=== PATIENT | female | born 1935 | race Caucasian/White ===

== ENCOUNTER → 2017-01-08 | Outpatient (CLI) | payer MEDICARE, BC ==
[2017-01-08 19:00] LABS: Blood Urea Nitrogen 22 mg/dL (7-17); Non-African American GFR(MDRD) >60 (>60 ml/min/1.73 sqM)
--- NOTE | 2017-01-08 21:16 | CT ---
EXAMINATION TYPE: CT abdomen pelvis w con DATE OF EXAM: 01/08/2017 COMPARISON: NONE HISTORY: Abdominal pain and hernia. CT DLP: 392.7 mGycm Automated exposure control for dose reduction was used. TECHNIQUE: Helical acquisition of images was performed from the lung bases through the pelvis. CONTRAST: Performed with Oral Contrast and with IV Contrast, patient injected with 100 mL of Omnipaque 300. FINDINGS: Lung bases are clear of consolidation. There is no pleural effusion. There is an irregular shaped high attenuation in the lateral aspect right lobe of the liver that coul d relate to hemangioma. Bile ducts are upper limit of normal. Common bile duct is 10 mm. There is no evidence of a pancreatic mass. Spleen appears normal. There is no adrenal mass. Kidneys show satisfactory contrast opacification. There is no hydronephrosi s. There is a ventral hernia that contains bowel. There is no evidence of incarceration. There is ret ained fecal material in the right colon. There are a few sigmoid diverticula. There is no sign of div erticulitis. I see no sign of a bowel obstruction. Bladder distends smoothly. There is metal artifact from right hip prosthesis. There is multilevel spondylosis in the lumbar spine. Abdominal aorta is a theromatous.. Gallbladder wall is slightly thickened. IMPRESSION: SPONDYLOSIS IN THE LUMBAR SPINE. VENTRAL HERNIA CONTAINS OMENTAL FAT AND BOWEL. NO EVIDENCE OF OBSTRU CTION. MILD CONSTIPATION. MILD SIGMOID DIVERTICULOSIS. MILD GALLBLADDER WALL THICKENING AND PROMINENT COMMON BILE DUCT CONSISTENT WITH GALLBLADDER DYSFUNCTI ON. OBSTRUCTION OF THE DISTAL COMMON BILE DUCT CANNOT BE EXCLUDED. MRCP WOULD BE HELPFUL FOR FURTHER EVALUATION. CHOLECYSTITIS SHOULD BE CONSIDERED.
== END | disposition home or self-care (01) ==
LOC: RADCTMAIN 18:05
PROVIDERS: ATTEND Surgery
DX: K43.9 Ventral hernia without obstruction or gangrene (principal); K59.00 Constipation, unspecified; K57.30 Diverticulosis of large intestine without perforation or abscess without bleeding; K82.8 Other specified diseases of gallbladder; K81.9 Cholecystitis, unspecified
CPT/HCPCS: 82565; 84520; 74177; 36415; Q9967

== ENCOUNTER 2017-12-03 17:51 | Inpatient (IN) | payer MEDICARE, BC ==
[2017-12-03] MEDS ORDERED: SODIUM CHLORIDE 0.9% 1,000 ML IV STA (17:58)
--- NOTE | 2017-12-03 18:00 | ED ---
General Adult HPI - General Stated complaint: gallstones Time Seen by Provider: 12/03/17 17:54 Source: RN notes reviewed, old records reviewed - History of Present Illness Initial comments: This is an 8-year-old female the ER for evaluation. Patient is extensively evaluation of transfer, patient is accepted for surgical evaluation secondary positive gallbladder disease, cholecystitis positive stone. Patient himself has pain control. No current fever - Related Data Home Medications Medication Instructions Recorded Confirmed Aspirin EC [Ecotrin] 81 mg PO DAILY 08/04/14 08/05/14 Calcium Carb-Vit D 500Mg-200Un 1 each PO DAILY 08/04/14 08/05/14 [Oscal 500+D] Multivitamin [Men's Multi-Vitamin] 1 each PO DAILY 08/04/14 08/05/14 Oxybutynin Chloride [Ditropan] 5 mg PO DAILY 08/04/14 08/05/14 amLODIPine [Norvasc] 10 mg PO DAILY 08/04/14 08/05/14 Allergies Allergy/AdvReac Type Severity Reaction Status Date / Time cephalexin [From Keflex] Allergy Unknown Verified 12/03/17 17:55 ciprofloxacin [From Cipro] Allergy Unknown Verified 12/03/17 17:55 iodine Allergy Unknown Verified 12/03/17 17:55 Review of Systems ROS Statement: Those systems with pertinent positive or pertinent negative responses have been documented in the HPI. ROS Other: All systems not noted in ROS Statement are negative. Past Medical History Past Medical History: CVA/TIA, Hypertension, Myocardial Infarction ([place]) Last Myocardial Infarction Date:: 2004 History of Any Multi-Drug Resistant Organisms: None Reported Past Surgical History: Appendectomy, Hysterectomy Additional Past Surgical History / Comment(s): cataract Past Anesthesia/Blood Transfusion Reactions: No Reported Reaction Past Psychological History: No Psychological Hx Reported Smoking Status: Never smoker Past Alcohol Use History: None Reported Past Drug Use History: None Reported General Exam General appearance: alert, in no apparent distress Head exam: Present: atraumatic, normocephalic, normal inspection Eye exam: Present: normal appearance, PERRL, EOMI. Absent: scleral icterus, conjunctival injection, periorbital swelling ENT exam: Present: normal exam, mucous membranes moist Neck exam: Present: normal inspection. Absent: tenderness, meningismus, lymphadenopathy Respiratory exam: Present: normal lung sounds bilaterally. Absent: respiratory distress, wheezes, rales, rhonchi, stridor Cardiovascular Exam: Present: regular rate, normal rhythm, normal heart sounds. Absent: systolic murmur, diastolic murmur, rubs, gallop, clicks GI/Abdominal exam: Present: soft, normal bowel sounds. Absent: distended, tenderness, guarding, rebound, rigid Extremities exam: Present: normal inspection, full ROM, normal capillary refill. Absent: tenderness, pedal edema, joint swelling, calf tenderness Back exam: Present: normal inspection Neurological exam: Present: alert, oriented X3, CN II-XII intact Psychiatric exam: Present: normal affect, normal mood Skin exam: Present: warm, dry, intact, normal color. Absent: rash Course Vital Signs 12/03/17 17:55 Temperature 97.9 F Pulse Rate 96 Respiratory 20 Rate Blood Pressure 172/76 O2 Sat by Pulse 96 Oximetry - Reevaluation(s) Reevaluation #1: 12/03/17 18:20 transfer paperwork is reviewed, patient no current pain or distress 12/03/17 18:20 Medical Decision Making - Medical Decision Making 82 female the ER for evaluation. Patient as a transfer patient can see hospital as she had a fall earlier today. Patient abnormal lab values prompting CT showing positive dilated gallbladder with stone. - Radiology Data Radiology results: report reviewed (CT abdomen pelvis is positive for gallbladder dilated with stone) Disposition Clinical Impression: Abdominal pain, Cholecystitis, Choledocholithiasis Disposition: ADMITTED IP TO THIS [facility] Condition: Fair Is patient prescribed a controlled substance at d/c from ED?: No Referrals: Raul Sibley NPC [REFERRING] - 1-2 days
[2017-12-03] MEDS ORDERED: MORPHINE SULFATE 2 MG/ML SYRINGE IVP PRN (18:17)
[2017-12-03] MEDS ORDERED: ONDANSETRON 4 MG/2 ML VIAL IVP PRN (18:17)
[2017-12-03] MEDS ORDERED: AMPICILLIN-SULBACTAM 3 GM in SODIUM CHLORIDE 0.9% 100 ML IVPB STA (18:21)
[2017-12-03] MEDS: AMPICILLIN-SULBACTAM 3 GM in SODIUM CHLORIDE 0.9% 100 ML IVPB SCH (23:35)
[2017-12-04] MEDS: AMPICILLIN-SULBACTAM 3 GM in SODIUM CHLORIDE 0.9% 100 ML IVPB SCH ×3 (05:32→20:59)
--- NOTE | 2017-12-04 08:35 | US ---
EXAMINATION TYPE: US gallbladder DATE OF EXAM: 12/04/2017 COMPARISON: 01/08/2017 CLINICAL HISTORY: Abdominal pain. Poor historian EXAM MEASUREMENTS: Liver Length: 13.1 cm Gallbladder Wall: 0.3-0.4 cm CBD: 0.3 cm CHD: 0.4 cm Right Kidney: 9.8 x 4.2 x 4.3 cm Pancreas: Appears echogenic Liver: wnl Gallbladder: Posterior fundal layering avascular debris. Mildly thickened wall. Evidence for sonographic Sweet's sign: neg CBD: Thickened malin CHD: Thickened malin Right Kidney: Medial anechoic lesion at hilum = 0.9 x 1.0 cm representing a renal sinus cyst with in creased through transmission. Two echogenic foci with shadowing in lower pole = 0.4 cm and 0.4 cm rosie t demonstrate clinical artifact compatible with nonobstructing calculi. IMPRESSION: 1. Findings most compatible with tumefactive biliary sludge with prominence to mild thickening of the gallbladder wall and of the common bile duct wall suggesting more chronic inflammatory process. No c ommon bile duct dilatation or pericholecystic fluid to suggest acute cholecystitis. HIDA scan could b e performed if there is further clinical concern or laboratory values are equivocal. 2. Nonobstructing left renal calculi and left renal sinus cyst.
[2017-12-04 08:52] LABS: Basophils % (A) 0 %; Eosinophils % (A) 0 %; HCT 33.8 % (34.0-46.0); HGB 10.7 gm/dL (11.4-16.0); Hypochromasia Moderate; Lymphocytes # (A) 0.5 k/uL (1.0-4.8); Lymphocytes % (A) 3 %; MCHC 31.5 g/dL (31.0-37.0); MCV 95.2 fL (80.0-100.0); Mean Platelet Volume 7.3; Monocytes # (A) 0.5 k/uL (0-1.0); Monocytes % (A) 3 %; Neutrophils # (A) 14.5 k/uL (1.3-7.7); Neutrophils % (A) 92 %; Platelet Count 276 k/uL (150-450); RBC 3.55 m/uL (3.80-5.40); RDW 15.4 % (11.5-15.5); WBC 15.7 k/uL (3.8-10.6)
[2017-12-04] MEDS: ENOXAPARIN 40 MG/0.4 ML SYRINGE SQ SCH (09:02)
[2017-12-04 09:27] LABS: Albumin 3.2 g/dL (3.5-5.0); Calcium 9.5 mg/dL (8.4-10.2); Potassium 3.6 mmol/L (3.5-5.1); Total Bilirubin 5.5 mg/dL (0.2-1.3); Total Protein 5.8 g/dL (6.3-8.2)
[2017-12-04 09:29] LABS: INR 1.1 (<1.2)
--- NOTE | 2017-12-04 10:04 | P.CONS ---
History of Present Illness - Reason for Consult Consult date: 12/04/17 Choledocholithiasis Requesting physician: Rj Pagan - History of Present Illness 82-year-old female transferred from [facility] status post fall and elevated liver enzymes. Consult requested for choledocholithiasis. Additional past medical history aortic valve sclerosis, mild mitral and tricuspid insufficiency, hypertension, DJD, A. fib, pleural effusions Patient reports chronic midepigastric pain for several weeks without fever or hematemesis hematochezia or melena. Denies acholic stools unsure if urine appeared more dark. Multiple x-rays CT of neck negative for acute fractures. Chemistries reviewed from [place] total bilirubin 4.6. AST 153. ALT 160. AP 605. White count 21. Hemoglobin 11. Platelet 256. CT abdomen and pelvis reported gallstones and sludge CBD was not measured no mentioning of intra-or extrahepatic biliary dilatation. Liver spleen pancreas appeared normal. Ultrasound abdomen compatible with tumefactive biliary sludge CBD 0.3 cm. No common bile duct dilatation or pericholecystic fluid to suggest acute cholecystitis. She has been afebrile. Reports "soreness" in the midepigastric epigastric region. Receiving Unasyn. Presently white count is 15.7 improved from 21. Hemoglobin 10.7. Platelet 276. INR 1.1. Total bilirubin 5.5. AST 180. ALT 150. AP 587. Lipase 58. No history of known liver disease has no history of hepatitis. Hepatitis screen pending. Review of Systems Constitutional: Denies fever, chills, sweats, weight gain, or loss. HEENT: Negative for migraines, blurred vision or loss, earaches, drainage, tinnitus, oral mucosal lesions, dysphagia, or odynophagia. CARDIAC: Negative for chest pain, arrhythmias, or palpitation. RESPIRATORY: Negative for shortness of breath, hemoptysis, cough, or sputum production. GI: See HPI for pertinent findings. : Negative for hematuria, urgency, frequency, polyuria, or dysuria. GYNc: Negative vaginal discharge. MUSCULOSKELETAL: Negative for muscle aches, swelling, arthritis, and arthralgias. NEUROLOGIC: Negative for stroke or TIA. ENDOCRINE: Negative for thyroid problems. SKIN: Negative for rash or itching. PSYCHIATRIC: Negative history for depression and anxiety Past Medical History Past Medical History: CVA/TIA, Hypertension, Myocardial Infarction ([place]) Last Myocardial Infarction Date:: 2004 History of Any Multi-Drug Resistant Organisms: None Reported Past Surgical History: Appendectomy, Hysterectomy, Orthopedic Surgery Additional Past Surgical History / Comment(s): cataract Past Anesthesia/Blood Transfusion Reactions: No Reported Reaction Past Psychological History: No Psychological Hx Reported Smoking Status: Never smoker Past Alcohol Use History: None Reported Past Drug Use History: None Reported - Past Family History Mother Family Medical History: Congestive Heart Failure (CHF), Osteoarthritis (OA) Father Family Medical History: Coronary Artery Disease (CAD), Myocardial Infarction ([place] ), Prostate Disorder Medications and Allergies Home Medications Medication Instructions Recorded Confirmed Type Calcium Carb-Vit D 500Mg-200Un 1 tab PO DAILY 08/04/14 12/03/17 History [Oscal 500+D] Multivitamin [Men's Multi-Vitamin] 1 tab PO DAILY 08/04/14 12/03/17 History Acetaminophen Tab [Tylenol Tab] 325 mg PO Q6H PRN 12/03/17 12/03/17 History Lisinopril [Zestril] 2.5 mg PO DAILY 12/03/17 12/03/17 History Loratadine [Claritin] 10 mg PO DAILY 12/03/17 12/03/17 History Allergies Allergy/AdvReac Type Severity Reaction Status Date / Time cephalexin [From Keflex] Allergy Unknown Verified 12/03/17 18:49 ciprofloxacin [From Cipro] Allergy Unknown Verified 12/03/17 18:49 iodine Allergy Unknown Verified 12/03/17 18:49 Physical Exam Vitals: Vital Signs Temp Pulse Pulse Resp BP BP Pulse Ox 12/04/17 01:13 98.8 F 57 L 15 109/68 98 12/03/17 21:12 97.7 F 86 18 145/69 12/03/17 19:08 99.2 F 85 17 146/65 98 12/03/17 17:55 97.9 F 96 20 172/76 96 Intake and Output 12/03/17 12/04/17 12/04/17 22:59 06:59 14:59 Intake Total 200 Balance 200 Intake: Intake, IV Titration 200 Amount Ampicillin-Sulbactam 3 gm 200 In Sodium Chloride 0.9% 100 ml @ 100 mls/hr IVPB Q6HR [facility] Rx#:[id number] Other: Voiding Method Bedside Commode # Voids 1 2 Weight 53.977 kg General appearance: The patient is alert, oriented, in no acute distress. HET: Head is normocephalic and atraumatic. Pupils are equal and reactive. Oropharynx is clear without lesions. Sclerae icterus. Chin dressing intact. Neck: Supple without lymphadenopathy. Trachea midline. Heart: S1 S2. Regular rate and rhythm. Lungs: No crackles or wheezes are heard. Abdomen: Soft, very mild soreness in the midepigastrium, nondistended with bowel sounds. No peritoneal signs. No palpable organomegaly or masses. Extremities: Normal skin color and turgor. No cyanosis, rash, ulceration, clubbing, or edema. Radial and pedal pulses are 2/4 bilaterally. Neurological: No focal deficits. Strength and sensation are grossly intact. Results CBC & Chem 7: 12/04/17 08:15 12/04/17 08:15 Labs: Abnormal Lab Results - Last 24 Hours (Table) 12/04/17 12/04/17 Range/Units 08:15 08:15 WBC 15.7 H (3.8-10.6) k/uL RBC 3.55 L (3.80-5.40) m/uL Hgb 10.7 L (11.4-16.0) gm/dL Hct 33.8 L (34.0-46.0) % Neutrophils # 14.5 H (1.3-7.7) k/uL Lymphocytes # 0.5 L (1.0-4.8) k/uL Chloride 109 H (98-107) mmol/L Carbon Dioxide 15 L (22-30) mmol/L BUN 20 H (7-17) mg/dL Total Bilirubin 5.5 H (0.2-1.3) mg/dL AST 180 H (14-36) U/L ALT 150 H (9-52) U/L Alkaline Phosphatase 587 H (38-126) U/L Total Protein 5.8 L (6.3-8.2) g/dL Albumin 3.2 L (3.5-5.0) g/dL CT scan - abdomen: report reviewed ([place] report reviewed) US - abdomen: report reviewed (Report reviewed) Assessment and Plan (1) Choledocholithiasis Narrative/Plan: 82-year-old female transferred from [facility] status post fall epigastric pain elevated liver enzymes gallstones consistent with choledocholithiasis. Current Visit: Yes Status: Acute Code(s): K80.50 - CALCULUS OF BILE DUCT W/ O CHOLANGITIS OR CHOLECYST W/O OBST SNOMED Code(s): 286120205 (2) Status post fall Current Visit: Yes Status: Acute Code(s): Z91.81 - HISTORY OF FALLING SNOMED Code(s): 178973185 (3) Cholelithiasis Current Visit: Yes Status: Acute Code(s): K80.20 - CALCULUS OF GALLBLADDER W /O CHOLECYSTITIS W/O OBSTRUCTION SNOMED Code(s): 191870663 (4) Leukocytosis Current Visit: Yes Status: Acute Code(s): D72.829 - ELEVATED WHITE BLOOD CELL COUNT, UNSPECIFIED SNOMED Code(s): 139445087 Plan: 1. Nothing by mouth except meds. ERCP evaluation. 2. IV Unasyn. 3. Hepatitis screen. 4. Hold Lovenox. The quality control engineer has discussed the risks, benefits and alternative therapies for the above-mentioned procedure and for both sedation/analgesia as well as necessary blood product administration, if indicated, as they pertain to this patient. The patient has indicated understanding and acceptance of the risks and procedures discussed. Thank you for this kind referral and the opportunity to participate in the care of your patient. This consultation was discussed with Dr. Colvin. The impression and plan of care have been directed as dictated.
--- NOTE | 2017-12-04 11:19 | P.GSHP ---
History of Present Illness H&P Date: 12/04/17 Chief Complaint: Right upper quadrant pain This is a 8-year-old female who was transferred to the emergency room. Patient complaints of right quadrant pain. She had elevation of her liver function tests and has has history of gallstones. She admitted for treatment of choledocholithiasis. Patient also had an elevated white count suggestive of sepsis due to choledocholithiasis. GI was consult for urgent ERCP at the time of admission. Past Medical History Past Medical History: CVA/TIA, Hypertension, Myocardial Infarction ([place]) Last Myocardial Infarction Date:: 2004 History of Any Multi-Drug Resistant Organisms: None Reported Past Surgical History: Appendectomy, Hysterectomy, Orthopedic Surgery Additional Past Surgical History / Comment(s): cataract Past Anesthesia/Blood Transfusion Reactions: No Reported Reaction Past Psychological History: No Psychological Hx Reported Smoking Status: Never smoker Past Alcohol Use History: None Reported Past Drug Use History: None Reported - Past Family History Mother Family Medical History: Congestive Heart Failure (CHF), Osteoarthritis (OA) Father Family Medical History: Coronary Artery Disease (CAD), Myocardial Infarction ([place] ), Prostate Disorder Medications and Allergies Home Medications Medication Instructions Recorded Confirmed Type Calcium Carb-Vit D 500Mg-200Un 1 tab PO DAILY 08/04/14 12/03/17 History [Oscal 500+D] Multivitamin [Men's Multi-Vitamin] 1 tab PO DAILY 08/04/14 12/03/17 History Acetaminophen Tab [Tylenol Tab] 325 mg PO Q6H PRN 12/03/17 12/03/17 History Lisinopril [Zestril] 2.5 mg PO DAILY 12/03/17 12/03/17 History Loratadine [Claritin] 10 mg PO DAILY 12/03/17 12/03/17 History Allergies Allergy/AdvReac Type Severity Reaction Status Date / Time cephalexin [From Keflex] Allergy Unknown Verified 12/03/17 18:49 ciprofloxacin [From Cipro] Allergy Unknown Verified 12/03/17 18:49 iodine Allergy Unknown Verified 12/03/17 18:49 Surgical - Exam Vital Signs Temp Pulse Resp BP Pulse Ox 97.9 F 96 20 172/76 96 12/03/17 17:55 12/03/17 17:55 12/03/17 17:55 12/03/17 17:55 12/03/17 17:55 - General well developed, moderate distress - Eyes icteric - ENT normal pinna - Respiratory normal expansion - Cardiovascular Rhythm: regular - Abdomen Abdomen is soft there is epigastric tenderness. Results - Labs 12/04/17 08:15 12/04/17 08:15 Abnormal Lab Results - Last 24 Hours (Table) 12/04/17 12/04/17 Range/Units 08:15 08:15 WBC 15.7 H (3.8-10.6) k/uL RBC 3.55 L (3.80-5.40) m/uL Hgb 10.7 L (11.4-16.0) gm/dL Hct 33.8 L (34.0-46.0) % Neutrophils # 14.5 H (1.3-7.7) k/uL Lymphocytes # 0.5 L (1.0-4.8) k/uL Chloride 109 H (98-107) mmol/L Carbon Dioxide 15 L (22-30) mmol/L BUN 20 H (7-17) mg/dL Total Bilirubin 5.5 H (0.2-1.3) mg/dL AST 180 H (14-36) U/L ALT 150 H (9-52) U/L Alkaline Phosphatase 587 H (38-126) U/L Total Protein 5.8 L (6.3-8.2) g/dL Albumin 3.2 L (3.5-5.0) g/dL Diabetes panel 12/04/17 Range/Units 08:15 Sodium 140 (137-145) mmol/L Potassium 3.6 (3.5-5.1) mmol/L Chloride 109 H (98-107) mmol/L Carbon Dioxide 15 L (22-30) mmol/L BUN 20 H (7-17) mg/dL Creatinine 0.79 (0.52-1.04) mg/dL Glucose 74 (74-99) mg/dL Calcium 9.5 (8.4-10.2) mg/dL AST 180 H (14-36) U/L ALT 150 H (9-52) U/L Alkaline Phosphatase 587 H (38-126) U/L Total Protein 5.8 L (6.3-8.2) g/dL Albumin 3.2 L (3.5-5.0) g/dL Calcium panel 12/04/17 Range/Units 08:15 Calcium 9.5 (8.4-10.2) mg/dL Albumin 3.2 L (3.5-5.0) g/dL Pituitary panel 12/04/17 Range/Units 08:15 Sodium 140 (137-145) mmol/L Potassium 3.6 (3.5-5.1) mmol/L Chloride 109 H (98-107) mmol/L Carbon Dioxide 15 L (22-30) mmol/L BUN 20 H (7-17) mg/dL Creatinine 0.79 (0.52-1.04) mg/dL Glucose 74 (74-99) mg/dL Calcium 9.5 (8.4-10.2) mg/dL Adrenal panel 12/04/17 Range/Units 08:15 Sodium 140 (137-145) mmol/L Potassium 3.6 (3.5-5.1) mmol/L Chloride 109 H (98-107) mmol/L Carbon Dioxide 15 L (22-30) mmol/L BUN 20 H (7-17) mg/dL Creatinine 0.79 (0.52-1.04) mg/dL Glucose 74 (74-99) mg/dL Calcium 9.5 (8.4-10.2) mg/dL Total Bilirubin 5.5 H (0.2-1.3) mg/dL AST 180 H (14-36) U/L ALT 150 H (9-52) U/L Alkaline Phosphatase 587 H (38-126) U/L Total Protein 5.8 L (6.3-8.2) g/dL Albumin 3.2 L (3.5-5.0) g/dL - Imaging US - abdomen: report reviewed (Sludge in gallbladder with thickened common bile duct and gallbladder wall) Assessment and Plan Plan: Sepsis due to choledocholithiasis. The patient receiving IV antibiotics. She has been evaluated by the GI service. She will need urgent ERCP. I discussed this case with Dr. Brumfield and Dr. Spear. She'll continue nothing by mouth. We' ll continue IV antibiotic. Once her ERCP has been performed we will plan for laparoscopic cholecystectomy.
[2017-12-04] MEDS ORDERED: methylPREDNISolone SOD SUCCI 125 MG/2 ML VIAL ONE (11:54)
[2017-12-04] MEDS ORDERED: PROPOFOL 10 MG/ML 20 ML VIAL IV ONE (11:54)
[2017-12-04] MEDS ORDERED: diphenhydrAMINE 50 MG/ML 1 ML VIAL ONE (11:54)
[2017-12-04] MEDS ORDERED: INDOMETHACIN 50MG SUPPOSITORY RECTAL ONE (16:00)
[2017-12-04] MEDS ORDERED: IV FLUID CONTINUATION 400 ML IV ONE (16:54)
[2017-12-04 17:24] LABS: Hepatitis A Antibody IgM Non-Reactive (Non-Reactive); Hepatitis B Core IgM Non-Reactive (Non-Reactive)
[2017-12-04] MEDS ORDERED: IOPAMIDOL-300 50ML BTL MISCELLANE ONE (17:45)
[2017-12-04] MEDS ORDERED: SODIUM CHLORIDE 0.9% 500 ML IV ONE (18:12)
--- NOTE | 2017-12-04 18:37 | P.PCN ---
Date of Procedure: 12/04/17 Procedure(s) Performed: Procedure: Endoscopic retrograde cholangiopancreatography ERCP with sphincterotomy and with passing of the 11.5 mm balloon catheter across the sphincterotomy site fully inflated. Preoperative diagnosis: Jaundice and suspected common bile duct stones and sepsis. Postoperative diagnosis: Normal papilla and normal pancreatic duct. Dilated common bile duct with small filling defects suggestive of stones. Sphincterotomy successfully performed and 11.5 mm balloon catheter was insufflated and was passed across the sphincterotomy site fully inflated. No actual stones were seen extracted during this maneuver. Preparation and sedation: Was provided by anesthesia. Brief clinical history: The patient is an 82-year-old female who was transferred from [facility] following a fall and finding of elevated liver enzymes. Additional past medical history include aortic valve sclerosis, mild mitral and tricuspid insufficiency, hypertension, DJD, A. fib, pleural effusions Patient reports chronic midepigastric pain for several weeks without fever or hematemesis, hematochezia or melena. Denies acholic stools unsure if urine appeared more dark. Multiple x-rays and CT of neck were negative for acute fractures. Chemistries reviewed from [place] total bilirubin 4.6. AST 153. ALT 160. AP 605. White count 21. Hemoglobin 11. Platelet 256. CT abdomen and pelvis reported gallstones and sludge CBD was not measured no mentioning of intra-or extrahepatic biliary dilatation. Liver spleen pancreas appeared normal. Ultrasound abdomen compatible with tumefactive biliary sludge CBD 0.3 cm. No common bile duct dilatation or pericholecystic fluid to suggest acute cholecystitis. She has been afebrile. Reports "soreness" in the midepigastric epigastric region. Receiving Unasyn. Presently white count is 15.7 improved from 21. Hemoglobin 10.7. Platelet 276. INR 1.1. Total bilirubin 5.5. AST 180. ALT 150. AP 587. Lipase 58. Other details are summarized in the history and physical and dictated consultation sent progress Notes. This evaluation is to assess for possible common bile duct stones. Procedure: With the patient in the prone position and after informed consent and adequate sedation, I passed the Olympus video duodenoscope down the esophagus into the stomach, then passed it through the pylorus into the duodenum and brought the papilla into view. The papilla appeared normal and there were couple small duodenal diverticula in the vicinity. Initial cannulation and injection with dye resulted in opacification of the pancreatic duct which appeared normal. Subsequently, I was able to cannulate selectively and visualize the common bile duct, which appeared dilated and there was faint small filling defects that could represent common bile duct stones. The cystic duct was patent and there were similar filling defects in the gallbladder observed under fluoroscopy. I therefore proceeded to exchange the catheter for a sphincterotome over a guidewire and performed adequate sphincterotomy. Following that, I passed the 8 mm then the 11.5 mm balloon catheter inflated it and withdrew it fully inflated. No common bile duct stones were seen extracted during this maneuver but note should be made that the 11.5 mm balloon was pulled across the sphincterotomy site fully inflated. I also used the 15 mm balloon to sweep inside the common bile duct but I did not exert pressure to pull it out inflated. The patient tolerated the procedure well. Plan: The patient and her family were reassured. Will keep on liquid diet and monitor her overnight. Further plans will be made based on her course. I would discuss with the general surgeon as well.
[2017-12-05] MEDS: AMPICILLIN-SULBACTAM 3 GM in SODIUM CHLORIDE 0.9% 100 ML IVPB SCH ×5 (01:04→23:42)
[2017-12-05] MEDS: ENOXAPARIN 40 MG/0.4 ML SYRINGE SQ SCH (08:53)
--- NOTE | 2017-12-05 09:50 | P.PN ---
Progress Note - Text Progress Note Date: 12/05/17 The patient underwent ERCP yesterday. She states she feels better. On exam her vital signs are stable. Her abdomen is soft. There is some minimal right quadrant tenderness. Choledocholithiasis with cholecystitis. Patient will undergo laparoscopic ostectomy in the a.m.
[2017-12-05 10:35] LABS: Basophils % (A) 0 %; Eosinophils % (A) 0 %; HCT 33.5 % (34.0-46.0); HGB 10.3 gm/dL (11.4-16.0); Hypochromasia Marked; Lymphocytes # (A) 0.8 k/uL (1.0-4.8); Lymphocytes % (A) 4 %; MCH 29.5 pg (25.0-35.0); MCHC 30.7 g/dL (31.0-37.0); MCV 96.1 fL (80.0-100.0); Monocytes # (A) 0.2 k/uL (0-1.0); Monocytes % (A) 1 %; Neutrophils # (A) 16.3 k/uL (1.3-7.7); Neutrophils % (A) 94 %; Platelet Count 303 k/uL (150-450); RBC 3.49 m/uL (3.80-5.40); RDW 15.8 % (11.5-15.5); WBC 17.4 k/uL (3.8-10.6)
[2017-12-05 10:46] LABS: Albumin 2.9 g/dL (3.5-5.0); Calcium 9.2 mg/dL (8.4-10.2); Potassium 3.1 mmol/L (3.5-5.1); Total Bilirubin 4.5 mg/dL (0.2-1.3); Total Protein 5.2 g/dL (6.3-8.2)
[2017-12-05] MEDS ORDERED: Potassium Replacement Protocol 1 EACH MISC MISCELLANE PRN (11:05)
[2017-12-05] MEDS: POTASSIUM CHLORIDE ER 20 MEQ TAB.ER PO SCH ×4 (11:40→19:05)
[2017-12-05] MEDS: CALCIUM CARBONATE 500 MG CHEWABLE PO PRN ×3 (11:40→18:00)
[2017-12-05] MEDS: HYDROcodone/APAP 7.5-325MG 1 EACH TAB PO PRN (15:30)
[2017-12-05] MEDS ORDERED: POTASSIUM CHLORIDE 20 MEQ in WATER FOR INJECTION 1 100ML.BAG IVPB STA (19:10)
[2017-12-06] MEDS: AMPICILLIN-SULBACTAM 3 GM in SODIUM CHLORIDE 0.9% 100 ML IVPB SCH ×4 (05:38→23:30)
[2017-12-06] MEDS: ENOXAPARIN 40 MG/0.4 ML SYRINGE SQ SCH (07:32)
[2017-12-06] MEDS ORDERED: NEOSTIGMINE 1 MG/ML 10 ML VIAL ONE (08:00)
[2017-12-06] MEDS ORDERED: DEXAMETHASONE SOD PHOS (MDV) 100 MG/10 ML VIAL ONE (08:00)
[2017-12-06] MEDS ORDERED: ONDANSETRON 4 MG/2 ML VIAL ONE (08:00)
[2017-12-06] MEDS ORDERED: NALOXONE 0.4 MG/ML 1 ML VIAL ONE (08:00)
[2017-12-06] MEDS ORDERED: FLUMAZENIL 0.1 MG/ML 5 ML VIAL IVP ONE (08:00)
[2017-12-06] MEDS ORDERED: fentaNYL (PF) 50 MCG/ML 2 ML AMP ONE (08:00)
[2017-12-06] MEDS ORDERED: SUCCINYLCHOLINE CHLORIDE 100 MG/5 ML SYR IV ONE (08:00)
[2017-12-06] MEDS ORDERED: MIDAZOLAM 2 MG/2 ML VIAL ONE (08:00)
[2017-12-06] MEDS ORDERED: PHENYLEPHRINE-0.9% NACL SYG 1 MG/10 ML SYRINGE ONE (08:00)
[2017-12-06] MEDS ORDERED: ROCURONIUM BROMIDE 10 MG/ML 10 ML VIAL IV ONE (08:00)
[2017-12-06] MEDS ORDERED: PROPOFOL 10 MG/ML 20 ML VIAL IV ONE (08:00)
[2017-12-06] MEDS ORDERED: GLYCOPYRROLATE 0.2 MG/ML 2 ML VIAL ONE (08:00)
[2017-12-06] MEDS ORDERED: LIDOCAINE 1% INJ 10MG/ML (20 ML MDV) ONE (08:00)
[2017-12-06] MEDS ORDERED: BUPIVACAINE (PF) 0.5% 30 ML VIAL SQ ONE (08:27)
[2017-12-06] MEDS ORDERED: IV FLUID CONTINUATION 400 ML IV ONE (08:30)
[2017-12-06] MEDS ORDERED: LACTATED RINGERS 1,000 ML IV ONE (08:57)
--- NOTE | 2017-12-06 09:16 | P.OP ---
Date of Procedure: 12/06/17 Preoperative Diagnosis: Cholecystitis Postoperative Diagnosis: Cholecystitis Cholelithiasis Procedure(s) Performed: Operative Cholecystectomy Anesthesia: JAYE Surgeon: Rj Pagan Estimated Blood Loss (ml): 30 Pathology: other (Gallbladder) Condition: stable Disposition: PACU Description of Procedure: The patient was placed on the operating table. The patient received a general endotracheal tube anesthesia. The patients abdomen was prepped and draped in the usual sterile fashion. Through an infraumbilical stab incision, the fascia of the anterior abdominal wall was grasped with a pair of Kochers and then the Veress needle was placed in the peritoneal cavity. Position of the Veress needle was confirmed with positive drop test. The abdomen was then insufflated. After adequate insufflation, the 10 mm trocar was placed in the peritoneal cavity. Following this the laparoscope was placed in the peritoneal cavity. The patient was placed in the head-up, right side up position and then a 5 mm trocar was placed in the right lateral and right subcostal position under direct visualization. A 8 mm trocar was placed in the epigastric position. The gallbladder was grasped in the fundus and infundibulum. Traction on the gallbladder was placed in the lateral and the cephalad positions. The triangle of Calot was visualized.. The cystic duct was bluntly dissected until the union of the cystic duct and common bile duct was seen. The cystic duct was then divided and sealed with the Harmonic scissors. A PDS Endoloop was then placed throughout the cystic duct stump. The cystic artery divided and sealed with the Harmonic scissors. The gallbladder was then removed from the liver bed using Harmonic scissors. The gallbladder was then extracted through the epigastric port site. Operative field was checked for any bleeding spots and Harmonic scissors was used to coagulate the liver bed. The abdomen was irrigated. The trocars were removed. The skin was closed using interrupted 3-0 Vicryl suture. Dermabond dressing were applied. The patient tolerated the procedure well.
[2017-12-06] MEDS: HYDROmorphone 1 MG/ML 1 ML SYRINGE IVP ONE ×2 (10:20→10:29)
--- NOTE | 2017-12-06 17:39 | FL ---
Fluoroscopy INDICATION: Pain FINDINGS: Fluoroscopy time: 1 minute 11 seconds. Images obtained: 1. Single images obtained over the distal common bile duct. No obvious filling defects are evident. IMPRESSIONS: 1. Documentation of fluoroscopy.
[2017-12-06] MEDS: HYDROcodone/APAP 7.5-325MG 1 EACH TAB PO PRN (20:08)
[2017-12-07] MEDS: HYDROcodone/APAP 7.5-325MG 1 EACH TAB PO PRN ×2 (03:25→08:08)
[2017-12-07] MEDS: AMPICILLIN-SULBACTAM 3 GM in SODIUM CHLORIDE 0.9% 100 ML IVPB SCH ×4 (05:14→23:23)
[2017-12-07] MEDS: ENOXAPARIN 40 MG/0.4 ML SYRINGE SQ SCH (08:08)
[2017-12-07] MEDS ORDERED: NALOXONE 0.4 MG/ML 1 ML VIAL IV STA (08:24)
[2017-12-07] MEDS ORDERED: ACETAMINOPHEN IV (For NPO) 1,000 MG in EMPTY BAG 1 BAG IVPB PRN (08:43)
--- NOTE | 2017-12-07 10:16 | P.PN ---
<Katey Mireles - Last Filed: 12/07/17 10:00> Subjective Progress Note Date: 12/07/17 82-year-old female seen examined at the request of nursing. Nursing reports that the patient had a decrease in mentation this morning and was given Narcan after receiving [place] at 3:30 this morning and morphine 4 mg at 5 AM. Upon entering the room the patient is oriented to self only with prompting will move extremities to simple commands no facial droop blood pressure 157/7 heart rate in the 80s temp 98 no labs this morning Patient is postop December 06 laparoscopic cholecystectomy for acute cholecystitis and cholelithiasis Patient's initial presentation was a transfer from [facility] after the patient had fallen was noted to have elevated liver enzymes. Had been seen this admission by GI service. The computed tomography scan of the abdomen pelvis reported gallstones and sludge with common bile duct not measured. Ultrasound was compatible with sludge. Objective - Vital Signs Vital signs: Vital Signs Temp 98.3 F 12/07/17 07:51 Pulse 83 12/07/17 07:51 Resp 20 12/07/17 08:26 BP 157/70 12/07/17 07:51 Pulse Ox 98 12/07/17 07:51 Intake & Output 12/06/17 12/07/17 12/07/17 18:59 06:59 18:59 Intake Total 600 Output Total 30 Balance 570 Intake: IV 600 Output: Estimated Blood Loss 30 Other: Voiding Method Bedside Commode Diaper Diaper Incontinent # Voids 1 3 - Exam Physical exam 82-year-old female resting in bed oriented to person "I'm having surgery today" does not consistently follow simple commands no facial droop Lungs adequate air movement bilaterally sats are 98% on 2 L Heart S1-S2 audible regular Abdomen surgical dressing site dry surgical tenderness appropriate a few hypoactive bowel tones no stool no nausea no vomiting incontinently urine Extremities no edema noted - Labs CBC & Chem 7: 12/05/17 10:10 12/06/17 04:30 Assessment and Plan Assessment: Impression Acute encephalopathy toxic likely due to narcotics reversed with Narcan Postop laparoscopic cholecystectomy for cholelithiasis and cholecystitis on December 06 Status post ERCP with sphincterotomy done on December 04 showed normal pancreatic duct normal papilla dilated common bile duct with small filling defects suggestive of stones History of a fall prior to admission Present on admission elevated liver enzymes History of atrial fibrillation Hypertension Leukocytosis febrile present on admission likely due to sepsis due to cholecystitis Hypokalemia corrected resolved Plan We'll check a computed tomography scan of the brain now Neuro consult Neurochecks as ordered Placed on a bus monitor Repeat labs now Stop narcotics . DVT and GI prophylaxis Further recommendations pending Continue postop surgical care PT OT eval Fall precautions Dictating progress note for Dr. Presley rounding on behalf followed dr travis The above impression and plan of care have been discussed and directed by signing physician. Katey Mireles nurse practitioner acting as scribe for signing physician. <Miesha Presley N - Last Filed: 12/07/17 21:31> Objective - Vital Signs Vital signs: Vital Signs Temp 97.4 F L 12/07/17 20:06 Pulse 80 12/07/17 20:06 Resp 16 12/07/17 20:06 BP 149/64 12/07/17 20:06 Pulse Ox 97 12/07/17 20:06 Intake & Output 12/07/17 12/07/17 12/08/17 06:59 18:59 06:59 Other: Voiding Method Bedside Commode Diaper Diaper Incontinent # Voids 3 2 - Labs CBC & Chem 7: 12/07/17 09:52 12/07/17 09:52 Labs: Abnormal Lab Results - Last 24 Hours (Table) 12/07/17 12/07/17 12/07/17 Range/Units 09:52 09:52 09:52 WBC 16.5 H (3.8-10.6) k/uL RBC 3.27 L (3.80-5.40) m/uL Hgb 9.7 L (11.4-16.0) gm/dL Hct 31.1 L (34.0-46.0) % RDW 16.0 H (11.5-15.5) % Neutrophils # (Manual) 15.60 H (1.3-7.7) k/uL Lymphocytes # (Manual) 0.17 L (1.0-4.8) k/uL Chloride 118 H (98-107) mmol/L Carbon Dioxide 18 L (22-30) mmol/L BUN 28 H (7-17) mg/dL Total Bilirubin 6.1 H (0.2-1.3) mg/dL AST 209 H (14-36) U/L ALT 278 H (9-52) U/L Alkaline Phosphatase 651 H (38-126) U/L Ammonia 34 H (<30) umol/L Total Protein 4.7 L (6.3-8.2) g/dL Albumin 2.3 L (3.5-5.0) g/dL
[2017-12-07 10:21] LABS: ALT 278 U/L (9-52); AST 209 U/L (14-36); Albumin 2.3 g/dL (3.5-5.0); Alkaline Phosphatase 651 U/L (38-126); Anion Gap 9 mmol/L; Blood Urea Nitrogen 28 mg/dL (7-17); Calcium 9.5 mg/dL (8.4-10.2); Carbon Dioxide 18 mmol/L (22-30); Chloride 118 mmol/L (98-107); Glucose 93 mg/dL (74-99); Potassium 3.6 mmol/L (3.5-5.1); Sodium 145 mmol/L (137-145); Total Bilirubin 6.1 mg/dL (0.2-1.3); Total Protein 4.7 g/dL (6.3-8.2)
[2017-12-07 10:44] LABS: HCT 31.1 % (34.0-46.0); HGB 9.7 gm/dL (11.4-16.0); Hypochromasia Moderate; MCH 29.7 pg (25.0-35.0); MCHC 31.3 g/dL (31.0-37.0); MCV 94.9 fL (80.0-100.0); Mean Platelet Volume 7.5; Platelet Count 270 k/uL (150-450); RBC 3.27 m/uL (3.80-5.40); WBC 16.5 k/uL (3.8-10.6)
--- NOTE | 2017-12-07 10:52 | CT ---
EXAMINATION TYPE: CT brain wo con DATE OF EXAM: 12/07/2017 HISTORY: Patient shows signs of altered mental status. CT DLP: 1103 mGycm. Automated Exposure Control for Dose Reduction was Utilized. TECHNIQUE: CT scan of the head is performed without contrast. COMPARISON: Outside CT brain December 03, 2017. FINDINGS: There is no acute intracranial hemorrhage or midline shift identified. There is diffuse v entricular and sulcal prominence consistent with diffuse age-related cerebral atrophy. There is more prominent low-attenuation in the periventricular white matter consistent most likely on basis of pro duct of chronic small vessel ischemic change in patient of this age. Some vascular calcification dis cari internal carotid arteries and distal right vertebral artery is redemonstrated. The globes are int act and the visualized sinuses are clear. IMPRESSION: No acute intracranial hemorrhage or midline shift. There is persistent mild diffuse age -related cerebral atrophy and more moderate to severe chronic small vessel ischemic change redemonstr ated. There is no significant change from old outside CT.
[2017-12-07 11:11] LABS: Band Neutrophils % 2 %; Lymphocytes # (M) 0.17 k/uL (1.0-4.8); Monocytes # (M) 0.66 k/uL (0-1.0); Neutrophils % (M) 93 %; Nucleated Red Blood Cells 0 /100 WBC (0-0); Total Cells Counted 100
[2017-12-07] MEDS ORDERED: PANTOPRAZOLE 40 MG TABLET PO SCH (11:45)
--- NOTE | 2017-12-07 11:58 | P.CONS ---
History of Present Illness - Reason for Consult Altered mental status - History of Present Illness Patient [id number] female is admitted for, while at [facility] underwent ERCP subsequently patient underwent the cholecystectomy yesterday patient does have good bowel sounds are was consulted with for altered mental status patient is alert oriented 1 patient is normally alert oriented 3 takes care of herself at home patient denied any cough runny nose although not a very good historian patient does not have any signs or symptoms of any acute infection at this point of time patient is on Unasyn. I did review operative report unsure whether gallbladder was neck otic been the visualized directly at the time. Patient postoperatively was bit confused and today she became more confused. CT of the head was showed stroke changes. No intracranial bleed. Patient doesn't have any dysuria. Review of Systems Unable to obtain due to her confusion Past Medical History Past Medical History: CVA/TIA, Hypertension, Myocardial Infarction ([place]) Last Myocardial Infarction Date:: 2004 History of Any Multi-Drug Resistant Organisms: None Reported Past Surgical History: Appendectomy, Hysterectomy, Orthopedic Surgery Additional Past Surgical History / Comment(s): cataract Past Anesthesia/Blood Transfusion Reactions: No Reported Reaction Past Psychological History: No Psychological Hx Reported Smoking Status: Never smoker Past Alcohol Use History: None Reported Past Drug Use History: None Reported - Past Family History Mother Family Medical History: Congestive Heart Failure (CHF), Osteoarthritis (OA) Father Family Medical History: Coronary Artery Disease (CAD), Myocardial Infarction ([place] ), Prostate Disorder Medications and Allergies Home Medications Medication Instructions Recorded Confirmed Type Calcium Carb-Vit D 500Mg-200Un 1 tab PO DAILY 08/04/14 12/03/17 History [Oscal 500+D] Multivitamin [Men's Multi-Vitamin] 1 tab PO DAILY 08/04/14 12/03/17 History Acetaminophen Tab [Tylenol Tab] 325 mg PO Q6H PRN 12/03/17 12/03/17 History Lisinopril [Zestril] 2.5 mg PO DAILY 12/03/17 12/03/17 History Loratadine [Claritin] 10 mg PO DAILY 12/03/17 12/03/17 History Docusate [Colace] 100 mg PO BID #20 capsule 12/06/17 Rx HYDROcodone/APAP 7.5-325MG [[place] 1 tab PO Q4H PRN 3 Days #18 tab 12/06/17 Rx 7.5-325] Allergies Allergy/AdvReac Type Severity Reaction Status Date / Time cephalexin [From Keflex] Allergy Unknown Verified 12/03/17 18:49 ciprofloxacin [From Cipro] Allergy Unknown Verified 12/03/17 18:49 iodine Allergy Unknown Verified 12/03/17 18:49 Physical Exam Vitals: Vital Signs Temp Pulse Resp BP Pulse Ox 12/07/17 08:26 20 12/07/17 07:51 98.3 F 83 20 157/70 98 12/07/17 00:20 98.8 F 85 14 143/79 97 12/06/17 20:00 97.1 F L 77 16 170/71 99 12/06/17 13:00 66 14 118/66 99 12/06/17 12:45 66 14 120/68 100 12/06/17 12:30 66 14 129/67 100 12/06/17 12:15 65 14 123/68 100 12/06/17 12:00 64 14 123/65 100 Intake and Output 12/06/17 12/07/17 12/07/17 22:59 06:59 14:59 Other: Voiding Method Bedside Commode Diaper Diaper Incontinent # Voids 1 3 PHYSICAL EXAMINATION: GENERAL: The patient is alert and oriented 110 built HEENT: Pupils are round and equally reacting to light. EOMI. No scleral icterus. No conjunctival pallor. Normocephalic, atraumatic. No pharyngeal erythema. No thyromegaly. CARDIOVASCULAR: S1 and S2 present. No murmurs, rubs, or gallops. PULMONARY: Chest is clear to auscultation, no wheezing or crackles. ABDOMEN: Soft, nontender, nondistended, surgical site areas appear to be clean MUSCULOSKELETAL: No joint swelling or deformity. EXTREMITIES: No cyanosis, clubbing, or pedal edema. NEUROLOGICAL: Gross neurological examination did not reveal any new focal deficits. SKIN: No rashes. Results CBC & Chem 7: 12/07/17 09:52 12/07/17 09:52 Labs: Abnormal Lab Results - Last 24 Hours (Table) 12/07/17 12/07/17 12/07/17 Range/Units 09:52 09:52 09:52 WBC 16.5 H (3.8-10.6) k/uL RBC 3.27 L (3.80-5.40) m/uL Hgb 9.7 L (11.4-16.0) gm/dL Hct 31.1 L (34.0-46.0) % RDW 16.0 H (11.5-15.5) % Neutrophils # (Manual) 15.60 H (1.3-7.7) k/uL Lymphocytes # (Manual) 0.17 L (1.0-4.8) k/uL Chloride 118 H (98-107) mmol/L Carbon Dioxide 18 L (22-30) mmol/L BUN 28 H (7-17) mg/dL Total Bilirubin 6.1 H (0.2-1.3) mg/dL AST 209 H (14-36) U/L ALT 278 H (9-52) U/L Alkaline Phosphatase 651 H (38-126) U/L Ammonia 34 H (<30) umol/L Total Protein 4.7 L (6.3-8.2) g/dL Albumin 2.3 L (3.5-5.0) g/dL Assessment and Plan Plan: -Altered mental status: Secondary to toxic encephalopathy from medications medically opiates which was subsequently discontinued patient is on Tylenol for pain which can also use Toradol for pain. Patient is on GI prophylaxis. -Cholecystitis and possibility of sepsis secondary to that and the patient is on Unasyn at this time -Dilated common bile duct status post ERCP and cholecystectomy -Hypertension -Elevated liver enzymes secondary to cold a cholelithiasis, liver enzymes are expected to improve we'll repeat tomorrow. Ammonia is within normal limits DVT prophylaxis on low molecular weight heparin as per primary service
--- NOTE | 2017-12-07 15:17 | P.CNNES ---
History of Present Illness Consult date: 12/07/17 Reason for Consult: Patient with altered mental status and confusion. History of Present Illness: This patient is a 82-year-old right-handed white female who was admitted to [facility] yesterday for evaluation of fall and elevated liver enzymes. She was seen by surgery and was found to have evidence of acute cholecystitis and cholelithiasis. Patient underwent laparoscopic cholecystectomy for this condition yesterday. This morning at about 3:30 AM the patient developed increased pain symptoms and was given Narco. About 2 hours later she was given 4 mg of morphine once again due to increase in pain symptoms which she describes as abdominal pain. The patient became less and less responsive and more and more lethargic and was treated with Narcan this morning. She was still somewhat confused and was sent for a immediate computed tomography scan of the brain today. CAT scan of the brain revealed no acute intracranial hemorrhage or midline shift. There was persistent mild diffuse age -related cerebral atrophy and moderate to severe chronic small vessel ischemic changes. Patient was brought back to the surgical floor where she showed some improvement later this morning. She is now still somewhat confused but has some ability to answer simple questions. Her speech is still quite slow and dysarthric at times. She is able to follow simple commands. It was felt the patient likely had an acute metabolic encephalopathy secondary to medication effect of the narcotic pain meds. She still however does show some expressive aphasia and we have recommended further evaluation for this patient. Patient does have a history of fall prior to this admission. She is unable to give details of her fall and her stay at [facility] prior to transfer here. She does seem to answer some questions appropriately but still has episodes of confusion. She still complains of some abdominal pain and general surgery is following her closely. Her lipid liver enzymes still remained slightly elevated was slightly increase in ammonia level as well. Patient does not show any focal weakness on examination at this time. She does seem to be moving all 4 extremities. Her memory and intellectual functions are impaired at this time. Neurology is now been consulted for further evaluation and recommendations. Review of Systems Constitutional: Denies chills, Denies fever Eyes: denies blurred vision, denies pain Ears, nose, mouth and throat: Denies headache, Denies sore throat Cardiovascular: Denies chest pain, Denies shortness of breath Respiratory: Denies cough Gastrointestinal: Denies abdominal pain, Denies diarrhea, Denies nausea, Denies vomiting Genitourinary: Denies dysuria, Denies hematuria Musculoskeletal: Denies myalgias Integumentary: Denies pruritus, Denies rash Neurological: Reports aphasia, Reports change in speech, Reports confusion, Denies numbness, Denies weakness Psychiatric: Denies anxiety, Denies depression Endocrine: Denies fatigue, Denies weight change Past Medical History Past Medical History: CVA/TIA, Hypertension, Myocardial Infarction ([place]) Last Myocardial Infarction Date:: 2004 History of Any Multi-Drug Resistant Organisms: None Reported Past Surgical History: Appendectomy, Hysterectomy, Orthopedic Surgery Additional Past Surgical History / Comment(s): cataract Past Anesthesia/Blood Transfusion Reactions: No Reported Reaction Past Psychological History: No Psychological Hx Reported Smoking Status: Never smoker Past Alcohol Use History: None Reported Past Drug Use History: None Reported - Past Family History Mother Family Medical History: Congestive Heart Failure (CHF), Osteoarthritis (OA) Father Family Medical History: Coronary Artery Disease (CAD), Myocardial Infarction ([place] ), Prostate Disorder Medications and Allergies Home Medications Medication Instructions Recorded Confirmed Type Calcium Carb-Vit D 500Mg-200Un 1 tab PO DAILY 08/04/14 12/03/17 History [Oscal 500+D] Multivitamin [Men's Multi-Vitamin] 1 tab PO DAILY 08/04/14 12/03/17 History Acetaminophen Tab [Tylenol Tab] 325 mg PO Q6H PRN 12/03/17 12/03/17 History Lisinopril [Zestril] 2.5 mg PO DAILY 12/03/17 12/03/17 History Loratadine [Claritin] 10 mg PO DAILY 12/03/17 12/03/17 History Docusate [Colace] 100 mg PO BID #20 capsule 12/06/17 Rx HYDROcodone/APAP 7.5-325MG [[place] 1 tab PO Q4H PRN 3 Days #18 tab 12/06/17 Rx 7.5-325] Allergies Allergy/AdvReac Type Severity Reaction Status Date / Time cephalexin [From Keflex] Allergy Unknown Verified 12/03/17 18:49 ciprofloxacin [From Cipro] Allergy Unknown Verified 12/03/17 18:49 iodine Allergy Unknown Verified 12/03/17 18:49 Physical Examination - Vital Signs Vital Signs: Vital Signs Temp Pulse Resp BP Pulse Ox 12/07/17 14:03 97.6 F 90 14 123/70 97 12/07/17 08:26 20 12/07/17 07:51 98.3 F 83 20 157/70 98 12/07/17 00:20 98.8 F 85 14 143/79 97 12/06/17 20:00 97.1 F L 77 16 170/71 99 Intake and Output 12/06/17 12/07/17 12/07/17 22:59 06:59 14:59 Other: Voiding Method Bedside Commode Diaper Diaper Incontinent # Voids 1 3 - Constitutional General appearance: average body habitus, cooperative - EENT EENT: PERRL, mucous membranes moist - Respiratory Respiratory: lungs clear, normal breath sounds - Cardiovascular Cardiovascular: regular rate, normal S1, normal S2 Extremities: no peripheral edema bilaterally - Gastrointestinal Gastrointestinal: normoactive bowel sounds - Integumentary Integumentary: normal - Neurologic Cranial nerve examination: PERRL, EOMI, VFF, V1/V2/V3 grossly intact, face symmetric, tongue midline, intact gag reflex, intact corneal reflex, normal palatal elevation Speech examination: intact Sensorimotor examination: intact Motor examination - right side: 4/5: biceps, triceps, wrist flexion, wrist extension, form block maker, hip flexors, knee extensors, dorsiflexion, toe extension (EHL) , plantarflexion Motor examination - left side: 4/5: biceps, triceps, wrist flexion, wrist extension, form block maker, hip flexors, knee extensors, dorsiflexion, toe extension (EHL) , plantarflexion Detailed sensory examination: intact Reflex and gait examination: intact Reflexes: 1+: ankle, bicep, knee, tricep - Musculoskeletal Musculoskeletal: no pain - Psychiatric Psychiatric: mood/affect appropriate, cooperative Results - Laboratory Findings CBC and BMP: 12/07/17 09:52 12/07/17 09:52 Abnormal Lab Findings: Abnormal Labs 12/04/17 12/04/17 12/05/17 08:15 08:15 10:10 WBC 15.7 H RBC 3.55 L Hgb 10.7 L Hct 33.8 L MCHC RDW Neutrophils # 14.5 H Neutrophils # (Manual) Lymphocytes # 0.5 L Lymphocytes # (Manual) Potassium 3.1 L Chloride 109 H 112 H Carbon Dioxide 15 L 15 L BUN 20 H 29 H Glucose 124 H Total Bilirubin 5.5 H 4.5 H AST 180 H 271 H ALT 150 H 216 H Alkaline Phosphatase 587 H 719 H Ammonia Total Protein 5.8 L 5.2 L Albumin 3.2 L 2.9 L 12/05/17 12/05/17 12/07/17 10:10 14:11 09:52 WBC 17.4 H 16.5 H RBC 3.49 L 3.27 L Hgb 10.3 L 9.7 L Hct 33.5 L 31.1 L MCHC 30.7 L RDW 15.8 H 16.0 H Neutrophils # 16.3 H Neutrophils # (Manual) 15.60 H Lymphocytes # 0.8 L Lymphocytes # (Manual) 0.17 L Potassium 3.2 L Chloride Carbon Dioxide BUN Glucose Total Bilirubin AST ALT Alkaline Phosphatase Ammonia Total Protein Albumin 12/07/17 12/07/17 09:52 09:52 WBC RBC Hgb Hct MCHC RDW Neutrophils # Neutrophils # (Manual) Lymphocytes # Lymphocytes # (Manual) Potassium Chloride 118 H Carbon Dioxide 18 L BUN 28 H Glucose Total Bilirubin 6.1 H AST 209 H ALT 278 H Alkaline Phosphatase 651 H Ammonia 34 H Total Protein 4.7 L Albumin 2.3 L Assessment and Plan (1) Acute metabolic encephalopathy Current Visit: Yes Status: Acute Code(s): G93.41 - METABOLIC ENCEPHALOPATHY SNOMED Code(s): 48313243 (2) Hx laparoscopic cholecystectomy Current Visit: Yes Status: Acute Code(s): Z90.49 - ACQUIRED ABSENCE OF OTHER SPECIFIED PARTS OF DIGESTIVE TRACT SNOMED Code(s): 860425302 (3) Abdominal pain Current Visit: Yes Status: Acute Code(s): R10.9 - UNSPECIFIED ABDOMINAL PAIN SNOMED Code(s): 84631326 (4) Status post fall Current Visit: Yes Status: Acute Code(s): Z91.81 - HISTORY OF FALLING SNOMED Code(s): 729426637 Plan: This patient is a 82-year-old right-handed white female who was admitted to hospital after sustaining a fall and developing laboratory evidence for elevated liver enzymes. She was found to have evidence on admission of acute cholecystitis and cholelithiasis. She underwent a laparoscopic cholecystectomy procedure yesterday. Early this morning at about 3:30 AM she was treated for pain and was given a combination of Narco and morphine. She became very lethargic and obtunded and required Narcan for reversal. She slowly came around later this morning and showed some improvement. She was sent for a computed tomography scan of the brain results of which are noted above. Her neurological exam continues to reveal evidence of mild expressive aphasia. She still remains confused and oriented only to person at this time. Her history suggests possibility of a acute metabolic encephalopathy possibly medication related. Have recommended further evaluation for this patient including MRI of the brain as well as a routine EEG. We will continue close monitoring of her condition and she is recovering from surgery. Hopefully her liver enzymes will also improve over the next few days. Patient apparently has a history of previous stroke in the past. Review of her CAT scan of the film does reveal significant cortical ischemia bilaterally. We have recommended further evaluation to rule out acute stroke in this patient as well. Her overall prognosis at this time remains very guarded. Time with Patient: Greater than 30
[2017-12-07] MEDS: FAMOTIDINE 20 MG/2 ML VIAL IV SCH (20:18)
--- NOTE | 2017-12-07 22:58 | P.PN ---
Progress Note - Text Progress Note Date: 12/07/17 Resting comfortably. No issues at this time.
[2017-12-07] MEDS: KETOROLAC 30 MG/ML 1 ML VIAL IVP PRN (23:42)
[2017-12-08] MEDS: AMPICILLIN-SULBACTAM 3 GM in SODIUM CHLORIDE 0.9% 100 ML IVPB SCH ×4 (05:13→23:43)
--- NOTE | 2017-12-08 08:49 | P.PN ---
Subjective Progress Note Date: 12/08/17 Principal diagnosis: Choledocholithiasis cholecystitis Status post ERCP sphincterotomy with evidence of filling defect followed by laparoscopic cholecystectomy. Confused yesterday. This morning more alert. Hard of hearing. Denies abdominal pain. Tolerating regular diet. Liver enzymes elevated yesterday repeat enzymes are pending this morning. Ammonia was also elevated yesterday 34 repeat ammonia pending. Afebrile. Objective - Vital Signs Vital signs: Vital Signs Temp 97.1 F L 12/08/17 07:30 Pulse 78 12/08/17 07:30 Resp 16 12/08/17 07:30 BP 155/71 12/08/17 07:30 Pulse Ox 97 12/08/17 07:30 Intake & Output 12/07/17 12/08/17 12/08/17 18:59 06:59 18:59 Other: Voiding Method Diaper Incontinent Incontinent # Voids 2 1 - Exam General appearance: The patient is alert, oriented, in no acute distress. Hard of hearing. HET: Head is normocephalic and atraumatic. Pupils are equal and reactive. Oropharynx is clear without lesions. Sclerae dull icteric. Chin dressing clean. Neck: Supple without lymphadenopathy. Trachea midline. Heart: S1 S2. Regular rate and rhythm. Lungs: No crackles or wheezes are heard. Abdomen: Soft, nontender, nondistended with bowel sounds. Laparoscopic incisions without erythema or drainage. No peritoneal signs. No palpable organomegaly or masses. Extremities: Normal skin color and turgor. No cyanosis, rash, ulceration, clubbing, or edema. Radial and pedal pulses are 2/4 bilaterally. Neurological: No focal deficits. Strength and sensation are grossly intact. - Labs CBC & Chem 7: 12/08/17 07:02 12/08/17 09:56 Labs: Abnormal Lab Results - Last 24 Hours (Table) 12/07/17 12/07/17 12/07/17 Range/Units 09:52 09:52 09:52 WBC 16.5 H (3.8-10.6) k/uL RBC 3.27 L (3.80-5.40) m/uL Hgb 9.7 L (11.4-16.0) gm/dL Hct 31.1 L (34.0-46.0) % RDW 16.0 H (11.5-15.5) % Neutrophils # (Manual) 15.60 H (1.3-7.7) k/uL Lymphocytes # (Manual) 0.17 L (1.0-4.8) k/uL Chloride 118 H (98-107) mmol/L Carbon Dioxide 18 L (22-30) mmol/L BUN 28 H (7-17) mg/dL Total Bilirubin 6.1 H (0.2-1.3) mg/dL AST 209 H (14-36) U/L ALT 278 H (9-52) U/L Alkaline Phosphatase 651 H (38-126) U/L Ammonia 34 H (<30) umol/L Total Protein 4.7 L (6.3-8.2) g/dL Albumin 2.3 L (3.5-5.0) g/dL Assessment and Plan (1) S/P ERCP Current Visit: Yes Status: Acute Code(s): Z98.890 - OTHER SPECIFIED POSTPROCEDURAL STATES SNOMED Code(s): 620166167 (2) Choledocholithiasis Narrative/Plan: Status post ERCP sphincterotomy Current Visit: Yes Status: Acute Code(s): K80.50 - CALCULUS OF BILE DUCT W/ O CHOLANGITIS OR CHOLECYST W/O OBST SNOMED Code(s): 939947953 (3) Status post fall Current Visit: Yes Status: Acute Code(s): Z91.81 - HISTORY OF FALLING SNOMED Code(s): 223548925 (4) Cholelithiasis Current Visit: Yes Status: Acute Code(s): K80.20 - CALCULUS OF GALLBLADDER W /O CHOLECYSTITIS W/O OBSTRUCTION SNOMED Code(s): 081621303 (5) Leukocytosis Current Visit: Yes Status: Acute Code(s): D72.829 - ELEVATED WHITE BLOOD CELL COUNT, UNSPECIFIED SNOMED Code(s): 074457064 (6) Hx laparoscopic cholecystectomy Current Visit: Yes Status: Acute Code(s): Z90.49 - ACQUIRED ABSENCE OF OTHER SPECIFIED PARTS OF DIGESTIVE TRACT SNOMED Code(s): 971555704 Plan: 1. CMP PT/INR ammonia pending. Etiology of postoperative elevated liver enzymes unclear at this time possible medication metabolic related. Hepatitis screen nonreactive. 2. Continue supportive measures. CMP in am. Will continue to follow. Assessment and plan a care discussed with Dr. Carl
[2017-12-08] MEDS: ENOXAPARIN 40 MG/0.4 ML SYRINGE SQ SCH (09:04)
[2017-12-08] MEDS: FAMOTIDINE 20 MG/2 ML VIAL IV SCH ×2 (09:04→22:10)
[2017-12-08 09:23] LABS: Anisocytosis Slight; Basophils # (A) 0.1 k/uL (0-0.2); Basophils % (A) 0 %; Eosinophils # (A) 0.1 k/uL (0-0.7); Eosinophils % (A) 1 %; HCT 28.9 % (34.0-46.0); Hypochromasia Marked; Lymphocytes # (A) 1.1 k/uL (1.0-4.8); Lymphocytes % (A) 5 %; MCH 30.4 pg (25.0-35.0); MCHC 31.3 g/dL (31.0-37.0); Macrocytosis Slight; Mean Platelet Volume 8.7; Monocytes # (A) 0.4 k/uL (0-1.0); Monocytes % (A) 2 %; Neutrophils # (A) 19.4 k/uL (1.3-7.7); Neutrophils % (A) 92 %; Platelet Count 295 k/uL (150-450); RBC 2.98 m/uL (3.80-5.40); RDW 16.1 % (11.5-15.5); WBC 21.2 k/uL (3.8-10.6)
--- NOTE | 2017-12-08 09:40 | P.PN ---
<Katey Mireles M - Last Filed: 12/08/17 09:32> Subjective Progress Note Date: 12/08/17 82-year-old female seen and examined sitting up in bed taking a diet is hard of hearing. Patient is more awake and alert this morning. A neurology consultation was obtained yesterday for acute mental status changes. Neurological workup in progress. Did note that the liver enzymes and pneumonia were slightly yesterday labs are pending this morning This not demonstrated any focal weakness. Will move all extremities to simple command. Status post ERCP sphincterotomy with evidence of filling defect followed by laparoscopic cholecystectomy Objective - Vital Signs Vital signs: Vital Signs Temp 97.1 F L 12/08/17 07:30 Pulse 78 12/08/17 07:30 Resp 16 12/08/17 07:30 BP 155/71 12/08/17 07:30 Pulse Ox 97 12/08/17 07:30 Intake & Output 12/07/17 12/08/17 12/08/17 18:59 06:59 18:59 Other: Voiding Method Diaper Incontinent Incontinent # Voids 2 1 - Exam Physical exam 82-year-old female resting in bed oriented to person and place more aware and awake is hard of hearing sitting up in bed taking a diet feeding self follow simple commands no facial droop Lungs adequate air movement bilaterally sats are 97% room airHeart S1-S2 audible regular Abdomen surgical dressing site dry surgical tenderness appropriate a few hypoactive bowel tones no stool no nausea no vomiting incontinently urine Extremities no edema noted - Labs CBC & Chem 7: 12/07/17 09:52 12/07/17 09:52 Labs: Abnormal Lab Results - Last 24 Hours (Table) 12/07/17 12/07/17 12/07/17 Range/Units 09:52 09:52 09:52 WBC 16.5 H (3.8-10.6) k/uL RBC 3.27 L (3.80-5.40) m/uL Hgb 9.7 L (11.4-16.0) gm/dL Hct 31.1 L (34.0-46.0) % RDW 16.0 H (11.5-15.5) % Neutrophils # (Manual) 15.60 H (1.3-7.7) k/uL Lymphocytes # (Manual) 0.17 L (1.0-4.8) k/uL Chloride 118 H (98-107) mmol/L Carbon Dioxide 18 L (22-30) mmol/L BUN 28 H (7-17) mg/dL Total Bilirubin 6.1 H (0.2-1.3) mg/dL AST 209 H (14-36) U/L ALT 278 H (9-52) U/L Alkaline Phosphatase 651 H (38-126) U/L Ammonia 34 H (<30) umol/L Total Protein 4.7 L (6.3-8.2) g/dL Albumin 2.3 L (3.5-5.0) g/dL Assessment and Plan Assessment: Impression Acute encephalopathy toxic likely due to narcotics secondary to medication effect of the narcotic pain medication [place] and morphine reversed with Narcan Postop laparoscopic cholecystectomy for cholelithiasis and cholecystitis on December 06 Status post ERCP with sphincterotomy done on December 04 showed normal pancreatic duct normal papilla dilated common bile duct with small filling defects suggestive of stones History of a fall prior to admission Present on admission elevated liver enzymes History of paroxysmal atrial fibrillation current sinus rhythm Hypertension Leukocytosis febrile present on admission likely due to sepsis due to cholecystitis Hypokalemia corrected resolved Plan Follow-up on pending labs Stop narcotics . DVT and GI prophylaxis Further recommendations pending Continue postop surgical care PT OT eval Fall precautions Dictating progress note for Dr. Presley rounding on behalf followed dr travis The above impression and plan of care have been discussed and directed by signing physician. Katey Mireles nurse practitioner acting as scribe for signing physician. <Miesha Presley - Last Filed: 12/08/17 17:22> Objective - Vital Signs Vital signs: Vital Signs Temp 98.9 F 12/08/17 14:37 Pulse 95 12/08/17 14:37 Resp 14 12/08/17 14:37 BP 159/64 12/08/17 14:37 Pulse Ox 92 L 12/08/17 14:37 Intake & Output 12/07/17 12/08/17 12/08/17 18:59 06:59 18:59 Other: Voiding Method Diaper Incontinent Incontinent # Voids 2 1 2 - Labs CBC & Chem 7: 12/08/17 07:02 12/08/17 09:56 Labs: Abnormal Lab Results - Last 24 Hours (Table) 12/08/17 12/08/17 12/08/17 Range/Units 07:02 09:51 09:56 WBC 21.2 H (3.8-10.6) k/uL RBC 2.98 L (3.80-5.40) m/uL Hgb 9.0 L (11.4-16.0) gm/dL Hct 28.9 L (34.0-46.0) % RDW 16.1 H (11.5-15.5) % Neutrophils # 19.4 H (1.3-7.7) k/uL INR 1.2 H (<1.2) Sodium 146 H (137-145) mmol/L Chloride 118 H (98-107) mmol/L Carbon Dioxide 20 L (22-30) mmol/L BUN 25 H (7-17) mg/dL Total Bilirubin 4.1 H (0.2-1.3) mg/dL AST 92 H (14-36) U/L ALT 188 H (9-52) U/L Alkaline Phosphatase 523 H (38-126) U/L Total Protein 4.6 L (6.3-8.2) g/dL Albumin 2.2 L (3.5-5.0) g/dL Assessment and Plan Plan: WBC elevated. Patient has history of confusion and hard of hearing. Continue hospitalization. GI following.
[2017-12-08 10:38] LABS: ALT 188 U/L (9-52); AST 92 U/L (14-36); Albumin 2.2 g/dL (3.5-5.0); Alkaline Phosphatase 523 U/L (38-126); Anion Gap 8 mmol/L; Blood Urea Nitrogen 25 mg/dL (7-17); Calcium 9.4 mg/dL (8.4-10.2); Carbon Dioxide 20 mmol/L (22-30); Chloride 118 mmol/L (98-107); Glucose 99 mg/dL (74-99); Potassium 3.5 mmol/L (3.5-5.1); Sodium 146 mmol/L (137-145); Total Bilirubin 4.1 mg/dL (0.2-1.3); Total Protein 4.6 g/dL (6.3-8.2)
[2017-12-08 10:44] LABS: INR 1.2 (<1.2); Prothrombin Time 11.7 sec (9.0-12.0)
[2017-12-08 10:46] LABS: Polychromasia Present
--- NOTE | 2017-12-08 18:49 | P.PN ---
Subjective Progress Note Date: 12/08/17 This patient is a 82-year-old female who was seen in neurology consultation yesterday for acute mental status changes and encephalopathy. Patient had undergone a computed tomography scan of the brain which revealed nonspecific changes. It was felt she likely had acute encephalopathy secondary to medication effect. Today she still remains somewhat confused and disoriented. She underwent a routine EEG today which was reviewed and is moderately slow. Liver enzymes are slowly improving following her recent cholecystectomy for cholelithiasis and cholecystitis treatment. According to nursing staff she still complains of some abdominal pain off and on. Her speech still remains somewhat slurred at times. She was recommended a MRI of the brain which is still pending to be done this evening. We will continue close neurological follow-up for the patient. She is still very hard of hearing and this may be contributing to some of her confusional state. Overall prognosis at this time remains guarded. Objective - Vital Signs Vital signs: Vital Signs Temp 98.9 F 12/08/17 14:37 Pulse 95 12/08/17 14:37 Resp 14 12/08/17 14:37 BP 159/64 12/08/17 14:37 Pulse Ox 92 L 12/08/17 14:37 Intake & Output 12/07/17 12/08/17 12/08/17 18:59 06:59 18:59 Other: Voiding Method Diaper Incontinent Incontinent # Voids 2 1 2 - Exam Physical Examination: PHYSICAL EXAMINATION: Patient is resting comfortably in bed. VITAL SIGNS: Blood pressure is [159/64]. Heart rate is [95]. Respiration is [14] . Temperature is [98.9]. HEENT: Head is atraumatic, neck is supple, there were no carotid bruits. CHEST: Lungs are clear to auscultation and percussion. CARDIAC: S1, S2 normal rate and rhythm. There is no murmur. ABDOMEN: Soft and nontender. Bowel sounds are present. EXTREMITIES: There is no pedal edema. Peripheral pulses are present. Neurological examination: Patient is awake alert and oriented 2. Her speech is still somewhat garbled at times and hard to comprehend. She has slight aphasia. Her memory and intellectual functions are impaired. Cranial nerve examination: Cranial nerves II through XII grossly intact. Motor examination: There was no pronator drift. Muscle tone is normal. Muscle strength is 4 minus/5 throughout. Deep tendon reflexes are 1+ and symmetric. Plantar responses flexor bilaterally. - Labs CBC & Chem 7: 12/08/17 07:02 12/08/17 09:56 Labs: Abnormal Lab Results - Last 24 Hours (Table) 12/08/17 12/08/17 12/08/17 Range/Units 07:02 09:51 09:56 WBC 21.2 H (3.8-10.6) k/uL RBC 2.98 L (3.80-5.40) m/uL Hgb 9.0 L (11.4-16.0) gm/dL Hct 28.9 L (34.0-46.0) % RDW 16.1 H (11.5-15.5) % Neutrophils # 19.4 H (1.3-7.7) k/uL INR 1.2 H (<1.2) Sodium 146 H (137-145) mmol/L Chloride 118 H (98-107) mmol/L Carbon Dioxide 20 L (22-30) mmol/L BUN 25 H (7-17) mg/dL Total Bilirubin 4.1 H (0.2-1.3) mg/dL AST 92 H (14-36) U/L ALT 188 H (9-52) U/L Alkaline Phosphatase 523 H (38-126) U/L Total Protein 4.6 L (6.3-8.2) g/dL Albumin 2.2 L (3.5-5.0) g/dL Assessment and Plan (1) Acute metabolic encephalopathy Current Visit: Yes Status: Acute Code(s): G93.41 - METABOLIC ENCEPHALOPATHY SNOMED Code(s): 11826130 (2) Hx laparoscopic cholecystectomy Current Visit: Yes Status: Acute Code(s): Z90.49 - ACQUIRED ABSENCE OF OTHER SPECIFIED PARTS OF DIGESTIVE TRACT SNOMED Code(s): 350711532 (3) Abdominal pain Current Visit: Yes Status: Acute Code(s): R10.9 - UNSPECIFIED ABDOMINAL PAIN SNOMED Code(s): 34849098 (4) Status post fall Current Visit: Yes Status: Acute Code(s): Z91.81 - HISTORY OF FALLING SNOMED Code(s): 564363906 Plan: This patient is a 82-year-old female being evaluated for acute metabolic encephalopathy following recent cholecystectomy for cholelithiasis and cholecystitis. She will underwent laparoscopic surgery for this procedure on December 06. Following this she showed increased confusion the next day felt to be possibly narcotic induced. She underwent computed tomography scan of the brain which was negative for any acute changes. She had routine EEG today which is reviewed and is moderately slow. She is to undergo MRI of the brain later this evening. She still shows signs of confusion. We will await the MRI results and give further recommendations. Overall prognosis at this time remains guarded.
[2017-12-08] MEDS ORDERED: hydrALAZINE HCL 20 MG/ML 1 ML VIAL IVP PRN (20:46)
[2017-12-08] MEDS ORDERED: FAMOTIDINE 20 MG TAB PO SCH (21:00)
[2017-12-08] MEDS ORDERED: FAMOTIDINE 20 MG/2 ML VIAL IV SCH (22:02)
[2017-12-08] MEDS: KETOROLAC 30 MG/ML 1 ML VIAL IVP PRN (22:11)
[2017-12-09] MEDS: AMPICILLIN-SULBACTAM 3 GM in SODIUM CHLORIDE 0.9% 100 ML IVPB SCH ×3 (05:54→19:20)
[2017-12-09] MEDS: ENOXAPARIN 40 MG/0.4 ML SYRINGE SQ SCH (07:38)
[2017-12-09] MEDS: FAMOTIDINE 20 MG/2 ML VIAL IV SCH ×2 (07:38→21:06)
[2017-12-09 07:59] LABS: ALT 149 U/L (9-52); AST 67 U/L (14-36); Albumin 2.4 g/dL (3.5-5.0); Alkaline Phosphatase 525 U/L (38-126); Anion Gap 8 mmol/L; Blood Urea Nitrogen 20 mg/dL (7-17); Calcium 9.3 mg/dL (8.4-10.2); Carbon Dioxide 20 mmol/L (22-30); Chloride 118 mmol/L (98-107); Glucose 98 mg/dL (74-99); Sodium 146 mmol/L (137-145); Total Protein 4.9 g/dL (6.3-8.2)
--- NOTE | 2017-12-09 08:07 | P.PN ---
Subjective Progress Note Date: 12/09/17 Principal diagnosis: Choledocholithiasis cholecystitis Status post ERCP sphincterotomy with evidence of filling defect followed by laparoscopic cholecystectomy. Denies abdominal pain. LFTs ammonia improving. CMP pending. Tolerating regular diet. Afebrile. Objective - Vital Signs Vital signs: Vital Signs Temp 98.4 F 12/09/17 07:53 Pulse 77 12/09/17 07:53 Resp 16 12/09/17 07:53 BP 177/70 12/09/17 07:53 Pulse Ox 98 12/09/17 07:53 Intake & Output 12/08/17 12/09/17 12/09/17 18:59 06:59 18:59 Output Total 0 Balance 0 Output: Stool 0 Other: Voiding Method Incontinent # Voids 2 1 - Exam General appearance: The patient is alert, oriented, in no acute distress. Hard of hearing. HET: Head is normocephalic and atraumatic. Pupils are equal and reactive. Oropharynx is clear without lesions. Sclerae dull icteric. Chin dressing clean. Neck: Supple without lymphadenopathy. Trachea midline. Heart: S1 S2. Regular rate and rhythm. Lungs: No crackles or wheezes are heard. Abdomen: Soft, nontender, nondistended with bowel sounds. Laparoscopic incisions without erythema or drainage. No peritoneal signs. No palpable organomegaly or masses. Extremities: Normal skin color and turgor. No cyanosis, rash, ulceration, clubbing, or edema. Radial and pedal pulses are 2/4 bilaterally. Neurological: No focal deficits. Strength and sensation are grossly intact. - Labs CBC & Chem 7: 12/08/17 07:02 12/08/17 09:56 Labs: Abnormal Lab Results - Last 24 Hours (Table) 12/08/17 12/08/17 12/08/17 Range/Units 07:02 09:51 09:56 WBC 21.2 H (3.8-10.6) k/uL RBC 2.98 L (3.80-5.40) m/uL Hgb 9.0 L (11.4-16.0) gm/dL Hct 28.9 L (34.0-46.0) % RDW 16.1 H (11.5-15.5) % Neutrophils # 19.4 H (1.3-7.7) k/uL INR 1.2 H (<1.2) Sodium 146 H (137-145) mmol/L Chloride 118 H (98-107) mmol/L Carbon Dioxide 20 L (22-30) mmol/L BUN 25 H (7-17) mg/dL Total Bilirubin 4.1 H (0.2-1.3) mg/dL AST 92 H (14-36) U/L ALT 188 H (9-52) U/L Alkaline Phosphatase 523 H (38-126) U/L Total Protein 4.6 L (6.3-8.2) g/dL Albumin 2.2 L (3.5-5.0) g/dL Assessment and Plan (1) S/P ERCP Current Visit: Yes Status: Acute Code(s): Z98.890 - OTHER SPECIFIED POSTPROCEDURAL STATES SNOMED Code(s): 184896877 (2) Choledocholithiasis Narrative/Plan: Status post ERCP sphincterotomy Current Visit: Yes Status: Acute Code(s): K80.50 - CALCULUS OF BILE DUCT W/ O CHOLANGITIS OR CHOLECYST W/O OBST SNOMED Code(s): 583563797 (3) Status post fall Current Visit: Yes Status: Acute Code(s): Z91.81 - HISTORY OF FALLING SNOMED Code(s): 417569546 (4) Cholelithiasis Current Visit: Yes Status: Acute Code(s): K80.20 - CALCULUS OF GALLBLADDER W /O CHOLECYSTITIS W/O OBSTRUCTION SNOMED Code(s): 414361439 (5) Leukocytosis Current Visit: Yes Status: Acute Code(s): D72.829 - ELEVATED WHITE BLOOD CELL COUNT, UNSPECIFIED SNOMED Code(s): 286626250 (6) Hx laparoscopic cholecystectomy Current Visit: Yes Status: Acute Code(s): Z90.49 - ACQUIRED ABSENCE OF OTHER SPECIFIED PARTS OF DIGESTIVE TRACT SNOMED Code(s): 408102915 Plan: 1. Await CMP results if improved DC per medicine consultants. Assessment and plan of cared discussed with Dr. Carl.
[2017-12-09 08:08] LABS: Potassium 2.9 mmol/L (3.5-5.1)
[2017-12-09 10:03] LABS: HCT 28.6 % (34.0-46.0); HGB 9.1 gm/dL (11.4-16.0); Hypochromasia Marked; MCH 30.3 pg (25.0-35.0); MCHC 31.7 g/dL (31.0-37.0); MCV 95.6 fL (80.0-100.0); Platelet Count 337 k/uL (150-450); RBC 2.99 m/uL (3.80-5.40); WBC 21.8 k/uL (3.8-10.6)
--- NOTE | 2017-12-09 10:59 | MR ---
EXAMINATION TYPE: MR brain wo con DATE OF EXAM: 12/09/2017 COMPARISON: CT brain from 2 days ago. HISTORY: Patient with altered mental status, admitted 2 days earlier for such. TECHNIQUE: Multiplanar, multisequence imaging of the brain and brainstem is performed without IV cont rast. FINDINGS: Diffusion weighted images demonstrate no evidence of a recent infarct or other diffusion abnormality. There is no worrisome extra-axial fluid collection. There is ventricular and sulcal prominence consis tent with mild diffuse age-related cerebral atrophy redemonstrated. There are focal and confluent are as of T2 hyperintensity seen throughout the deep and periventricular white matter bilaterally. Lesion s are nonspecific in appearance and distribution but most likely on basis of product of chronic small vessel ischemic change in patient of this age. Midline structures demonstrate normal morphology. The craniocervical junction appears within normal limits. Normal vascular flow voids are present. There is dominant right vertebral artery with tortuou s course redemonstrated. The visualized sinuses are clear and the globes are intact. IMPRESSION: 1. No evidence of a recent infarct. 2. Background mild diffuse cerebral atrophy and fairly advanced chronic small vessel ischemic change redemonstrated. No significant change from recent CT.
--- NOTE | 2017-12-09 11:31 | P.PN ---
Subjective 80-year-old female status post cholecystectomy was confused of postcholecystectomy. Patient confusion was related to opiates. I valid the patient today patient doesn't have any diarrhea doesn't have any fever does have continued leukocytosis of 21,000. Patient is completely confused at this time this confusion is probably related to hospitalization related to delirium neurology evaluated the patient. MRI was opted by neurology which showed old small vessel ischemic changes patient may have a competent of undiagnosed vascular dementia. Now present delirium is probably related to hospitalization per se. Patient is on Unasyn at this time. Patient is receiving potassium supplementation for hyponatremia. Patient does have minimal cough. Review of systems Unable to obtain Objective - Vital Signs Vital signs: Vital Signs Temp 98.4 F 12/09/17 07:53 Pulse 77 12/09/17 07:53 Resp 16 12/09/17 07:53 BP 177/70 12/09/17 07:53 Pulse Ox 98 12/09/17 07:53 Intake & Output 12/08/17 12/09/17 12/09/17 18:59 06:59 18:59 Output Total 0 Balance 0 Output: Stool 0 Other: Voiding Method Incontinent # Voids 2 1 1 - Exam PHYSICAL EXAMINATION: GENERAL: The patient is alert and oriented x0-1, thin built HEENT: Pupils are round and equally reacting to light. EOMI. No scleral icterus. No conjunctival pallor. Normocephalic, atraumatic. No pharyngeal erythema. No thyromegaly. CARDIOVASCULAR: S1 and S2 present. No murmurs, rubs, or gallops. PULMONARY: Chest is clear to auscultation, no wheezing or crackles. ABDOMEN: Soft, nontender, nondistended, surgical site areas appear to be clean MUSCULOSKELETAL: No joint swelling or deformity. EXTREMITIES: No cyanosis, clubbing, or pedal edema. NEUROLOGICAL: Gross neurological examination did not reveal any new focal deficits. SKIN: No rashes. - Labs CBC & Chem 7: 12/09/17 09:26 12/09/17 07:26 Labs: Abnormal Lab Results - Last 24 Hours (Table) 12/09/17 12/09/17 Range/Units 07:26 09:26 WBC 21.8 H (3.8-10.6) k/uL RBC 2.99 L (3.80-5.40) m/uL Hgb 9.1 L (11.4-16.0) gm/dL Hct 28.6 L (34.0-46.0) % RDW 16.0 H (11.5-15.5) % Sodium 146 H (137-145) mmol/L Potassium 2.9 L* (3.5-5.1) mmol/L Chloride 118 H (98-107) mmol/L Carbon Dioxide 20 L (22-30) mmol/L BUN 20 H (7-17) mg/dL Total Bilirubin 3.0 H (0.2-1.3) mg/dL AST 67 H (14-36) U/L ALT 149 H (9-52) U/L Alkaline Phosphatase 525 H (38-126) U/L Total Protein 4.9 L (6.3-8.2) g/dL Albumin 2.4 L (3.5-5.0) g/dL Assessment and Plan Plan: -Altered mental status: Secondary to toxic encephalopathy from medications medically opiates which was subsequently discontinued, patient remains delirious this new delirium is probably related to hospitalization. Patient is off opiates. MRI showed chronic small vessel ischemic changes -Leukocytosis patient is already on Unasyn no fevers, if patient remains to have leukocytosis with no further workup with a chest x-ray and a UA urine cultures blood cultures at that time. Patient doesn't have any diarrhea. Probably stress-related to intra-abdominal process and recent surgery. Continue with Unasyn for now -Possible vascular dementia -Cholecystitis and possibility of sepsis secondary to that and the patient is on Unasyn at this time -Dilated common bile duct status post ERCP and cholecystectomy -Hypertension -Elevated liver enzymes secondary to cold a cholelithiasis, liver enzymes are expected to improve we'll repeat tomorrow. Ammonia is within normal limits DVT prophylaxis on low molecular weight heparin as per primary service
--- NOTE | 2017-12-09 14:06 | EEG ---
ELECTROENCEPHALOGRAM REPORT DATE OF EE12/08/2017. REFERRING PHYSICIAN: Dr. Pagan. CONSULTING/INTERPRETING PHYSICIAN: Dr. Monse Orosco MD ELECTROENCEPHALOGRAPHIC EXAMINATION REPORT: INDICATION FOR EXAMINATION: This patient is an 82-year-old female being evaluated for altered mental status and confusion following surgical procedure. AGE: [age]. EEG FINDINGS: A routine 21 channel awake digital EEG recording was accomplished utilizing the 10-20 international system with bipolar and referential montages. The background activity in the most alert resting state consists of a low to medium amplitude, poorly developed and poorly sustained 6 Hz activity over the posterior head regions. This posterior rhythm attenuates to eye opening. There is a small amount of low amplitude 18-20 Hz beta activity seen maximally over the anterior head regions. Muscle and movement artifact was observed on several occasions during the tracing. Hyperventilation was not performed. Photic stimulation at flash frequencies of 2-30 Hz produced a minimal occipital driving response. No epileptiform discharges were seen. IMPRESSION: This EEG is moderately abnormal in a diffuse fashion due to slowing of the EEG background. The EEG failed to reveal any focal, lateralized, or epileptiform abnormalities. Clinical correlation is recommended. MMODL / IJN: [id number] /
[2017-12-09] MEDS: POTASSIUM CHLORIDE 10 MEQ in WATER FOR INJECTION 1 100ML.BAG IVPB SCH ×5 (14:34→23:13)
[2017-12-09] MEDS: KETOROLAC 30 MG/ML 1 ML VIAL IVP PRN (18:16)
--- NOTE | 2017-12-09 19:23 | P.PN ---
Subjective Progress Note Date: 12/09/17 This patient is a 82-year-old right-handed white female who was recently undergone laparoscopic cholecystectomy for treatment of acute cholecystitis. Patient initially presented post surgery with increasing confusion and delirium. She underwent initial computed tomography scan of the brain which failed to reveal any evidence of acute stroke. MRI of the brain was recommended and was completed today. MRI findings indicate no evidence for acute or recent infarct. There was mild diffuse cerebral atrophy and advanced chronic small vessel ischemic changes seen bilaterally. This raises suspicion of possible underlying vascular dementia for the patient. Patient continues to remain somewhat confused today but does follow some simple commands. Her initial liver enzymes were elevated as well as her ammonia level but these are improving today. She has been tolerating a regular diet. She is being considered for possible discharge home soon. The patient can be further evaluated for vascular dementia in the outpatient neurology clinic. Would recommend follow-up in the outpatient neurology clinic for the patient in 2-3 weeks. Her delirium also could be secondary to recent hospitalization. As noted she was taken off of all opiates and pain medications but still shows signs of mild confusion. Patient otherwise is resting comfortably. Laboratory tests are to be repeated for her tomorrow. We reviewed the results of the MRI today with the patient in detail. We tried to explain as best as possible that there was vascular changes to the brain possibly contributing to her mild confusional state. This can be further worked up as outpatient. We will continue close neurological follow-up for the patient during this admission. Objective - Vital Signs Vital signs: Vital Signs Temp 98.3 F 12/09/17 15:00 Pulse 68 12/09/17 15:00 Resp 15 12/09/17 16:00 BP 159/67 12/09/17 15:00 Pulse Ox 98 12/09/17 15:00 Intake & Output 12/08/17 12/09/17 12/09/17 18:59 06:59 18:59 Intake Total 100 Output Total 0 Balance 0 100 Intake: Oral 100 Output: Stool 0 Other: Voiding Method Incontinent # Voids 2 1 2 - Exam Physical Examination: PHYSICAL EXAMINATION: Patient is resting comfortably in bed. VITAL SIGNS: Blood pressure is [159/67]. Heart rate is [68]. Respiration is [15] . Temperature is [98.3]. HEENT: Head is atraumatic, neck is supple, there were no carotid bruits. CHEST: Lungs are clear to auscultation and percussion. CARDIAC: S1, S2 normal rate and rhythm. There is no murmur. ABDOMEN: Soft and nontender. Bowel sounds are present. EXTREMITIES: There is no pedal edema. Peripheral pulses are present. Neurological examination: Patient is awake alert and oriented 2. Her speech is still somewhat garbled at times and hard to comprehend. She has slight aphasia. Her memory and intellectual functions are impaired. Cranial nerve examination: Cranial nerves II through XII grossly intact. Motor examination: There was no pronator drift. Muscle tone is normal. Muscle strength is 4 minus/5 throughout. Deep tendon reflexes are 1+ and symmetric. Plantar responses flexor bilaterally. - Labs CBC & Chem 7: 12/09/17 09:26 12/09/17 07:26 Labs: Abnormal Lab Results - Last 24 Hours (Table) 12/09/17 12/09/17 Range/Units 07:26 09:26 WBC 21.8 H (3.8-10.6) k/uL RBC 2.99 L (3.80-5.40) m/uL Hgb 9.1 L (11.4-16.0) gm/dL Hct 28.6 L (34.0-46.0) % RDW 16.0 H (11.5-15.5) % Sodium 146 H (137-145) mmol/L Potassium 2.9 L* (3.5-5.1) mmol/L Chloride 118 H (98-107) mmol/L Carbon Dioxide 20 L (22-30) mmol/L BUN 20 H (7-17) mg/dL Total Bilirubin 3.0 H (0.2-1.3) mg/dL AST 67 H (14-36) U/L ALT 149 H (9-52) U/L Alkaline Phosphatase 525 H (38-126) U/L Total Protein 4.9 L (6.3-8.2) g/dL Albumin 2.4 L (3.5-5.0) g/dL Assessment and Plan (1) Acute metabolic encephalopathy Current Visit: Yes Status: Acute Code(s): G93.41 - METABOLIC ENCEPHALOPATHY SNOMED Code(s): 09062869 (2) Hx laparoscopic cholecystectomy Current Visit: Yes Status: Acute Code(s): Z90.49 - ACQUIRED ABSENCE OF OTHER SPECIFIED PARTS OF DIGESTIVE TRACT SNOMED Code(s): 642207504 (3) Abdominal pain Current Visit: Yes Status: Acute Code(s): R10.9 - UNSPECIFIED ABDOMINAL PAIN SNOMED Code(s): 40532342 (4) Status post fall Current Visit: Yes Status: Acute Code(s): Z91.81 - HISTORY OF FALLING SNOMED Code(s): 189718766 Plan: This patient is a 82-year-old female who recently underwent a laparoscopic cholecystectomy for treatment of cholecystitis. Following the procedure the next day she showed signs of acute delirium and confusion. It was felt this was possibly a toxic metabolic encephalopathy from opioid pain medications. These were all discontinued. She still continued to show evidence of confusion. She was able to complete MRI of the brain today the results of which are noted above. MRI shows chronic white matter ischemic changes bilaterally suggesting possibility of vascular dementia for this patient. This can be further evaluated in the outpatient setting in the neurology clinic. Patient is showing improvement in her liver enzymes. Repeat laboratory tests are to be done tomorrow. Patient does have a nurse at bedside and apparently she has remained very sleepy and lethargic this afternoon. We will plan to reassess her again tomorrow. We will continue to follow her progress closely during this admission. Overall prognosis at this time remains guarded.
--- NOTE | 2017-12-09 19:58 | P.PN ---
Subjective Progress Note Date: 12/09/17 Patient is more alert this evening. She is tolerating liquids. Neurological assessment performed. Patient is less jaundiced today. Objective - Vital Signs Vital signs: Vital Signs Temp 98.3 F 12/09/17 15:00 Pulse 68 12/09/17 15:00 Resp 15 12/09/17 16:00 BP 159/67 12/09/17 15:00 Pulse Ox 98 12/09/17 15:00 Intake & Output 12/09/17 12/09/17 12/10/17 06:59 18:59 06:59 Intake Total 100 Output Total 0 Balance 0 100 Intake: Oral 100 Output: Stool 0 Other: Voiding Method Incontinent Incontinent # Voids 1 2 - Exam ABDOMEN: No peritonitis. GENERAL: Well developed and in no acute distress. HEENT: Has sclera icterus. Extraocular movements grossly intact. Moist buccal mucosa. No nasal drainage. Hard of hearing. NECK: Supple without lymphadenopathy. CHEST: Non-labored respirations and equal bilateral excursions. CARDIOVASCULAR: Regular rate and rhythm. Palpable 2+ radial pulses. MUSCULOSKELETAL: No clubbing, cyanosis or edema. NEUROLOGIC: No focal or lateralizing signs. PSYCH: Appropriate affect. Alert and oriented to person, place and time. SKIN: Good skin turgor. Well perfused. - Labs CBC & Chem 7: 12/10/17 07:04 12/10/17 18:49 Labs: Abnormal Lab Results - Last 24 Hours (Table) 12/09/17 12/09/17 Range/Units 07:26 09:26 WBC 21.8 H (3.8-10.6) k/uL RBC 2.99 L (3.80-5.40) m/uL Hgb 9.1 L (11.4-16.0) gm/dL Hct 28.6 L (34.0-46.0) % RDW 16.0 H (11.5-15.5) % Sodium 146 H (137-145) mmol/L Potassium 2.9 L* (3.5-5.1) mmol/L Chloride 118 H (98-107) mmol/L Carbon Dioxide 20 L (22-30) mmol/L BUN 20 H (7-17) mg/dL Total Bilirubin 3.0 H (0.2-1.3) mg/dL AST 67 H (14-36) U/L ALT 149 H (9-52) U/L Alkaline Phosphatase 525 H (38-126) U/L Total Protein 4.9 L (6.3-8.2) g/dL Albumin 2.4 L (3.5-5.0) g/dL Assessment and Plan (1) Choledocholithiasis Current Visit: Yes Status: Acute Code(s): K80.50 - CALCULUS OF BILE DUCT W/ O CHOLANGITIS OR CHOLECYST W/O OBST SNOMED Code(s): 169843803 Plan: 1. Will need rehab or transfer to care facility after hospitalization. 2. She is improving from her mental status changes 3. Await improvement of WBC and liver enzymes
[2017-12-09] MEDS ORDERED: Potassium Replacement Protocol 1 EACH MISC MISCELLANE PRN (21:21)
[2017-12-10] MEDS ORDERED: POTASSIUM CHLORIDE 10 MEQ in WATER FOR INJECTION 1 100ML.BAG IVPB SCH (02:45)
[2017-12-10] MEDS ORDERED: Potassium Replacement Protocol 1 EACH MISC MISCELLANE PRN ×2 (02:45→20:43)
[2017-12-10] MEDS: AMPICILLIN-SULBACTAM 3 GM in SODIUM CHLORIDE 0.9% 100 ML IVPB SCH ×5 (02:47→23:12)
[2017-12-10] MEDS ORDERED: POTASSIUM CHLORIDE 20 MEQ in WATER FOR INJECTION 1 100ML.BAG IVPB ONE ×2 (03:20→10:00)
[2017-12-10 07:29] LABS: Anisocytosis Slight; HCT 27.5 % (34.0-46.0); HGB 8.7 gm/dL (11.4-16.0); Hypochromasia Marked; MCH 30.5 pg (25.0-35.0); MCHC 31.7 g/dL (31.0-37.0); MCV 96.1 fL (80.0-100.0); Mean Platelet Volume 7.5; Platelet Count 344 k/uL (150-450); RBC 2.86 m/uL (3.80-5.40); WBC 19.6 k/uL (3.8-10.6)
[2017-12-10 07:58] LABS: ALT 113 U/L (9-52); AST 66 U/L (14-36); Albumin 2.3 g/dL (3.5-5.0); Alkaline Phosphatase 475 U/L (38-126); Anion Gap 10 mmol/L; Blood Urea Nitrogen 17 mg/dL (7-17); Carbon Dioxide 18 mmol/L (22-30); Chloride 114 mmol/L (98-107); Glucose 80 mg/dL (74-99); Potassium 3.9 mmol/L (3.5-5.1); Sodium 142 mmol/L (137-145); Total Bilirubin 2.5 mg/dL (0.2-1.3); Total Protein 4.8 g/dL (6.3-8.2)
--- NOTE | 2017-12-10 09:23 | P.PN ---
<Katey Mireles M - Last Filed: 12/10/17 09:16> Subjective Progress Note Date: 12/10/17 82-year-old female sitting up in bed. Pleasant confused oriented to self and place. . Did note the white counts morning elevated 19.6 was 21.8 electrolytes within normal limits AST and ALT are elevated mildly total bili 2.5 temp this morning 99.6 less jaundiced in appearance moves all extremities randomly Status post ERCP sphincterotomy with evidence of filling defect followed by laparoscopic cholecystectomy Objective - Vital Signs Vital signs: Vital Signs Temp 99.6 F 12/10/17 07:00 Pulse 88 12/10/17 07:00 Resp 18 12/10/17 07:00 BP 178/79 12/10/17 07:00 Pulse Ox 95 12/10/17 07:00 Intake & Output 12/09/17 12/10/17 12/10/17 18:59 06:59 18:59 Intake Total 100 950 Balance 100 950 Intake: IV 100 Potassium Chloride 20 meq 100 In Water For Injection 1 100ml.bag @ 50 mls/hr IVPB Q2H [facility] Rx#: [id number] Intake, IV Titration 850 Amount Ampicillin-Sulbactam 3 gm 100 In Sodium Chloride 0.9% 100 ml @ 100 mls/hr IVPB Q6HR [facility] Rx#:[id number] Potassium Chloride 10 meq 350 In Water For Injection 1 100ml.bag @ 100 mls/hr IVPB Q1H [facility] Rx#: [id number] Potassium Chloride 10 meq 100 In Water For Injection 1 100ml.bag @ 100 mls/hr IVPB Q1H [facility] Rx#: [id number] Potassium Chloride 20 meq 100 In Water For Injection 1 100ml.bag @ 50 mls/hr IVPB Q2H [facility] Rx#: [id number] Sodium Chloride 0.9% 500 200 ml As IV .STK-MED [facility] Rx# :[id number] Oral 100 Other: Voiding Method Incontinent Diaper Incontinent # Voids 2 2 1 - Exam Physical exam 82-year-old female resting in bed oriented to person and place more aware and awake is hard of hearing sitting up in bed taking a diet feeding self follow simple commands no facial droop purple ecchymotic bruise to the forehead skin abrasion with a scab noted to the chin Lungs adequate air movement bilaterally Heart S1-S2 audible regular Abdomen surgical dressing site dry surgical tenderness appropriate a few hypoactive bowel tones no stool no nausea no vomiting incontinently urine Extremities no edema noted - Labs CBC & Chem 7: 12/10/17 07:04 12/10/17 07:04 Labs: Abnormal Lab Results - Last 24 Hours (Table) 12/09/17 12/09/17 12/10/17 Range/Units 09:26 20:14 01:55 WBC 21.8 H (3.8-10.6) k/uL RBC 2.99 L (3.80-5.40) m/uL Hgb 9.1 L (11.4-16.0) gm/dL Hct 28.6 L (34.0-46.0) % RDW 16.0 H (11.5-15.5) % Potassium 3.1 L 3.4 L (3.5-5.1) mmol/L Chloride (98-107) mmol/L Carbon Dioxide (22-30) mmol/L Total Bilirubin (0.2-1.3) mg/dL AST (14-36) U/L ALT (9-52) U/L Alkaline Phosphatase (38-126) U/L Total Protein (6.3-8.2) g/dL Albumin (3.5-5.0) g/dL 12/10/17 12/10/17 Range/Units 07:04 07:04 WBC 19.6 H (3.8-10.6) k/uL RBC 2.86 L (3.80-5.40) m/uL Hgb 8.7 L (11.4-16.0) gm/dL Hct 27.5 L (34.0-46.0) % RDW 16.0 H (11.5-15.5) % Potassium (3.5-5.1) mmol/L Chloride 114 H (98-107) mmol/L Carbon Dioxide 18 L (22-30) mmol/L Total Bilirubin 2.5 H (0.2-1.3) mg/dL AST 66 H (14-36) U/L ALT 113 H (9-52) U/L Alkaline Phosphatase 475 H (38-126) U/L Total Protein 4.8 L (6.3-8.2) g/dL Albumin 2.3 L (3.5-5.0) g/dL Assessment and Plan Assessment: Impression Acute encephalopathy toxic likely due to narcotics secondary to medication effect of the narcotic pain medication Stinnett and morphine reversed with Narcan Postop laparoscopic cholecystectomy for cholelithiasis and cholecystitis on December 06 Status post ERCP with sphincterotomy done on December 04 showed normal pancreatic duct normal papilla dilated common bile duct with small filling defects suggestive of stones History of a fall prior to admission Present on admission elevated liver enzymes History of paroxysmal atrial fibrillation current sinus rhythm Hypertension Leukocytosis febrile present on admission likely due to sepsis due to cholecystitis Hypokalemia corrected resolved Persist leukocytosis postop temp Plan Urine culture follow up on results Consult infectious disease recommendations Stop narcotics . DVT and GI prophylaxis Further recommendations pending Continue postop surgical care PT OT eval Fall precautions Dictating progress note for Dr. Presley rounding on behalf followed dr travis The above impression and plan of care have been discussed and directed by signing physician. Katey Mireles nurse practitioner acting as scribe for signing physician. <Miesha Presley N - Last Filed: 12/10/17 20:18> Objective - Vital Signs Vital signs: Vital Signs Temp 99.7 F H 12/10/17 15:00 Pulse 79 12/10/17 15:00 Resp 16 12/10/17 15:00 BP 153/73 12/10/17 15:00 Pulse Ox 97 12/10/17 15:00 Intake & Output 12/10/17 12/10/17 12/11/17 06:59 18:59 06:59 Intake Total 950 240 Balance 950 240 Weight 53.977 kg Intake: IV 100 Potassium Chloride 20 meq 100 In Water For Injection 1 100ml.bag @ 50 mls/hr IVPB Q2H [facility] Rx#: [id number] Intake, IV Titration 850 Amount Ampicillin-Sulbactam 3 gm 100 In Sodium Chloride 0.9% 100 ml @ 100 mls/hr IVPB Q6HR [facility] Rx#:[id number] Potassium Chloride 10 meq 350 In Water For Injection 1 100ml.bag @ 100 mls/hr IVPB Q1H [facility] Rx#: [id number] Potassium Chloride 10 meq 100 In Water For Injection 1 100ml.bag @ 100 mls/hr IVPB Q1H [facility] Rx#: [id number] Potassium Chloride 20 meq 100 In Water For Injection 1 100ml.bag @ 50 mls/hr IVPB Q2H [facility] Rx#: [id number] Sodium Chloride 0.9% 500 200 ml As IV .STK-MED [facility] Rx# :[id number] Oral 240 Other: Voiding Method Incontinent Diaper Incontinent # Voids 2 1 - Labs CBC & Chem 7: 12/10/17 07:04 12/10/17 18:49 Labs: Abnormal Lab Results - Last 24 Hours (Table) 12/09/17 12/10/17 12/10/17 Range/Units 20:14 01:55 07:04 WBC (3.8-10.6) k/uL RBC (3.80-5.40) m/uL Hgb (11.4-16.0) gm/dL Hct (34.0-46.0) % RDW (11.5-15.5) % Potassium 3.1 L 3.4 L (3.5-5.1) mmol/L Chloride 114 H (98-107) mmol/L Carbon Dioxide 18 L (22-30) mmol/L Total Bilirubin 2.5 H (0.2-1.3) mg/dL AST 66 H (14-36) U/L ALT 113 H (9-52) U/L Alkaline Phosphatase 475 H (38-126) U/L Total Protein 4.8 L (6.3-8.2) g/dL Albumin 2.3 L (3.5-5.0) g/dL Urine Protein (Negative) Urine Blood (Negative) Urine Mucus (None) /hpf 12/10/17 12/10/17 Range/Units 07:04 11:45 WBC 19.6 H (3.8-10.6) k/uL RBC 2.86 L (3.80-5.40) m/uL Hgb 8.7 L (11.4-16.0) gm/dL Hct 27.5 L (34.0-46.0) % RDW 16.0 H (11.5-15.5) % Potassium (3.5-5.1) mmol/L Chloride (98-107) mmol/L Carbon Dioxide (22-30) mmol/L Total Bilirubin (0.2-1.3) mg/dL AST (14-36) U/L ALT (9-52) U/L Alkaline Phosphatase (38-126) U/L Total Protein (6.3-8.2) g/dL Albumin (3.5-5.0) g/dL Urine Protein 1+ H (Negative) Urine Blood Trace H (Negative) Urine Mucus Rare H (None) /hpf Microbiology - Last 24 Hours (Table) 12/10/17 11:45 Urine Culture - Preliminary Urine,Catheterized Assessment and Plan (1) Choledocholithiasis Current Visit: Yes Status: Acute Code(s): K80.50 - CALCULUS OF BILE DUCT W/ O CHOLANGITIS OR CHOLECYST W/O OBST SNOMED Code(s): 383912072 Plan: Patient is lethargic and sleepy. WBC is elevated. Recommend infectious disease consultation.
[2017-12-10] MEDS: FAMOTIDINE 20 MG/2 ML VIAL IV SCH ×2 (09:59→20:33)
[2017-12-10] MEDS: ENOXAPARIN 40 MG/0.4 ML SYRINGE SQ SCH (10:00)
--- NOTE | 2017-12-10 12:26 | P.PN ---
Subjective 80-year-old female status post cholecystectomy was confused of postcholecystectomy. Patient confusion was related to opiates. I valid the patient today patient doesn't have any diarrhea doesn't have any fever does have continued leukocytosis of 21,000. Patient is completely confused at this time this confusion is probably related to hospitalization related to delirium neurology evaluated the patient. MRI was opted by neurology which showed old small vessel ischemic changes patient may have a competent of undiagnosed vascular dementia. Now present delirium is probably related to hospitalization per se. Patient is on Unasyn at this time. Patient is receiving potassium supplementation for hyponatremia. Patient does have minimal cough. ROS Unable to obtain Objective - Vital Signs Vital signs: Vital Signs Temp 99.6 F 12/10/17 07:00 Pulse 88 12/10/17 07:00 Resp 18 12/10/17 07:00 BP 178/79 12/10/17 07:00 Pulse Ox 95 12/10/17 07:00 Intake & Output 12/09/17 12/10/17 12/10/17 18:59 06:59 18:59 Intake Total 100 950 Balance 100 950 Intake: IV 100 Potassium Chloride 20 meq 100 In Water For Injection 1 100ml.bag @ 50 mls/hr IVPB Q2H [facility] Rx#: [id number] Intake, IV Titration 850 Amount Ampicillin-Sulbactam 3 gm 100 In Sodium Chloride 0.9% 100 ml @ 100 mls/hr IVPB Q6HR [facility] Rx#:[id number] Potassium Chloride 10 meq 350 In Water For Injection 1 100ml.bag @ 100 mls/hr IVPB Q1H [facility] Rx#: [id number] Potassium Chloride 10 meq 100 In Water For Injection 1 100ml.bag @ 100 mls/hr IVPB Q1H [facility] Rx#: [id number] Potassium Chloride 20 meq 100 In Water For Injection 1 100ml.bag @ 50 mls/hr IVPB Q2H [facility] Rx#: [id number] Sodium Chloride 0.9% 500 200 ml As IV .STK-MED [facility] Rx# :[id number] Oral 100 Other: Voiding Method Incontinent Diaper Incontinent # Voids 2 2 2 - Exam GENERAL: The patient is alert and oriented x0-1, thin built HEENT: Pupils are round and equally reacting to light. EOMI. No scleral icterus. No conjunctival pallor. Normocephalic, atraumatic. No pharyngeal erythema. No thyromegaly. CARDIOVASCULAR: S1 and S2 present. No murmurs, rubs, or gallops. PULMONARY: Chest is clear to auscultation, no wheezing or crackles. ABDOMEN: Soft, nontender, nondistended, surgical site areas appear to be clean MUSCULOSKELETAL: No joint swelling or deformity. EXTREMITIES: No cyanosis, clubbing, or pedal edema. NEUROLOGICAL: Gross neurological examination did not reveal any new focal deficits. SKIN: No rashes. - Labs CBC & Chem 7: 12/10/17 07:04 12/10/17 07:04 Labs: Abnormal Lab Results - Last 24 Hours (Table) 12/09/17 12/10/17 12/10/17 Range/Units 20:14 01:55 07:04 WBC (3.8-10.6) k/uL RBC (3.80-5.40) m/uL Hgb (11.4-16.0) gm/dL Hct (34.0-46.0) % RDW (11.5-15.5) % Potassium 3.1 L 3.4 L (3.5-5.1) mmol/L Chloride 114 H (98-107) mmol/L Carbon Dioxide 18 L (22-30) mmol/L Total Bilirubin 2.5 H (0.2-1.3) mg/dL AST 66 H (14-36) U/L ALT 113 H (9-52) U/L Alkaline Phosphatase 475 H (38-126) U/L Total Protein 4.8 L (6.3-8.2) g/dL Albumin 2.3 L (3.5-5.0) g/dL 12/10/17 Range/Units 07:04 WBC 19.6 H (3.8-10.6) k/uL RBC 2.86 L (3.80-5.40) m/uL Hgb 8.7 L (11.4-16.0) gm/dL Hct 27.5 L (34.0-46.0) % RDW 16.0 H (11.5-15.5) % Potassium (3.5-5.1) mmol/L Chloride (98-107) mmol/L Carbon Dioxide (22-30) mmol/L Total Bilirubin (0.2-1.3) mg/dL AST (14-36) U/L ALT (9-52) U/L Alkaline Phosphatase (38-126) U/L Total Protein (6.3-8.2) g/dL Albumin (3.5-5.0) g/dL Assessment and Plan Plan: -Altered mental status: Secondary to toxic encephalopathy from medications medically opiates which was subsequently discontinued, patient remains delirious this new delirium is probably related to hospitalization. Patient is off opiates. MRI showed chronic small vessel ischemic changes neurology following the patient -Leukocytosis patient is already on Unasyn no fevers, if patient remains to have leukocytosis with no further workup with a chest x-ray and a UA urine cultures blood cultures at that time. Patient doesn't have any diarrhea. Probably stress-related to intra-abdominal process and recent surgery. Continue with Unasyn for now -Possible vascular dementia, neurological evaluation is recommended outpatient follow-up within urology office -Cholecystitis and possibility of sepsis secondary to that and the patient is on Unasyn at this time. ID consult is called by primary team -Dilated common bile duct status post ERCP and cholecystectomy -Hypertension -Elevated liver enzymes secondary to cholelithiasis, hepatitis panel is negative liver enzymes are expected to improve we'll repeat tomorrow. Ammonia is within normal limits DVT prophylaxis on low molecular weight heparin as per primary service
[2017-12-10 13:23] LABS: Appearance,Urine Clear (Clear); Bilirubin,Urine Negative (Negative); Blood,Urine Trace (Negative); Color,Urine Yellow; Glucose,Urine (UA) Negative (Negative); Hyaline Casts,Urine 1 /lpf (0-2); Ketones,Urine Negative (Negative); Leukocyte Esterase,Urine Negative (Negative); Mucus,Urine Rare /hpf; Nitrite,Urine Negative (Negative); Protein,Urine 1+ (Negative); RBC,Urine 3 /hpf (0-5); Specific Gravity,Urine 1.013 (1.001-1.035); Squamous Epithelial Cell,Urine <1 /hpf (0-4); Urobilinogen,Urine <2.0 mg/dL (<2.0); WBC,Urine 4 /hpf (0-5)
[2017-12-10 15:13] VITALS: BMI 21.0
--- NOTE | 2017-12-10 15:53 | US ---
EXAMINATION TYPE: US abdomen complete DATE OF EXAM: 12/10/2017 COMPARISON: [facility] 12/04/2017 CLINICAL HISTORY: right upper quadrant tenderness post cholecyst ect. EXAM MEASUREMENTS: Liver Length: 14.2 cm Gallbladder Wall: Surgically absent CBD: 0.5 cm Spleen: 10.6 cm Right Kidney: 9.6 x 5.0 x 4.6 cm Left Kidney: 10.1 x 4.9 x 5.2 cm Pancreas: Obscured by bowel gas Liver: wnl Gallbladder: Surgically absent Evidence for sonographic Sweet's sign: no, all over pain CBD: wnl Spleen: wnl Right Kidney: No hydronephrosis or masses seen Left Kidney: No hydronephrosis or masses seen Upper IVC: wnl Abd Aorta: proximal and mid aorta wnl; distal aorta obscured by gas Gallbladder is surgically absent. Pancreas is obscured by bowel gas. Liver appears homogeneous. Splee n homogeneous. No hydronephrosis or nephrolithiasis. IMPRESSION:
[2017-12-10] MEDS: FLUCONAZOLE IN NACL,ISO-OSM 200 MG in SALINE 1 100ML.BAG IVPB SCH (16:02)
[2017-12-10] MEDS ORDERED: POTASSIUM CHLORIDE ER 20 MEQ TAB.ER PO SCH (17:00)
[2017-12-10] MEDS: KETOROLAC 30 MG/ML 1 ML VIAL IVP PRN (17:30)
--- NOTE | 2017-12-10 18:10 | P.PN ---
Subjective Progress Note Date: 12/10/17 This patient is a 82-year-old right-handed white female who was recently undergone laparoscopic cholecystectomy for treatment of acute cholecystitis. Patient initially presented post surgery with increasing confusion and delirium. She underwent initial computed tomography scan of the brain which failed to reveal any evidence of acute stroke. MRI of the brain was recommended and was completed today. MRI findings indicate no evidence for acute or recent infarct. There was mild diffuse cerebral atrophy and advanced chronic small vessel ischemic changes seen bilaterally. This raises suspicion of possible underlying vascular dementia for the patient. Patient continues to remain somewhat confused today but does follow some simple commands. Her initial liver enzymes were elevated as well as her ammonia level but these are improving today. She has been tolerating a regular diet. She is being considered for possible discharge home soon. The patient can be further evaluated for vascular dementia in the outpatient neurology clinic. Would recommend follow-up in the outpatient neurology clinic for the patient in 2-3 weeks. Her delirium also could be secondary to recent hospitalization. As noted she was taken off of all opiates and pain medications but still shows signs of mild confusion. Patient otherwise is resting comfortably. Laboratory tests are to be repeated for her tomorrow. We reviewed the results of the MRI today with the patient in detail. We tried to explain as best as possible that there was vascular changes to the brain possibly contributing to her mild confusional state. This can be further worked up as outpatient. The patient was seen by infectious disease today. She was started on Diflucan. Urine analysis was completed. We will await further recommendations from ID. Patient still remains confused at times and likely does have underlying vascular dementia. We'll continue to follow with multiple specialists that are seeing this patient. She is slightly febrile this evening as well and infectious disease is monitoring her condition closely. We will continue close neurological follow-up for the patient during this admission. Objective - Vital Signs Vital signs: Vital Signs Temp 99.7 F H 12/10/17 15:00 Pulse 79 12/10/17 15:00 Resp 16 12/10/17 15:00 BP 153/73 12/10/17 15:00 Pulse Ox 97 12/10/17 15:00 Intake & Output 12/09/17 12/10/17 12/10/17 18:59 06:59 18:59 Intake Total 100 950 120 Balance 100 950 120 Weight 53.977 kg Intake: IV 100 Potassium Chloride 20 meq 100 In Water For Injection 1 100ml.bag @ 50 mls/hr IVPB Q2H ONE Rx#: [id number] Intake, IV Titration 850 Amount Ampicillin-Sulbactam 3 gm 100 In Sodium Chloride 0.9% 100 ml @ 100 mls/hr IVPB Q6HR [facility] Rx#:[id number] Potassium Chloride 10 meq 350 In Water For Injection 1 100ml.bag @ 100 mls/hr IVPB Q1H [facility] Rx#: [id number] Potassium Chloride 10 meq 100 In Water For Injection 1 100ml.bag @ 100 mls/hr IVPB Q1H [facility] Rx#: [id number] Potassium Chloride 20 meq 100 In Water For Injection 1 100ml.bag @ 50 mls/hr IVPB Q2H ONE Rx#: [id number] Sodium Chloride 0.9% 500 200 ml As IV .[facility] ONE Rx# :[id number] Oral 100 120 Other: Voiding Method Incontinent Diaper Incontinent # Voids 2 2 3 - Exam Physical Examination: PHYSICAL EXAMINATION: Patient is resting comfortably in bed. VITAL SIGNS: Blood pressure is [153/73]. Heart rate is [79]. Respiration is [16] . Temperature is []. HEENT: Head is atraumatic, neck is supple, there were no carotid bruits. CHEST: Lungs are clear to auscultation and percussion. CARDIAC: S1, S2 normal rate and rhythm. There is no murmur. ABDOMEN: Soft and nontender. Bowel sounds are present. EXTREMITIES: There is no pedal edema. Peripheral pulses are present. Neurological examination: Patient is awake alert and oriented 2. Her speech is still somewhat garbled at times and hard to comprehend. She has slight aphasia. Her memory and intellectual functions are impaired. Cranial nerve examination: Cranial nerves II through XII grossly intact. Motor examination: There was no pronator drift. Muscle tone is normal. Muscle strength is 4 minus/5 throughout. Deep tendon reflexes are 1+ and symmetric. Plantar responses flexor bilaterally. - Labs CBC & Chem 7: 12/10/17 07:04 12/10/17 13:10 Labs: Abnormal Lab Results - Last 24 Hours (Table) 12/09/17 12/10/17 12/10/17 Range/Units 20:14 01:55 07:04 WBC (3.8-10.6) k/uL RBC (3.80-5.40) m/uL Hgb (11.4-16.0) gm/dL Hct (34.0-46.0) % RDW (11.5-15.5) % Potassium 3.1 L 3.4 L (3.5-5.1) mmol/L Chloride 114 H (98-107) mmol/L Carbon Dioxide 18 L (22-30) mmol/L Total Bilirubin 2.5 H (0.2-1.3) mg/dL AST 66 H (14-36) U/L ALT 113 H (9-52) U/L Alkaline Phosphatase 475 H (38-126) U/L Total Protein 4.8 L (6.3-8.2) g/dL Albumin 2.3 L (3.5-5.0) g/dL Urine Protein (Negative) Urine Blood (Negative) Urine Mucus (None) /hpf 12/10/17 12/10/17 Range/Units 07:04 11:45 WBC 19.6 H (3.8-10.6) k/uL RBC 2.86 L (3.80-5.40) m/uL Hgb 8.7 L (11.4-16.0) gm/dL Hct 27.5 L (34.0-46.0) % RDW 16.0 H (11.5-15.5) % Potassium (3.5-5.1) mmol/L Chloride (98-107) mmol/L Carbon Dioxide (22-30) mmol/L Total Bilirubin (0.2-1.3) mg/dL AST (14-36) U/L ALT (9-52) U/L Alkaline Phosphatase (38-126) U/L Total Protein (6.3-8.2) g/dL Albumin (3.5-5.0) g/dL Urine Protein 1+ H (Negative) Urine Blood Trace H (Negative) Urine Mucus Rare H (None) /hpf Microbiology - Last 24 Hours (Table) 12/10/17 11:45 Urine Culture - Preliminary Urine,Catheterized Assessment and Plan (1) Acute metabolic encephalopathy Current Visit: Yes Status: Acute Code(s): G93.41 - METABOLIC ENCEPHALOPATHY SNOMED Code(s): 14575748 (2) Hx laparoscopic cholecystectomy Current Visit: Yes Status: Acute Code(s): Z90.49 - ACQUIRED ABSENCE OF OTHER SPECIFIED PARTS OF DIGESTIVE TRACT SNOMED Code(s): 553747186 (3) Abdominal pain Current Visit: Yes Status: Acute Code(s): R10.9 - UNSPECIFIED ABDOMINAL PAIN SNOMED Code(s): 48816067 (4) Status post fall Current Visit: Yes Status: Acute Code(s): Z91.81 - HISTORY OF FALLING SNOMED Code(s): 600832181 Plan: This patient is a 82-year-old female who is status post cholecystectomy for treatment of acute cholecystitis. She is being followed closely by surgery. She is running low-grade temperature today of 99.7. She did undergo MRI of the brain yesterday which revealed no evidence of acute infarction. It was chronic white matter ischemic changes noted bilaterally suggesting some degree of vascular ischemic changes to the brain. She is doing better in terms of her mental status but still confused at times. She was seen in consultation with infectious disease who had started her on Diflucan. Urine analysis is pending. We will continue to monitor her progress closely. Patient continues to demonstrate evidence of a toxic encephalopathy secondary to medication effects. She may be further evaluated for vascular dementia in the outpatient neurology clinic. She continues to show mild symptoms of leukocytosis and sepsis. Surgery is following her closely. We will follow-up on the urine culture results tomorrow. Would continue to monitor for signs of recurrent sepsis. White count still is slightly elevated. Overall prognosis at this time remains very guarded.
[2017-12-10] MEDS: POTASSIUM CHLORIDE ER 20 MEQ TAB.ER PO SCH ×2 (21:41→23:12)
[2017-12-11] MEDS: AMPICILLIN-SULBACTAM 3 GM in SODIUM CHLORIDE 0.9% 100 ML IVPB SCH ×4 (06:17→23:31)
--- NOTE | 2017-12-11 07:19 | CONS ---
CONSULTATION DATE OF SERVICE: 12/10/2017. REASON FOR CONSULTATION: Persistent leukocytosis. HISTORY OF PRESENT ILLNESS: The patient is an 82-year-old female who presented to [facility] for a chronic epigastric pain that the patient has for a couple of weeks with no history of any hematemesis or melena. The patient apparently did have a CT of abdomen and pelvis done at the other facility which did show gallstone and sludge in the CBD. Ultrasound did show biliary sludge and no CBD dilatation. Subsequently the patient has been transferred to the [facility] for further evaluation of the same. The patient has been evaluated by GI Services and on 12/04, the patient did have an ERCP with sphincterotomy and passage of 11.5 mm balloon catheter across the sphincterotomy site fully inflated. Subsequently on the , the patient did have laparoscopic cholecystectomy done by Dr. Pagan. The patient has been afebrile throughout her hospital stay. The highest temperature has been 99.7 this morning. The patient who did have a white count of 15.7 on the has been slowly creeping up with the white count up to 21.8 as of yesterday that has prompted this infectious disease consultation of her persistent elevated white count. The patient herself is not a very good historian. She was unable to provide any reliable history and not specifically for her symptomatology, though no chest pain or any cough. She has some vague abdominal pain feeling nauseated, but no vomiting and no diarrhea reported by the nursing staff. Overall history limited because of underlying condition. REVIEW OF SYSTEMS: Could not be reliably obtained, but the positive points have been mentioned in HPI. PAST MEDICAL HISTORY: Her past medical history is significant for CVA TIA, hypertension, SD. PAST SURGICAL HISTORY: Appendectomy, hysterectomy. SOCIAL HISTORY: No history of smoking, drinking, or drug use. FAMILY HISTORY: No pertinent findings noticed. ALLERGIES: Allergies to CEPHALEXIN, CIPROFLOXACIN, and IODINE. Tolerated Unasyn without any problem. MEDICATION: Medications include the patient is currently on Unasyn 3 grams q.6. She is on Tums, Lovenox, Pepcid, hydralazine, Toradol, Zofran. PHYSICAL EXAMINATION: On examination, blood pressure is 156/74 with a pulse of 76, temperature 99.1, T-max is 99.7. She is 99% on room air. General description is an elderly female lying in bed in no distress. No tachypnea or accessory muscle of respiration use. HEENT examination shows slight pallor. No scleral icterus. Oral mucous membrane is dry. No pharyngeal erythema or thrush. NECK: Trachea central. No thyromegaly. LUNGS: Unlabored breathing with decreased breath sounds in the bases. No wheeze or crackle. HEART: S1, S2. Regular rate and rhythm. ABDOMEN: Soft, mild tenderness right upper quadrant area. No guarding or rigidity. EXTREMITIES: No edema of the feet. SKIN EXAMINATION: No rash or mass palpable. NEUROLOGICAL: Patient is awake, alert, oriented x1. Mood and affect normal. LABS: Hemoglobin is 8.7, white count 19.6, BUN of 17, creatinine 0.56. Liver enzymes slightly elevated. Urine has been negative. No chest x-ray. DIAGNOSTIC IMPRESSION AND PLAN: Patient with leukocytosis in this patient who has been admitted to the hospital for an acute cholecystitis with possible CBD sludge for which the patient did have ERCP followed by laparoscopic cholecystectomy with persistently elevated white count in a patient who seems to have slight abdominal pain and tenderness with likely concern for abdominal source to which the etiology of this elevated white count. Currently seemed to be breathing comfortably and urine is not significantly positive. PLAN: 1. We will try to obtain a CT of abdomen and pelvis with oral contrast only however per the RN, the patient remains to be lethargic and may not be able to tolerate the contrast and images may be not of any benefit without any contrast. Hence, we will start with an ultrasound to make sure there is no evidence of any fluid collection in the gallbladder fossa that may need to be aspirated further if positive. 2. The patient will be maintained on Unasyn, however, add Diflucan and repeat a CBC tomorrow and blood culture has been obtained. 3. Depending upon the clinical response as well as these investigation determined will adjust her medication further if needed. Thank you for this consultation. Will follow this patient along with you. MMODL / IJN: [id number] /
[2017-12-11 07:43] LABS: Anisocytosis Slight; Basophils # (A) 0.1 k/uL (0-0.2); Basophils % (A) 0 %; Eosinophils # (A) 0.2 k/uL (0-0.7); Eosinophils % (A) 1 %; HCT 29.1 % (34.0-46.0); Hypochromasia Moderate; Lymphocytes # (A) 0.6 k/uL (1.0-4.8); Lymphocytes % (A) 4 %; MCH 29.9 pg (25.0-35.0); MCHC 30.8 g/dL (31.0-37.0); MCV 97.1 fL (80.0-100.0); Macrocytosis Slight; Mean Platelet Volume 7.2; Monocytes # (A) 0.5 k/uL (0-1.0); Monocytes % (A) 3 %; Neutrophils # (A) 15.3 k/uL (1.3-7.7); Neutrophils % (A) 91 %; Platelet Count 337 k/uL (150-450); RDW 16.4 % (11.5-15.5); WBC 16.7 k/uL (3.8-10.6)
[2017-12-11 08:05] LABS: ALT 97 U/L (9-52); AST 67 U/L (14-36); Albumin 2.3 g/dL (3.5-5.0); Alkaline Phosphatase 497 U/L (38-126); Anion Gap 8 mmol/L; Blood Urea Nitrogen 15 mg/dL (7-17); Calcium 8.8 mg/dL (8.4-10.2); Carbon Dioxide 21 mmol/L (22-30); Chloride 110 mmol/L (98-107); Glucose 102 mg/dL (74-99); Potassium 4.3 mmol/L (3.5-5.1); Sodium 139 mmol/L (137-145); Total Bilirubin 1.7 mg/dL (0.2-1.3); Total Protein 4.7 g/dL (6.3-8.2)
[2017-12-11] MEDS: FAMOTIDINE 20 MG/2 ML VIAL IV SCH (08:45)
[2017-12-11] MEDS: ENOXAPARIN 40 MG/0.4 ML SYRINGE SQ SCH (08:45)
--- NOTE | 2017-12-11 10:46 | P.PN ---
<Katey Mireles - Last Filed: 12/11/17 10:46> Subjective Progress Note Date: 12/11/17 82-year-old female seen and examined. Patient is notably more confused this morning talking out loud saying "there hears outsiders trying to drug me and give me something" patient is oriented to self only. Easily agitated this morning. The white count is 16.7 down from 19.6. The temp is 99.1. Surgical dressing sites dry. Patient is less jaundiced this morning the total bili is down 1.7 from 2.5 Status post ERCP sphincterotomy with evidence of filling defect followed by laparoscopic cholecystectomy Objective - Vital Signs Vital signs: Vital Signs Temp 99.1 F 12/11/17 07:26 Pulse 106 H 12/11/17 07:26 Resp 18 12/11/17 07:26 BP 138/90 12/11/17 07:26 Pulse Ox 96 12/11/17 07:26 Intake & Output 12/10/17 12/11/17 12/11/17 18:59 06:59 18:59 Intake Total 240 Balance 240 Weight 53.977 kg Intake: Oral 240 Other: Voiding Method Diaper Diaper Incontinent # Voids 1 3 - Exam Physical exam 82-year-old female resting in bed oriented to person more confused easily agitated is hard of hearing sitting up in bed taking a diet feeding self follow simple commands no facial droop purple ecchymotic bruise to the forehead skin abrasion with a scab noted to the chin Lungs adequate air movement bilaterally Heart S1-S2 audible regular Abdomen surgical dressing site dry surgical tenderness appropriate a few hypoactive bowel tones no stool no nausea no vomiting incontinently urine Extremities no edema noted - Labs CBC & Chem 7: 12/11/17 06:52 12/11/17 06:52 Labs: Abnormal Lab Results - Last 24 Hours (Table) 12/10/17 12/11/17 12/11/17 Range/Units 11:45 06:52 06:52 WBC 16.7 H (3.8-10.6) k/uL RBC 3.00 L (3.80-5.40) m/uL Hgb 9.0 L (11.4-16.0) gm/dL Hct 29.1 L (34.0-46.0) % MCHC 30.8 L (31.0-37.0) g/dL RDW 16.4 H (11.5-15.5) % Neutrophils # 15.3 H (1.3-7.7) k/uL Lymphocytes # 0.6 L (1.0-4.8) k/uL Chloride 110 H (98-107) mmol/L Carbon Dioxide 21 L (22-30) mmol/L Glucose 102 H (74-99) mg/dL Total Bilirubin 1.7 H (0.2-1.3) mg/dL AST 67 H (14-36) U/L ALT 97 H (9-52) U/L Alkaline Phosphatase 497 H (38-126) U/L Total Protein 4.7 L (6.3-8.2) g/dL Albumin 2.3 L (3.5-5.0) g/dL Urine Protein 1+ H (Negative) Urine Blood Trace H (Negative) Urine Mucus Rare H (None) /hpf Microbiology - Last 24 Hours (Table) 12/10/17 11:45 Urine Culture - Preliminary Urine,Catheterized Assessment and Plan Assessment: Impression Acute encephalopathy toxic likely due to narcotics secondary to medication effect of the narcotic pain medication [place] and morphine reversed with Narcan Postop laparoscopic cholecystectomy for cholelithiasis and cholecystitis on December 06 Status post ERCP with sphincterotomy done on December 04 showed normal pancreatic duct normal papilla dilated common bile duct with small filling defects suggestive of stones History of a fall prior to admission Present on admission elevated liver enzymes History of paroxysmal atrial fibrillation current sinus rhythm Hypertension Leukocytosis febrile present on admission likely due to sepsis due to cholecystitis Hypokalemia corrected resolved Persist leukocytosis postop temp MRI of the brain vascular changes likely contributing to mild confusion suspect vascular dementia Plan Urine culture follow up on results Continue with infectious disease recommendations Stop narcotics . DVT and GI prophylaxis Further recommendations pending Continue postop surgical care PT OT eval Fall precautions Dictating progress note for Dr. Presley rounding on behalf followed dr travis The above impression and plan of care have been discussed and directed by signing physician. Katey Mireles nurse practitioner acting as scribe for signing physician. <Miesha Presley - Last Filed: 12/11/17 18:41> Objective - Vital Signs Vital signs: Vital Signs Temp 98 F 12/11/17 15:12 Pulse 99 12/11/17 15:12 Resp 16 12/11/17 15:12 BP 138/71 12/11/17 15:12 Pulse Ox 95 12/11/17 15:12 Intake & Output 12/10/17 12/11/17 12/11/17 18:59 06:59 18:59 Intake Total 240 160 Output Total 350 Balance 240 -190 Weight 53.977 kg Intake: Intake, IV Titration 160 Amount Lactated Ringers 1,000 ml 160 As IV .[facility] ONE Rx#: [id number] Oral 240 Output: Urine 350 Other: Voiding Method Diaper Diaper Incontinent # Voids 1 3 3 - Labs CBC & Chem 7: 12/11/17 06:52 12/11/17 06:52 Labs: Abnormal Lab Results - Last 24 Hours (Table) 12/11/17 12/11/17 Range/Units 06:52 06:52 WBC 16.7 H (3.8-10.6) k/uL RBC 3.00 L (3.80-5.40) m/uL Hgb 9.0 L (11.4-16.0) gm/dL Hct 29.1 L (34.0-46.0) % MCHC 30.8 L (31.0-37.0) g/dL RDW 16.4 H (11.5-15.5) % Neutrophils # 15.3 H (1.3-7.7) k/uL Lymphocytes # 0.6 L (1.0-4.8) k/uL Chloride 110 H (98-107) mmol/L Carbon Dioxide 21 L (22-30) mmol/L Glucose 102 H (74-99) mg/dL Total Bilirubin 1.7 H (0.2-1.3) mg/dL AST 67 H (14-36) U/L ALT 97 H (9-52) U/L Alkaline Phosphatase 497 H (38-126) U/L Total Protein 4.7 L (6.3-8.2) g/dL Albumin 2.3 L (3.5-5.0) g/dL Microbiology - Last 24 Hours (Table) 12/10/17 15:00 Blood Culture - Preliminary Blood No Growth after 24 hours 12/10/17 13:59 Blood Culture - Preliminary Blood No Growth after 24 hours 12/10/17 11:45 Urine Culture - Final Urine,Catheterized Assessment and Plan (1) Choledocholithiasis Current Visit: Yes Status: Acute Code(s): K80.50 - CALCULUS OF BILE DUCT W/ O CHOLANGITIS OR CHOLECYST W/O OBST SNOMED Code(s): 139643475
[2017-12-11] MEDS ORDERED: BISACODYL 10 MG SUPP RECTAL STA (11:02)
[2017-12-11] MEDS: DOCUSATE 100 MG CAP PO SCH ×2 (12:47→21:20)
[2017-12-11] MEDS: POLYETHYLENE GLYCOL 3350 17 GM POWD.PACK PO SCH (12:47)
--- NOTE | 2017-12-11 12:48 | P.PN ---
Subjective 80-year-old female status post cholecystectomy was confused of postcholecystectomy. Patient confusion was related to opiates. I valid the patient today patient doesn't have any diarrhea doesn't have any fever does have continued leukocytosis of 21,000. Patient is completely confused at this time this confusion is probably related to hospitalization related to delirium neurology evaluated the patient. MRI was opted by neurology which showed old small vessel ischemic changes patient may have a competent of undiagnosed vascular dementia. Now present delirium is probably related to hospitalization per se. Patient is on Unasyn at this time. Patient is receiving potassium supplementation for hypokalemia. Patient does have minimal cough. On 12/11/2017 Patient is more awake today she knows she is in the hospital and she notes she had operation, and she remember she fell at home. Patient has abdominal discomfort and pain, mostly related to her surgery and possible elements of constipation ID recommendation are noted and appreciated. He recommended abdominal ultrasound to rule out abscess collections in the gallbladder area. Patient is on Unasyn. Diflucan is added. Follow-up CBC and blood culture Her leukocytosis is improving from 19 K to 16 K. ROS Unable to obtain Objective - Vital Signs Vital signs: Vital Signs Temp 99.1 F 12/11/17 07:26 Pulse 106 H 12/11/17 07:26 Resp 18 12/11/17 07:26 BP 138/90 12/11/17 07:26 Pulse Ox 96 12/11/17 07:26 Intake & Output 12/10/17 12/11/17 12/11/17 18:59 06:59 18:59 Intake Total 240 Output Total 350 Balance 240 -350 Weight 53.977 kg Intake: Oral 240 Output: Urine 350 Other: Voiding Method Diaper Diaper Incontinent # Voids 1 3 - Exam GENERAL: The patient is alert and oriented x0-1, thin built HEENT: Pupils are round and equally reacting to light. EOMI. No scleral icterus. No conjunctival pallor. Normocephalic, atraumatic. No pharyngeal erythema. No thyromegaly. CARDIOVASCULAR: S1 and S2 present. No murmurs, rubs, or gallops. PULMONARY: Chest is clear to auscultation, no wheezing or crackles. ABDOMEN: Soft, nontender, nondistended, surgical site areas appear to be clean MUSCULOSKELETAL: No joint swelling or deformity. EXTREMITIES: No cyanosis, clubbing, or pedal edema. NEUROLOGICAL: Gross neurological examination did not reveal any new focal deficits. SKIN: No rashes. - Labs CBC & Chem 7: 12/11/17 06:52 12/11/17 06:52 Labs: Abnormal Lab Results - Last 24 Hours (Table) 12/10/17 12/11/17 12/11/17 Range/Units 11:45 06:52 06:52 WBC 16.7 H (3.8-10.6) k/uL RBC 3.00 L (3.80-5.40) m/uL Hgb 9.0 L (11.4-16.0) gm/dL Hct 29.1 L (34.0-46.0) % MCHC 30.8 L (31.0-37.0) g/dL RDW 16.4 H (11.5-15.5) % Neutrophils # 15.3 H (1.3-7.7) k/uL Lymphocytes # 0.6 L (1.0-4.8) k/uL Chloride 110 H (98-107) mmol/L Carbon Dioxide 21 L (22-30) mmol/L Glucose 102 H (74-99) mg/dL Total Bilirubin 1.7 H (0.2-1.3) mg/dL AST 67 H (14-36) U/L ALT 97 H (9-52) U/L Alkaline Phosphatase 497 H (38-126) U/L Total Protein 4.7 L (6.3-8.2) g/dL Albumin 2.3 L (3.5-5.0) g/dL Urine Protein 1+ H (Negative) Urine Blood Trace H (Negative) Urine Mucus Rare H (None) /hpf Microbiology - Last 24 Hours (Table) 12/10/17 11:45 Urine Culture - Preliminary Urine,Catheterized Assessment and Plan Plan: -Altered mental status: Secondary to toxic encephalopathy from medications medically opiates which was subsequently discontinued, patient remains delirious. Patient is off opiates. MRI showed chronic small vessel ischemic changes. EEG : No epileptiform abnormalities .neurology following the patient and they recommended outpatient workup for her vascular dementia, improving as patient is more awake today For pain management she's on Toradol and IV Tylenol as per primary team. We can add lidocaine patch if patient wants -Abdominal pain, mostly secondary to surgery and illness of constipation. Continue with symptomatic treatment -Mostly vascular dementia, as above -Leukocytosis patient is already on Unasyn no fevers, if patient remains to have leukocytosis with no further workup with a chest x-ray and a UA urine cultures blood cultures at that time. Patient doesn't have any diarrhea. Probably stress-related to intra-abdominal process and recent surgery. Continue with Unasyn for now -Possible vascular dementia, neurological evaluation is recommended outpatient follow-up within urology office -Cholecystitis, S/P cholecystectomy. ID recommendation are noted, He recommended abdominal ultrasound to rule out abscess: Gallbladder is surgically absent. Patient is on Unasyn. Diflucan is added. Follow-up CBC and blood culture -Dilated common bile duct status post ERCP on 12/04/2017 and cholecystectomy on 12/06/2017 -Elevated liver enzymes secondary to cholelithiasis, as above. hepatitis panel is negative liver enzymes are expected to improve we'll repeat tomorrow. Ammonia is within normal limits -History of Hypertension, continue with the same treatment DVT prophylaxis on low molecular weight heparin as per primary service prognosis is guarded given severity and multiple complex comorbidities Physical therapy recommended NEREYDA on 12/04/2017 Time with Patient: Greater than 30
[2017-12-11] MEDS ORDERED: IOPAMIDOL-300 CONTRAST 30 ML VIAL (ORAL USE) PO PRN (12:56)
[2017-12-11] MEDS: FLUCONAZOLE IN NACL,ISO-OSM 200 MG in SALINE 1 100ML.BAG IVPB SCH (14:20)
[2017-12-11] MEDS ORDERED: BARIUM SULFATE 450 ML ORAL.SUSP BOTTLE PO PRN (14:53)
[2017-12-11] MEDS: BARIUM SULFATE 450 ML ORAL.SUSP BOTTLE PO PRN ×2 (15:15→18:00)
--- NOTE | 2017-12-11 16:02 | P.PN ---
Subjective Progress Note Date: 12/11/17 This patient is a 82-year-old right-handed white female who was recently undergone laparoscopic cholecystectomy for treatment of acute cholecystitis. Patient initially presented post surgery with increasing confusion and delirium. She underwent initial computed tomography scan of the brain which failed to reveal any evidence of acute stroke. MRI of the brain was recommended and was completed today. MRI findings indicate no evidence for acute or recent infarct. There was mild diffuse cerebral atrophy and advanced chronic small vessel ischemic changes seen bilaterally. This raises suspicion of possible underlying vascular dementia for the patient. Patient continues to remain somewhat confused today but does follow some simple commands. Her initial liver enzymes were elevated as well as her ammonia level but these are improving today. She has been tolerating a regular diet. She is being considered for possible discharge home soon. The patient can be further evaluated for vascular dementia in the outpatient neurology clinic. Would recommend follow-up in the outpatient neurology clinic for the patient in 2-3 weeks. Her delirium also could be secondary to recent hospitalization. As noted she was taken off of all opiates and pain medications but still shows signs of mild confusion. Patient otherwise is resting comfortably. Laboratory tests are to be repeated for her tomorrow. We reviewed the results of the MRI today with the patient in detail. We tried to explain as best as possible that there was vascular changes to the brain possibly contributing to her mild confusional state. This can be further worked up as outpatient. The patient was seen by infectious disease today. She was started on Diflucan. Urine analysis was completed. We will await further recommendations from ID. patient continues to have intermittent confusion. Currently she is able to answer simple questions appropriately. She is scheduled to undergo computed tomography scan of the abdomen later today and we will await those results. Patient still remains confused at times and likely does have underlying vascular dementia. We will continue to follow with multiple specialists that are seeing this patient. We will continue close neurological follow-up for the patient during this admission. Objective - Vital Signs Vital signs: Vital Signs Temp 99.1 F 12/11/17 07:26 Pulse 106 H 12/11/17 07:26 Resp 18 12/11/17 07:26 BP 138/90 12/11/17 07:26 Pulse Ox 96 12/11/17 07:26 Intake & Output 12/10/17 12/11/17 12/11/17 18:59 06:59 18:59 Intake Total 240 160 Output Total 350 Balance 240 -190 Weight 53.977 kg Intake: Intake, IV Titration 160 Amount Lactated Ringers 1,000 ml 160 As IV .[employer] [facility] Rx#: [id number] Oral 240 Output: Urine 350 Other: Voiding Method Diaper Diaper Incontinent # Voids 1 3 3 - Exam Physical Examination: PHYSICAL EXAMINATION: Patient is resting comfortably in bed. VITAL SIGNS: Blood pressure is [138/71]. Heart rate is [99]. Respiration is [16] . Temperature is [98.0]. HEENT: Head is atraumatic, neck is supple, there were no carotid bruits. CHEST: Lungs are clear to auscultation and percussion. CARDIAC: S1, S2 normal rate and rhythm. There is no murmur. ABDOMEN: Soft and nontender. Bowel sounds are present. EXTREMITIES: There is no pedal edema. Peripheral pulses are present. Neurological examination: Patient is awake alert and oriented 2. Her speech is still somewhat garbled at times and hard to comprehend. She has slight aphasia. Her memory and intellectual functions are impaired. Cranial nerve examination: Cranial nerves II through XII grossly intact. Motor examination: There was no pronator drift. Muscle tone is normal. Muscle strength is 4 minus/5 throughout. Deep tendon reflexes are 1+ and symmetric. Plantar responses flexor bilaterally. - Labs CBC & Chem 7: 12/11/17 06:52 12/11/17 06:52 Labs: Abnormal Lab Results - Last 24 Hours (Table) 12/11/17 12/11/17 Range/Units 06:52 06:52 WBC 16.7 H (3.8-10.6) k/uL RBC 3.00 L (3.80-5.40) m/uL Hgb 9.0 L (11.4-16.0) gm/dL Hct 29.1 L (34.0-46.0) % MCHC 30.8 L (31.0-37.0) g/dL RDW 16.4 H (11.5-15.5) % Neutrophils # 15.3 H (1.3-7.7) k/uL Lymphocytes # 0.6 L (1.0-4.8) k/uL Chloride 110 H (98-107) mmol/L Carbon Dioxide 21 L (22-30) mmol/L Glucose 102 H (74-99) mg/dL Total Bilirubin 1.7 H (0.2-1.3) mg/dL AST 67 H (14-36) U/L ALT 97 H (9-52) U/L Alkaline Phosphatase 497 H (38-126) U/L Total Protein 4.7 L (6.3-8.2) g/dL Albumin 2.3 L (3.5-5.0) g/dL Microbiology - Last 24 Hours (Table) 12/10/17 11:45 Urine Culture - Final Urine,Catheterized Assessment and Plan (1) Acute metabolic encephalopathy Current Visit: Yes Status: Acute Code(s): G93.41 - METABOLIC ENCEPHALOPATHY SNOMED Code(s): 61240614 (2) Hx laparoscopic cholecystectomy Current Visit: Yes Status: Acute Code(s): Z90.49 - ACQUIRED ABSENCE OF OTHER SPECIFIED PARTS OF DIGESTIVE TRACT SNOMED Code(s): 398869369 (3) Abdominal pain Current Visit: Yes Status: Acute Code(s): R10.9 - UNSPECIFIED ABDOMINAL PAIN SNOMED Code(s): 80398288 (4) Status post fall Current Visit: Yes Status: Acute Code(s): Z91.81 - HISTORY OF FALLING SNOMED Code(s): 832409130 Plan: This patient is a 82-year-old female who is being evaluated for altered mental status following recent endoscopic cholecystectomy procedure. She is doing somewhat better today in terms of her mental status. She still has episodes of intermittent confusion. She is following simple commands at this time. She has undergone MRI of the brain and the results of which have been reviewed. There is evidence of diffuse white matter ischemic changes bilaterally suggesting possibility of vascular dementia. Patient is being followed closely by infectious disease. She is currently on antibiotics for treatment of sepsis. She is scheduled to undergo computed tomography scan of the abdomen later today and we will await those results. Overall the patient seems to be doing fairly well. We will continue to monitor her condition closely. Her overall prognosis at this time remains guarded.
[2017-12-11] MEDS ORDERED: LIDOCAINE 5% PATCH TOPICAL PRN (16:51)
--- NOTE | 2017-12-11 20:09 | CT ---
EXAMINATION TYPE: CT abdomen pelvis wo con DATE OF EXAM: 12/11/2017 COMPARISON: 12/03/2017 HISTORY: Abdominal pain and leukocytosis. CT DLP: 310.6 mGycm Automated exposure control for dose reduction was used. TECHNIQUE: Helical acquisition of images was performed from the lung bases through the pelvis. FINDINGS: There are mild to moderate right lateral pleural effusions. Heart is enlarged. There is small pericar dial effusion. There is mild ascites fluid in the abdomen. There are clips from cholecystectomy. Liver shows no foca l defect. Spleen appears normal. There is no evidence of a pancreatic mass. There is a single air paulette ble at the maegan hepatis. There is ventral hernia that contains a loop of small bowel. There is no ev idence of a bowel obstruction. There is dilated rectum with fecal material. There is right hip prosth esis. Bladder distends smoothly. There are numerous sigmoid diverticula. Kidneys show multiple small calculi. There is no hydronephrosis. There is no retroperitoneal adenopat hy. There are spondylotic changes in the lumbar spine. IMPRESSION: SIGMOID DIVERTICULOSIS WITHOUT DIVERTICULITIS. VENTRAL HERNIA CONTAINS SMALL BOWEL WITHOUT OBSTRUCTIO N. AIR BUBBLE AT THE MAEGAN HEPATIS OF UNCERTAIN SIGNIFICANCE. NO OTHER ABNORMAL INTRA-ABDOMINAL DEFINITE AIR COLLECTION SEEN. It is possible that this is portal venous air. There are new significant bilateral pleural effusions with basilar infiltrate and atelectasis compare d to last exam. Small pericardial effusion. Moderate cardiomegaly. There is also subcutaneous edema a round the lateral abdomen. This could relate to congestive heart failure. There is new mild ascites fluid compared to old exam. Nonobstructing small renal calculi.
[2017-12-11] MEDS: FAMOTIDINE 20 MG TAB PO SCH (21:10)
--- NOTE | 2017-12-11 23:17 | PN ---
PROGRESS NOTE DATE OF SERVICE: 12/11/2017. REASON FOR FOLLOWUP: Leukocytosis post cholecystectomy with possible ascending cholangitis. INTERVAL HISTORY: The patient is currently afebrile. She is breathing comfortably. Denies having any chest pain or cough. Abdominal pain has improved. No nausea or vomiting. Did have a bowel movement. EXAMINATION: Blood pressure 138/74 with a pulse of 99, temperature of 98. She is 95% on room air. General description is an elderly female lying in bed in no distress. RESPIRATORY SYSTEM: Unlabored breathing. Clear to auscultation anteriorly. HEART: S1, S2. Regular rate and rhythm. ABDOMEN: Soft, mildly tender right upper quadrant. No guarding or rigidity. LABS: Hemoglobin 9, white count of 16.7 with a BUN of 15, creatinine 0.61. CT abdomen and pelvis with no evidence of any abscess in the right upper quadrant area. DIAGNOSTIC IMPRESSION AND PLAN: Patient with leukocytosis in a patient who did have a gallstone cholecystitis, status post endoscopic retrograde cholangiopancreatography and cholecystectomy. The patient did have a CT of abdomen and pelvis that did not show any abscess collection. Her white count did improve after addition of the Diflucan yesterday that will be continued in addition to Unasyn. Transition to oral antibiotic and Diflucan. Will discharge once her white count improves. Continue supportive care. MMODL / IJN: [id number] /
[2017-12-12] MEDS: AMPICILLIN-SULBACTAM 3 GM in SODIUM CHLORIDE 0.9% 100 ML IVPB SCH ×3 (05:35→18:43)
[2017-12-12 07:38] LABS: Anisocytosis Slight; Basophils # (A) 0.1 k/uL (0-0.2); Basophils % (A) 0 %; Eosinophils # (A) 0.2 k/uL (0-0.7); Eosinophils % (A) 1 %; HCT 27.2 % (34.0-46.0); HGB 8.6 gm/dL (11.4-16.0); Hypochromasia Slight; Lymphocytes # (A) 0.8 k/uL (1.0-4.8); Lymphocytes % (A) 5 %; MCH 30.3 pg (25.0-35.0); MCHC 31.6 g/dL (31.0-37.0); MCV 95.9 fL (80.0-100.0); Mean Platelet Volume 7.7; Monocytes # (A) 0.6 k/uL (0-1.0); Monocytes % (A) 3 %; Neutrophils # (A) 15.1 k/uL (1.3-7.7); Neutrophils % (A) 90 %; Platelet Count 305 k/uL (150-450); RBC 2.84 m/uL (3.80-5.40); RDW 16.5 % (11.5-15.5); WBC 16.8 k/uL (3.8-10.6)
[2017-12-12] MEDS: KETOROLAC 30 MG/ML 1 ML VIAL IVP PRN (08:40)
[2017-12-12] MEDS: FAMOTIDINE 20 MG TAB PO SCH ×2 (08:41→20:08)
[2017-12-12] MEDS: DOCUSATE 100 MG CAP PO SCH ×2 (08:41→20:09)
[2017-12-12] MEDS: POLYETHYLENE GLYCOL 3350 17 GM POWD.PACK PO SCH (08:42)
[2017-12-12] MEDS: ENOXAPARIN 40 MG/0.4 ML SYRINGE SQ SCH (08:42)
[2017-12-12 08:55] LABS: ALT 75 U/L (9-52); AST 56 U/L (14-36); Albumin 2.2 g/dL (3.5-5.0); Alkaline Phosphatase 397 U/L (38-126); Anion Gap 8 mmol/L; Blood Urea Nitrogen 13 mg/dL (7-17); Calcium 8.6 mg/dL (8.4-10.2); Carbon Dioxide 21 mmol/L (22-30); Chloride 107 mmol/L (98-107); Glucose 73 mg/dL (74-99); Potassium 4.1 mmol/L (3.5-5.1); Sodium 136 mmol/L (137-145); Total Bilirubin 1.5 mg/dL (0.2-1.3); Total Protein 4.7 g/dL (6.3-8.2)
--- NOTE | 2017-12-12 09:25 | P.PN ---
Subjective 80-year-old female status post cholecystectomy was confused of postcholecystectomy. Patient confusion was related to opiates. I valid the patient today patient doesn't have any diarrhea doesn't have any fever does have continued leukocytosis of 21,000. Patient is completely confused at this time this confusion is probably related to hospitalization related to delirium neurology evaluated the patient. MRI was opted by neurology which showed old small vessel ischemic changes patient may have a competent of undiagnosed vascular dementia. Now present delirium is probably related to hospitalization per se. Patient is on Unasyn at this time. Patient is receiving potassium supplementation for hypokalemia. Patient does have minimal cough. On 12/12/2017 Patient is more awake today she knows she is in the hospital and she notes she had operation, and she remember she fell at home. Afebrile.Her leukocytosis is improving from 19 K to 16 K. liver enzymes are trending down slowly. Patient has abdominal discomfort and pain, mostly related to her surgery and possible elements of constipation ID recommendation are noted and appreciated. CT of the abdomen : No mention of abscess, Diverticulosis. Patient is on Unasyn. Diflucan is added. Follow-up CBC and blood culture. ROS Unable to obtain Objective - Vital Signs Vital signs: Vital Signs Temp 98.4 F 12/12/17 07:58 Pulse 82 12/12/17 07:58 Resp 16 12/12/17 07:58 BP 148/79 12/12/17 07:58 Pulse Ox 95 12/12/17 07:58 Intake & Output 12/11/17 12/12/17 12/12/17 18:59 06:59 18:59 Intake Total 160 100 Output Total 350 Balance -190 100 Intake: Intake, IV Titration 160 100 Amount Ampicillin-Sulbactam 3 gm 100 In Sodium Chloride 0.9% 100 ml @ 100 mls/hr IVPB Q6HR [facility] Rx#:[id number] Lactated Ringers 1,000 ml 160 As IV .[facility] Rx#: [id number] Output: Urine 350 Other: Voiding Method Diaper # Voids 3 1 # Bowel Movements 1 - Exam -GENERAL: The patient is AAOX3 today. She knows why in the hospital. She remembers she fell in her bathroom and told me because she was not using her walker HEENT: Pupils are round and equally reacting to light. EOMI. No scleral icterus. No conjunctival pallor. Normocephalic, atraumatic. No pharyngeal erythema. No thyromegaly. CARDIOVASCULAR: S1 and S2 present. No murmurs, rubs, or gallops. PULMONARY: Chest is clear to auscultation, no wheezing or crackles. -ABDOMEN: Soft, generalized tenderness no rebound tenderness, nondistended, surgical site areas appear to be clean MUSCULOSKELETAL: No joint swelling or deformity. EXTREMITIES: No cyanosis, clubbing, or pedal edema. NEUROLOGICAL: Gross neurological examination did not reveal any new focal deficits. SKIN: No rashes. - Labs CBC & Chem 7: 12/12/17 06:44 12/12/17 06:44 Labs: Abnormal Lab Results - Last 24 Hours (Table) 12/12/17 12/12/17 Range/Units 06:44 06:44 WBC 16.8 H (3.8-10.6) k/uL RBC 2.84 L (3.80-5.40) m/uL Hgb 8.6 L (11.4-16.0) gm/dL Hct 27.2 L (34.0-46.0) % RDW 16.5 H (11.5-15.5) % Neutrophils # 15.1 H (1.3-7.7) k/uL Lymphocytes # 0.8 L (1.0-4.8) k/uL Sodium 136 L (137-145) mmol/L Carbon Dioxide 21 L (22-30) mmol/L Glucose 73 L (74-99) mg/dL Total Bilirubin 1.5 H (0.2-1.3) mg/dL AST 56 H (14-36) U/L ALT 75 H (9-52) U/L Alkaline Phosphatase 397 H (38-126) U/L Total Protein 4.7 L (6.3-8.2) g/dL Albumin 2.2 L (3.5-5.0) g/dL Microbiology - Last 24 Hours (Table) 12/10/17 15:00 Blood Culture - Preliminary Blood No Growth after 24 hours 12/10/17 13:59 Blood Culture - Preliminary Blood No Growth after 24 hours 12/10/17 11:45 Urine Culture - Final Urine,Catheterized Assessment and Plan Plan: -Altered mental status: Secondary to toxic encephalopathy from medications medically opiates which was subsequently discontinued, improving she is AAOX3 today. MRI of the brain showed chronic small vessel ischemic changes. EEG : No epileptiform abnormalities .neurology following the patient and they recommended outpatient workup for her vascular dementia, improving as patient is more awake today For pain management she's on Toradol and IV Tylenol as per primary team. We can add lidocaine patch if patient wants -Abdominal pain, mostly secondary to surgery and illness of constipation. Continue with symptomatic treatment -Mostly vascular dementia, as above -Leukocytosis patient is already on Unasyn no fevers, if patient remains to have leukocytosis with no further workup with a chest x-ray and a UA urine cultures blood cultures at that time. Patient doesn't have any diarrhea. Probably stress-related to intra-abdominal process and recent surgery. Continue with Unasyn for now -Possible vascular dementia, neurological evaluation is recommended outpatient follow-up within urology office -Cholecystitis, S/P cholecystectomy. ID recommendation are noted, He recommended abdominal ultrasound to rule out abscess: Gallbladder is surgically absent. Patient is on Unasyn. Diflucan is added. Follow-up CBC and blood culture -Dilated common bile duct status post ERCP on 12/04/2017 and cholecystectomy on 12/06/2017 -Elevated liver enzymes secondary to cholelithiasis, as above. hepatitis panel is negative liver enzymes are expected to improve we'll repeat tomorrow. Ammonia is within normal limits -History of Hypertension, continue with the same treatment DVT prophylaxis on low molecular weight heparin as per primary service prognosis is guarded given severity and multiple complex comorbidities Physical therapy recommended NEREYDA on 12/04/2017
--- NOTE | 2017-12-12 11:59 | P.PN ---
Subjective Progress Note Date: 12/12/17 Patient resting this morning. Perdiscussion with the nurse, she's had large bowel movement. She has been more alert. No other complaints of falls. Objective - Vital Signs Vital signs: Vital Signs Temp 98.4 F 12/12/17 07:58 Pulse 82 12/12/17 07:58 Resp 16 12/12/17 07:58 BP 148/79 12/12/17 07:58 Pulse Ox 95 12/12/17 07:58 Intake & Output 12/11/17 12/12/17 12/12/17 18:59 06:59 18:59 Intake Total 160 100 Output Total 350 Balance -190 100 Intake: Intake, IV Titration 160 100 Amount Ampicillin-Sulbactam 3 gm 100 In Sodium Chloride 0.9% 100 ml @ 100 mls/hr IVPB Q6HR [facility] Rx#:[id number] Lactated Ringers 1,000 ml 160 As IV [facility] Rx#: [id number] Output: Urine 350 Other: Voiding Method Diaper # Voids 3 1 # Bowel Movements 1 - Exam ABDOMEN: Soft, nondistended. No peritonitis. GENERAL: Well developed and in no acute distress. HEENT: Resolved sclera icterus. Extraocular movements grossly intact. Moist buccal mucosa. No nasal drainage. Hard of hearing. NECK: Supple without lymphadenopathy. CHEST: Non-labored respirations and equal bilateral excursions. CARDIOVASCULAR: Regular rate and rhythm. Palpable 2+ radial pulses. MUSCULOSKELETAL: No clubbing, cyanosis or edema. NEUROLOGIC: No focal or lateralizing signs. PSYCH: Lethargic. Alert to self. SKIN: Good skin turgor. Well perfused. - Labs CBC & Chem 7: 12/12/17 06:44 12/12/17 06:44 Labs: Abnormal Lab Results - Last 24 Hours (Table) 12/12/17 12/12/17 Range/Units 06:44 06:44 WBC 16.8 H (3.8-10.6) k/uL RBC 2.84 L (3.80-5.40) m/uL Hgb 8.6 L (11.4-16.0) gm/dL Hct 27.2 L (34.0-46.0) % RDW 16.5 H (11.5-15.5) % Neutrophils # 15.1 H (1.3-7.7) k/uL Lymphocytes # 0.8 L (1.0-4.8) k/uL Sodium 136 L (137-145) mmol/L Carbon Dioxide 21 L (22-30) mmol/L Glucose 73 L (74-99) mg/dL Total Bilirubin 1.5 H (0.2-1.3) mg/dL AST 56 H (14-36) U/L ALT 75 H (9-52) U/L Alkaline Phosphatase 397 H (38-126) U/L Total Protein 4.7 L (6.3-8.2) g/dL Albumin 2.2 L (3.5-5.0) g/dL Microbiology - Last 24 Hours (Table) 12/10/17 15:00 Blood Culture - Preliminary Blood No Growth after 24 hours 12/10/17 13:59 Blood Culture - Preliminary Blood No Growth after 24 hours 12/10/17 11:45 Urine Culture - Final Urine,Catheterized Assessment and Plan (1) Choledocholithiasis Current Visit: Yes Status: Acute Code(s): K80.50 - CALCULUS OF BILE DUCT W/ O CHOLANGITIS OR CHOLECYST W/O OBST SNOMED Code(s): 209392221 (2) Dementia Current Visit: Yes Status: Acute Code(s): F03.90 - UNSPECIFIED DEMENTIA WITHOUT BEHAVIORAL DISTURBANCE SNOMED Code(s): 96588221 (3) Leukocytosis Current Visit: Yes Status: Acute Code(s): D72.829 - ELEVATED WHITE BLOOD CELL COUNT, UNSPECIFIED SNOMED Code(s): 233241635 Plan: 1. White blood cell count still over 16,000. Antibiotic management per infectious disease. 2. LFTs still elevated including total bilirubin levels. GI team following. 3. Continue with hospitalization. 4. Neurology following for history of mental status changes.
[2017-12-12] MEDS: FLUCONAZOLE IN NACL,ISO-OSM 200 MG in SALINE 1 100ML.BAG IVPB SCH (15:51)
[2017-12-12] MEDS: ACETAMINOPHEN TAB 325 MG TAB PO PRN (18:42)
--- NOTE | 2017-12-12 23:15 | PN ---
PROGRESS NOTE DATE OF SERVICE: 12/12/2017. REASON FOR FOLLOW UP: Leukocytosis with abdominal source. INTERVAL HISTORY: The patient is afebrile. She seemed to be more awake, alert today, breathing comfortably. Denies significant chest pain. No cough. No abdominal pain, nausea, vomiting or any diarrhea reported. EXAMINATION: Blood pressure 157/71 with a pulse of 100, temperature of 98. She is 97% on room air. General description is an elderly female lying in bed in no distress. RESPIRATORY SYSTEM: Unlabored breathing. Clear to auscultation anteriorly. HEART: S1, S2. Regular rate and rhythm. ABDOMEN: Soft. No tenderness. EXTREMITIES: No edema of the feet. LABS: Hemoglobin 8.6, white count of 16.8 with a BUN of 13, creatinine 0.57. DIAGNOSTIC IMPRESSION AND PLAN: Patient admitted to hospital with ascending cholangitis and cholecystitis status post endoscopic retrograde cholangiopancreatography and laparoscopic cholecystectomy with postoperative leukocytosis, currently on the Unasyn and Diflucan that will be continued and will monitor clinical course as well as cultures closely. Continue with supportive care. MMODL / IJN: [id number] /
[2017-12-13] MEDS: AMPICILLIN-SULBACTAM 3 GM in SODIUM CHLORIDE 0.9% 100 ML IVPB SCH ×6 (05:43→23:18)
[2017-12-13 07:24] LABS: Anisocytosis Slight; Basophils # (A) 0.1 k/uL (0-0.2); Basophils % (A) 0 %; Eosinophils # (A) 0.2 k/uL (0-0.7); Eosinophils % (A) 1 %; HCT 27.9 % (34.0-46.0); HGB 8.7 gm/dL (11.4-16.0); Hypochromasia Moderate; Lymphocytes # (A) 0.7 k/uL (1.0-4.8); Lymphocytes % (A) 5 %; MCH 30.1 pg (25.0-35.0); MCHC 31.1 g/dL (31.0-37.0); MCV 96.8 fL (80.0-100.0); Mean Platelet Volume 7.4; Monocytes # (A) 0.6 k/uL (0-1.0); Monocytes % (A) 4 %; Neutrophils # (A) 12.4 k/uL (1.3-7.7); Neutrophils % (A) 89 %; Platelet Count 342 k/uL (150-450); RBC 2.88 m/uL (3.80-5.40); RDW 16.2 % (11.5-15.5)
[2017-12-13 07:32] LABS: ALT 70 U/L (9-52); AST 50 U/L (14-36); Albumin 2.2 g/dL (3.5-5.0); Alkaline Phosphatase 384 U/L (38-126); Anion Gap 7 mmol/L; Blood Urea Nitrogen 15 mg/dL (7-17); Calcium 8.6 mg/dL (8.4-10.2); Carbon Dioxide 24 mmol/L (22-30); Chloride 107 mmol/L (98-107); Glucose 94 mg/dL (74-99); Potassium 3.7 mmol/L (3.5-5.1); Sodium 138 mmol/L (137-145); Total Bilirubin 1.1 mg/dL (0.2-1.3); Total Protein 4.6 g/dL (6.3-8.2)
[2017-12-13] MEDS: FAMOTIDINE 20 MG TAB PO SCH ×2 (08:51→20:20)
[2017-12-13] MEDS: DOCUSATE 100 MG CAP PO SCH ×2 (08:51→20:20)
[2017-12-13] MEDS: ENOXAPARIN 40 MG/0.4 ML SYRINGE SQ SCH (08:51)
[2017-12-13] MEDS: POLYETHYLENE GLYCOL 3350 17 GM POWD.PACK PO SCH (08:52)
[2017-12-13] MEDS: ACETAMINOPHEN TAB 325 MG TAB PO PRN ×3 (08:58→23:56)
--- NOTE | 2017-12-13 11:18 | P.PN ---
Subjective Progress Note Date: 12/13/17 Patient much more alert this morning than in the past weeks. She just had another bowel movement. She is alert to herself. No fevers or chills noted. She reports mild right upper quadrant and epigastric abdominal pain responsive to tylenol. Objective - Vital Signs Vital signs: Vital Signs Temp 97.1 F L 12/13/17 01:40 Pulse 100 12/13/17 01:40 Resp 16 12/13/17 01:40 BP 150/70 12/13/17 01:40 Pulse Ox 98 12/13/17 01:40 Intake & Output 12/12/17 12/13/17 12/13/17 18:59 06:59 18:59 Intake Total 500 Balance 500 Intake: Intake, IV Titration 500 Amount Ampicillin-Sulbactam 3 gm 500 In Sodium Chloride 0.9% 100 ml @ 100 mls/hr IVPB Q6HR [facility] Rx#:[id number] Other: Voiding Method Incontinent # Voids 2 2 # Bowel Movements 1 - Exam ABDOMEN: Soft, nondistended. Mild tenderness along the epigastrium. Incisions clean, dry and intact without cellulitis. GENERAL: Well developed and in no acute distress. HEENT: Resolved sclera icterus. Extraocular movements grossly intact. Moist buccal mucosa. No nasal drainage. Hard of hearing. NECK: Supple without lymphadenopathy. CHEST: Non-labored respirations and equal bilateral excursions. CARDIOVASCULAR: Regular rate and rhythm. Palpable 2+ radial pulses. MUSCULOSKELETAL: No clubbing, cyanosis or edema. NEUROLOGIC: No focal or lateralizing signs. PSYCH: Lethargic. Alert to self. SKIN: Good skin turgor. Well perfused. - Labs CBC & Chem 7: 12/13/17 06:35 12/13/17 06:35 Labs: Abnormal Lab Results - Last 24 Hours (Table) 12/13/17 12/13/17 Range/Units 06:35 06:35 WBC 14.0 H (3.8-10.6) k/uL RBC 2.88 L (3.80-5.40) m/uL Hgb 8.7 L (11.4-16.0) gm/dL Hct 27.9 L (34.0-46.0) % RDW 16.2 H (11.5-15.5) % Neutrophils # 12.4 H (1.3-7.7) k/uL Lymphocytes # 0.7 L (1.0-4.8) k/uL AST 50 H (14-36) U/L ALT 70 H (9-52) U/L Alkaline Phosphatase 384 H (38-126) U/L Total Protein 4.6 L (6.3-8.2) g/dL Albumin 2.2 L (3.5-5.0) g/dL Microbiology - Last 24 Hours (Table) 12/10/17 15:00 Blood Culture - Preliminary Blood No Growth after 48 hours 12/10/17 13:59 Blood Culture - Preliminary Blood No Growth after 48 hours Assessment and Plan (1) Choledocholithiasis Current Visit: Yes Status: Acute Code(s): K80.50 - CALCULUS OF BILE DUCT W/ O CHOLANGITIS OR CHOLECYST W/O OBST SNOMED Code(s): 917007979 (2) Dementia Current Visit: Yes Status: Acute Code(s): F03.90 - UNSPECIFIED DEMENTIA WITHOUT BEHAVIORAL DISTURBANCE SNOMED Code(s): 23723477 (3) Leukocytosis Current Visit: Yes Status: Acute Code(s): D72.829 - ELEVATED WHITE BLOOD CELL COUNT, UNSPECIFIED SNOMED Code(s): 688608083 Plan: 1. Her WBC count continues to improve. 2. LFTs continue to improve 3. Will need re-hab upon time of discharge and/or detention needs.
[2017-12-13] MEDS: FLUCONAZOLE IN NACL,ISO-OSM 200 MG in SALINE 1 100ML.BAG IVPB SCH (14:32)
--- NOTE | 2017-12-13 18:50 | P.PN ---
Subjective 80-year-old female status post cholecystectomy was confused of postcholecystectomy. Patient confusion was related to opiates. I valid the patient today patient doesn't have any diarrhea doesn't have any fever does have continued leukocytosis of 21,000. Patient is completely confused at this time this confusion is probably related to hospitalization related to delirium neurology evaluated the patient. MRI was opted by neurology which showed old small vessel ischemic changes patient may have a competent of undiagnosed vascular dementia. Now present delirium is probably related to hospitalization per se. Patient is on Unasyn at this time. Patient is receiving potassium supplementation for hypokalemia. Patient does have minimal cough. On 12/12/2017 Patient is more awake today she knows she is in the hospital and she notes she had operation, and she remember she fell at home. Afebrile.Her leukocytosis is improving from 19 K to 16 K. liver enzymes are trending down slowly. Patient has abdominal discomfort and pain, mostly related to her surgery and possible elements of constipation ID recommendation are noted and appreciated. CT of the abdomen : No mention of abscess, Diverticulosis. Patient is on Unasyn. Diflucan is added. Follow-up CBC and blood culture. ROS Unable to obtain Objective - Vital Signs Vital signs: Vital Signs Temp 97.4 F L 12/13/17 14:32 Pulse 74 12/13/17 14:32 Resp 15 12/13/17 14:32 BP 149/68 12/13/17 14:32 Pulse Ox 99 12/13/17 14:32 Intake & Output 12/12/17 12/13/17 12/13/17 18:59 06:59 18:59 Intake Total 500 Balance 500 Intake: Intake, IV Titration 500 Amount Ampicillin-Sulbactam 3 gm 500 In Sodium Chloride 0.9% 100 ml @ 100 mls/hr IVPB Q6HR [facility] Rx#:[id number] Other: Voiding Method Incontinent # Voids 2 2 2 # Bowel Movements 1 2 - Exam -GENERAL: The patient is AAOX3 today. She knows why in the hospital. She remembers she fell in her bathroom and told me because she was not using her walker HEENT: Pupils are round and equally reacting to light. EOMI. No scleral icterus. No conjunctival pallor. Normocephalic, atraumatic. No pharyngeal erythema. No thyromegaly. CARDIOVASCULAR: S1 and S2 present. No murmurs, rubs, or gallops. PULMONARY: Chest is clear to auscultation, no wheezing or crackles. -ABDOMEN: Soft, generalized tenderness no rebound tenderness, nondistended, surgical site areas appear to be clean MUSCULOSKELETAL: No joint swelling or deformity. EXTREMITIES: No cyanosis, clubbing, or pedal edema. NEUROLOGICAL: Gross neurological examination did not reveal any new focal deficits. SKIN: No rashes. - Labs CBC & Chem 7: 12/13/17 06:35 12/13/17 06:35 Labs: Abnormal Lab Results - Last 24 Hours (Table) 12/13/17 12/13/17 Range/Units 06:35 06:35 WBC 14.0 H (3.8-10.6) k/uL RBC 2.88 L (3.80-5.40) m/uL Hgb 8.7 L (11.4-16.0) gm/dL Hct 27.9 L (34.0-46.0) % RDW 16.2 H (11.5-15.5) % Neutrophils # 12.4 H (1.3-7.7) k/uL Lymphocytes # 0.7 L (1.0-4.8) k/uL AST 50 H (14-36) U/L ALT 70 H (9-52) U/L Alkaline Phosphatase 384 H (38-126) U/L Total Protein 4.6 L (6.3-8.2) g/dL Albumin 2.2 L (3.5-5.0) g/dL Microbiology - Last 24 Hours (Table) 12/10/17 15:00 Blood Culture - Preliminary Blood No Growth after 72 hours 12/10/17 13:59 Blood Culture - Preliminary Blood No Growth after 72 hours Assessment and Plan Plan: -Altered mental status: Secondary to toxic encephalopathy from medications medically opiates which was subsequently discontinued, improving she is AAOX3 today. MRI of the brain showed chronic small vessel ischemic changes. EEG : No epileptiform abnormalities .neurology following the patient and they recommended outpatient workup for her vascular dementia, improving as patient is more awake today For pain management she's on Toradol and IV Tylenol as per primary team. We can add lidocaine patch if patient wants -Abdominal pain, mostly secondary to surgery and illness of constipation. Continue with symptomatic treatment -Mostly vascular dementia, as above -Leukocytosis patient is already on Unasyn no fevers, if patient remains to have leukocytosis with no further workup with a chest x-ray and a UA urine cultures blood cultures at that time. Patient doesn't have any diarrhea. Probably stress-related to intra-abdominal process and recent surgery. Continue with Unasyn for now -Possible vascular dementia, neurological evaluation is recommended outpatient follow-up within urology office -Cholecystitis, S/P cholecystectomy. ID recommendation are noted, He recommended abdominal ultrasound to rule out abscess: Gallbladder is surgically absent. Patient is on Unasyn. Diflucan is added. Follow-up CBC and blood culture -Dilated common bile duct status post ERCP on 12/04/2017 and cholecystectomy on 12/06/2017 -Elevated liver enzymes secondary to cholelithiasis, as above. hepatitis panel is negative liver enzymes are expected to improve we'll repeat tomorrow. Ammonia is within normal limits -History of Hypertension, continue with the same treatment DVT prophylaxis on low molecular weight heparin as per primary service prognosis is guarded given severity and multiple complex comorbidities Physical therapy recommended NEREYDA on 12/04/2017
--- NOTE | 2017-12-13 23:27 | P.PN ---
Subjective Progress Note Date: 12/12/17 This patient is a 82-year-old right-handed white female who was recently undergone laparoscopic cholecystectomy for treatment of acute cholecystitis. Patient initially presented post surgery with increasing confusion and delirium. She underwent initial computed tomography scan of the brain which failed to reveal any evidence of acute stroke. MRI of the brain was recommended and was completed today. MRI findings indicate no evidence for acute or recent infarct. There was mild diffuse cerebral atrophy and advanced chronic small vessel ischemic changes seen bilaterally. This raises suspicion of possible underlying vascular dementia for the patient. Patient continues to remain somewhat confused today but does follow some simple commands. Her initial liver enzymes were elevated as well as her ammonia level but these are improving today. She has been tolerating a regular diet. She is being considered for possible discharge home soon. The patient can be further evaluated for vascular dementia in the outpatient neurology clinic. Would recommend follow-up in the outpatient neurology clinic for the patient in 2-3 weeks. Her delirium also could be secondary to recent hospitalization. As noted she was taken off of all opiates and pain medications but still shows signs of mild confusion. Patient otherwise is resting comfortably. Laboratory tests are to be repeated for her tomorrow. We reviewed the results of the MRI today with the patient in detail. We tried to explain as best as possible that there was vascular changes to the brain possibly contributing to her mild confusional state. This can be further worked up as outpatient. The patient was seen by infectious disease today. She was started on Diflucan. Urine analysis was completed. We will await further recommendations from ID. patient continues to have intermittent confusion. Currently she is able to answer simple questions appropriately. She is scheduled to undergo computed tomography scan of the abdomen later today and we will await those results. Patient still remains confused at times and likely does have underlying vascular dementia. We will continue to follow with multiple specialists that are seeing this patient. We will continue close neurological follow-up for the patient during this admission. Objective - Vital Signs Vital signs: Vital Signs Temp 98.3 F 12/12/17 14:54 Pulse 80 12/12/17 14:54 Resp 16 12/12/17 14:54 BP 142/76 12/12/17 14:54 Pulse Ox 96 12/12/17 14:54 Intake & Output 12/11/17 12/12/17 12/12/17 18:59 06:59 18:59 Intake Total 160 100 Output Total 350 Balance -190 100 Intake: Intake, IV Titration 160 100 Amount Ampicillin-Sulbactam 3 gm 100 In Sodium Chloride 0.9% 100 ml @ 100 mls/hr IVPB Q6HR [facility] Rx#:[id number] Lactated Ringers 1,000 ml 160 As IV [facility] Rx#: [id number] Output: Urine 350 Other: Voiding Method Diaper # Voids 3 1 2 # Bowel Movements 1 - Exam Physical Examination: PHYSICAL EXAMINATION: Patient is resting comfortably in bed. VITAL SIGNS: Blood pressure is [138/71]. Heart rate is [99]. Respiration is [16] . Temperature is [98.0]. HEENT: Head is atraumatic, neck is supple, there were no carotid bruits. CHEST: Lungs are clear to auscultation and percussion. CARDIAC: S1, S2 normal rate and rhythm. There is no murmur. ABDOMEN: Soft and nontender. Bowel sounds are present. EXTREMITIES: There is no pedal edema. Peripheral pulses are present. Neurological examination: Patient is awake alert and oriented 2. Her speech is still somewhat garbled at times and hard to comprehend. She has slight aphasia. Her memory and intellectual functions are impaired. Cranial nerve examination: Cranial nerves II through XII grossly intact. Motor examination: There was no pronator drift. Muscle tone is normal. Muscle strength is 4 minus/5 throughout. Deep tendon reflexes are 1+ and symmetric. Plantar responses flexor bilaterally. - Labs CBC & Chem 7: 12/13/17 06:35 12/13/17 06:35 Labs: Abnormal Lab Results - Last 24 Hours (Table) 12/12/17 12/12/17 Range/Units 06:44 06:44 WBC 16.8 H (3.8-10.6) k/uL RBC 2.84 L (3.80-5.40) m/uL Hgb 8.6 L (11.4-16.0) gm/dL Hct 27.2 L (34.0-46.0) % RDW 16.5 H (11.5-15.5) % Neutrophils # 15.1 H (1.3-7.7) k/uL Lymphocytes # 0.8 L (1.0-4.8) k/uL Sodium 136 L (137-145) mmol/L Carbon Dioxide 21 L (22-30) mmol/L Glucose 73 L (74-99) mg/dL Total Bilirubin 1.5 H (0.2-1.3) mg/dL AST 56 H (14-36) U/L ALT 75 H (9-52) U/L Alkaline Phosphatase 397 H (38-126) U/L Total Protein 4.7 L (6.3-8.2) g/dL Albumin 2.2 L (3.5-5.0) g/dL Microbiology - Last 24 Hours (Table) 12/10/17 13:59 Blood Culture - Preliminary Blood No Growth after 48 hours 12/10/17 15:00 Blood Culture - Preliminary Blood No Growth after 24 hours 12/10/17 11:45 Urine Culture - Final Urine,Catheterized Assessment and Plan (1) Acute metabolic encephalopathy Current Visit: Yes Status: Acute Code(s): G93.41 - METABOLIC ENCEPHALOPATHY SNOMED Code(s): 73209271 (2) Hx laparoscopic cholecystectomy Current Visit: Yes Status: Acute Code(s): Z90.49 - ACQUIRED ABSENCE OF OTHER SPECIFIED PARTS OF DIGESTIVE TRACT SNOMED Code(s): 681314438 (3) Abdominal pain Current Visit: Yes Status: Acute Code(s): R10.9 - UNSPECIFIED ABDOMINAL PAIN SNOMED Code(s): 25758250 (4) Status post fall Current Visit: Yes Status: Acute Code(s): Z91.81 - HISTORY OF FALLING SNOMED Code(s): 131697795 Plan: This patient is a 82-year-old female who is being evaluated for altered mental status following recent endoscopic cholecystectomy procedure. She is doing somewhat better today in terms of her mental status. She still has episodes of intermittent confusion. She is following simple commands at this time. She has undergone MRI of the brain and the results of which have been reviewed. There is evidence of diffuse white matter ischemic changes bilaterally suggesting possibility of vascular dementia. Patient is being followed closely by infectious disease. She is currently on antibiotics for treatment of sepsis. She is scheduled to undergo computed tomography scan of the abdomen later today and we will await those results. Overall the patient seems to be doing fairly well. The patient is showing slow improvement in her overall mental status. She is much more awake and alert today. We will continue close neurological follow-up with the patient during this admission. We will continue to monitor her condition closely. Her overall prognosis at this time remains guarded.
--- NOTE | 2017-12-13 23:30 | P.PN ---
Subjective Progress Note Date: 12/13/17 This patient is a 82-year-old right-handed white female who was recently undergone laparoscopic cholecystectomy for treatment of acute cholecystitis. Patient initially presented post surgery with increasing confusion and delirium. She underwent initial computed tomography scan of the brain which failed to reveal any evidence of acute stroke. MRI of the brain was recommended and was completed today. MRI findings indicate no evidence for acute or recent infarct. There was mild diffuse cerebral atrophy and advanced chronic small vessel ischemic changes seen bilaterally. This raises suspicion of possible underlying vascular dementia for the patient. Patient continues to remain somewhat confused today but does follow some simple commands. Her initial liver enzymes were elevated as well as her ammonia level but these are improving today. She has been tolerating a regular diet. She is being considered for possible discharge home soon. The patient can be further evaluated for vascular dementia in the outpatient neurology clinic. Would recommend follow-up in the outpatient neurology clinic for the patient in 2-3 weeks. Her delirium also could be secondary to recent hospitalization. As noted she was taken off of all opiates and pain medications but still shows signs of mild confusion. Patient otherwise is resting comfortably. Laboratory tests are to be repeated for her tomorrow. We reviewed the results of the MRI today with the patient in detail. We tried to explain as best as possible that there was vascular changes to the brain possibly contributing to her mild confusional state. This can be further worked up as outpatient. The patient was seen by infectious disease today. She was started on Diflucan. Urine analysis was completed. We will await further recommendations from ID. patient continues to have intermittent confusion. Currently she is able to answer simple questions appropriately. She is scheduled to undergo computed tomography scan of the abdomen later today and we will await those results. Patient still remains confused at times and likely does have underlying vascular dementia. The patient is much more awake and alert this morning. She did have good bowel movement and seems to be very much appropriate and aware of her surroundings. We will continue to follow with multiple specialists that are seeing this patient. We will continue close neurological follow-up for the patient during this admission. Objective - Vital Signs Vital signs: Vital Signs Temp 97.4 F L 12/13/17 14:32 Pulse 74 12/13/17 14:32 Resp 15 12/13/17 14:32 BP 149/68 12/13/17 14:32 Pulse Ox 99 12/13/17 14:32 Intake & Output 12/12/17 12/13/17 12/13/17 18:59 06:59 18:59 Intake Total 500 Balance 500 Intake: Intake, IV Titration 500 Amount Ampicillin-Sulbactam 3 gm 500 In Sodium Chloride 0.9% 100 ml @ 100 mls/hr IVPB Q6HR [facility] Rx#:[id number] Other: Voiding Method Incontinent # Voids 2 2 2 # Bowel Movements 1 2 - Exam Physical Examination: PHYSICAL EXAMINATION: Patient is resting comfortably in bed. VITAL SIGNS: Blood pressure is [149/68]. Heart rate is [74]. Respiration is [15] . Temperature is [97.4]. HEENT: Head is atraumatic, neck is supple, there were no carotid bruits. CHEST: Lungs are clear to auscultation and percussion. CARDIAC: S1, S2 normal rate and rhythm. There is no murmur. ABDOMEN: Soft and nontender. Bowel sounds are present. EXTREMITIES: There is no pedal edema. Peripheral pulses are present. Neurological examination: Patient is awake alert and oriented 2. Her speech is still somewhat garbled at times and hard to comprehend. She has slight aphasia. Her memory and intellectual functions are impaired. Cranial nerve examination: Cranial nerves II through XII grossly intact. Motor examination: There was no pronator drift. Muscle tone is normal. Muscle strength is 4 minus/5 throughout. Deep tendon reflexes are 1+ and symmetric. Plantar responses flexor bilaterally. - Labs CBC & Chem 7: 12/13/17 06:35 12/13/17 06:35 Labs: Abnormal Lab Results - Last 24 Hours (Table) 12/13/17 12/13/17 Range/Units 06:35 06:35 WBC 14.0 H (3.8-10.6) k/uL RBC 2.88 L (3.80-5.40) m/uL Hgb 8.7 L (11.4-16.0) gm/dL Hct 27.9 L (34.0-46.0) % RDW 16.2 H (11.5-15.5) % Neutrophils # 12.4 H (1.3-7.7) k/uL Lymphocytes # 0.7 L (1.0-4.8) k/uL AST 50 H (14-36) U/L ALT 70 H (9-52) U/L Alkaline Phosphatase 384 H (38-126) U/L Total Protein 4.6 L (6.3-8.2) g/dL Albumin 2.2 L (3.5-5.0) g/dL Microbiology - Last 24 Hours (Table) 12/10/17 13:59 Blood Culture - Preliminary Blood No Growth after 72 hours 12/10/17 15:00 Blood Culture - Preliminary Blood No Growth after 48 hours Assessment and Plan (1) Acute metabolic encephalopathy Current Visit: Yes Status: Acute Code(s): G93.41 - METABOLIC ENCEPHALOPATHY SNOMED Code(s): 38515946 (2) Hx laparoscopic cholecystectomy Current Visit: Yes Status: Acute Code(s): Z90.49 - ACQUIRED ABSENCE OF OTHER SPECIFIED PARTS OF DIGESTIVE TRACT SNOMED Code(s): 459515593 (3) Abdominal pain Current Visit: Yes Status: Acute Code(s): R10.9 - UNSPECIFIED ABDOMINAL PAIN SNOMED Code(s): 00779253 (4) Status post fall Current Visit: Yes Status: Acute Code(s): Z91.81 - HISTORY OF FALLING SNOMED Code(s): 040360625 Plan: This patient is a 82-year-old female who is being evaluated for altered mental status following recent endoscopic cholecystectomy procedure. She is doing somewhat better today in terms of her mental status. She still has episodes of intermittent confusion. She is following simple commands at this time. She has undergone MRI of the brain and the results of which have been reviewed. There is evidence of diffuse white matter ischemic changes bilaterally suggesting possibility of vascular dementia. Patient is being followed closely by infectious disease. She is currently on antibiotics for treatment of sepsis. She is scheduled to undergo computed tomography scan of the abdomen later today and we will await those results. Overall the patient seems to be doing fairly well. The patient is showing slow improvement in her overall mental status. She is much more awake and alert today. We will continue close neurological follow-up with the patient during this admission. Her WBC count continues to show improvement. Her liver function tests are also improving. Hopefully she will be ready for discharge early next week to either assisted her rehab. We will continue to monitor her condition closely. Her overall prognosis at this time remains guarded.
--- NOTE | 2017-12-14 00:25 | PN ---
PROGRESS NOTE DATE OF SERVICE: 12/13/2017. REASON FOR FOLLOWUP: Leukocytosis, ascending cholangitis with cholecystitis. INTERVAL HISTORY: The patient is afebrile. She seems to be more awake and alert, breathing comfortably. Denies significant chest pain or cough. Abdominal pain has improved. No nausea, vomiting, or any diarrhea. EXAMINATION: Blood pressure 114/68 with a pulse of 81, temperature 98.1. She is 98% room air. General description is an elderly female lying in bed in no distress. Respiratory system: Unlabored breathing. Clear to auscultation anteriorly. Heart S1, S2. Regular rate and rhythm. Abdomen soft, no tenderness. LABS: Hemoglobin 8.7, white count 14,000, BUN 15, creatinine 0.68. DIAGNOSTIC IMPRESSION AND PLAN: Patient admitted to the hospital with acute cholecystitis, status post laparoscopic cholecystectomy with postop elevated white count seems to be improving with the addition of the Diflucan that will be continued along with Unasyn with the plan to finish therapy with oral Augmentin and Diflucan for 1 week. Continue supportive care. MMODL / IJN: [id number] /
[2017-12-14] MEDS: AMPICILLIN-SULBACTAM 3 GM in SODIUM CHLORIDE 0.9% 100 ML IVPB SCH ×3 (05:29→18:25)
[2017-12-14 08:03] LABS: ALT 62 U/L (9-52); AST 43 U/L (14-36); Albumin 2.2 g/dL (3.5-5.0); Alkaline Phosphatase 351 U/L (38-126); Anion Gap 7 mmol/L; Blood Urea Nitrogen 13 mg/dL (7-17); Calcium 8.8 mg/dL (8.4-10.2); Carbon Dioxide 25 mmol/L (22-30); Chloride 108 mmol/L (98-107); Glucose 82 mg/dL (74-99); Potassium 3.5 mmol/L (3.5-5.1); Sodium 140 mmol/L (137-145); Total Protein 4.7 g/dL (6.3-8.2)
[2017-12-14] MEDS: ENOXAPARIN 40 MG/0.4 ML SYRINGE SQ SCH (08:24)
[2017-12-14] MEDS: POLYETHYLENE GLYCOL 3350 17 GM POWD.PACK PO SCH (08:24)
[2017-12-14] MEDS: FAMOTIDINE 20 MG TAB PO SCH ×2 (08:24→20:04)
[2017-12-14] MEDS: DOCUSATE 100 MG CAP PO SCH ×2 (08:24→20:04)
[2017-12-14] MEDS: ACETAMINOPHEN TAB 325 MG TAB PO PRN ×2 (09:00→20:04)
[2017-12-14] MEDS: FLUCONAZOLE IN NACL,ISO-OSM 200 MG in SALINE 1 100ML.BAG IVPB SCH (11:05)
--- NOTE | 2017-12-14 16:53 | P.PN ---
Progress Note - Text Progress Note Date: 12/14/17 The patient resting comfortably in her bed. She has minimal complaints of pain. On exam her vital signs are stable. Her abdomen soft. Patiently discharged to rehab in the a.m.
[2017-12-14] MEDS: CALCIUM CARBONATE 500 MG CHEWABLE PO PRN (21:35)
--- NOTE | 2017-12-14 23:13 | P.PN ---
Subjective Progress Note Date: 12/14/17 This patient is a 82-year-old right-handed white female who was recently undergone laparoscopic cholecystectomy for treatment of acute cholecystitis. Patient initially presented post surgery with increasing confusion and delirium. She underwent initial computed tomography scan of the brain which failed to reveal any evidence of acute stroke. MRI of the brain was recommended and was completed today. MRI findings indicate no evidence for acute or recent infarct. There was mild diffuse cerebral atrophy and advanced chronic small vessel ischemic changes seen bilaterally. This raises suspicion of possible underlying vascular dementia for the patient. Patient continues to remain somewhat confused today but does follow some simple commands. Her initial liver enzymes were elevated as well as her ammonia level but these are improving today. She has been tolerating a regular diet. She is being considered for possible discharge home soon. The patient can be further evaluated for vascular dementia in the outpatient neurology clinic. Would recommend follow-up in the outpatient neurology clinic for the patient in 2-3 weeks. Her delirium also could be secondary to recent hospitalization. As noted she was taken off of all opiates and pain medications but still shows signs of mild confusion. Patient otherwise is resting comfortably. Laboratory tests are to be repeated for her tomorrow. We reviewed the results of the MRI today with the patient in detail. We tried to explain as best as possible that there was vascular changes to the brain possibly contributing to her mild confusional state. This can be further worked up as outpatient. The patient was seen by infectious disease today. She was started on Diflucan. Urine analysis was completed. We will await further recommendations from ID. patient continues to have intermittent confusion. Currently she is able to answer simple questions appropriately. She is scheduled to undergo computed tomography scan of the abdomen later today and we will await those results. Patient still remains confused at times and likely does have underlying vascular dementia. The patient is much more awake and alert this morning. Patient is able to answer all questions appropriately today. She is wondering when she may be able to be discharged from hospital. We will continue to follow with multiple specialists that are seeing this patient. We will continue close neurological follow-up for the patient during this admission. Objective - Vital Signs Vital signs: Vital Signs Temp 98.7 F 12/14/17 19:35 Pulse 82 12/14/17 19:35 Resp 16 12/14/17 19:35 BP 152/72 12/14/17 19:35 Pulse Ox 98 12/14/17 19:35 Intake & Output 12/14/17 12/14/17 12/15/17 06:59 18:59 06:59 Intake Total 740 480 240 Output Total 0 Balance 740 480 240 Weight 53.977 kg Intake: Oral 740 480 240 Output: Stool 0 Other: Voiding Method Bedside Commode Incontinent # Voids 1 3 1 # Bowel Movements 2 - Exam Physical Examination: PHYSICAL EXAMINATION: Patient is resting comfortably in bed. VITAL SIGNS: Blood pressure is [153/72]. Heart rate is [78]. Respiration is [16] . Temperature is [98.5]. HEENT: Head is atraumatic, neck is supple, there were no carotid bruits. CHEST: Lungs are clear to auscultation and percussion. CARDIAC: S1, S2 normal rate and rhythm. There is no murmur. ABDOMEN: Soft and nontender. Bowel sounds are present. EXTREMITIES: There is no pedal edema. Peripheral pulses are present. Neurological examination: Patient is awake alert and oriented 2. Her speech is still somewhat garbled at times and hard to comprehend. She has slight aphasia. Her memory and intellectual functions are impaired. Cranial nerve examination: Cranial nerves II through XII grossly intact. Motor examination: There was no pronator drift. Muscle tone is normal. Muscle strength is 4 minus/5 throughout. Deep tendon reflexes are 1+ and symmetric. Plantar responses flexor bilaterally. - Labs CBC & Chem 7: 12/13/17 06:35 12/14/17 07:23 Labs: Abnormal Lab Results - Last 24 Hours (Table) 12/14/17 Range/Units 07:23 Chloride 108 H (98-107) mmol/L AST 43 H (14-36) U/L ALT 62 H (9-52) U/L Alkaline Phosphatase 351 H (38-126) U/L Total Protein 4.7 L (6.3-8.2) g/dL Albumin 2.2 L (3.5-5.0) g/dL Microbiology - Last 24 Hours (Table) 12/10/17 15:00 Blood Culture - Preliminary Blood No Growth after 96 hours 12/10/17 13:59 Blood Culture - Preliminary Blood No Growth after 96 hours Assessment and Plan (1) Acute metabolic encephalopathy Current Visit: Yes Status: Acute Code(s): G93.41 - METABOLIC ENCEPHALOPATHY SNOMED Code(s): 25121682 (2) Hx laparoscopic cholecystectomy Current Visit: Yes Status: Acute Code(s): Z90.49 - ACQUIRED ABSENCE OF OTHER SPECIFIED PARTS OF DIGESTIVE TRACT SNOMED Code(s): 490918457 (3) Abdominal pain Current Visit: Yes Status: Acute Code(s): R10.9 - UNSPECIFIED ABDOMINAL PAIN SNOMED Code(s): 24097634 (4) Status post fall Current Visit: Yes Status: Acute Code(s): Z91.81 - HISTORY OF FALLING SNOMED Code(s): 996896236 Plan: This patient is a 82-year-old female who is being evaluated for altered mental status following recent endoscopic cholecystectomy procedure. She is doing somewhat better today in terms of her mental status. She still has episodes of intermittent confusion. She is following simple commands at this time. She has undergone MRI of the brain and the results of which have been reviewed. There is evidence of diffuse white matter ischemic changes bilaterally suggesting possibility of vascular dementia. Patient is being followed closely by infectious disease. She is currently on antibiotics for treatment of sepsis. She is scheduled to undergo computed tomography scan of the abdomen later today and we will await those results. Overall the patient seems to be doing fairly well. The patient is showing slow improvement in her overall mental status. She is much more awake and alert today. We will continue close neurological follow-up with the patient during this admission. Her WBC count continues to show improvement. Her liver function tests are also improving. Hopefully she will be ready for discharge to either [facility] or rehab. The patient is showing improvement in her mental status today. She seems to be much more appropriate. We will continue to monitor her condition closely. Her overall prognosis at this time remains guarded.
--- NOTE | 2017-12-14 23:53 | P.PN ---
Subjective 80-year-old female status post cholecystectomy was confused of postcholecystectomy. Patient confusion was related to opiates. I valid the patient today patient doesn't have any diarrhea doesn't have any fever does have continued leukocytosis of 21,000. Patient is completely confused at this time this confusion is probably related to hospitalization related to delirium neurology evaluated the patient. MRI was opted by neurology which showed old small vessel ischemic changes patient may have a competent of undiagnosed vascular dementia. Now present delirium is probably related to hospitalization per se. Patient is on Unasyn at this time. Patient is receiving potassium supplementation for hypokalemia. Patient does have minimal cough. On 12/12/2017 Patient is more awake today she knows she is in the hospital and she notes she had operation, and she remember she fell at home. Afebrile.Her leukocytosis is improving from 19 K to 16 K. liver enzymes are trending down slowly. Patient has abdominal discomfort and pain, mostly related to her surgery and possible elements of constipation ID recommendation are noted and appreciated. CT of the abdomen : No mention of abscess, Diverticulosis. Patient is on Unasyn. Diflucan is added. Follow-up CBC and blood culture. ROS Unable to obtain Objective - Vital Signs Vital signs: Vital Signs Temp 98.7 F 12/14/17 19:35 Pulse 82 12/14/17 20:00 Resp 16 12/14/17 20:00 BP 152/72 12/14/17 19:35 Pulse Ox 98 12/14/17 19:35 Intake & Output 12/14/17 12/14/17 12/15/17 06:59 18:59 06:59 Intake Total 740 480 240 Output Total 0 0 Balance 740 480 240 Weight 53.977 kg Intake: Oral 740 480 240 Output: Stool 0 0 Other: Voiding Method Bedside Commode Bedside Commode Incontinent Incontinent # Voids 1 3 1 # Bowel Movements 2 - Exam -GENERAL: The patient is AAOX3 today. She knows why in the hospital. She remembers she fell in her bathroom and told me because she was not using her walker HEENT: Pupils are round and equally reacting to light. EOMI. No scleral icterus. No conjunctival pallor. Normocephalic, atraumatic. No pharyngeal erythema. No thyromegaly. CARDIOVASCULAR: S1 and S2 present. No murmurs, rubs, or gallops. PULMONARY: Chest is clear to auscultation, no wheezing or crackles. -ABDOMEN: Soft, generalized tenderness no rebound tenderness, nondistended, surgical site areas appear to be clean MUSCULOSKELETAL: No joint swelling or deformity. EXTREMITIES: No cyanosis, clubbing, or pedal edema. NEUROLOGICAL: Gross neurological examination did not reveal any new focal deficits. SKIN: No rashes. - Labs CBC & Chem 7: 12/13/17 06:35 12/14/17 07:23 Labs: Abnormal Lab Results - Last 24 Hours (Table) 12/14/17 Range/Units 07:23 Chloride 108 H (98-107) mmol/L AST 43 H (14-36) U/L ALT 62 H (9-52) U/L Alkaline Phosphatase 351 H (38-126) U/L Total Protein 4.7 L (6.3-8.2) g/dL Albumin 2.2 L (3.5-5.0) g/dL Microbiology - Last 24 Hours (Table) 12/10/17 15:00 Blood Culture - Preliminary Blood No Growth after 96 hours 12/10/17 13:59 Blood Culture - Preliminary Blood No Growth after 96 hours Assessment and Plan Plan: -Altered mental status: Secondary to toxic encephalopathy from medications medically opiates which was subsequently discontinued, improving she is AAOX3 today. MRI of the brain showed chronic small vessel ischemic changes. EEG : No epileptiform abnormalities .neurology following the patient and they recommended outpatient workup for her vascular dementia, improving as patient is more awake today For pain management she's on Toradol and IV Tylenol as per primary team. We can add lidocaine patch if patient wants -Abdominal pain, mostly secondary to surgery and illness of constipation. Continue with symptomatic treatment -Mostly vascular dementia, as above -Leukocytosis patient is already on Unasyn no fevers, if patient remains to have leukocytosis with no further workup with a chest x-ray and a UA urine cultures blood cultures at that time. Patient doesn't have any diarrhea. Probably stress-related to intra-abdominal process and recent surgery. Continue with Unasyn for now -Possible vascular dementia, neurological evaluation is recommended outpatient follow-up within urology office -Cholecystitis, S/P cholecystectomy. ID recommendation are noted, He recommended abdominal ultrasound to rule out abscess: Gallbladder is surgically absent. Patient is on Unasyn. Diflucan is added. Follow-up CBC and blood culture -Dilated common bile duct status post ERCP on 12/04/2017 and cholecystectomy on 12/06/2017 -Elevated liver enzymes secondary to cholelithiasis, as above. hepatitis panel is negative liver enzymes are expected to improve we'll repeat tomorrow. Ammonia is within normal limits -History of Hypertension, continue with the same treatment DVT prophylaxis on low molecular weight heparin as per primary service prognosis is guarded given severity and multiple complex comorbidities Physical therapy recommended NEREYDA on 12/04/2017
[2017-12-15] MEDS: AMPICILLIN-SULBACTAM 3 GM in SODIUM CHLORIDE 0.9% 100 ML IVPB SCH ×3 (00:08→14:04)
--- NOTE | 2017-12-15 04:54 | PN ---
PROGRESS NOTE DATE OF SERVICE: 12/14/2017. REASON FOR FOLLOWUP: Leukocytosis post cholecystectomy and cholangitis. INTERVAL HISTORY: The patient is afebrile. She is more awake, alert today, breathing comfortably. Denies any chest pain, shortness of breath or cough. No worsening abdominal pain or any diarrhea. EXAMINATION: Blood pressure 152/72 with a pulse of 82, temperature 98.7. She is 98% on room air. General description is an elderly female lying in bed in no distress. RESPIRATORY SYSTEM: Unlabored breathing. Clear to auscultation anteriorly. HEART: S1, S2. Regular rate and rhythm. ABDOMEN: Soft, no tenderness. LABS: White count went down to 14,000 yesterday, not repeated today, with a BUN of 13 creatinine 0.65. Liver enzymes have improved. DIAGNOSTIC IMPRESSION AND PLAN: Patient with leukocytosis post laparoscopic cholecystectomy for cholangitis and cholecystitis with white count improving continuation of the Unasyn, finish therapy with oral Augmentin and Diflucan for about a week. Continue supportive care. MMODL / IJN: [id number] /
[2017-12-15] MEDS: ENOXAPARIN 40 MG/0.4 ML SYRINGE SQ SCH (08:45)
[2017-12-15] MEDS: DOCUSATE 100 MG CAP PO SCH (08:45)
[2017-12-15] MEDS: FAMOTIDINE 20 MG TAB PO SCH (08:45)
[2017-12-15] MEDS: POLYETHYLENE GLYCOL 3350 17 GM POWD.PACK PO SCH (08:46)
[2017-12-15] MEDS: ACETAMINOPHEN TAB 325 MG TAB PO PRN ×2 (09:49→16:01)
[2017-12-15] MEDS: FLUCONAZOLE IN NACL,ISO-OSM 200 MG in SALINE 1 100ML.BAG IVPB SCH (11:41)
--- NOTE | 2017-12-15 12:51 | P.DS ---
Providers Date of admission: 12/03/17 18:26 Expected date of discharge: 12/15/17 Attending physician: Rj Pagan Consults: 12/07/17 08:42 Consult Physician Stat Consulting Provider: Aman Maurer Consult Reason/Comments: FOR MEDICAL Do you want consulting provider notified?: Yes 12/07/17 09:25 Consult Physician Stat Consulting Provider: Monse Orosco Consult Reason/Comments: Mental status changes Do you want consulting provider notified?: Yes 12/10/17 09:17 Consult Physician Stat Consulting Provider: Caty Ponce Consult Reason/Comments: Elevated white count Do you want consulting provider notified?: Yes Primary care physician: Sung Mejía [facility] Course: This is an 82-year-old female who is admitted to the hospital complaints of abdominal pain. Patient's workup found have evidence of choledocholithiasis and sepsis. She underwent ERCP. She then underwent laparoscopic cholecystectomy. Please see hospital chart for details. Patient Condition at Discharge: Fair Plan - Discharge Summary Discharge Rx Participant: Yes New Discharge Prescriptions: New Docusate [Colace] 100 mg PO BID #20 capsule HYDROcodone/APAP 7.5-325MG [[place] 7.5-325] 1 tab PO Q4H PRN 3 Days #18 tab PRN Reason: Pain No Action Multivitamin [Men's Multi-Vitamin] 1 tab PO DAILY Calcium Carb-Vit D 500Mg-200Un [Oscal 500+D] 1 tab PO DAILY Acetaminophen Tab [Tylenol Tab] 325 mg PO Q6H PRN PRN Reason: Pain Loratadine [Claritin] 10 mg PO DAILY Lisinopril [Zestril] 2.5 mg PO DAILY Discharge Medication List Calcium Carb-Vit D 500Mg-200Un [Oscal 500+D] 1 tab PO DAILY 08/04/14 [History] Multivitamin [Men's Multi-Vitamin] 1 tab PO DAILY 08/04/14 [History] Acetaminophen Tab [Tylenol Tab] 325 mg PO Q6H PRN 12/03/17 [History] Lisinopril [Zestril] 2.5 mg PO DAILY 12/03/17 [History] Loratadine [Claritin] 10 mg PO DAILY 12/03/17 [History] Docusate [Colace] 100 mg PO BID #20 capsule 12/06/17 [Rx] HYDROcodone/APAP 7.5-325MG [[place] 7.5-325] 1 tab PO Q4H PRN 3 Days #18 tab 12/06 [Rx] Follow up Appointment(s)/Referral(s): Moy Carl MD [STAFF PHYSICIAN] - 01/13/18 12:45 pm ([address] [facility] office) Monse Orosco MD [STAFF PHYSICIAN] - 2 Weeks (Follow-up for your hospital confusion, and vascular dimension) Raul Sibley NPC [REFERRING] - 1-2 days Rj Pagan MD [STAFF PHYSICIAN] - 1 Week Activity/Diet/Wound Care/Special Instructions: Dysphagia level 3, 1:1 supervision and aspiration precautions, nectar thick liquids via spoon Punctures open to air on abdomen Activity as tolerated Discharge Disposition: HOME SELF-CARE
--- NOTE | 2017-12-15 14:47 | XR ---
EXAMINATION TYPE: XR chest 1V portable DATE OF EXAM: 12/15/2017 COMPARISON: Prior chest 08/10/2014 HISTORY: For rehabilitation placement, extended-care facility TECHNIQUE: Single frontal view of the chest is obtained. FINDINGS: Patient is rotated. There is a bandlike area of increased attenuation in the right mid lung coursing towards the hemidiaphragm which may be residual from patient's prior pleural effusion. No e vident pneumothorax. Patchy basilar density persists. Heart size is likely stable and enlarged. Arthr opathy noted in bilateral shoulders. IMPRESSION: Probable basilar atelectasis, correlate to exclude pneumonia, there may be residual scar ring. Stable cardiomegaly.
[2017-12-15 15:13] VITALS: BP 162/71; PULSE 70; RESP 15; TEMP 97.8
--- NOTE | 2017-12-15 16:28 | PN ---
PROGRESS NOTE DATE OF SERVICE: 12/15/2017. REASON FOR FOLLOWUP: Leukocytosis, post cholecystectomy with cholecystitis and possible ascending cholangitis. INTERVAL HISTORY: The patient is afebrile. She has been breathing comfortably. Denies having any chest pain. No shortness of breath or cough. No abdominal pain or diarrhea. EXAMINATION: Blood pressure 162/74 with a pulse of 72, temperature of 97.8. She is 92% on room air. General description is an elderly female lying in bed in no distress. Respiratory system: Unlabored breathing. Clear to auscultation anteriorly. Heart S1, S2. Regular rate and rhythm. Abdomen soft, no tenderness. LABS: No new labs have been obtained today. DIAGNOSTIC IMPRESSION AND PLAN: Patient with leukocytosis post cholecystectomy. White count improved with the Diflucan. Patient will finish therapy with a short course of oral Levaquin and Augmentin on discharge. Continue supportive care. MMODL / IJN: [id number] /
[2017-12-16] MEDS ORDERED: FLUCONAZOLE 100 MG TAB PO SCH (12:00)
== END 2017-12-15 16:30 | DRG 853 ==
LOC: EC 17:51 → 3SUR 18:26
PROVIDERS: ADMIT Surgery; ATTEND Surgery
PROC: 0F798ZZ Dilation of Common Bile Duct, Via Natural or Artificial Opening Endoscopic (ICD-10-PCS; 2017-12-04 07:55)
PROC: 0FT44ZZ Resection of Gallbladder, Percutaneous Endoscopic Approach (ICD-10-PCS; principal; 2017-12-06 08:00)
DX: A41.9 Sepsis, unspecified organism (principal); G92 Toxic encephalopathy; K80.42 Calculus of bile duct with acute cholecystitis without obstruction; J90 Pleural effusion, not elsewhere classified; E87.1 Hypo-osmolality and hyponatremia; R47.01 Aphasia; I48.0 Paroxysmal atrial fibrillation; I08.3 Combined rheumatic disorders of mitral, aortic and tricuspid valves; F01.50 Vascular dementia, unspecified severity, without behavioral disturbance, psychotic disturbance, mood disturbance, and anxiety; K57.10 Diverticulosis of small intestine without perforation or abscess without bleeding; H91.90 Unspecified hearing loss, unspecified ear; E87.6 Hypokalemia; I10 Essential (primary) hypertension; G31.9 Degenerative disease of nervous system, unspecified; M19.91 Primary osteoarthritis, unspecified site; T40.605A Adverse effect of unspecified narcotics, initial encounter; R32 Unspecified urinary incontinence; I25.2 Old myocardial infarction; Z79.82 Long term (current) use of aspirin; Z79.899 Other long term (current) drug therapy; Z86.73 Personal history of transient ischemic attack (TIA), and cerebral infarction without residual deficits; Z90.710 Acquired absence of both cervix and uterus; Z90.49 Acquired absence of other specified parts of digestive tract; Z98.49 Cataract extraction status, unspecified eye; Z88.1 Allergy status to other antibiotic agents; Z88.8 Allergy status to other drugs, medicaments and biological substances; Z82.49 Family history of ischemic heart disease and other diseases of the circulatory system; Z82.61 Family history of arthritis; Z84.89 Family history of other specified conditions; Z91.81 History of falling
CPT/HCPCS: 43262; 43264; 70450; 70551; 71045; 74176; 74330; 76700; 76705; 80053; 80074; 81001; 82140; 83690; 84132; 85025; 85027; 85610; 87040; 87086; 88304; 93005; 94760; 95816; 99284

== ENCOUNTER → 2018-02-16 | Outpatient (CLI) | payer MEDICARE, BC | END | disposition home or self-care (01) | LOC: LABPAT 14:10 | PROVIDERS: ATTEND Surgery | DX: Z01.818 Encounter for other preprocedural examination (principal); K43.9 Ventral hernia without obstruction or gangrene; K43.2 Incisional hernia without obstruction or gangrene; D64.9 Anemia, unspecified; F17.200 Nicotine dependence, unspecified, uncomplicated | CPT/HCPCS: 93005 ==

== ENCOUNTER 2018-03-10 08:38 | Inpatient (IN) | payer MEDICARE, BC ==
[~2018-03-10 08:38] MED LIST: CLINDAMYCIN 900 MG in DEXTROSE 5% IN WATER 50 ML IVPB ONE; DEXAMETHASONE SOD PHOSPHATE 10 MG/ML 1 ML VIAL IV ONE; HEPARIN SODIUM,PORCINE 5,000 UNIT/ML 1 ML VIAL SQ ONE; LIDOCAINE 1% 20 ML VIAL (10MG/ML) FOR IV START INTRADERMA PRN; MIDAZOLAM 2 MG/2 ML VIAL IV PRN; ONDANSETRON 4 MG/2 ML VIAL IVP ONE; Pre Op ABX Message 1 EACH MISC MISCELLANE ONE; SCOPOLAMINE 1.5MG/72HR PATCH TRANSDERM ONE
[2018-03-10] MEDS: LACTATED RINGERS 1,000 ML IV SCH (09:28)
--- NOTE | 2018-03-10 10:17 | P.GSHP ---
History of Present Illness H&P Date: 03/10/18 Chief Complaint: Incisional hernia This is a 82-year-old female who presents today for laparoscopic robotic- assisted repair of incisional hernia. Patient developed a tender mass along her low midline incision. Past Medical History Past Medical History: CVA/TIA, Hypertension, Myocardial Infarction (ID) Last Myocardial Infarction Date:: 2004 History of Any Multi-Drug Resistant Organisms: None Reported Past Surgical History: Appendectomy, Cholecystectomy, Hysterectomy, Joint Replacement, Orthopedic Surgery Additional Past Surgical History / Comment(s): cataract, rt hip replacement, lt knee replacement Past Anesthesia/Blood Transfusion Reactions: No Reported Reaction Smoking Status: Never smoker - Past Family History Mother Family Medical History: Congestive Heart Failure (CHF), Deep Vein Thrombosis ( DVT), Osteoarthritis (OA) Father Family Medical History: Coronary Artery Disease (CAD), Myocardial Infarction (ID ), Prostate Disorder Medications and Allergies Home Medications Medication Instructions Recorded Confirmed Type Calcium Carb-Vit D 500Mg-200Un 1 tab PO DAILY 08/04/14 03/10/18 History [Oscal 500+D] Acetaminophen Tab [Tylenol Tab] 325 mg PO Q6H PRN 12/03/17 03/10/18 History Lisinopril [Zestril] 2.5 mg PO DAILY 12/03/17 03/10/18 History Loratadine [Claritin] 10 mg PO DAILY 12/03/17 03/10/18 History Docusate [Colace] 100 mg PO BID #20 capsule 12/06/17 03/10/18 Rx Calcium Carbonate [Tums] 500 mg PO TID PRN 02/18/18 03/10/18 History Multivitamins, Thera [Multivitamin 1 tab PO DAILY 02/18/18 03/10/18 History (formulary)] Oxybutynin Chloride [Ditropan XL] 5 mg PO DAILY 02/18/18 03/10/18 History Allergies Allergy/AdvReac Type Severity Reaction Status Date / Time cephalexin [From Keflex] Allergy Unknown Verified 03/10/18 09:00 ciprofloxacin [From Cipro] Allergy Unknown Verified 03/10/18 09:00 iodine Allergy Unknown Verified 03/10/18 09:00 Surgical - Exam Vital Signs Temp Pulse Resp BP Pulse Ox 97.5 F L 67 16 144/71 100 03/10/18 09:12 03/10/18 09:12 03/10/18 09:12 03/10/18 09:12 03/10/18 09:12 - General well developed, well nourished, no distress - Eyes PERRL - ENT normal pinna - Neck no masses - Respiratory normal expansion - Cardiovascular Rhythm: regular - Abdomen Abdomen: soft, non tender Hernia: incisional (10 cm incisional hernia) Assessment and Plan Assessment: Incisional hernia. We'll perform laparoscopic robotic assistance repair.
[2018-03-10] MEDS ORDERED: NEOSTIGMINE 1 MG/ML 10 ML VIAL ONE (10:44)
[2018-03-10] MEDS ORDERED: LIDOCAINE 1% INJ 10MG/ML (20 ML MDV) ONE (10:44)
[2018-03-10] MEDS ORDERED: fentaNYL (PF) 50 MCG/ML 2 ML AMP ONE (10:44)
[2018-03-10] MEDS ORDERED: ROCURONIUM BROMIDE 10 MG/ML 10 ML VIAL IV ONE (10:44)
[2018-03-10] MEDS ORDERED: SUCCINYLCHOLINE CHLORIDE 100 MG/5 ML SYR IV ONE (10:44)
[2018-03-10] MEDS ORDERED: KETOROLAC 30 MG/ML 1 ML VIAL ONE (10:44)
[2018-03-10] MEDS ORDERED: GLYCOPYRROLATE 0.2 MG/ML 2 ML VIAL ONE (10:44)
[2018-03-10] MEDS ORDERED: ePHEDrine SULFATE/0.9% NACL/PF 50 MG/5 ML SYRINGE IV ONE (10:44)
[2018-03-10] MEDS ORDERED: PROPOFOL 10 MG/ML 20 ML VIAL IV ONE (10:44)
[2018-03-10] MEDS ORDERED: BUPIVACAIN-EPI 0.25%-1:200,000 30 ML VIAL SQ ONE (11:20)
[2018-03-10] MEDS ORDERED: LACTATED RINGERS 1,000 ML IV ONE ×3 (11:52→15:45)
[2018-03-10] MEDS: HYDROmorphone 0.5 MG/0.5 ML SYRINGE IVP PRN ×4 (12:37→13:01)
[2018-03-10] MEDS ORDERED: NALOXONE 0.4 MG/ML 1 ML VIAL IV PRN (13:34)
--- NOTE | 2018-03-10 14:34 | P.OP ---
Date of Procedure: 03/10/18 Preoperative Diagnosis: Incarcerated incisional hernia Postoperative Diagnosis: Incarcerated incisional hernia Procedure(s) Performed: Laparoscopic robotic system repair of incarcerated hernia Laparoscopic lysis of adhesions Anesthesia: JAYE Surgeon: Rj Pagan Estimated Blood Loss (ml): 5 Pathology: none sent Condition: stable Disposition: PACU Description of Procedure: The patient was placed on the operating table in the supine position. He received general anesthesia. His abdomen was prepped and draped usual fashion. Using a 5 mm optical trocar under direct visualization the peritoneal cavity was entered in the left upper quadrant. The abdomen was then insufflated. The laparoscope was placed back into the perineal cavity. Next a 8 mm robotic trocar was placed in the left lower quadrant and a 12 mm robotic trocar was placed in the left lateral position. The original 5 mm trocar was exchanged for a 8 mm robotic trocar. The patient's placed in the left side up position. And the patient was docked to the robot. The incisional hernia was visualized. There was incarcerated small bowel within the hernia. The small bowel was dissected using Metzenbaum scissors. Approximately 20 minutes of operative time used to dissect the adhesions to the small bowel within the hernia.. Using hook cautery the peritoneum over the incisional hernia was excised. The fascial opening was repaired using 0V LOC suture. Next a piece of 11 cm round ventral light ST mesh was placed into the. Cavity and secured with 2 OV lock suture. The patient was undocked the robot. The needles were retrieved. The fascia of the 12 mm trocar site was closed with 0 Ethibond suture. Skin was closed interrupted 3-0 Monocryl suture. Dermabond dressings was applied. Patient tolerated procedure well and was sent to recovery room stable condition.
[2018-03-10] MEDS: HYDROcodone/APAP 5-325MG 1 EACH TAB PO PRN ×2 (16:41→21:43)
[2018-03-10] MEDS: DOCUSATE 100 MG CAP PO SCH (19:45)
[2018-03-10] MEDS: ONDANSETRON 4 MG/2 ML VIAL IVP PRN (19:46)
[2018-03-10] MEDS: ACETAMINOPHEN TAB 325 MG TAB PO PRN (21:09)
[2018-03-11] MEDS: CALCIUM CARBONATE 500 MG CHEWABLE PO PRN ×3 (02:53→19:50)
[2018-03-11] MEDS: HYDROcodone/APAP 5-325MG 1 EACH TAB PO PRN (02:53)
[2018-03-11] MEDS: ENOXAPARIN 40 MG/0.4 ML SYRINGE SQ SCH (08:20)
[2018-03-11] MEDS: LISINOPRIL 2.5 MG TAB PO SCH (08:21)
[2018-03-11] MEDS: DOCUSATE 100 MG CAP PO SCH ×2 (08:21→19:50)
[2018-03-11] MEDS: OXYBUTYNIN XL 5 MG TAB.ER.24 PO SCH (08:21)
[2018-03-11] MEDS: LORATADINE 10 MG TAB PO SCH (08:21)
[2018-03-11] MEDS: ACETAMINOPHEN TAB 325 MG TAB PO PRN ×3 (08:22→19:49)
[2018-03-11] MEDS: LACTATED RINGERS 1,000 ML IV SCH (08:24)
[2018-03-11] MEDS: PANTOPRAZOLE 40 MG/10 ML VIAL IVP SCH (08:50)
--- NOTE | 2018-03-11 08:58 | P.PN ---
Subjective Progress Note Date: 03/11/18 82-year-old female seen at the bedside sitting up in bed taking a diet reports "stomach soreness" abdominal binder in place surgical dressings dry no reports of nausea vomiting. Patient is postop March 10 laparoscopic robotic system repair of incarcerated hernia, lysis of adhesions Objective - Vital Signs Vital signs: Vital Signs Temp 98.1 F 03/11/18 08:09 Pulse 96 03/11/18 08:09 Resp 18 03/11/18 08:09 BP 114/61 03/11/18 08:09 Pulse Ox 99 03/11/18 00:08 Intake & Output 03/10/18 03/11/18 03/11/18 18:59 06:59 18:59 Intake Total 1806 Output Total 10 Balance 1796 Weight 51.256 kg Intake: IV 1806 Oral 0 Output: Estimated Blood Loss 10 Other: Voiding Method Incontinent # Voids 1 - Exam Physical exam 82-year-old female alert and oriented times 3 sitting up in bed Lungs adequate air movement bilaterally on room air Heart S1-S2 audible irregular Abdomen abdominal binder in place surgical dressing site dry few hypoactive bowel tones reports no nausea vomiting. Reports passing gas no stool Extremities no edema noted Assessment and Plan Assessment: Impression Postop March 10 laparoscopic robotic system repair of incarcerated hernia lysis of adhesions Incarcerated incisional hernia present on admission Plan Continue postop surgical care Increase activity Increase diet as tolerated Pain control DVT and GI prophylaxis Follow-up on pending labs The above impression and plan of care have been discussed and directed by signing physician. Katey Mireles nurse practitioner acting as scribe for signing physician.
[2018-03-11 09:33] LABS: Albumin 2.9 g/dL (3.5-5.0); Calcium 9.1 mg/dL (8.4-10.2); Potassium 4.9 mmol/L (3.5-5.1); Total Bilirubin 0.5 mg/dL (0.2-1.3); Total Protein 5.3 g/dL (6.3-8.2)
[2018-03-11 10:11] LABS: Basophils % (A) 0 %; Eosinophils % (A) 0 %; HCT 22.8 % (34.0-46.0); Hypochromasia Slight; Lymphocytes # (A) 1.2 k/uL (1.0-4.8); Lymphocytes % (A) 11 %; MCH 30.4 pg (25.0-35.0); MCHC 32.5 g/dL (31.0-37.0); MCV 93.4 fL (80.0-100.0); Mean Platelet Volume 7.4; Monocytes # (A) 0.4 k/uL (0-1.0); Monocytes % (A) 4 %; Neutrophils # (A) 9.5 k/uL (1.3-7.7); Neutrophils % (A) 85 %; Platelet Count 204 k/uL (150-450); RBC 2.44 m/uL (3.80-5.40); RDW 13.6 % (11.5-15.5); WBC 11.2 k/uL (3.8-10.6)
[2018-03-11 10:16] LABS: HGB 7.4 gm/dL (11.4-16.0)
[2018-03-11 10:34] LABS: Poikilocytosis (M) Present; Toxic Granulation Present
[2018-03-11 14:04] LABS: Basophils % (A) 0 %; Eosinophils # (A) 0.1 k/uL (0-0.7); Eosinophils % (A) 1 %; HCT 22.8 % (34.0-46.0); HGB 7.2 gm/dL (11.4-16.0); Hypochromasia Slight; Lymphocytes # (A) 1.1 k/uL (1.0-4.8); Lymphocytes % (A) 9 %; MCH 29.5 pg (25.0-35.0); MCHC 31.7 g/dL (31.0-37.0); MCV 93.3 fL (80.0-100.0); Mean Platelet Volume 7.4; Monocytes # (A) 0.4 k/uL (0-1.0); Monocytes % (A) 3 %; Neutrophils # (A) 10.6 k/uL (1.3-7.7); Neutrophils % (A) 87 %; Platelet Count 223 k/uL (150-450); RBC 2.45 m/uL (3.80-5.40); WBC 12.3 k/uL (3.8-10.6)
--- NOTE | 2018-03-11 16:40 | P.CONS ---
History of Present Illness - Reason for Consult Anemia - History of Present Illness 82-year-old pleasant female underwent incisional hernia repair. Post surgery patient is not feeling well did pass gas. Patient is severely anemic at hemoglobin of 7.2 patient's the previous hemoglobin is around 10 patient denied any blood in the stools dark stools and emesis or hematochezia. Patient denied any fever chills nausea vomiting. Patient denied dysuria cough. Patient pain pain is barely controlled with Tylenol will add tramadol avoid opiate analgesia because of her age and opiate analysis 6 will make her nauseous Review of Systems REVIEW OF SYSTEMS: CONSTITUTIONAL: Malaise and fatigue r hearing problems. Denied any sore throat. CARDIOVASCULAR: No chest pain, orthopnea, PND, no palpitations, no syncope. PULMONARY: No shortness of breath, no cough, no hemoptysis. GASTROINTESTINAL: No diarrhea, no nausea, no vomiting, no abdominal pain. Normoactive bowel sounds. NEUROLOGICAL: No headaches, no weakness, no numbness. HEMATOLOGICAL: Denies any bleeding or petechiae. GENITOURINARY: Denies any burning micturition, frequency, or urgency. MUSCULOSKELETAL/RHEUMATOLOGICAL: Denies any joint pain, swelling, or any muscle pain. ENDOCRINE: Denies any polyuria or polydipsia. The rest of the 14-point review of systems is negative. Past Medical History Past Medical History: CVA/TIA, Hypertension, Myocardial Infarction ([place]) Last Myocardial Infarction Date:: 2004 History of Any Multi-Drug Resistant Organisms: None Reported Past Surgical History: Appendectomy, Cholecystectomy, Hysterectomy, Joint Replacement, Orthopedic Surgery Additional Past Surgical History / Comment(s): cataract, rt hip replacement, lt knee replacement Past Anesthesia/Blood Transfusion Reactions: No Reported Reaction Past Psychological History: No Psychological Hx Reported Smoking Status: Never smoker Past Alcohol Use History: None Reported Past Drug Use History: None Reported - Past Family History Mother Family Medical History: Congestive Heart Failure (CHF), Deep Vein Thrombosis ( DVT), Osteoarthritis (OA) Father Family Medical History: Coronary Artery Disease (CAD), Myocardial Infarction ([place] ), Prostate Disorder Medications and Allergies Home Medications Medication Instructions Recorded Confirmed Type Calcium Carb-Vit D 500Mg-200Un 1 tab PO DAILY 08/04/14 03/10/18 History [Oscal 500+D] Acetaminophen Tab [Tylenol Tab] 325 mg PO Q6H PRN 12/03/17 03/10/18 History Loratadine [Claritin] 10 mg PO DAILY 12/03/17 03/10/18 History Docusate [Colace] 100 mg PO BID #20 capsule 12/06/17 03/10/18 Rx Calcium Carbonate [Tums] 500 mg PO TID PRN 02/18/18 03/10/18 History Multivitamins, Thera [Multivitamin 1 tab PO DAILY 02/18/18 03/10/18 History (formulary)] Oxybutynin Chloride [Ditropan XL] 5 mg PO DAILY 02/18/18 03/10/18 History Allergies Allergy/AdvReac Type Severity Reaction Status Date / Time cephalexin [From Keflex] Allergy Unknown Verified 03/10/18 09:00 ciprofloxacin [From Cipro] Allergy Unknown Verified 03/10/18 09:00 iodine Allergy Unknown Verified 03/10/18 09:00 Physical Exam Vitals: Vital Signs Temp Pulse Pulse Resp BP Pulse Ox 03/11/18 15:30 98.5 F 85 14 90/53 98 03/11/18 08:09 98.1 F 82 96 18 114/61 03/11/18 00:08 98.0 F 75 15 99/59 99 03/10/18 20:00 98.7 F 69 18 92/53 97 03/10/18 17:30 70 93/59 03/10/18 17:15 67 96/57 03/10/18 17:00 68 88/55 03/10/18 16:45 64 98/50 Intake and Output 03/11/18 03/11/18 03/11/18 06:59 14:59 22:59 Intake Total 784 Balance 784 Intake: Oral 784 Other: # Voids 1 1 PHYSICAL EXAMINATION: GENERAL: The patient is alert and oriented x3, not in any acute distress. Thin built appears to be fatigued HEENT: Pupils are round and equally reacting to light. EOMI. No scleral icterus. Does have conjunctival pallor. Normocephalic, atraumatic. No pharyngeal erythema. No thyromegaly. CARDIOVASCULAR: S1 and S2 present. No murmurs, rubs, or gallops. PULMONARY: Chest is clear to auscultation, no wheezing or crackles. ABDOMEN: Abdominal binder in place normoactive bowel sounds MUSCULOSKELETAL: No joint swelling or deformity. EXTREMITIES: No cyanosis, clubbing, or pedal edema. NEUROLOGICAL: Gross neurological examination did not reveal any focal deficits. SKIN: No rashes. Results CBC & Chem 7: 03/11/18 13:36 03/11/18 08:42 Labs: Abnormal Lab Results - Last 24 Hours (Table) 03/11/18 03/11/18 03/11/18 Range/Units 08:42 08:42 13:36 WBC 11.2 H 12.3 H (3.8-10.6) k/uL RBC 2.44 L 2.45 L (3.80-5.40) m/uL Hgb 7.4 L D 7.2 L (11.4-16.0) gm/dL Hct 22.8 L 22.8 L (34.0-46.0) % Neutrophils # 9.5 H 10.6 H (1.3-7.7) k/uL Sodium 134 L (137-145) mmol/L BUN 31 H (7-17) mg/dL Glucose 117 H (74-99) mg/dL Total Protein 5.3 L (6.3-8.2) g/dL Albumin 2.9 L (3.5-5.0) g/dL Assessment and Plan Plan: -Anemia: Appears to competent of chronic anemia along with some acute blood loss anemia from surgery. We will obtain ferritin level and B12 level my concern is very low serum iron and ferritin in that scenario will supplemented. Patient hemoglobin presently some point if it drops below 7. probably can transfuse at that time. -Incisional hernia repair postoperative day 0: Pain management as per primary service due to prophylaxis per primary service try to avoid opiates, benzodiazepines barbiturates and anticholinergic medications -Urinary incontinence for which patient is on oxybutynin which will be continued.
[2018-03-11] MEDS: ONDANSETRON 4 MG/2 ML VIAL IVP PRN (17:01)
[2018-03-11 17:11] LABS: Basophils % (A) 0 %; Eosinophils # (A) 0.1 k/uL (0-0.7); Eosinophils % (A) 1 %; HCT 23.6 % (34.0-46.0); HGB 7.6 gm/dL (11.4-16.0); Hypochromasia Slight; Lymphocytes # (A) 1.2 k/uL (1.0-4.8); Lymphocytes % (A) 13 %; MCH 30.3 pg (25.0-35.0); MCHC 32.4 g/dL (31.0-37.0); MCV 93.4 fL (80.0-100.0); Mean Platelet Volume 7.3; Monocytes # (A) 0.3 k/uL (0-1.0); Monocytes % (A) 3 %; Neutrophils # (A) 7.7 k/uL (1.3-7.7); Neutrophils % (A) 82 %; Platelet Count 208 k/uL (150-450); RBC 2.52 m/uL (3.80-5.40); RDW 14.1 % (11.5-15.5); WBC 9.4 k/uL (3.8-10.6)
[2018-03-12] MEDS: ACETAMINOPHEN TAB 325 MG TAB PO PRN (07:42)
[2018-03-12] MEDS: LACTATED RINGERS 1,000 ML IV SCH ×8 (07:55→18:41)
[2018-03-12 07:58] LABS: Calcium 8.9 mg/dL (8.4-10.2); Potassium 4.6 mmol/L (3.5-5.1)
[2018-03-12 08:00] LABS: Basophils % (A) 0 %; Eosinophils # (A) 0.1 k/uL (0-0.7); Eosinophils % (A) 1 %; HCT 21.1 % (34.0-46.0); Hypochromasia Slight; Lymphocytes # (A) 0.9 k/uL (1.0-4.8); Lymphocytes % (A) 11 %; MCH 30.1 pg (25.0-35.0); MCHC 32.6 g/dL (31.0-37.0); MCV 92.4 fL (80.0-100.0); Mean Platelet Volume 7.7; Monocytes # (A) 0.4 k/uL (0-1.0); Monocytes % (A) 5 %; Neutrophils # (A) 6.1 k/uL (1.3-7.7); Neutrophils % (A) 82 %; Platelet Count 165 k/uL (150-450); RBC 2.28 m/uL (3.80-5.40); RDW 13.9 % (11.5-15.5); WBC 7.4 k/uL (3.8-10.6)
[2018-03-12 08:03] LABS: HGB 6.9 gm/dL (11.4-16.0)
[2018-03-12] MEDS ORDERED: SODIUM CHLORIDE 0.9% 1,000 ML IV ONE (08:13)
[2018-03-12] MEDS ORDERED: LACTATED RINGERS 1,000 ML IV SCH (08:15)
--- NOTE | 2018-03-12 08:25 | P.PN ---
Subjective Progress Note Date: 03/12/18 82-year-old female seen sitting up in a chair this morning taking a diet. Did note the hemoglobin is 6.9 this morning heart rate is up to 130s systolic blood pressure in the 80s when questioning patient patient's denying dizziness lightheadedness chest pain or shortness of breath does report "stomach hurts" nursing reports patient did have a bowel movement yesterday no blood noted incontinently urine. White count this morning 7.4 electrolytes within normal limits ferritin level 74 postop March 10 laparoscopic robotic system repair of incarcerated hernia, lysis of adhesions Objective - Vital Signs Vital signs: Vital Signs Temp 98.9 F 03/12/18 07:49 Pulse 95 03/12/18 07:49 Resp 16 03/12/18 07:49 BP 86/50 03/12/18 07:49 Pulse Ox 97 03/11/18 23:57 Intake & Output 03/11/18 03/12/18 03/12/18 18:59 06:59 18:59 Intake Total 784 1162.5 Balance 784 1162.5 Intake: Intake, IV Titration 1162.5 Amount Lactated Ringers 1,000 ml 900 @ 0 mls/hr IV .STK-MED ONE Rx#:[id number] Lactated Ringers 1,000 ml 262.5 @ 75 mls/hr IV .[id number] ONE Rx#:[id number] Oral 784 Other: Voiding Method Incontinent # Voids 1 3 - Exam Physical exam 82-year-old female currently sitting up in a chair taking a diet appears in no acute distress Lungs adequate air movement bilaterally no shortness of breath noted no cough Heart S1-S2 audible noted tachycardic Abdomen currently abdominal binder in place surgical tenderness appropriate to hypoactive bowel tones incontinently urine no stool no nausea no vomiting surgical tenderness appropriate extremities no edema bilaterally lower extremities - Labs CBC & Chem 7: 03/12/18 06:13 03/12/18 06:13 Labs: Abnormal Lab Results - Last 24 Hours (Table) 03/11/18 03/11/18 03/11/18 Range/Units 08:42 08:42 13:36 WBC 11.2 H 12.3 H (3.8-10.6) k/uL RBC 2.44 L 2.45 L (3.80-5.40) m/uL Hgb 7.4 L D 7.2 L (11.4-16.0) gm/dL Hct 22.8 L 22.8 L (34.0-46.0) % Neutrophils # 9.5 H 10.6 H (1.3-7.7) k/uL Lymphocytes # (1.0-4.8) k/uL Sodium 134 L (137-145) mmol/L BUN 31 H (7-17) mg/dL Glucose 117 H (74-99) mg/dL Total Protein 5.3 L (6.3-8.2) g/dL Albumin 2.9 L (3.5-5.0) g/dL 03/11/18 03/12/18 03/12/18 Range/Units 16:57 06:13 06:13 WBC (3.8-10.6) k/uL RBC 2.52 L 2.28 L (3.80-5.40) m/uL Hgb 7.6 L 6.9 L* (11.4-16.0) gm/dL Hct 23.6 L 21.1 L (34.0-46.0) % Neutrophils # (1.3-7.7) k/uL Lymphocytes # 0.9 L (1.0-4.8) k/uL Sodium 134 L (137-145) mmol/L BUN 29 H (7-17) mg/dL Glucose (74-99) mg/dL Total Protein (6.3-8.2) g/dL Albumin (3.5-5.0) g/dL Assessment and Plan Assessment: Impression Postop March 10 laparoscopic robotic system repair of incarcerated hernia lysis of adhesions Incarcerated incisional hernia present on admission Anemia suspect of chronic illness with low ferritin level Low ferritin level Postop tachycardia Postop acute blood loss anemia expected from surgery Plan Transfuse 2 unit of packed red blood cells Fluid bolus now Place on monitor tech postop surgical care Increase activity Increase diet as tolerated Pain control DVT and GI prophylaxis Follow-up on pending labs The above impression and plan of care have been discussed and directed by signing physician. Katey Mireles nurse practitioner acting as scribe for signing physician.
[2018-03-12] MEDS: LISINOPRIL 2.5 MG TAB PO SCH (10:36)
[2018-03-12] MEDS: PANTOPRAZOLE 40 MG/10 ML VIAL IVP SCH (10:47)
[2018-03-12] MEDS: LORATADINE 10 MG TAB PO SCH (10:48)
[2018-03-12] MEDS: DOCUSATE 100 MG CAP PO SCH ×2 (11:09→20:16)
[2018-03-12] MEDS: ENOXAPARIN 40 MG/0.4 ML SYRINGE SQ SCH (11:09)
[2018-03-12] MEDS: OXYBUTYNIN XL 5 MG TAB.ER.24 PO SCH (11:09)
--- NOTE | 2018-03-12 13:50 | P.PN ---
Subjective 80-year-old the admitted for elective incisional hernia repair patient's hemoglobin is low ferritin is not bad is around 70. Patient had acute blood loss anemia from surgery receiving 1 unit of blood transfusion patient can he is to be pretty blood pressure is low patient is bit tachycardic secondary to hypovolemia low blood pressure lisinopril was discontinued. I'm expecting her symptoms to improve by tomorrow. No fevers and no evidence of infection Objective - Vital Signs Vital signs: Vital Signs Temp 98.8 F 03/12/18 10:58 Pulse 129 H 03/12/18 10:58 Resp 18 03/12/18 10:58 BP 105/68 03/12/18 10:58 Pulse Ox 95 03/12/18 10:58 Intake & Output 03/11/18 03/12/18 03/12/18 18:59 06:59 18:59 Intake Total 784 1162.5 10 Balance 784 1162.5 10 Intake: Intake, IV Titration 1162.5 Amount Lactated Ringers 1,000 ml 900 @ 0 mls/hr IV .[facility] Rx#:[id number] Lactated Ringers 1,000 ml 262.5 @ 75 mls/hr IV .[id number] ONE Rx#:[id number] Oral 784 10 Blood Product 0 Rc As-1 Unit 0 [id number] Other: Voiding Method Incontinent # Voids 1 3 - Exam PHYSICAL EXAMINATION: GENERAL: The patient is alert and oriented x3, not in any acute distress. Thin built appears to be fatigued HEENT: Pupils are round and equally reacting to light. EOMI. No scleral icterus. Does have conjunctival pallor. Normocephalic, atraumatic. No pharyngeal erythema. No thyromegaly. CARDIOVASCULAR: S1 and S2 present. No murmurs, rubs, or gallops. PULMONARY: Chest is clear to auscultation, no wheezing or crackles. ABDOMEN: Abdominal binder in place normoactive bowel sounds MUSCULOSKELETAL: No joint swelling or deformity. EXTREMITIES: No cyanosis, clubbing, or pedal edema. NEUROLOGICAL: Gross neurological examination did not reveal any focal deficits. SKIN: No rashes. - Labs CBC & Chem 7: 03/12/18 06:13 03/12/18 06:13 Labs: Abnormal Lab Results - Last 24 Hours (Table) 03/11/18 03/11/18 03/12/18 Range/Units 13:36 16:57 06:13 WBC 12.3 H (3.8-10.6) k/uL RBC 2.45 L 2.52 L 2.28 L (3.80-5.40) m/uL Hgb 7.2 L 7.6 L 6.9 L* (11.4-16.0) gm/dL Hct 22.8 L 23.6 L 21.1 L (34.0-46.0) % Neutrophils # 10.6 H (1.3-7.7) k/uL Lymphocytes # 0.9 L (1.0-4.8) k/uL Sodium (137-145) mmol/L BUN (7-17) mg/dL Crossmatch 03/12/18 03/12/18 Range/Units 06:13 08:32 WBC (3.8-10.6) k/uL RBC (3.80-5.40) m/uL Hgb (11.4-16.0) gm/dL Hct (34.0-46.0) % Neutrophils # (1.3-7.7) k/uL Lymphocytes # (1.0-4.8) k/uL Sodium 134 L (137-145) mmol/L BUN 29 H (7-17) mg/dL Crossmatch See Detail Assessment and Plan Plan: -Anemia: Appears to be secondary to acute blood loss anemia from surgery serum ferritin is little low and a serum B12 is essentially within normal limits. -Sinus tachycardia: Secondary to intravascular and patient hypotension and low hemoglobin expected to improve with blood transfusion we'll continue to monitor. -Incisional hernia repair postoperative day 1: Pain management as per primary service due to prophylaxis per primary service try to avoid opiates, benzodiazepines barbiturates and anticholinergic medications -Urinary incontinence for which patient is on oxybutynin which will be continued.
[2018-03-12] MEDS ORDERED: FUROSEMIDE 10 MG/ML 2 ML VIAL IV ONE (14:02)
[2018-03-12 15:59] LABS: Appearance,Urine Clear (Clear); Bilirubin,Urine Negative (Negative); Blood,Urine Negative (Negative); Color,Urine Yellow; Glucose,Urine (UA) Negative (Negative); Ketones,Urine Negative (Negative); Leukocyte Esterase,Urine Negative (Negative); Nitrite,Urine Negative (Negative); Protein,Urine Trace (Negative); Specific Gravity,Urine 1.012 (1.001-1.035); Urobilinogen,Urine <2.0 mg/dL (<2.0)
[2018-03-12] MEDS: traMADol 50 MG TAB PO PRN (18:54)
[2018-03-12] MEDS: HYDROcodone/APAP 5-325MG 1 EACH TAB PO PRN (23:13)
[2018-03-13] MEDS: LACTATED RINGERS 1,000 ML IV SCH (05:23)
[2018-03-13 05:51] LABS: Basophils % (A) 0 %; Eosinophils # (A) 0.1 k/uL (0-0.7); Eosinophils % (A) 1 %; HCT 27.5 % (34.0-46.0); Lymphocytes # (A) 0.9 k/uL (1.0-4.8); Lymphocytes % (A) 10 %; MCH 31.1 pg (25.0-35.0); MCHC 33.3 g/dL (31.0-37.0); MCV 93.3 fL (80.0-100.0); Monocytes # (A) 0.4 k/uL (0-1.0); Monocytes % (A) 5 %; Neutrophils # (A) 7.9 k/uL (1.3-7.7); Neutrophils % (A) 84 %; Platelet Count 157 k/uL (150-450); Poikilocytosis Slight; RBC 2.95 m/uL (3.80-5.40); RDW 13.9 % (11.5-15.5); WBC 9.4 k/uL (3.8-10.6)
[2018-03-13 05:57] LABS: HGB 9.2 gm/dL (11.4-16.0)
[2018-03-13 06:14] LABS: Anion Gap 4 mmol/L; Blood Urea Nitrogen 23 mg/dL (7-17); Calcium 8.7 mg/dL (8.4-10.2); Carbon Dioxide 26 mmol/L (22-30); Chloride 102 mmol/L (98-107); Glucose 88 mg/dL (74-99); Potassium 3.9 mmol/L (3.5-5.1); Sodium 132 mmol/L (137-145)
--- NOTE | 2018-03-13 08:03 | XR ---
EXAMINATION TYPE: XR chest 1V DATE OF EXAM: 03/13/2018 HISTORY: SOB. REFERENCE: Previous study dated 12/15/2017. FINDINGS: The heart is mildly enlarged. There are small, bilateral effusions. There is some right bas ilar airspace disease, likely representing atelectasis. There is improved aeration at the left lung b ase. IMPRESSION: 1. MILD CARDIOMEGALY. 2. SMALL, BILATERAL EFFUSIONS. 3. RIGHT BASILAR AIRSPACE DISEASE.
[2018-03-13] MEDS: CALCIUM CARBONATE 500 MG CHEWABLE PO PRN ×2 (09:34→21:01)
[2018-03-13] MEDS: LORATADINE 10 MG TAB PO SCH (09:34)
[2018-03-13] MEDS: DOCUSATE 100 MG CAP PO SCH ×2 (09:34→21:01)
[2018-03-13] MEDS: PANTOPRAZOLE 40 MG/10 ML VIAL IVP SCH (09:34)
[2018-03-13] MEDS: ENOXAPARIN 40 MG/0.4 ML SYRINGE SQ SCH (09:34)
[2018-03-13] MEDS: OXYBUTYNIN XL 5 MG TAB.ER.24 PO SCH (09:34)
[2018-03-13] MEDS: ACETAMINOPHEN TAB 325 MG TAB PO PRN ×2 (09:35→14:54)
--- NOTE | 2018-03-13 09:51 | P.PN ---
Progress Note - Text Progress Note Date: 03/13/18 The patient was seen yesterday afternoon. She had tachycardia. I ordered a EKG which showed evidence of atrial fibrillation with rapid ventricular rate. She is transferred to [facility] care overnight. Cardiology consult was obtained. She is in normal sinus rhythm this morning. The patient is resting comfortably in her chair. She denies any significant abdominal pain. Patient has had chronic anemia. There is no evidence of postoperative bleeding or GI bleed. She received 2 units of blood in her hemoglobin is 9 range. Status post laparoscopic robotic system repair of incisional hernia. The patient was discharged home once cleared from cardiology. Her anemia is chronic in nature. There is no evidence of acute GI bleed or acute blood loss anemia. She will start eloquist today per cardiology
--- NOTE | 2018-03-13 10:29 | P.CRDCN ---
History of Present Illness Consult date: 03/13/18 Reason for Consult (text): Paulina lawton RVR Consult reason: atrial fibrillation Chief complaint: Palpitations History of present illness: This is an 82-year-old female patient who presented to the hospital for elective incisional hernia repair. This is postoperative day 2. The patient had gallbladder surgery in the past and developed a hernia. Patient was noted to be tachycardic in the postoperative period EKG was performed which showed atrial fibrillation with rapid ventricular response. Patient has known known history of arrhythmia. Has never seen a ice cutter in the past. No history of CAD. The patient developed blood loss anemia and was transfused 2 units of packed red blood cells and her hemoglobin is up to 92 today. Telemetry shows a normal sinus mechanism. Echocardiogram is pending. She seen sitting up in bed in no acute distress. Denies any chest discomfort, palpitations or shortness of breath. Patient has no history of GI bleed in the past. She is hemodynamically stable. Review of Systems All systems: negative Constitutional: Reports as per HPI Past Medical History Past Medical History: CVA/TIA, Hypertension, Myocardial Infarction ([place]) Last Myocardial Infarction Date:: 2004 History of Any Multi-Drug Resistant Organisms: None Reported Past Surgical History: Appendectomy, Cholecystectomy, Hysterectomy, Joint Replacement, Orthopedic Surgery Additional Past Surgical History / Comment(s): cataract, rt hip replacement, lt knee replacement Past Anesthesia/Blood Transfusion Reactions: No Reported Reaction Past Psychological History: No Psychological Hx Reported Smoking Status: Never smoker Past Alcohol Use History: None Reported Past Drug Use History: None Reported - Past Family History Mother Family Medical History: Congestive Heart Failure (CHF), Deep Vein Thrombosis ( DVT), Osteoarthritis (OA) Father Family Medical History: Coronary Artery Disease (CAD), Myocardial Infarction ([place] ), Prostate Disorder Medications and Allergies Home Medications Medication Instructions Recorded Confirmed Type Calcium Carb-Vit D 500Mg-200Un 1 tab PO DAILY 08/04/14 03/12/18 History [Oscal 500+D] Acetaminophen Tab [Tylenol Tab] 325 mg PO Q6H PRN 12/03/17 03/12/18 History Loratadine [Claritin] 10 mg PO DAILY 12/03/17 03/12/18 History Docusate [Colace] 100 mg PO BID #20 capsule 12/06/17 03/12/18 Rx Calcium Carbonate [Tums] 500 mg PO TID PRN 02/18/18 03/12/18 History Multivitamins, Thera [Multivitamin 1 tab PO DAILY 02/18/18 03/12/18 History (formulary)] Oxybutynin Chloride [Ditropan XL] 5 mg PO DAILY 02/18/18 03/12/18 History Allergies Allergy/AdvReac Type Severity Reaction Status Date / Time cephalexin [From Keflex] Allergy Unknown Verified 03/12/18 23:43 ciprofloxacin [From Cipro] Allergy Unknown Verified 03/12/18 23:43 iodine Allergy Unknown Verified 03/12/18 23:43 Physical Exam Vitals: Vital Signs Temp Pulse Pulse Pulse Resp BP BP 03/13/18 09:58 98.8 F 82 20 92/47 03/13/18 08:00 20 03/13/18 03:20 98.4 F 76 18 108/52 03/12/18 23:10 98.6 F 96 18 119/57 03/12/18 21:18 98.9 F 92 18 127/69 03/12/18 20:00 98.7 F 94 18 116/62 03/12/18 18:50 98.6 F 114 H 18 133/71 03/12/18 18:28 115 H 17 114/62 03/12/18 18:20 98.7 F 115 H 17 129/68 03/12/18 18:10 98.7 F 110 H 17 125/65 03/12/18 15:00 99 F 142 H 14 106/70 03/12/18 14:30 98.7 F 115 H 114/62 03/12/18 10:58 98.8 F 129 H 18 105/68 03/12/18 10:28 98.7 F 125 H 16 93/57 03/12/18 10:27 98.7 F 125 H 16 93/57 Pulse Ox 03/13/18 09:58 94 L 03/13/18 08:00 03/13/18 03:20 94 L 03/12/18 23:10 92 L 03/12/18 21:18 95 03/12/18 20:00 95 03/12/18 18:50 03/12/18 18:28 94 L 03/12/18 18:20 03/12/18 18:10 03/12/18 15:00 96 03/12/18 14:30 03/12/18 10:58 95 03/12/18 10:28 96 03/12/18 10:27 96 Intake and Output 03/12/18 03/13/18 03/13/18 22:59 06:59 14:59 Intake Total 710 20 Output Total 1600 900 Balance -890 -900 20 Intake: IV 400 20 0.9 @ 75 400 Lactated Ringers 1,000 ml 20 @ 20 mls/hr IV .Q24H [facility] Rx#:[id number] Blood Product 310 Rc As-1 Unit 310 [id number] Output: Urine 1600 900 Uretheral (Dunbar) 600 Other: Voiding Method Indwelling Catheter Indwelling Catheter Indwelling Catheter Weight 45.5 kg - Constitutional General appearance: thin - EENT Eyes: normal appearance ENT: hard of hearing - Neck Neck: normal ROM Carotids: bilateral: upstroke normal Thyroid: bilateral: normal size - Respiratory Respiratory: bilateral: CTA - Cardiovascular Rhythm: regular Abnormal Heart Sounds: systolic murmur leg Peripheral Edema: bilateral: None dorsalis pedis Peripheral Pulses: bilateral: Normal - Gastrointestinal Expected tenderness to incisional area. Abdominal binder in place. General gastrointestinal: decreased bowel sounds, soft, tenderness - Neurologic Neurologic: CNII-XII intact - Musculoskeletal Musculoskeletal: generalized weakness - Psychiatric Psychiatric: A&O x's 3 Results 03/13/18 05:09 03/13/18 05:09 CBC 03/13/18 Range/Units 05:09 WBC 9.4 (3.8-10.6) k/uL RBC 2.95 L (3.80-5.40) m/uL Hgb 9.2 L D (11.4-16.0) gm/dL Hct 27.5 L (34.0-46.0) % Plt Count 157 (150-450) k/uL Comprehensive Metabolic Panel 03/13/18 Range/Units 05:09 Sodium 132 L (137-145) mmol/L Potassium 3.9 (3.5-5.1) mmol/L Chloride 102 (98-107) mmol/L Carbon Dioxide 26 (22-30) mmol/L BUN 23 H (7-17) mg/dL Creatinine 0.70 (0.52-1.04) mg/dL Glucose 88 (74-99) mg/dL Calcium 8.7 (8.4-10.2) mg/dL Current Medications Generic Name Dose Route Start Last Admin Trade Name Freq PRN Reason Stop Dose Admin Acetaminophen 325 mg 03/10/18 16:52 03/13/18 09:35 Tylenol Tab PO 325 mg Q6H PRN Administration Fever Hydrocodone Bitart/Acetaminophen 2 each 03/10/18 13:34 03/12/18 23:13 Candia 5-325 PO 2 each Q6HR PRN Administration Moderate to Severe Pain Calcium Carbonate/Glycine 500 mg 03/10/18 16:52 03/13/18 09:34 Tums PO 500 mg TID PRN Administration stomach upset Docusate Sodium 100 mg 03/10/18 21:00 03/13/18 09:34 Colace PO 100 mg BID KERLINE Administration Enoxaparin Sodium 40 mg 03/11/18 09:00 03/13/18 09:34 Lovenox SQ 40 mg DAILY KERLINE Administration Lactated Ringer's 1,000 mls @ 20 mls/hr 03/10/18 06:46 03/13/18 05:23 Lactated Ringers IV Not Given .Q24H KERLINE Lidocaine HCl 0.1 ml 03/10/18 06:46 03/10/18 09:16 .Xylocaine 1% Inj (10mg/Ml) For Iv Start INTRADERMA 0.1 ml PER PROTOCOL PRN Administration IV Start Loratadine 10 mg 03/11/18 09:00 03/13/18 09:34 Claritin PO 10 mg DAILY KERLINE Administration Naloxone HCl 0.2 mg 03/10/18 13:34 Narcan IV Q2M PRN Opioid Reversal Ondansetron HCl 4 mg 03/10/18 13:34 03/11/18 17:01 Zofran IVP 4 mg Q8HR PRN Administration Nausea And Vomiting Oxybutynin Chloride 5 mg 03/11/18 09:00 03/13/18 09:34 Ditropan Xl PO 5 mg DAILY KERLINE Administration Pantoprazole Sodium 40 mg 03/11/18 09:00 03/13/18 09:34 Protonix IVP 40 mg DAILY KERLINE Administration Tramadol HCl 50 mg 03/11/18 16:31 03/12/18 18:54 Ultram PO 50 mg QID PRN Administration Pain/Discomfort Intake and Output 0903/13/18 03/13/18 22:59 06:59 14:59 Intake Total 710 20 Output Total 1600 900 Balance -890 -900 20 Intake: IV 400 20 0.9 @ 75 400 Lactated Ringers 1,000 ml 20 @ 20 mls/hr IV .Q24H [facility] Rx#:[id number] Blood Product 310 Rc As-1 Unit 310 [id number] Output: Urine 1600 900 Uretheral (Dunbar) 600 Other: Voiding Method Indwelling Catheter Indwelling Catheter Indwelling Catheter Weight 45.5 kg 03/13/18 05:09 03/13/18 05:09 EKG Interpretations (text) EKG shows atrial fibrillation with rapid ventricular response Assessment and Plan Assessment: Status post incisional hernia repair, postop day 2 Newly diagnosed atrial fibrillation with rapid ventricular response, currently in a normal sinus mechanism Postoperative blood loss anemia, stable Systolic murmur Plan: We'll start the patient on low-dose beta luis. We discussed the case with the patient's surgeon and he is in agreement to starting the patient on Eliquis for stroke risk. Obtain echocardiogram to evaluate LV size and systolic function. Continue to monitor her on the telemetry unit. Further recommendations will be made as necessary. Thank you very kindly for this consultation. Naina Tom notes have been reviewed. Agree with assessment and plan. The patient was seen and evaluated.
--- NOTE | 2018-03-13 12:16 | P.PN ---
Subjective 80-year-old the admitted for elective incisional hernia repair patient's hemoglobin is low ferritin is not bad is around 70. Patient had acute blood loss anemia from surgery receiving 1 unit of blood transfusion patient can he is to be pretty blood pressure is low patient is bit tachycardic secondary to hypovolemia low blood pressure lisinopril was discontinued. I'm expecting her symptoms to improve by tomorrow. No fevers and no evidence of infection 03/13/2018 Patient is feeling much better today but found to be in atrial fibrillation with rapid ventricular rate patient was subsequently transferred to [facility] echocardiogram is being obtained chest x-ray showing some pulmonary edema and bilateral pleural effusions as of now patient is saturating well because of the hypotension and not give her any Lasix but may require Lasix tomorrow. We' ll obtain be BNP patient was started on anti-angulation with eliquis. Constitutional: Denied any fatigue denied any fever. Cardio vascular: denied any chest pain, palpitations Gastrointestinal denied any nausea vomiting Pulmonary: Denied any shortness of breath cough Neurologic denied any new focal deficits Objective - Vital Signs Vital signs: Vital Signs Temp 98.8 F 03/13/18 09:58 Pulse 82 03/13/18 09:58 Resp 20 03/13/18 09:58 BP 92/47 03/13/18 09:58 Pulse Ox 94 L 03/13/18 09:58 Intake & Output 03/12/18 03/13/18 03/13/18 18:59 06:59 18:59 Intake Total 2189 310 20 Output Total 1600 900 Balance 589 -590 20 Weight 45.5 kg Intake: IV 870 20 0.9 @ 75 560 Lactated Ringers 1,000 ml 20 @ 20 mls/hr IV .Q24H KERLINE Rx#:[id number] PRBCs 310 Intake, IV Titration 999 Amount Lactated Ringers 1,000 ml 999 @ 999 mls/hr IV .Q1H1M KERLINE Rx#:[id number] Oral 10 Blood Product 310 310 Rc As-1 Unit 0 310 [id number] Rc As-1 Unit 310 [id number] Output: Urine 1600 900 Uretheral (Dunbar) 600 Other: Voiding Method Indwelling Catheter Indwelling Catheter Indwelling Catheter # Voids 2 - Exam PHYSICAL EXAMINATION: GENERAL: The patient is alert and oriented x3, not in any acute distress. Thin built appears to be fatigued HEENT: Pupils are round and equally reacting to light. EOMI. No scleral icterus. Does have conjunctival pallor. Normocephalic, atraumatic. No pharyngeal erythema. No thyromegaly. CARDIOVASCULAR: S1 and S2 present. No murmurs, rubs, or gallops. Does have minimally elevated JVD irregularly irregular rhythm PULMONARY: Chest is clear to auscultation, no wheezing or crackles. ABDOMEN: Abdominal binder in place normoactive bowel sounds MUSCULOSKELETAL: No joint swelling or deformity. EXTREMITIES: No cyanosis, clubbing, or pedal edema. NEUROLOGICAL: Gross neurological examination did not reveal any focal deficits. SKIN: No rashes. - Labs CBC & Chem 7: 03/13/18 05:09 03/13/18 05:09 Labs: Abnormal Lab Results - Last 24 Hours (Table) 03/12/18 03/12/18 03/13/18 Range/Units 08:32 15:30 05:09 RBC 2.95 L (3.80-5.40) m/uL Hgb 9.2 L D (11.4-16.0) gm/dL Hct 27.5 L (34.0-46.0) % Neutrophils # 7.9 H (1.3-7.7) k/uL Lymphocytes # 0.9 L (1.0-4.8) k/uL Sodium (137-145) mmol/L BUN (7-17) mg/dL Urine Protein Trace H (Negative) Crossmatch See Detail 03/13/18 Range/Units 05:09 RBC (3.80-5.40) m/uL Hgb (11.4-16.0) gm/dL Hct (34.0-46.0) % Neutrophils # (1.3-7.7) k/uL Lymphocytes # (1.0-4.8) k/uL Sodium 132 L (137-145) mmol/L BUN 23 H (7-17) mg/dL Urine Protein (Negative) Crossmatch Microbiology - Last 24 Hours (Table) 03/12/18 15:30 Urine Culture - Preliminary Urine,Catheterized Assessment and Plan Plan: -Anemia: Appears to be secondary to acute blood loss anemia from surgery serum ferritin is little low and a serum B12 is essentially within normal limits. Improved now symptoms significant improved Atrial fibrillation with rapid ventricular rate new onset: Anti-correlation as mentioned above mild volume overload and pulmonary edema congestive heart failure unknown whether systolic or diastolic may be related to atrial fibrillation further management as mentioned above -Incisional hernia repair postoperative day 1: Pain management as per primary service due to prophylaxis per primary service try to avoid opiates, benzodiazepines barbiturates and anticholinergic medications -Urinary incontinence for which patient is on oxybutynin which will be continued.
[2018-03-13] MEDS: APIXABAN 2.5 MG TABLET PO SCH ×2 (12:32→21:01)
[2018-03-13 14:08] VITALS: BMI 17.7
[2018-03-13] MEDS: METOPROLOL TARTRATE 12.5 MG TAB PO SCH (21:01)
[2018-03-14] MEDS: LACTATED RINGERS 1,000 ML IV SCH (06:36)
[2018-03-14 07:26] LABS: Blood Urea Nitrogen 20 mg/dL (7-17); Calcium 8.7 mg/dL (8.4-10.2); Chloride 101 mmol/L (98-107); Glucose 91 mg/dL (74-99); Potassium 4.2 mmol/L (3.5-5.1); Sodium 133 mmol/L (137-145)
[2018-03-14 07:27] LABS: Anion Gap 6 mmol/L; Carbon Dioxide 26 mmol/L (22-30)
[2018-03-14] MEDS: APIXABAN 2.5 MG TABLET PO SCH ×2 (08:47→19:38)
[2018-03-14] MEDS: DOCUSATE 100 MG CAP PO SCH ×2 (08:47→19:38)
[2018-03-14] MEDS: LORATADINE 10 MG TAB PO SCH (08:47)
[2018-03-14] MEDS: METOPROLOL TARTRATE 12.5 MG TAB PO SCH ×2 (08:47→19:38)
[2018-03-14] MEDS: OXYBUTYNIN XL 5 MG TAB.ER.24 PO SCH (08:47)
[2018-03-14] MEDS: PANTOPRAZOLE 40 MG/10 ML VIAL IVP SCH (08:47)
--- NOTE | 2018-03-14 10:39 | P.PN ---
Subjective This is an 82-year-old female patient who presented to the hospital for elective incisional hernia repair. This is postoperative day 2. The patient had gallbladder surgery in the past and developed a hernia. Patient was noted to be tachycardic in the postoperative period EKG was performed which showed atrial fibrillation with rapid ventricular response. Patient has known known history of arrhythmia. 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 No history of CAD. The patient developed blood loss anemia and was transfused 2 units of packed red blood cells and her hemoglobin is up to 92 today. Telemetry shows a normal sinus mechanism. Echocardiogram is pending. She seen sitting up in bed in no acute distress. Denies any chest discomfort, palpitations or shortness of breath. Patient has no history of GI bleed in the past. She is hemodynamically stable. 03/14/2018. The patient is doing well. Tolerating a Lacourse and beta luis therapy. Remains in a sinus mechanism. No evidence of bleeding. The patient is feeling well and seen sitting up in a chair. Denies chest discomfort, shortness breath or palpitations. Objective - Vital Signs Vital signs: Vital Signs Temp 97.4 F L 03/14/18 03:30 Pulse 98 03/14/18 08:00 Resp 20 03/14/18 08:00 BP 131/67 03/14/18 08:00 Pulse Ox 94 L 03/14/18 08:00 Intake & Output 03/13/18 03/14/18 03/14/18 18:59 06:59 18:59 Intake Total 260 60 Output Total 700 600 300 Balance -440 -600 -240 Weight 45.5 kg 62.5 kg Intake: IV 40 60 Lactated Ringers 1,000 ml 40 60 @ 20 mls/hr IV .Q24H [facility]ERLINE Rx#:[id number] Intake, IV Titration 20 Amount Lactated Ringers 1,000 ml 20 @ 20 mls/hr IV .Q24H KERLINE Rx#:[id number] Oral 200 Output: Urine 700 600 300 Other: Voiding Method Indwelling Catheter Indwelling Catheter # Voids 2 - Exam - Constitutional General appearance: thin - EENT Eyes: normal appearance ENT: hard of hearing - Neck Neck: normal ROM Carotids: bilateral: upstroke normal Thyroid: bilateral: normal size - Respiratory Respiratory: bilateral: CTA - Cardiovascular Rhythm: regular Abnormal Heart Sounds: systolic murmur leg Peripheral Edema: bilateral: None dorsalis pedis Peripheral Pulses: bilateral: Normal - Gastrointestinal Expected tenderness to incisional area. Abdominal binder in place. General gastrointestinal: decreased bowel sounds, soft, tenderness - Neurologic Neurologic: CNII-XII intact - Musculoskeletal Musculoskeletal: generalized weakness - Psychiatric Psychiatric: A&O x's 3 - Labs CBC & Chem 7: 03/13/18 05:09 03/14/18 06:36 Labs: Abnormal Lab Results - Last 24 Hours (Table) 03/14/18 Range/Units 06:36 Sodium 133 L (137-145) mmol/L BUN 20 H (7-17) mg/dL Microbiology - Last 24 Hours (Table) 03/12/18 15:30 Urine Culture - Final Urine,Catheterized Assessment and Plan Assessment: Status post incisional hernia repair, postop day 2 Newly diagnosed atrial fibrillation with rapid ventricular response, currently in a normal sinus mechanism Postoperative blood loss anemia, stable Systolic murmur Plan: Continue with current medication regimen including beta luis and anticoagulant. Echocardiogram has been ordered. We will have case management check prescription coverage for Eliquis. We will continue to follow her closely.
--- NOTE | 2018-03-14 11:37 | P.PN ---
Progress Note - Text Progress Note Date: 03/14/18 The patient's resting comfortably in bed. She has minimal complaints of abdominal pain. On exam her vital signs are stable. Her abdomen soft. Patient's A. fib with RVR is now under good control. She is in sinus rhythm. Patient will be discharged home in the a.m.
--- NOTE | 2018-03-14 11:59 | ECHOF ---
Referral Reason:Afib MEASUREMENTS -------- HEIGHT: 160.0 cm WEIGHT: 45.4 kg BP: 108/52 RVIDd: 2.4 cm (< 3.3) IVSd: 0.9 cm (0.6 - 1.1) LVIDd: 3.5 cm (3.9 - 5.3) LVPWd: 0.9 cm (0.6 - 1.1) IVSs: 1.1 cm LVIDs: 2.2 cm LVPWs: 1.1 cm LA Diam: 2.8 cm (2.7 - 3.8) Ao Diam: 3.5 cm (2.0 - 3.7) AV Cusp: 1.6 cm (1.5 - 2.6) LA Diam: 1.7 cm (2.7 - 3.8) RAP: 5.00 mmHg RVSP: 33.79 mmHg FINDINGS -------- Sinus rhythm. This was a technically adequate study. Parasternal views only, due to surgery and bandages. The left ventricular size is normal. Left ventricular wall thickness is normal. Overall left vent ricular systolic function is normal with, an EF between 55 - 60 %. The right ventricle is normal in size and function. Normal LA size by volume 22+/-6 ml/m2. The right atrium was not well visualized. Aortic valve is trileaflet and is mildly thickened. Trace amount of aortic regurgitation. There is no evidence of aortic stenosis. Mild mitral annular calcification present. There is trace to mild mitral regurgitation. Mild tricuspid regurgitation present. There is borderline pulmonary hypertension. The right ventr icular systolic pressure, as measured by Doppler, is 33.79mmHg. Trace/mild (physiologic) pulmonic regurgitation. The aortic root is mildy dilated, up to 3.8 cm. IVC Not well visulized. There is no pericardial effusion. CONCLUSIONS -------- 1. Sinus rhythm. 2. This was a technically adequate study. 3. Parasternal views only, due to surgery and bandages. 4. The left ventricular size is normal. 5. Left ventricular wall thickness is normal. 6. Overall left ventricular systolic function is normal with, an EF between 55 - 60 %. 7. Normal LA size by volume 22+/-6 ml/m2. 8. The right atrium was not well visualized. 9. Aortic valve is trileaflet and is mildly thickened. 10. Trace amount of aortic regurgitation. 11. Mild mitral annular calcification present. 12. There is trace to mild mitral regurgitation. 13. There is borderline pulmonary hypertension. 14. The right ventricular systolic pressure, as measured by Doppler, is 33.79mmHg. 15. Trace/mild (physiologic) pulmonic regurgitation. 16. The aortic root is mildy dilated, up to 3.8 cm. 17. IVC Not well visulized. 18. There is no pericardial effusion. WAFER LINE WORKER: Edmundo Ovalles RDCS
[2018-03-14] MEDS: ACETAMINOPHEN TAB 325 MG TAB PO PRN (14:13)
[2018-03-14] MEDS: CALCIUM CARBONATE 500 MG CHEWABLE PO PRN (15:03)
[2018-03-14] MEDS: traMADol 50 MG TAB PO PRN (18:13)
[2018-03-15] MEDS: ACETAMINOPHEN TAB 325 MG TAB PO PRN (04:21)
[2018-03-15] MEDS: LACTATED RINGERS 1,000 ML IV SCH (06:57)
[2018-03-15] MEDS: METOPROLOL TARTRATE 12.5 MG TAB PO SCH ×2 (08:17→19:33)
[2018-03-15] MEDS: APIXABAN 2.5 MG TABLET PO SCH ×2 (08:17→19:33)
[2018-03-15] MEDS: PANTOPRAZOLE 40 MG/10 ML VIAL IVP SCH (08:17)
[2018-03-15] MEDS: DOCUSATE 100 MG CAP PO SCH ×2 (08:17→19:33)
[2018-03-15] MEDS: LORATADINE 10 MG TAB PO SCH (08:17)
[2018-03-15] MEDS: OXYBUTYNIN XL 5 MG TAB.ER.24 PO SCH (08:17)
[2018-03-15] MEDS: HYDROcodone/APAP 5-325MG 1 EACH TAB PO PRN ×2 (09:27→17:16)
[2018-03-15] MEDS ORDERED: MAGNESIUM HYDROXIDE 2,400 MG/10 ML CUP PO PRN (09:57)
--- NOTE | 2018-03-15 10:09 | P.PN ---
Subjective Progress Note Date: 03/14/18 Principal diagnosis: Incisional hernia repair. 80-year-old the admitted for elective incisional hernia repair patient's hemoglobin is low ferritin is not bad is around 70. Patient had acute blood loss anemia from surgery receiving 1 unit of blood transfusion patient can he is to be pretty blood pressure is low patient is bit tachycardic secondary to hypovolemia low blood pressure lisinopril was discontinued. I'm expecting her symptoms to improve by tomorrow. No fevers and no evidence of infection 03/13/2018 Patient is feeling much better today but found to be in atrial fibrillation with rapid ventricular rate patient was subsequently transferred to [facility] echocardiogram is being obtained chest x-ray showing some pulmonary edema and bilateral pleural effusions as of now patient is saturating well because of the hypotension and not give her any Lasix but may require Lasix tomorrow. We' ll obtain be BNP patient was started on anti-angulation with eliquis. 03/14/2018 Patient denied any complaints of chest pain or shortness of breath. Currently patient is maintained in sinus rhythm. Continued on beta blockers and anticoagulation. Otherwise patient is complaining of pain at the surgical site which is improving as well. No fever no chills. No other acute overnight issues. Tolerating diet slowly. Constitutional: Denied any fatigue denied any fever. Cardio vascular: denied any chest pain, palpitations Gastrointestinal denied any nausea vomiting Pulmonary: Denied any shortness of breath cough Neurologic denied any new focal deficits Objective - Vital Signs Vital signs: Vital Signs Temp 97.6 F 03/14/18 12:00 Pulse 100 03/14/18 12:00 Resp 20 03/14/18 12:00 BP 152/68 03/14/18 12:00 Pulse Ox 94 L 03/14/18 12:00 Intake & Output 03/13/18 03/14/18 03/14/18 18:59 06:59 18:59 Intake Total 260 60 Output Total 700 600 600 Balance -440 -600 -540 Weight 45.5 kg 62.5 kg Intake: IV 40 60 Lactated Ringers 1,000 ml 40 60 @ 20 mls/hr IV .Q24H [facility]ER[facility] Rx#:[id number] Intake, IV Titration 20 Amount Lactated Ringers 1,000 ml 20 @ 20 mls/hr IV .Q24H [facility]ERLINE Rx#:[id number] Oral 200 Output: Urine 700 600 600 Other: Voiding Method Indwelling Catheter Indwelling Catheter # Voids 2 2 - Exam PHYSICAL EXAMINATION: GENERAL: The patient is alert and oriented x3, not in any acute distress. Thin built appears to be fatigued HEENT: Pupils are round and equally reacting to light. EOMI. No scleral icterus. Does have conjunctival pallor. Normocephalic, atraumatic. No pharyngeal erythema. No thyromegaly. CARDIOVASCULAR: S1 and S2 present. No murmurs, rubs, or gallops. Does have minimally elevated JVD irregularly irregular rhythm PULMONARY: Chest is clear to auscultation, no wheezing or crackles. ABDOMEN: Abdominal binder in place normoactive bowel sounds MUSCULOSKELETAL: No joint swelling or deformity. EXTREMITIES: No cyanosis, clubbing, or pedal edema. NEUROLOGICAL: Gross neurological examination did not reveal any focal deficits. SKIN: No rashes. - Labs CBC & Chem 7: 03/13/18 05:09 03/14/18 06:36 Labs: Abnormal Lab Results - Last 24 Hours (Table) 03/14/18 Range/Units 06:36 Sodium 133 L (137-145) mmol/L BUN 20 H (7-17) mg/dL Microbiology - Last 24 Hours (Table) 03/12/18 15:30 Urine Culture - Final Urine,Catheterized Assessment and Plan Assessment: -Anemia: Appears to be secondary to acute blood loss anemia from surgery serum ferritin is little low and a serum B12 is essentially within normal limits. Improved now symptoms significant improved. New onset Atrial fibrillation with rapid ventricular rate : Anti-coagulation as mentioned above mild volume overload and pulmonary edema congestive heart failure unknown whether systolic or diastolic may be related to atrial fibrillation further management as mentioned above -Incisional hernia repair postoperative day 2: Pain management as per primary service due to prophylaxis per primary service try to avoid opiates, benzodiazepines barbiturates and anticholinergic medications -Urinary incontinence for which patient is on oxybutynin which will be continued. Time with Patient: Greater than 30
--- NOTE | 2018-03-15 11:36 | P.PN ---
Subjective Progress Note Date: 03/15/18 Principal diagnosis: Atrial fibrillation This is an 82-year-old female patient who presented to the hospital for elective incisional hernia repair. The patient had gallbladder surgery in the past and developed a hernia. Patient was noted to be tachycardic in the postoperative period EKG was performed which showed atrial fibrillation with rapid ventricular response. Patient has known known history of arrhythmia. Has never seen a rivet flunky in the past. No history of CAD. The patient developed blood loss anemia and was transfused 2 units of packed red blood cells . Telemetry shows a normal sinus mechanism. Echocardiogram with Doppler study shows an ejection fraction of 55-60%.. She seen sitting up in bed in no acute distress. Denies any chest discomfort, palpitations or shortness of breath. Patient has no history of GI bleed in the past. She is hemodynamically stable. Objective - Vital Signs Vital signs: Vital Signs Temp 98.2 F 03/15/18 08:00 Pulse 79 03/15/18 08:00 Resp 16 03/15/18 08:00 BP 129/60 03/15/18 08:00 Pulse Ox 96 03/15/18 08:00 Intake & Output 03/14/18 03/15/18 03/15/18 18:59 06:59 18:59 Intake Total 80 160 200 Output Total 950 Balance -870 160 200 Weight 55 kg Intake: IV 60 160 200 Lactated Ringers 1,000 ml 60 160 200 @ 20 mls/hr IV .Q24H [facility]ERLINE Rx#:[id number] Intake, IV Titration 20 Amount Lactated Ringers 1,000 ml 20 @ 20 mls/hr IV .Q24H [facility]ERLINE Rx#:[id number] Output: Urine 600 Post Void Residual 350 Other: Voiding Method Diaper # Voids 1 1 # Bowel Movements 1 - Exam PHYSICAL EXAMINATION: GENERAL: 82-year-old female in no acute distress at the time of my examination HEENT: Head is atraumatic, normocephalic. Pupils equal, round. Sclera anicteric. Conjunctiva are clear. Mucous membranes of the mouth are moist. Neck is supple. There is no elevated jugular venous pressure.] bruit is heard. HEART EXAMINATION: Heart S1, S2 systolic murmur heard . CHEST EXAMINATION: Lungs are clear to auscultation and precussion. No chest wall tenderness is noted on palpation or with deep breathing. ABDOMEN: Soft, mild generalized incisional tenderness nontender. Bowel sounds are heard. No organomegaly noted. EXTREMITIES: 2+ peripheral pulses with no evidence of peripheral edema and no calf tenderness noted. NEUROLOGIC patient is awake, alert and oriented ?-3. . - Labs CBC & Chem 7: 03/13/18 05:09 03/14/18 06:36 Assessment and Plan Plan: Assessment and plan #1 status post incisional hernia repair #2 paroxysmal atrial fibrillation, currently in normal sinus rhythm #3 postop anemia Plan From cardiology's perspective, we'll recommend to continue current medication including the metoprolol 12-1/2 mg twice a day along with Eliquis 2-1/2 mg twice a day. Patient may be able to be discharged or transferred to [facility] from our perspective. We will follow her along now on an as-needed basis only, please don't hesitate to call with any questions. DNP note has been reviewed, I agree with a documented findings and plan of care. Patient was seen and examined.
--- NOTE | 2018-03-15 13:02 | P.DS ---
Providers Date of admission: 03/12/18 12:46 Expected date of discharge: 03/15/18 Attending physician: Rj Pagan Consults: 03/10/18 13:34 Consult Physician Routine Consulting Provider: Sohail Tyler Consult Reason/Comments: Medical management Do you want consulting provider notified?: Already Contacted 03/12/18 15:30 Consult Physician Urgent Consulting Provider: Haily Cooper Consult Reason/Comments: afib with rvr new onset Do you want consulting provider notified?: Yes Primary care physician: [facility] Course: 82-year-old female who presented on elective admission to undergo laparoscopic robotic-assisted repair of incisional hernia. Patient had developed a tender mass along the lower midline incision after undergoing gallbladder surgery. Postop patient did develop acute blood loss anemia was transfused 2 units of packed red blood cells. There is no history of having a prior GI bleed Additionally patient developed episodes of atrial fibrillation with rapid ventricular response a cardiology consultation was obtained echocardiogram . Which showed an EF of 55-60%. Per cardiology's recommendation anticoagulation eliquis 2.5 twice a day was initiated. Cardiology's recommendations were noted and appreciated. Patient was also seen by physical and occupational therapy who felt patient would be appropriate for subacute rehab. On the day of discharge patient was felt to be appropriate to transfer to subacute rehab near her home. Patient maintained sinus rhythm since March 13 On the day of discharge abdominal binder was in place surgical incision sites were dry patient was sitting up taking a diet no nausea no vomiting no chest pain no shortness of breath March 10 underwent Laparoscopic robotic system repair of incarcerated hernia for an incarcerated incisional hernia Impression Postop March 10 laparoscopic robotic system repair of incarcerated hernia lysis of adhesions Incarcerated incisional hernia present on admission Anemia suspect of chronic illness with low ferritin level Iron deficiency anemia with Low ferritin level Postop tachycardia Postop acute blood loss anemia expected from surgery Paroxysmal atrial fibrillation with episodes of rapid ventricular response Postop hypotension with tachycardia secondary to hypovolemia low blood pressure likely due to lisinopril hypertensive agent corrected resolved The above impression and plan of care have been discussed and directed by signing physician. Katey Mireles nurse practitioner acting as scribe for signing physician. Plan - Discharge Summary Discharge Rx Participant: Yes New Discharge Prescriptions: New Apixaban [Eliquis] 2.5 mg PO BID #60 tablet Metoprolol Tartrate [Lopressor] 12.5 mg PO BID #60 tab HYDROcodone/APAP 5-325MG [[place] 5-325] 1 each PO Q6HR PRN #12 tab PRN Reason: Moderate To Severe Pain Continue Calcium Carb-Vit D 500Mg-200Un [[place] 500+D] 1 tab PO DAILY Acetaminophen Tab [Tylenol] 325 mg PO Q6H PRN PRN Reason: Pain Loratadine [Claritin] 10 mg PO DAILY Docusate [Colace] 100 mg PO BID #20 capsule Calcium Carbonate [Tums] 500 mg PO TID PRN PRN Reason: stomach upset Oxybutynin Chloride [Ditropan XL] 5 mg PO DAILY Multivitamins, Thera [Multivitamin (formulary)] 1 tab PO DAILY Discontinued Lisinopril [Zestril] 2.5 mg PO DAILY Discharge Medication List Calcium Carb-Vit D 500Mg-200Un [Oscal 500+D] 1 tab PO DAILY 08/04/14 [History] Acetaminophen Tab [Tylenol] 325 mg PO Q6H PRN 12/03/17 [History] Loratadine [Claritin] 10 mg PO DAILY 12/03/17 [History] Docusate [Colace] 100 mg PO BID #20 capsule 12/06/17 [Rx] Calcium Carbonate [Tums] 500 mg PO TID PRN 02/18/18 [History] Multivitamins, Thera [Multivitamin (formulary)] 1 tab PO DAILY 02/18/18 [History ] Oxybutynin Chloride [Ditropan XL] 5 mg PO DAILY 02/18/18 [History] Apixaban [Eliquis] 2.5 mg PO BID #60 tablet 03/15/18 [Rx] HYDROcodone/APAP 5-325MG [[place] 5-325] 1 each PO Q6HR PRN #12 tab 03/15/18 [Rx] Metoprolol Tartrate [Lopressor] 12.5 mg PO BID #60 tab 03/15/18 [Rx] Follow up Appointment(s)/Referral(s): Rj Pagan MD [STAFF PHYSICIAN] - 03/18/18 1:40 pm Activity/Diet/Wound Care/Special Instructions: No tub bath for six weeks. Shower daily. No lifting over 10 pounds for the next 4 weeks. Wear abdominal binder May use ice packs to surgical site. No driving while taking narcotic for pain. Discharge Disposition: TRANSFER TO SNF/ECF
[2018-03-16] MEDS: LACTATED RINGERS 1,000 ML IV SCH (05:47)
[2018-03-16 06:27] VITALS: BP 131/68; PULSE 84; RESP 16; TEMP 98.2
[2018-03-16] MEDS: LORATADINE 10 MG TAB PO SCH (08:30)
[2018-03-16] MEDS: APIXABAN 2.5 MG TABLET PO SCH (08:30)
[2018-03-16] MEDS: DOCUSATE 100 MG CAP PO SCH (08:31)
[2018-03-16] MEDS: METOPROLOL TARTRATE 12.5 MG TAB PO SCH (08:31)
[2018-03-16] MEDS: OXYBUTYNIN XL 5 MG TAB.ER.24 PO SCH (08:31)
[2018-03-16] MEDS: HYDROcodone/APAP 5-325MG 1 EACH TAB PO PRN (08:31)
--- NOTE | 2018-03-16 09:14 | PN ---
PROGRESS NOTE DATE OF SERVICE: 03/15/2018. PRESENTING COMPLAINT: Abdominal surgery. INTERVAL HISTORY: Patient is status post incisional hernia repair. The patient was found to have blood- loss anemia, was given a unit of blood. Doing much better. The patient did tolerate a diet. Did pass some flatus. No nausea or vomiting. The patient has been in sinus rhythm. The patient also had atrial fibrillation. REVIEW OF SYSTEMS: Done for constitutional, cardiovascular, GI, pulmonary; relevant findings as above. CURRENT MEDICATIONS: Reviewed. EXAMINATION: Afebrile, pulse 60, respirations 16, blood pressure 103/59, pulse ox 97 percent on room air. GENERAL APPEARANCE: Sitting up, comfortable. EYES: Pupils equal. Conjunctivae normal. HEENT: External appearance of ears and nose normal. Oral cavity normal. NECK: JVD not raised. Mass not palpable. Normal respiratory effort. LUNGS:Clear. CARDIOVASCULAR: Heart sounds irregular. Minimal edema. ABDOMEN: Soft, minimal tenderness. Liver and spleen not palpable. PSYCHIATRY: Alert and oriented x3. Mood and affect normal. INVESTIGATIONS: White count 9.4, hemoglobin 9.2, potassium 4.2, BUN 20, creatinine 0.71. ASSESSMENT: 1. New onset atrial fibrillation with rapid ventricular rate, now better controlled. 2. Status post incisional hernia repair. 3. Chronic urine incontinence. The patient is on oxybutynin. 4. Acute blood loss anemia as expected from surgery. 5. Paroxysmal atrial fibrillation. Patient is back into sinus rhythm. PLAN: The patient is doing well. Continue current medication and treatment plan. Care was discussed with the patient. Questions were answered. MMODL / IJN: [id number] /
--- NOTE | 2018-03-16 09:48 | CDI ---
Last Revision, May 2017 Documentation Clarification Form Date: 03/16/18 From: Rachael Lynne RN Admit Date: 03/12/2018 12:46:00 PM Patient Name: Margaret Carrera Visit Number: [id number] ATTENTION: The Clinical Documentation Specialists (CDI) and [facility] Coding Staff appreciate your assistance in clarifying documentation. Please respond to the clarification below the line at the bottom and electronically sign. The CDI & [facility] Coding staff will review the response and follow-up if needed. Please note: Queries are made part of the Legal Health Record. If you have any questions, please contact the author of this message via ITS. Dr. Benny Pulliam MD, CHF is documented in your PN on 03/13. Further clarification is needed. Pt. admitted for incarcerated incisional hernia repair. History/Risk Factors: CVA/TIA, HTN, [place] Clinical Indicators: VS on admission: T 97.5, P 67, R 16, 144/71, 100% RA BNP: 6620 Echocardiogram Results: EF 55-60% Chest x ray: mild cardiomegaly, small bilateral effusions, right basilar airspace disease court monitor Treatment: Lasix IV x 1, Metoprolol Cardiology consult does not mention CHF In your professional opinion, can you please clarify the acuity and type of CHF if known? Diastolic Heart Failure: Acute Chronic Acute on Chronic Systolic & Diastolic Heart Failure: Acute Chronic Acute on Chronic Heart Failure Unable to Determine Other, please specify Acute on Chronic MTDD
--- NOTE | 2018-03-19 07:26 | CDI ---
Last Revision, May 2017 Documentation Clarification Form Date: 03/16/2018 9:48:00 AM From: Rachael Lynne Admit Date: 03/12/2018 12:46:00 PM Patient Name: Margaret Carrera Visit Number: [id number] ATTENTION: The Clinical Documentation Specialists (CDI) and [facility] Coding Staff appreciate your assistance in clarifying documentation. Please respond to the clarification below the line at the bottom and electronically sign. The CDI & [facility] Coding staff will review the response and follow-up if needed. Please note: Queries are made part of the Legal Health Record. If you have any questions, please contact the author of this message via ITS. Dr. Haily Cooper MD, CHF is documented in your PN on 03/13. Further clarification is needed. Pt. admitted for incarcerated incisional hernia repair. History/Risk Factors: CVA/TIA, HTN, [place] Clinical Indicators: VS on admission: T 97.5, P 67, R 16, 144/71, 100% RA BNP: 6620 Echocardiogram Results: EF 55-60% Chest X Ray: mild cardiomegaly, small bilateral effusions, right basilar airspace disease cafeteria monitor Consult 03/13 states "CHF". PN 03/14 "Congestive Heart Failure unknown whether systolic or diastolic". Treatment: Lasix IV x 1, Metoprolol Cardiology consult does not mention CHF In your professional opinion, can you please clarify the acuity and type of CHF if known? Diastolic Heart Failure: Acute Chronic Acute on Chronic Systolic & Diastolic Heart Failure: Acute Chronic Acute on Chronic Heart Failure Unable to Determine Other, please specify Acute diastolic heart failure, EF 55-60% MTDD
== END 2018-03-16 11:46 | DRG 335 ==
LOC: OR 08:38 → 3SUR 15:46 → 6SEL 03-12 12:46 → OR 03-12 22:09 → 4MS4W 03-15 20:31
PROVIDERS: ADMIT Surgery; ATTEND Surgery
PROC: 0DN84ZZ Release Small Intestine, Percutaneous Endoscopic Approach (ICD-10-PCS; 2018-03-10)
PROC: 0WUF4JZ Supplement Abdominal Wall with Synthetic Substitute, Percutaneous Endoscopic Approach (ICD-10-PCS; 2018-03-10)
PROC: 8E0W4CZ Robotic Assisted Procedure of Trunk Region, Percutaneous Endoscopic Approach (ICD-10-PCS; 2018-03-10)
PROC: 30233N1 Transfusion of Nonautologous Red Blood Cells into Peripheral Vein, Percutaneous Approach (ICD-10-PCS; principal; 2018-03-12)
DX: K43.0 Incisional hernia with obstruction, without gangrene (principal); I50.33 Acute on chronic diastolic (congestive) heart failure; D62 Acute posthemorrhagic anemia; D50.9 Iron deficiency anemia, unspecified; E86.1 Hypovolemia; I11.0 Hypertensive heart disease with heart failure; I25.2 Old myocardial infarction; I48.0 Paroxysmal atrial fibrillation; I50.9 Heart failure, unspecified; I95.2 Hypotension due to drugs; T46.4X5A Adverse effect of angiotensin-converting-enzyme inhibitors, initial encounter; R32 Unspecified urinary incontinence; Z82.49 Family history of ischemic heart disease and other diseases of the circulatory system; Z86.73 Personal history of transient ischemic attack (TIA), and cerebral infarction without residual deficits; Z90.710 Acquired absence of both cervix and uterus; Z96.641 Presence of right artificial hip joint; Z96.652 Presence of left artificial knee joint; K66.0 Peritoneal adhesions (postprocedural) (postinfection); Z79.899 Other long term (current) drug therapy; Z98.49 Cataract extraction status, unspecified eye; Z88.1 Allergy status to other antibiotic agents; Z88.8 Allergy status to other drugs, medicaments and biological substances; Z82.61 Family history of arthritis; Z83.2 Family history of diseases of the blood and blood-forming organs and certain disorders involving the immune mechanism
CPT/HCPCS: 71045; 80048; 80053; 81003; 82607; 82728; 83880; 85025; 86850; 86900; 86901; 86920; 87086; 93005; 93306

== ENCOUNTER 2019-10-13 17:55 | Inpatient (IN) | payer MEDICARE, BC ==
--- NOTE | 2019-10-13 18:35 | ED ---
General Adult HPI - General Chief complaint: Chest Pain Stated complaint: weakness Time Seen by Provider: 10/13/19 18:00 Source: RN/MD, RN notes reviewed, old records reviewed Mode of arrival: EMS Limitations: altered mental status - History of Present Illness Initial comments: This is an 84-year-old female presents emergency Department from [facility]. Patient was sent there because she was weak according to the physicians report. Physician did a workup on the patient found that the patient had a 25,000 white count with shift. Also had a slightly elevated troponin and they did not have a sales and events coordinator and so he sent the patient down here. Patient is demented and according to the physician she did not mention any chest pain or shortness of breath nor did they get any report of that. Fever port they received was the patient was weak no woody is with the patient's I cannot any further history patient appears to be comfortable and she does deny any pain at this time. - Related Data Home Medications Medication Instructions Recorded Confirmed Calcium Carb-Vit D 500Mg-200Un 1 tab PO DAILY 08/04/14 03/12/18 [Oscal 500+D] Acetaminophen Tab [Tylenol] 325 mg PO Q6H PRN 12/03/17 03/12/18 Loratadine [Claritin] 10 mg PO DAILY 12/03/17 03/12/18 Calcium Carbonate [Tums] 500 mg PO TID PRN 02/18/18 03/12/18 Multivitamins, Thera [Multivitamin 1 tab PO DAILY 02/18/18 03/12/18 (formulary)] Oxybutynin Chloride [Ditropan XL] 5 mg PO DAILY 02/18/18 03/12/18 Previous Rx's Medication Instructions Recorded Docusate [Colace] 100 mg PO BID #20 capsule 12/06/17 Apixaban [Eliquis] 2.5 mg PO BID #60 tablet 03/15/18 HYDROcodone/APAP 5-325MG [[place] 1 each PO Q6HR PRN #12 tab 03/15/18 5-325] Metoprolol Tartrate [Lopressor] 12.5 mg PO BID #60 tab 03/15/18 Allergies Allergy/AdvReac Type Severity Reaction Status Date / Time cephalexin [From Keflex] Allergy Unknown Verified 03/12/18 23:43 ciprofloxacin [From Cipro] Allergy Unknown Verified 03/12/18 23:43 iodine Allergy Unknown Verified 03/12/18 23:43 Review of Systems ROS Statement: Those systems with pertinent positive or pertinent negative responses have been documented in the HPI. ROS Other: All systems not noted in ROS Statement are negative. Past Medical History Past Medical History: CVA/TIA, Hypertension, Myocardial Infarction ([place]) Last Myocardial Infarction Date:: 2004 History of Any Multi-Drug Resistant Organisms: None Reported Past Surgical History: Appendectomy, Cholecystectomy, Hysterectomy, Joint Replacement, Orthopedic Surgery Additional Past Surgical History / Comment(s): cataract, rt hip replacement, lt knee replacement Past Anesthesia/Blood Transfusion Reactions: No Reported Reaction Past Psychological History: No Psychological Hx Reported Smoking Status: Never smoker Past Alcohol Use History: None Reported Past Drug Use History: None Reported - Past Family History Mother Family Medical History: Congestive Heart Failure (CHF), Deep Vein Thrombosis (DVT), Osteoarthritis (OA) Father Family Medical History: Coronary Artery Disease (CAD), Myocardial Infarction ([place]), Prostate Disorder General Exam - General Exam Comments Initial Comments: GENERAL: Patient is well-developed and well-nourished. Patient is nontoxic and well- hydrated and is in no acute distress. ENT: Neck is soft and supple. No significant lymphadenopathy is noted. Oropharynx is clear. Moist mucous membranes. Neck has full range of motion without eliciting any pain. EYES: The sclera were anicteric and conjunctiva were pink and moist. Extraocular movements were intact and pupils were equal round and reactive to light. Eyelids were unremarkable. PULMONARY: Unlabored respirations. Good breath sounds bilaterally. No audible rales rhonchi or wheezing was noted. CARDIOVASCULAR: There is a regular rate and rhythm without any murmurs gallops or rubs. ABDOMEN: Soft and nontender with normal bowel sounds. Patient has a small umbilical hernia which is completely reducible SKIN: Skin is clear with no lesions or rashes and otherwise unremarkable. NEUROLOGIC: Patient is alert and oriented 1. She is known to have dementia MUSCULOSKELETAL: Normal extremities with adequate strength and full range of motion. No lower extremity swelling or edema. No calf tenderness. LYMPHATICS: No significant lymphadenopathy is noted PSYCHIATRIC: Patient is pleasantly demented Limitations: no limitations Course Vital Signs 10/13/19 18:07 Temperature 98.1 F Pulse Rate 66 Respiratory 18 Rate Blood Pressure 116/69 O2 Sat by Pulse 98 Oximetry Medical Decision Making - Medical Decision Making I spoke with sounds physician's and they agreed to accept the patient admitted the patient wrote admitting her as I consult cardiology. I continued antibiotics. EKG shows sinus rhythm at 66 bpm [place] interval is 232 QRS is 82 QT interval is 386 QTC is 44. Patient's EKG shows no ST segment elevation or depression. Disposition Clinical Impression: Generalized weakness, Elevated troponin, Leukocytosis, Urinary tract infection Disposition: ADMITTED IP TO THIS HOSP Referrals: Nonstaff,Physician [REFERRING] - 1-2 days Time of Disposition: 18:35
[2019-10-13] MEDS ORDERED: NITROGLYCERIN SL TABS 0.4 MG TAB SUBLINGUAL PRN (18:36)
[2019-10-13] MEDS ORDERED: NALOXONE 0.4 MG/ML 1 ML VIAL IV PRN (22:31)
--- NOTE | 2019-10-13 22:35 | P.HPIM ---
History of Present Illness H&P Date: 10/13/19 Patient is an 84-year-old female with a PMH of A. fib (on Xarelto), hypertension, chronic urinary incontinence, CAD status post MIs in the past, and history of CVA was transferred from [facility], where she presented earlier today with her son for not feeling well. The patient was extremely hard of hearing though was able to provide a good history with effort. Patient reports that over the past few days, she has been more tired than usual. She notes that a visiting nurse had come by to see her today and had recommended to her son that she be taken to the hospital for further management. The patient's family also reported that she had a fall at home 2 weeks ago for which they didn't seek medical attention. The patient believes that this was because she may have been slightly confused at that time and was feeling weak. The patient reports that at baseline, she ambulates with a cane, lives in an apartment, and gets Meals on Wheels along with help from her children who live nearby. She underwent an extensive evaluation in the ED at [facility] where laboratory workup revealed WBC count 25.1, Hgb 10.3, plt 218, UA with 20-30 WBCs, Nitrate neg, and LE 1+, Na 131, K 4.0, Cl 104, BUN 42, Cr 1.2, mg 2.2, INR 1.29, lactic acid 1.0, BNP 4580, and Troponin 0.058. The patient was transferred to [facility] for further evaluation including cardiology consult. At time of the interview, the patient reports that she feels somewhat tired but otherwise denied any active complaints. She denied experiencing chest discomfort, shortness of breath, nausea, vomiting, or diaphoresis. She also denied fever, chills, cough, or abdominal pain. EKG performed at [facility] revealed sinus rhythm with first-degree AV block at 66 bpm with septal Q waves noted. Review of Systems Pertinent positives and negatives as discussed in HPI, a complete review of systems was performed and all other systems are negative. Past Medical History Past Medical History: CVA/TIA, Hypertension, Myocardial Infarction ([place]) Last Myocardial Infarction Date:: 2004 History of Any Multi-Drug Resistant Organisms: None Reported Past Surgical History: Appendectomy, Cholecystectomy, Hysterectomy, Joint Replacement, Orthopedic Surgery Additional Past Surgical History / Comment(s): cataract, rt hip replacement, lt knee replacement Past Anesthesia/Blood Transfusion Reactions: No Reported Reaction Past Psychological History: No Psychological Hx Reported Smoking Status: Never smoker Past Alcohol Use History: None Reported Past Drug Use History: None Reported - Past Family History Mother Family Medical History: Congestive Heart Failure (CHF), Deep Vein Thrombosis (DVT), Osteoarthritis (OA) Father Family Medical History: Coronary Artery Disease (CAD), Myocardial Infarction ([place]), Prostate Disorder Medications and Allergies Home Medications Medication Instructions Recorded Confirmed Type Lisinopril [Zestril] 2.5 mg PO DAILY 10/13/19 10/13/19 History Metoprolol Tartrate [Lopressor] 12.5 mg PO BID 10/13/19 10/13/19 History Oxybutynin Chloride 5 mg PO BID 10/13/19 10/13/19 History Rivaroxaban [Xarelto] 20 mg PO DAILY 10/13/19 10/13/19 History Allergies Allergy/AdvReac Type Severity Reaction Status Date / Time cephalexin [From Keflex] Allergy Unknown Verified 03/12/18 23:43 ciprofloxacin [From Cipro] Allergy Unknown Verified 03/12/18 23:43 iodine Allergy Unknown Verified 03/12/18 23:43 Physical Exam Vitals: Vital Signs Temp Pulse Resp BP Pulse Ox 10/13/19 18:07 98.1 F 66 18 116/69 98 Intake and Output 10/13/19 10/13/19 10/13/19 06:59 14:59 22:59 Other: Weight 49.895 kg General: Frail elderly female, non toxic, no distress, appears at stated age, underweight Derm: no unusual rashes/lesions no unusual ecchymoses, warm, dry Head: atraumatic, normocephalic, symmetric Eyes: EOMI, no lid lag, anicteric sclera, pupils equal round reactive to light ENT: Nose and ears atraumatic, no thrush, no pharyngeal erythema Neck: No thyromegaly, no cervical lymphadenopathy, trachea midline, supple Mouth: no lip lesion, mucus membranes moist Cardiovascular: S1S2 reg, no murmur, positive posterior tibial pulse bilateral, no edema, capillary refill less than 2 seconds Lungs: CTA bilateral, no rhonchi, no rales , no accessory muscle use Abdominal: soft, nontender to palpation, no guarding, no appreciable organomegaly, normal bowel sounds Ext: no gross muscle atrophy, muscle strength 3+ out of 5 in all 4 extremities grossly, no contractures Neuro: Very hard of hearing, CN II-XI grossly intact, light touch intact all 4 extremities, finger to nose within normal limits, Psych: Alert, oriented, appropriate affect Assessment and Plan Plan: Altered mental status, likely due to UTI, now resolved -C/w Unasyn for now -F/u Urine culture Elevated troponin with elevated BNP -Cardiology consult -patient denying chest discomfort, SOB -Cardiac monitoring -Trend troponin -Echocardiogram CHARBEL, likely pre-renal in setting of dehydration -Gentle hydration -Monitor BMP Debility with moderate protein calorie malnutrition and failure to thrive -industrial relations worker consult as patient lives on her own -PT consult -Jewelry Consultant consult Chronic conditions: A. fib, hypertension, urinary incontinence -Continue with home meds -Hold Lisinopril in setting of CHARBEL DVT prophylaxis -Xarelto The patient is admitted with an anticipated more than 2 midnight stay for evaluation of altered mental status CODE STATUS: Full code Discussed with: Patient Anticipated discharge date: 2-[address]: SNF A total of 40 minutes was spent on the care of this complex patient more than 50% of the time was spent in counseling and care coordination.
[2019-10-13] MEDS: SODIUM CHLORIDE 0.9% 1,000 ML IV SCH (23:00)
[2019-10-14] MEDS: AMPICILLIN-SULBACTAM 3 GM in SODIUM CHLORIDE 0.9% 100 ML IVPB SCH ×5 (00:36→23:21)
[2019-10-14] MEDS: NITROGLYCERIN OINT 1 INCH/GM PACKET TOPICAL SCH ×3 (05:46→11:50)
[2019-10-14 06:51] LABS: Basophils % (A) 0 %; Eosinophils # (A) 0.1 k/uL (0-0.7); Eosinophils % (A) 1 %; HCT 30.4 % (34.0-46.0); HGB 9.7 gm/dL (11.4-16.0); Hypochromasia Marked; Lymphocytes # (A) 0.8 k/uL (1.0-4.8); Lymphocytes % (A) 4 %; MCH 31.6 pg (25.0-35.0); MCHC 31.7 g/dL (31.0-37.0); MCV 99.6 fL (80.0-100.0); Macrocytosis Slight; Mean Platelet Volume 7.9; Monocytes # (A) 0.5 k/uL (0-1.0); Monocytes % (A) 2 %; Neutrophils % (A) 93 %; Platelet Count 215 k/uL (150-450); RBC 3.06 m/uL (3.80-5.40); RDW 15.3 % (11.5-15.5); WBC 18.4 k/uL (3.8-10.6)
[2019-10-14 07:02] LABS: Albumin 2.7 g/dL (3.5-5.0); Calcium 9.7 mg/dL (8.4-10.2); Potassium 3.8 mmol/L (3.5-5.1); Total Bilirubin 0.5 mg/dL (0.2-1.3); Total Protein 5.7 g/dL (6.3-8.2)
[2019-10-14] MEDS ORDERED: ASPIRIN 325 MG TAB PO SCH (09:00)
[2019-10-14] MEDS: RIVAROXABAN 20 MG TAB PO SCH ×2 (09:37→11:48)
[2019-10-14] MEDS: OXYBUTYNIN CHLORIDE 5 MG TAB PO SCH ×2 (09:37→20:55)
--- NOTE | 2019-10-14 10:55 | ECHOF ---
Referral Reason:Elevated troponin MEASUREMENTS -------- HEIGHT: 162.6 cm WEIGHT: 49.9 kg BP: 108/58 RVIDd: 1.8 cm (< 3.3) IVSd: 0.9 cm (0.6 - 1.1) LVIDd: 3.7 cm (3.9 - 5.3) LVPWd: 1.1 cm (0.6 - 1.1) IVSs: 1.3 cm LVIDs: 1.8 cm LVPWs: 1.6 cm Ao Diam: 3.3 cm (2.0 - 3.7) AV Cusp: 1.8 cm (1.5 - 2.6) LA Diam: 2.6 cm (2.7 - 3.8) MV EXCURSION: 18.221 mm (> 18.000) MV EF SLOPE: 47 mm/s (70 - 150) EPSS: 0.5 cm MV E Shahriar: 0.63 m/s MV DecT: 214 ms MV A Shahriar: 1.01 m/s MV E/A Ratio: 0.62 AR PHT: 567 ms RAP: 15.00 mmHg RVSP: 54.85 mmHg FINDINGS -------- Sinus rhythm. This was a technically good study. The left ventricular size is normal. Left ventricular wall thickness is normal. Overall left vent ricular systolic function is normal with, an EF between 55 - 60 %. Normal LAP Grade 1 Diastolic Dys function. The right ventricle is normal in size. The left atrial size is normal. The right atrial size is normal. The aortic valve is trileaflet and appears structurally normal. There is mild aortic regurgitation. The mitral valve is normal. The mitral valve leaflets are mildly thickened. Mild mitral regurgita tion is present. The tricuspid valve appears structurally normal. Moderate tricuspid regurgitation present. There is moderate pulmonary hypertension. The right ventricular systolic pressure, as measured by Doppler , is 54.85mmHg. There is no pulmonic regurgitation present. The aortic root size is normal. The inferior vena cava is mildly dilated. There is no pericardial effusion. CONCLUSIONS -------- 1. Sinus rhythm. 2. This was a technically good study. 3. The left ventricular size is normal. 4. Left ventricular wall thickness is normal. 5. Overall left ventricular systolic function is normal with, an EF between 55 - 60 %. 6. Normal LAP Grade 1 Diastolic Dysfunction. 7. The right ventricle is normal in size. 8. The left atrial size is normal. 9. The right atrial size is normal. 10. The aortic valve is trileaflet and appears structurally normal. 11. There is mild aortic regurgitation. 12. The mitral valve is normal. 13. The mitral valve leaflets are mildly thickened. 14. Mild mitral regurgitation is present. 15. The tricuspid valve appears structurally normal. 16. Moderate tricuspid regurgitation present. 17. There is moderate pulmonary hypertension. 18. The right ventricular systolic pressure, as measured by Doppler, is 54.85mmHg. 19. There is no pulmonic regurgitation present. 20. The aortic root size is normal. 21. The inferior vena cava is mildly dilated. 22. There is no pericardial effusion. CIVIL ENGINEERING PROJECT DESIGNER: Enedelia Delatorre RDCS
[2019-10-14] MEDS: SODIUM CHLORIDE 0.9% 1,000 ML IV SCH (11:58)
--- NOTE | 2019-10-14 12:27 | P.CRDCN ---
History of Present Illness Consult date: 10/14/19 Reason for Consult (text): Abnormal troponin Chief complaint: Weakness and falls History of present illness: This is a pleasant 84-year-old female, most of the history was obtained from the medical record as the patient is extremely hard of hearing. Apparently she presented to [facility] because of extreme weakness, possible dehydration and frequent falls at home. Laboratory data performed on arrival there showed a troponin of 0.05, pro calcitonin elevated at 0.17, BNP level 4580, sodium 131, potassium 4, chloride 104, CO2 16, BUN 42, creatinine 1.2, magnesium 2.2 lactic acid was 1 white blood cell count 25.7 , hemoglobin 10.3,, platelet count 218 blood pressure at [facility] 105/50 with a heart rate in the 80s, chest x-ray performed at [facility] showed multiple monitor leads and posing the patient's chest no pneumothorax no evidence of infiltrate or vascular decompensation. The patient apparently has a history of hypertension, prior TIA. At the time of my examination she is quite comfortable, denies any chest discomfort, as mentioned previously she is just extremely hard of hearing. Her EKG performed on arrival here shows a normal sinus rhythm with a first-degree AV block no acute changes noted. Blood pressure at present 120/60 with a heart rate in the 60s. White blood cell count 18.4, hemoglobin 9.7, platelet count 2:15. Sodium 135, potassium 3.8, BUN 37 and creatinine 0.9. Troponin 0.0-7, 0.020. Franco virus not detected. Past Medical History Past Medical History: CVA/TIA, Hypertension, Myocardial Infarction ([place]) Last Myocardial Infarction Date:: 2004 History of Any Multi-Drug Resistant Organisms: None Reported Past Surgical History: Appendectomy, Cholecystectomy, Hysterectomy, Joint Replacement, Orthopedic Surgery Additional Past Surgical History / Comment(s): cataract, rt hip replacement, lt knee replacement Past Anesthesia/Blood Transfusion Reactions: No Reported Reaction Past Psychological History: No Psychological Hx Reported Smoking Status: Never smoker Past Alcohol Use History: None Reported Past Drug Use History: None Reported - Past Family History Mother Family Medical History: Congestive Heart Failure (CHF), Deep Vein Thrombosis (DVT), Osteoarthritis (OA) Father Family Medical History: Coronary Artery Disease (CAD), Myocardial Infarction ([place]), Prostate Disorder Medications and Allergies Home Medications Medication Instructions Recorded Confirmed Type Lisinopril [Zestril] 2.5 mg PO DAILY 10/13/19 10/13/19 History Metoprolol Tartrate [Lopressor] 12.5 mg PO BID 10/13/19 10/13/19 History Oxybutynin Chloride 5 mg PO BID 10/13/19 10/13/19 History Rivaroxaban [Xarelto] 20 mg PO DAILY 10/13/19 10/13/19 History Allergies Allergy/AdvReac Type Severity Reaction Status Date / Time cephalexin [From Keflex] Allergy Unknown Verified 03/12/18 23:43 ciprofloxacin [From Cipro] Allergy Unknown Verified 03/12/18 23:43 iodine Allergy Unknown Verified 03/12/18 23:43 Physical Exam Vitals: Vital Signs Temp Pulse Pulse Resp BP BP Pulse Ox 10/14/19 11:59 97.8 F 72 16 119/66 100 10/14/19 11:17 71 18 10/14/19 09:58 84 18 10/14/19 09:38 97.8 F 88 18 113/53 97 10/14/19 04:00 97.6 F 83 18 108/58 96 10/14/19 00:00 98.3 F 67 18 105/58 99 10/13/19 21:29 98.6 F 73 18 118/56 96 10/13/19 20:20 98.6 F 73 18 118/56 96 10/13/19 18:07 98.1 F 66 18 116/69 98 Intake and Output 10/13/19 10/14/19 10/14/19 22:59 06:59 14:59 Output Total 200 Balance -200 Output: Urine 200 Other: Voiding Method Bedside Commode Bedside Commode Bedside Commode Diaper Diaper Diaper # Voids 1 1 2 Weight 49.895 kg 43 kg PHYSICAL EXAMINATION: GENERAL:84-year-old, frail, female in no acute distress at the time of my examination HEENT: Head is atraumatic, normocephalic. Pupils equal, round. Sclera anicte carol. Conjunctiva are clear. Mucous membranes of the mouth are moist. Neck is supple. There is no elevated jugular venous pressure. No carotid bruit is heard. HEART EXAMINATION: Heart S1 and S2 systolic murmur is heard CHEST EXAMINATION:[ Lungs are clear to auscultation and precussion. No chest wall tenderness is noted on palpation or with deep breathing.] ABDOMEN: [ Soft, nontender. Bowel sounds are heard. No organomegaly noted]. EXTREMITIES:[ 2+ peripheral pulses with no evidence of peripheral edema and no calf tenderness noted]. NEUROLOGIC [patient is awake, alert and oriented 3 .] . Results 10/14/19 06:22 10/14/19 06:22 Cardiac Enzymes 10/13/19 10/14/19 10/14/19 Range/Units 20:28 02:05 06:22 AST 20 (14-36) U/L Troponin I 0.027 0.020 (0.000-0.034) ng/mL Lipids 10/14/19 Range/Units 06:22 Triglycerides 90 (<150) mg/dL Cholesterol 74 (<200) mg/dL HDL Cholesterol 17 L (40-60) mg/dL CBC 10/14/19 Range/Units 06:22 WBC 18.4 H (3.8-10.6) k/uL RBC 3.06 L (3.80-5.40) m/uL Hgb 9.7 L (11.4-16.0) gm/dL Hct 30.4 L (34.0-46.0) % Plt Count 215 (150-450) k/uL Comprehensive Metabolic Panel 10/14/19 Range/Units 06:22 Sodium 135 L (137-145) mmol/L Potassium 3.8 (3.5-5.1) mmol/L Chloride 113 H (98-107) mmol/L Carbon Dioxide 15 L (22-30) mmol/L BUN 37 H (7-17) mg/dL Creatinine 0.94 (0.52-1.04) mg/dL Glucose 64 L (74-99) mg/dL Calcium 9.7 (8.4-10.2) mg/dL AST 20 (14-36) U/L ALT 7 (4-34) U/L Alkaline Phosphatase 71 (38-126) U/L Total Protein 5.7 L (6.3-8.2) g/dL Albumin 2.7 L (3.5-5.0) g/dL Current Medications Generic Name Dose Route Start Last Admin Trade Name Freq PRN Reason Stop Dose Admin Aspirin 325 mg 10/14/19 09:00 10/14/19 09:37 Aspirin PO 325 mg DAILY KERLINE Administration Ampicillin Sodium/Sulbactam 100 mls @ 200 mls/hr 10/14/19 00:00 10/14/19 11:58 Sodium 3 gm/ Sodium Chloride IVPB 200 mls/hr Q6HR KERLINE Administration Sodium Chloride 1,000 mls @ 75 mls/hr 10/13/19 22:45 10/14/19 11:58 Saline 0.9% IV 75 mls/hr .[id number] KERLINE Administration Naloxone HCl 0.2 mg 10/13/19 22:31 Narcan IV Q2M PRN Opioid Reversal Nitroglycerin 0.4 mg 10/13/19 18:36 Nitrostat SUBLINGUAL Q5M PRN Chest Pain Nitroglycerin 0.5 inch 10/14/19 00:00 10/14/19 11:50 Nitro-Bid Oint TOPICAL Not Given Q6HR KERLINE Oxybutynin Chloride 5 mg 10/14/19 09:00 10/14/19 09:37 Ditropan PO 5 mg BID KERLINE Administration Rivaroxaban 20 mg 10/14/19 17:30 Xarelto PO W/SUPPER [facility] Intake and Output 10/13/19 10/14/19 10/14/19 22:59 06:59 14:59 Output Total 200 Balance -200 Output: Urine 200 Other: Voiding Method Bedside Commode Bedside Commode Bedside Commode Diaper Diaper Diaper # Voids 1 1 2 Weight 49.895 kg 43 kg 10/14/19 06:22 10/14/19 06:22 EKG Interpretations (text) EKG shows a normal sinus rhythm with a first-degree AV block Assessment and Plan Plan: Assessment and plan #1 symptoms of weakness and falls with possible dehydration #2 mild abnormality in troponin, no significant rise and fall pattern, not suggestive of acute coronary syndrome. #3 history of hypertension #4 history of prior TIA Plan We will obtain an echocardiogram with Doppler study. Continue to hydrate the patient. Decrease the aspirin to 81 mg daily. Further recommendations to follow. DNP note has been reviewed, I agree with a documented findings and plan of care. Patient was seen and examined.
[2019-10-14 12:49] VITALS: BMI 16.2
[2019-10-14 15:27] LABS: Appearance,Urine Cloudy (Clear); Bilirubin,Urine Negative (Negative); Blood,Urine Small (Negative); Color,Urine Yellow; Glucose,Urine (UA) Negative (Negative); Ketones,Urine Trace (Negative); Leukocyte Esterase,Urine Large (Negative); Nitrite,Urine Negative (Negative); PH, Urine 6.5 (5.0-8.0); Protein,Urine 1+ (Negative); RBC,Urine 5 /hpf (0-5); Specific Gravity,Urine 1.017 (1.001-1.035); Squamous Epithelial Cell,Urine 1 /hpf (0-4); Urobilinogen,Urine <2.0 mg/dL (<2.0); WBC,Urine >182 /hpf (0-5)
--- NOTE | 2019-10-14 16:12 | P.PN ---
Subjective Progress Note Date: 10/14/19 Principal diagnosis: Altered mental status Patient was seen and examined. No acute events overnight. Patient hard of hearing. Patient denies any chest pain, shortness of breath or palpitations. No nausea or vomiting. No fever or chills. Objective - Vital Signs Vital signs: Vital Signs Temp 97.8 F 10/14/19 11:59 Pulse 72 10/14/19 11:59 Resp 16 10/14/19 11:59 BP 119/66 10/14/19 11:59 Pulse Ox 100 10/14/19 11:59 Intake & Output 10/13/19 10/14/19 10/14/19 18:59 06:59 18:59 Intake Total 240 Output Total 200 Balance 40 Weight 49.895 kg 43 kg 43 kg Intake: Oral 240 Output: Urine 200 Other: Voiding Method Bedside Commode Bedside Commode Diaper Diaper # Voids 1 2 - Exam General: [non toxic], [no distress], [appears at stated age] Derm: [warm], [dry] Head: [atraumatic], [normocephalic], [symmetric] Eyes: [EOMI], [no lid lag], [anicteric sclera] Mouth: [no lip lesion], [mucus membranes moist] Cardiovascular: [S1S2 reg], [no murmur], [positive DP pulse bilateral], Lungs: [CTA bilateral], [no rhonchi, no rales] , [no accessory muscle use] Abdominal: [soft], [ nontender to palpation], [no guarding], [no appreciable organomegaly] Ext: [no gross muscle atrophy], [no edema], [no contractures] Neuro: [no focal neuro deficits] Psych: [Alert], [oriented], [appropriate affect] - Labs CBC & Chem 7: 10/14/19 06:22 10/14/19 06:22 Labs: Abnormal Lab Results - Last 24 Hours (Table) 10/14/19 10/14/19 10/14/19 Range/Units 06:22 06:22 14:10 WBC 18.4 H (3.8-10.6) k/uL RBC 3.06 L (3.80-5.40) m/uL Hgb 9.7 L (11.4-16.0) gm/dL Hct 30.4 L (34.0-46.0) % Neutrophils # 17.0 H (1.3-7.7) k/uL Lymphocytes # 0.8 L (1.0-4.8) k/uL Sodium 135 L (137-145) mmol/L Chloride 113 H (98-107) mmol/L Carbon Dioxide 15 L (22-30) mmol/L BUN 37 H (7-17) mg/dL Glucose 64 L (74-99) mg/dL Total Protein 5.7 L (6.3-8.2) g/dL Albumin 2.7 L (3.5-5.0) g/dL HDL Cholesterol 17 L (40-60) mg/dL Urine Appearance Cloudy H (Clear) Urine Protein 1+ H (Negative) Urine Ketones Trace H (Negative) Urine Blood Small H (Negative) Ur Leukocyte Esterase Large H (Negative) Urine WBC >182 H (0-5) /hpf Urine WBC Clumps Occasional H (None) /hpf Assessment and Plan Assessment: Altered mental status, likely due to UTI, now resolved -C/w Unasyn for now -Collect urinalysis and urine culture, discussed with RN Elevated troponin with elevated BNP -Cardiology consult -patient denying chest discomfort, SOB -Cardiac monitoring -Troponins have been 0.027, 0.020. -Echocardiogram shows EF 55-60% with grade 1 diastolic dysfunction CHARBEL, likely pre-renal in setting of dehydration -Gentle hydration -Monitor BMP Debility with moderate protein calorie malnutrition and failure to thrive -research worker kitchen consult for placement, agreeable for [facility] -PT consult -Admissions Clinician consult Chronic conditions: A. fib, hypertension, urinary incontinence -Continue with home meds -Hold Lisinopril in setting of CHARBEL DVT prophylaxis -Xarelto
[2019-10-14] MEDS ORDERED: RIVAROXABAN 20 MG TAB PO SCH (17:30)
[2019-10-14] MEDS: RIVAROXABAN 15 MG TAB PO SCH (17:44)
[2019-10-14] MEDS ORDERED: ACETAMINOPHEN TAB 325 MG TAB PO STA (20:13)
[2019-10-15] MEDS: AMPICILLIN-SULBACTAM 3 GM in SODIUM CHLORIDE 0.9% 100 ML IVPB SCH ×3 (05:12→17:57)
[2019-10-15] MEDS: SODIUM CHLORIDE 0.9% 1,000 ML IV SCH ×2 (05:12→14:51)
[2019-10-15] MEDS: OXYBUTYNIN CHLORIDE 5 MG TAB PO SCH ×2 (08:40→19:56)
[2019-10-15] MEDS ORDERED: ASPIRIN 325 MG TAB PO SCH (09:00)
[2019-10-15] MEDS: RIVAROXABAN 15 MG TAB PO SCH (17:57)
[2019-10-16] MEDS: AMPICILLIN-SULBACTAM 3 GM in SODIUM CHLORIDE 0.9% 100 ML IVPB SCH ×4 (00:17→17:58)
[2019-10-16] MEDS: SODIUM CHLORIDE 0.9% 1,000 ML IV SCH (05:47)
[2019-10-16] MEDS: OXYBUTYNIN CHLORIDE 5 MG TAB PO SCH ×2 (09:04→20:40)
[2019-10-16] MEDS: ACETAMINOPHEN TAB 325 MG TAB PO PRN ×2 (09:04→16:11)
[2019-10-16 09:49] LABS: Basophils % (A) 0 %; Eosinophils # (A) 0.1 k/uL (0-0.7); Eosinophils % (A) 1 %; HCT 28.6 % (34.0-46.0); HGB 8.8 gm/dL (11.4-16.0); Hypochromasia Moderate; Lymphocytes # (A) 0.8 k/uL (1.0-4.8); Lymphocytes % (A) 7 %; MCH 29.5 pg (25.0-35.0); MCHC 30.7 g/dL (31.0-37.0); MCV 96.1 fL (80.0-100.0); Mean Platelet Volume 7.4; Monocytes # (A) 0.6 k/uL (0-1.0); Monocytes % (A) 5 %; Neutrophils # (A) 9.8 k/uL (1.3-7.7); Neutrophils % (A) 86 %; Platelet Count 219 k/uL (150-450); RBC 2.97 m/uL (3.80-5.40); RDW 15.4 % (11.5-15.5); WBC 11.4 k/uL (3.8-10.6)
[2019-10-16 10:01] LABS: ALT 9 U/L (4-34); AST 19 U/L (14-36); African American GFR (CKD) >90 (>60 ml/min/1.73 sqM); Albumin 2.6 g/dL (3.5-5.0); Alkaline Phosphatase 68 U/L (38-126); Anion Gap 10 mmol/L; Blood Urea Nitrogen 17 mg/dL (7-17); Calcium 9.2 mg/dL (8.4-10.2); Carbon Dioxide 17 mmol/L (22-30); Chloride 116 mmol/L (98-107); Glucose 97 mg/dL (74-99); Non-African American GFR(CKD) 85 (>60 ml/min/1.73 sqM); Potassium 3.3 mmol/L (3.5-5.1); Sodium 143 mmol/L (137-145); Total Bilirubin 0.5 mg/dL (0.2-1.3); Total Protein 5.5 g/dL (6.3-8.2)
[2019-10-16] MEDS ORDERED: Potassium Replacement Protocol 1 EACH MISC MISCELLANE PRN ×2 (14:30→14:33)
--- NOTE | 2019-10-16 14:31 | P.PN ---
Subjective Progress Note Date: 10/15/19 Principal diagnosis: Altered mental status This is a late entry note. Patient was seen and examined on 10/15/2019 around 12 PM. Patient was seen and examined. No acute events overnight. Patient hard of hearing. Patient reports some lower abdominal discomfort. Patient denies any chest pain, shortness of breath or palpitations. No nausea or vomiting. She denies any difficulty urinating. Objective - Vital Signs Vital signs: Vital Signs Temp 97.6 F 10/16/19 04:31 Pulse 83 10/16/19 04:31 Resp 20 10/16/19 04:31 BP 138/65 10/16/19 04:31 Pulse Ox 97 10/16/19 04:31 Intake & Output 10/15/19 10/16/19 10/16/19 18:59 06:59 18:59 Intake Total 225 Output Total 100 Balance 125 Intake: Intake, IV Titration 225 Amount Sodium Chloride 0.9% 1, 225 000 ml @ 75 mls/hr IV . [id number] [facility] Rx#:[id number] Output: Oral Regurgitation 100 Other: Voiding Method Bedside Commode Bedside Commode Diaper Diaper # Voids 1 4 - Exam General: [non toxic], [no distress], [appears at stated age] Derm: [warm], [dry] Head: [atraumatic], [normocephalic], [symmetric] Eyes: [EOMI], [no lid lag], [anicteric sclera] Mouth: [no lip lesion], [mucus membranes moist] Cardiovascular: [S1S2 reg], [no murmur], [positive DP pulse bilateral], Lungs: [CTA bilateral], [no rhonchi, no rales] , [no accessory muscle use] Abdominal: [soft], [ nontender to palpation], [no guarding], [no appreciable organomegaly] Ext: [no gross muscle atrophy], [no edema], [no contractures] Neuro: [no focal neuro deficits] Psych: [Alert], [oriented], [appropriate affect] - Labs CBC & Chem 7: 10/16/19 09:34 10/16/19 09:34 Assessment and Plan Assessment: Altered mental status, likely due to UTI, now resolved -C/w Unasyn for now -Urinalysis showing large leukocyte esterase, urine culture pending Elevated troponin with elevated BNP -Cardiology consult -patient denying chest discomfort, SOB -Cardiac monitoring -Troponins have been 0.027, 0.020 -Echocardiogram shows EF 55-60% with grade 1 diastolic dysfunction CHARBEL, likely pre-renal in setting of dehydration -Gentle hydration -Monitor BMP Debility with moderate protein calorie malnutrition and failure to thrive -kettle worker consult for placement, agreeable for [facility] -PT consult -Melt House Drag Operator consult Chronic conditions: A. fib, hypertension, urinary incontinence -Continue with home meds -Hold Lisinopril in setting of CHARBEL DVT prophylaxis -Xarelto
--- NOTE | 2019-10-16 14:33 | P.PN ---
Subjective Progress Note Date: 10/16/19 Principal diagnosis: Altered mental status Patient was seen and examined on 10/16/2019 around 2 PM. No acute events overnight. Patient hard of hearing. Patient reports some suprapubic discomfort discomfort. Patient denies any chest pain, shortness of breath or palpitations. One episode of nausea and nonbilious nonbloody vomiting last night. She denies any difficulty urinating. Objective - Vital Signs Vital signs: Vital Signs Temp 98.6 F 10/16/19 11:32 Pulse 74 10/16/19 11:32 Resp 18 10/16/19 11:32 BP 128/75 10/16/19 11:32 Pulse Ox 98 10/16/19 11:32 Intake & Output 10/15/19 10/16/19 10/16/19 18:59 06:59 18:59 Intake Total 225 Output Total 100 Balance 125 Intake: Intake, IV Titration 225 Amount Sodium Chloride 0.9% 1, 225 000 ml @ 75 mls/hr IV . [id number] [facility] Rx#:[id number] Output: Oral Regurgitation 100 Other: Voiding Method Bedside Commode Bedside Commode Bedside Commode Diaper Diaper Diaper # Voids 1 4 1 - Exam General: [non toxic], [no distress], [appears at stated age] Derm: [warm], [dry] Head: [atraumatic], [normocephalic], [symmetric] Eyes: [EOMI], [no lid lag], [anicteric sclera] Mouth: [no lip lesion], [mucus membranes moist] Cardiovascular: [S1S2 reg], [no murmur], [positive DP pulse bilateral], Lungs: [CTA bilateral], [no rhonchi, no rales] , [no accessory muscle use] Abdominal: [soft], [tenderness to palpation in the suprapubic area], [no guarding], [no appreciable organomegaly] Ext: [no gross muscle atrophy], [no edema], [no contractures] Neuro: [no focal neuro deficits] Psych: [Alert], [oriented], [appropriate affect] - Labs CBC & Chem 7: 10/16/19 09:34 10/16/19 09:34 Labs: Abnormal Lab Results - Last 24 Hours (Table) 10/16/19 10/16/19 Range/Units 09:34 09:34 WBC 11.4 H (3.8-10.6) k/uL RBC 2.97 L (3.80-5.40) m/uL Hgb 8.8 L (11.4-16.0) gm/dL Hct 28.6 L (34.0-46.0) % MCHC 30.7 L (31.0-37.0) g/dL Neutrophils # 9.8 H (1.3-7.7) k/uL Lymphocytes # 0.8 L (1.0-4.8) k/uL Potassium 3.3 L (3.5-5.1) mmol/L Chloride 116 H (98-107) mmol/L Carbon Dioxide 17 L (22-30) mmol/L Total Protein 5.5 L (6.3-8.2) g/dL Albumin 2.6 L (3.5-5.0) g/dL Assessment and Plan Assessment: Altered mental status, likely due to UTI, now resolved -C/w Unasyn for now -Urinalysis showing large leukocyte esterase, seems urine culture was not collected, discussed with nursing regarding collection of urine culture if not already done so Hypokalemia -Potassium 3.3 -Replace via protocol and repeat BMP tomorrow morning Elevated troponin with elevated BNP -Cardiology consult -patient denying chest discomfort, SOB -Cardiac monitoring -Troponins have been 0.027, 0.020 -Echocardiogram shows EF 55-60% with grade 1 diastolic dysfunction CHARBEL, likely pre-renal in setting of dehydration -Gentle hydration -Monitor BMP Debility with moderate protein calorie malnutrition and failure to thrive -barrow worker helper consult for placement, agreeable for [facility] -PT consult -Candy Wrapping Machine Operator consult Chronic conditions: A. fib, hypertension, urinary incontinence -Continue with home meds -Hold Lisinopril in setting of CHARBEL DVT prophylaxis -Xarelto
[2019-10-16] MEDS: RIVAROXABAN 15 MG TAB PO SCH (16:11)
[2019-10-16] MEDS: POTASSIUM CHLORIDE ER 20 MEQ TAB.ER PO SCH ×2 (16:11→16:12)
[2019-10-17] MEDS: AMPICILLIN-SULBACTAM 3 GM in SODIUM CHLORIDE 0.9% 100 ML IVPB SCH ×5 (00:40→23:48)
[2019-10-17] MEDS: OXYBUTYNIN CHLORIDE 5 MG TAB PO SCH ×2 (07:47→20:26)
[2019-10-17] MEDS: RIVAROXABAN 15 MG TAB PO SCH (17:15)
--- NOTE | 2019-10-17 20:48 | P.PN ---
Progress Note - Text Progress Note Date: 10/17/19 Presenting complaint: Tired Interval history: Patient is an 84-year-old female with a PMH of A. fib (on Xarelto), hypertension, chronic urinary incontinence, CAD status post MIs in the past, and history of CVA was transferred from [facility], where she presented earlier today with her son for not feeling well. The patient was extremely hard of hearing though was able to provide a good history with effort. Patient reports that over the past few days, she has been more tired than usual. She notes that a visiting nurse had come by to see her today and had recommended to her son that she be taken to the hospital for further management. The patient's family also reported that she had a fall at home 2 weeks ago for which they didn't seek medical attention. The patient believes that this was because she may have been slightly confused at that time and was feeling weak. The patient reports that at baseline, she ambulates with a cane, lives in an apartment, and gets Meals on Wheels along with help from her children who live nearby. She underwent an extensive evaluation in the ED at [facility] where laboratory workup revealed WBC count 25.1, Hgb 10.3, plt 218, UA with 20-30 WBCs, Nitrate neg, and LE 1+, Na 131, K 4.0, Cl 104, BUN 42, Cr 1.2, mg 2.2, INR 1.29, lactic acid 1.0, BNP 4580, and Troponin 0.058. The patient was transferred to [facility] for further evaluation including cardiology consult. At time of the interview, the patient reports that she feels somewhat tired but otherwise denied any active complaints. She denied experiencing chest discomfort, shortness of breath, nausea, vomiting, or diaphoresis. She also denied fever, chills, cough, or abdominal pain. EKG performed at [facility] revealed sinus rhythm with first-degree AV block at 66 bpm with septal Q waves noted. Admitted with-UTI with cystitis. Today-. Feeling better. Eating about 50%. Walked about 25 feet controlling walker. Review of systems: Was done for constitutional, cardiovascular, GI, pulmonary. relevant finding as above Active Medications Acetaminophen (Tylenol Tab) 650 mg PO Q6HR PRN PRN Reason: Fever and/ or Pain Last Admin: 10/16/19 16:11 Dose: 650 mg Documented by: Ampicillin Sodium/Sulbactam (Sodium 3 gm/ Sodium Chloride) 100 mls @ 200 mls/hr IVPB Q6HR [facility] Last Admin: 10/17/19 17:15 Dose: 200 mls/hr Documented by: Miscellaneous Information (Potassium Per Protocol) 1 each MISCELLANE DAILY PRN; Protocol PRN Reason: Per Protocol Miscellaneous Information (Potassium Per Protocol) 1 each MISCELLANE DAILY PRN; Protocol PRN Reason: Per Protocol Naloxone HCl (Narcan) 0.2 mg IV Q2M PRN PRN Reason: Opioid Reversal Nitroglycerin (Nitrostat) 0.4 mg SUBLINGUAL Q5M PRN PRN Reason: Chest Pain Oxybutynin Chloride (Ditropan) 5 mg PO BID [facility] Last Admin: 10/17/19 20:26 Dose: 5 mg Documented by: Rivaroxaban (Xarelto) 15 mg PO W/SUPPER [facility] Last Admin: 10/17/19 17:15 Dose: 15 mg Documented by: On examination: VITAL SIGNS: 97.8, 71, 18, 128/70, 97% on room air GENERAL APPEARANCE: BMI 16.3 Laying in bed, but tired HEENT: Normal external appearance of nose and ear. Oral cavity normal EYES: Pupils equal. Conjunctiva normal. NECK: JVD not raised. Mass not palpable. RESPIRATORY: Respiratory effort normal. Lungs clear to auscultation. CARDIOVASCULAR: First and second sounds normal. No edema. ABDOMEN: Soft. Liver and spleen not palpable. No tenderness. No mass palpable. PSYCHIATRY: Able to answer some questions . INVESTIGATIONS, reviewed in the clinical context: White count 11.4 hemoglobin 8.8 potassium 3.3 bicarb 17 creatinine 0.58 albumin 2.6 Urine culture-negative Previous testing: UA positive. Plan: -Saw the patient this afternoon. Urine culture still pending. Current medications are to continue. Spoke to the social and political studies professor. Hopefully [facility] the [facility] tomorrow.
[2019-10-18] MEDS: AMPICILLIN-SULBACTAM 3 GM in SODIUM CHLORIDE 0.9% 100 ML IVPB SCH ×2 (05:58→13:00)
[2019-10-18] MEDS: OXYBUTYNIN CHLORIDE 5 MG TAB PO SCH (08:40)
[2019-10-18 12:19] VITALS: BP 140/69; PULSE 81; RESP 16; TEMP 97.9
[2019-10-18 12:51] LABS: Basophils % (A) 0 %; Eosinophils # (A) 0.1 k/uL (0-0.7); Eosinophils % (A) 1 %; HCT 28.1 % (34.0-46.0); HGB 8.9 gm/dL (11.4-16.0); Hypochromasia Moderate; Lymphocytes # (A) 0.9 k/uL (1.0-4.8); Lymphocytes % (A) 7 %; MCH 30.7 pg (25.0-35.0); MCHC 31.8 g/dL (31.0-37.0); MCV 96.5 fL (80.0-100.0); Mean Platelet Volume 7.9; Monocytes # (A) 0.6 k/uL (0-1.0); Monocytes % (A) 5 %; Neutrophils # (A) 10.4 k/uL (1.3-7.7); Neutrophils % (A) 86 %; Platelet Count 206 k/uL (150-450); RBC 2.91 m/uL (3.80-5.40); RDW 15.5 % (11.5-15.5); WBC 12.1 k/uL (3.8-10.6)
[2019-10-18 13:11] LABS: African American GFR (CKD) >90 (>60 ml/min/1.73 sqM); Anion Gap 7 mmol/L; Blood Urea Nitrogen 16 mg/dL (7-17); Calcium 9.4 mg/dL (8.4-10.2); Carbon Dioxide 20 mmol/L (22-30); Chloride 112 mmol/L (98-107); Glucose 83 mg/dL (74-99); Non-African American GFR(CKD) 85 (>60 ml/min/1.73 sqM); Potassium 3.5 mmol/L (3.5-5.1); Sodium 139 mmol/L (137-145)
[2019-10-18] MEDS ORDERED: CEFDINIR 300 MG CAP PO SCH (14:33)
--- NOTE | 2019-10-18 14:40 | P.DS ---
Providers Date of admission: 10/13/19 18:38 Expected date of discharge: 10/18/19 Attending physician: Sohail Tyler Consults: 10/13/19 18:36 Consult Physician Urgent Consulting Provider: [facility] Consult Reason/Comments: Elevated troponin Do you want consulting provider notified?: Yes Primary care physician: [facility] Course: Presenting complaint: Tired Interval history: Patient is an 84-year-old female with a PMH of A. fib (on Xarelto), hypertension, chronic urinary incontinence, CAD status post MIs in the past, and history of CVA was transferred from [facility], where she presented earlier today with her son for not feeling well. The patient was extremely hard of hearing though was able to provide a good history with effort. Patient reports that over the past few days, she has been more tired than usual. She notes that a visiting nurse had come by to see her today and had recommended to her son that she be taken to the hospital for further management. The patient's family also reported that she had a fall at home 2 weeks ago for which they didn't seek medical attention. The patient believes that this was because she may have been slightly confused at that time and was feeling weak. The patient reports that at baseline, she ambulates with a cane, lives in an apartment, and gets Meals on Wheels along with help from her children who live nearby. She underwent an extensive evaluation in the ED at [facility] where laboratory workup revealed WBC count 25.1, Hgb 10.3, plt 218, UA with 20-30 WBCs, Nitrate neg, and LE 1+, Na 131, K 4.0, Cl 104, BUN 42, Cr 1.2, mg 2.2, INR 1.29, lactic acid 1.0, BNP 4580, and Troponin 0.058. The patient was transferred to [facility] for further evaluation including cardiology consult. At time of the interview, the patient reports that she feels somewhat tired but otherwise denied any active complaints. She denied experiencing chest discomfort, shortness of breath, nausea, vomiting, or diaphoresis. She also denied fever, chills, cough, or abdominal pain. EKG performed at [facility] revealed sinus rhythm with first-degree AV block at 66 bpm with septal Q waves noted. Admitted with-UTI with cystitis. Seen by cardiology. Troponins felt to be not coming from acute coronary syndrome. Treated with IV Unasyn. Urine cultures negative. Today-. Stable. Eating about 50%. No cardiac symptoms. Discussed with social and human services assistant. Change to oral antibiotic Discussion and discharge planning more than 35 minutes Consultation: Dr. Shepherd from cardiology On examination: VITAL SIGNS: 97.9, 81, 16, 140/69, 96% on room air GENERAL APPEARANCE: BMI 16.3 Laying in bed, comfortable HEENT: Normal external appearance of nose and ear. Oral cavity normal EYES: Pupils equal. Conjunctiva normal. NECK: JVD not raised. Mass not palpable. RESPIRATORY: Respiratory effort normal. Lungs clear to auscultation. CARDIOVASCULAR: First and second sounds normal. No edema. ABDOMEN: Soft. Liver and spleen not palpable. No tenderness. No mass palpable. PSYCHIATRY: Able to answer simple questions . INVESTIGATIONS, reviewed in the clinical context: White count 12.1 hemoglobin 8.9 potassium 3.5 albumin 2.6 Previous testing: UA positive. Urine culture-negative Assessment: -Acute delirium from underlying UTI, POA -Acute UTI from cystitis -Hypokalemia-corrected -Troponin leak due to hemodynamic mismatch. Not acute coronary syndrome -Metabolic acidosis with hyperkalemia -Moderate protein calorie malnutrition from decreased oral intake -Dehydration from decreased oral intake Plan: [facility] Labs: CBC and BMP in 3 days Patient Condition at Discharge: Stable Plan - Discharge Summary Discharge Rx Participant: No New Discharge Prescriptions: New Cefdinir [Omnicef] 300 mg PO Q12HR #6 capsule Acetaminophen Tab [Tylenol] 650 mg PO Q6HR PRN tab PRN Reason: Fever And/ Or Pain Continue Rivaroxaban [Xarelto] 20 mg PO DAILY Oxybutynin Chloride 5 mg PO BID Metoprolol Tartrate [Lopressor] 12.5 mg PO BID Lisinopril [Zestril] 2.5 mg PO DAILY Discharge Medication List Lisinopril [Zestril] 2.5 mg PO DAILY 10/13/19 [History] Metoprolol Tartrate [Lopressor] 12.5 mg PO BID 10/13/19 [History] Oxybutynin Chloride 5 mg PO BID 10/13/19 [History] Rivaroxaban [Xarelto] 20 mg PO DAILY 10/13/19 [History] Acetaminophen Tab [Tylenol] 650 mg PO Q6HR PRN tab 10/18/19 [Rx] Cefdinir [Omnicef] 300 mg PO Q12HR #6 capsule 10/18/19 [Rx] Follow up Appointment(s)/Referral(s): Nonstaff,Physician [REFERRING] - 1-2 days
== END 2019-10-18 17:39 | DRG 690 ==
LOC: EC 17:55 → 3SCARD 18:38 → 5NMEDONC 10-14 14:20
PROVIDERS: ADMIT Hospitalist; ATTEND Hospitalist
DX: N30.00 Acute cystitis without hematuria (principal); E44.0 Moderate protein-calorie malnutrition; F05 Delirium due to known physiological condition; N17.9 Acute kidney failure, unspecified; E87.2 Acidosis; R62.7 Adult failure to thrive; I48.0 Paroxysmal atrial fibrillation; E86.0 Dehydration; F03.90 Unspecified dementia, unspecified severity, without behavioral disturbance, psychotic disturbance, mood disturbance, and anxiety; E87.8 Other disorders of electrolyte and fluid balance, not elsewhere classified; Z11.59 Encounter for screening for other viral diseases; E87.6 Hypokalemia; I25.10 Atherosclerotic heart disease of native coronary artery without angina pectoris; I10 Essential (primary) hypertension; I44.0 Atrioventricular block, first degree; K42.9 Umbilical hernia without obstruction or gangrene; R32 Unspecified urinary incontinence; H91.90 Unspecified hearing loss, unspecified ear; R79.89 Other specified abnormal findings of blood chemistry; R53.81 Other malaise; I25.2 Old myocardial infarction; Z79.01 Long term (current) use of anticoagulants; Z79.899 Other long term (current) drug therapy; Z91.81 History of falling; Z86.73 Personal history of transient ischemic attack (TIA), and cerebral infarction without residual deficits; Z90.710 Acquired absence of both cervix and uterus; Z90.49 Acquired absence of other specified parts of digestive tract; Z96.641 Presence of right artificial hip joint; Z96.652 Presence of left artificial knee joint; Z98.49 Cataract extraction status, unspecified eye; Z88.8 Allergy status to other drugs, medicaments and biological substances; Z88.1 Allergy status to other antibiotic agents; W19.XXXA Unspecified fall, initial encounter; Y92.009 Unspecified place in unspecified non-institutional (private) residence as the place of occurrence of the external cause; Z82.49 Family history of ischemic heart disease and other diseases of the circulatory system; Z83.2 Family history of diseases of the blood and blood-forming organs and certain disorders involving the immune mechanism; Z82.61 Family history of arthritis
CPT/HCPCS: 51798; 80048; 80053; 80061; 81001; 84132; 84484; 85025; 87086; 87635; 93005; 93306; 99285

== ENCOUNTER 2020-04-09 20:55 | Inpatient (IN) | payer MEDICARE, BC ==
[2020-04-09] MEDS ORDERED: NITROGLYCERIN SL TABS 0.4 MG TAB SUBLINGUAL PRN (20:56)
[2020-04-09] MEDS ORDERED: MORPHINE SULFATE 4 MG/ML SYRINGE IV PRN (20:56)
[2020-04-09] MEDS ORDERED: SODIUM CHLORIDE 0.9% 500 ML 500 ML IV STA (20:59)
[2020-04-09] MEDS ORDERED: AMPICILLIN-SULBACTAM 3 GM in SODIUM CHLORIDE 0.9% 100 ML IVPB STA (20:59)
[2020-04-09] MEDS ORDERED: SODIUM CHLORIDE 0.9% 1,000 ML IV STA (20:59)
--- NOTE | 2020-04-09 21:02 | ED ---
Recheck HPI - General Stated Complaint: UTI, altered, abnormal labs Time Seen by Provider: 04/09/20 20:56 Source: RN notes reviewed, old records reviewed Mode of arrival: EMS Limitations: altered mental status - History of Present Illness Initial Comments: This is a 4-year-old male poor historian secondary to dementia coming in for transfer secondary to urinary tract infection and elevated troponin history of triple today. History obtained by EMS patient himself denies any current chest pain does admit to maybe feeling a little bit weak. MD Complaint: abnormal lab (Elevated troponin, urinary tract infection) -: unknown Returns Today for: other (Patient was seen at outside emergency department sent to our ER for evaluation and management) Symptoms Since Prior Visit: no new symptoms Context: planned re-check Associated Symptoms: none Treatments Prior to Arrival: Given Antibiotics on - Related Data Home Medications Medication Instructions Recorded Confirmed Metoprolol Tartrate [Lopressor] 12.5 mg PO BID 10/13/19 10/13/19 Oxybutynin Chloride 5 mg PO BID 10/13/19 10/13/19 Rivaroxaban [Xarelto] 20 mg PO DAILY 10/13/19 10/13/19 lisinopriL [Zestril] 2.5 mg PO DAILY 10/13/19 10/13/19 Previous Rx's Medication Instructions Recorded Acetaminophen Tab [Tylenol] 650 mg PO Q6HR PRN tab 10/18/19 Cefdinir [Omnicef] 300 mg PO Q12HR #6 capsule 10/18/19 Allergies Allergy/AdvReac Type Severity Reaction Status Date / Time cephalexin [From Keflex] Allergy Unknown Verified 03/12/18 23:43 ciprofloxacin [From Cipro] Allergy Unknown Verified 03/12/18 23:43 iodine Allergy Unknown Verified 03/12/18 23:43 Review of Systems ROS Statement: Those systems with pertinent positive or pertinent negative responses have been documented in the HPI. ROS Other: All systems not noted in ROS Statement are negative. Past Medical History Past Medical History: CVA/TIA, Hypertension, Myocardial Infarction (CO) Last Myocardial Infarction Date:: 2004 History of Any Multi-Drug Resistant Organisms: None Reported Past Surgical History: Appendectomy, Cholecystectomy, Hysterectomy, Joint Replacement, Orthopedic Surgery Additional Past Surgical History / Comment(s): cataract, rt hip replacement, lt knee replacement Past Anesthesia/Blood Transfusion Reactions: No Reported Reaction Past Psychological History: No Psychological Hx Reported Past Alcohol Use History: None Reported Past Drug Use History: None Reported - Past Family History Mother Family Medical History: Congestive Heart Failure (CHF), Deep Vein Thrombosis (DVT), Osteoarthritis (OA) Father Family Medical History: Coronary Artery Disease (CAD), Myocardial Infarction (CO), Prostate Disorder General Exam General appearance: alert, in no apparent distress Head exam: Present: atraumatic, normocephalic, normal inspection Eye exam: Present: normal appearance, PERRL, EOMI. Absent: scleral icterus, conjunctival injection, periorbital swelling ENT exam: Present: normal exam, mucous membranes moist Neck exam: Present: normal inspection. Absent: tenderness, meningismus, lymphadenopathy Respiratory exam: Present: normal lung sounds bilaterally. Absent: respiratory distress, wheezes, rales, rhonchi, stridor Cardiovascular Exam: Present: regular rate, normal rhythm, normal heart sounds. Absent: systolic murmur, diastolic murmur, rubs, gallop, clicks GI/Abdominal exam: Present: soft, normal bowel sounds. Absent: distended, tenderness, guarding, rebound, rigid Extremities exam: Present: normal inspection, full ROM, normal capillary refill. Absent: tenderness, pedal edema, joint swelling, calf tenderness Back exam: Present: normal inspection Neurological exam: Present: alert, oriented X3, CN II-XII intact Psychiatric exam: Present: normal affect, normal mood Skin exam: Present: warm, dry, intact, normal color. Absent: rash Course - Reevaluation(s) Reevaluation #1: 04/09/20 21:01 Medical record is reviewed 04/09/20 21:01 Prior lab values from prior ER reviewed Reevaluation #2: 04/09/20 21:01 Spoke with patient regarding symptoms findings here in the ER, questions answered - Consultations Consultation #1: Spoke with transferring physician we did agree to accept patient transfer Consultation #2: Spoke with Dr. Tyler agrees to admit the patient Medical Decision Making - Medical Decision Making 84 female DF for evaluation, patient is recurrent urinary tract infection dehydration elevated troponin. History of a similar ER visit just in the last few months Disposition Clinical Impression: Urinary tract infection, Generalized weakness, Atrial fibrillation, Elevated troponin Disposition: ADMITTED IP TO THIS HOSP Condition: Fair Is patient prescribed a controlled substance at d/c from ED?: No Referrals: Sung Mejía MD [Primary Care Provider] - 1-2 days
[2020-04-09] MEDS: SODIUM CHLORIDE 0.9% 1,000 ML IV SCH (21:31)
[2020-04-09 22:51] LABS: HCT 32.2 % (34.0-46.0); HGB 10.3 gm/dL (11.4-16.0); Hypochromasia Slight; MCH 30.4 pg (25.0-35.0); MCHC 32.1 g/dL (31.0-37.0); MCV 94.7 fL (80.0-100.0); Mean Platelet Volume 7.7; Platelet Count 233 k/uL (150-450); RDW 14.2 % (11.5-15.5); WBC 18.9 k/uL (3.8-10.6)
[2020-04-09 23:04] LABS: Albumin 3.3 g/dL (3.5-5.0); Calcium 9.3 mg/dL (8.4-10.2); Magnesium 1.9 mg/dL (1.6-2.3); Potassium 3.8 mmol/L (3.5-5.1); Total Bilirubin 0.5 mg/dL (0.2-1.3)
[2020-04-10 02:28] LABS: Cholesterol 86 mg/dL (<200); HDL Cholesterol 23 mg/dL (40-60); LDL Cholesterol,Calculated 40 mg/dL (0-99); Triglycerides 113 mg/dL (<150)
[2020-04-10] MEDS: ACETAMINOPHEN TAB 325 MG TAB PO PRN (03:56)
[2020-04-10] MEDS: AMPICILLIN-SULBACTAM 3 GM in SODIUM CHLORIDE 0.9% 100 ML IVPB SCH ×3 (06:28→21:02)
[2020-04-10] MEDS: SODIUM CHLORIDE 0.9% 1,000 ML IV SCH ×2 (06:29→17:00)
[2020-04-10] MEDS ORDERED: ASPIRIN 325 MG TAB PO SCH (09:00)
--- NOTE | 2020-04-10 12:05 | ECHOF ---
Referral Reason:elevTrop MEASUREMENTS -------- HEIGHT: 160.0 cm WEIGHT: 49.9 kg BP: RVIDd: 2.0 cm (< 3.3) IVSd: 0.8 cm (0.6 - 1.1) LVIDd: 3.0 cm (3.9 - 5.3) LVPWd: 0.8 cm (0.6 - 1.1) IVSs: 0.9 cm LVIDs: 2.3 cm LVPWs: 1.7 cm LAESV Index (A-L): 24.56 ml/m Ao Diam: 3.9 cm (2.0 - 3.7) AV Cusp: 1.8 cm (1.5 - 2.6) LA Diam: 1.7 cm (2.7 - 3.8) MV EXCURSION: 10.933 mm (> 18.000) MV EF SLOPE: 87 mm/s (70 - 150) EPSS: 0.5 cm MV E Shahriar: 0.75 m/s MV DecT: 151 ms MV A Shahriar: 0.97 m/s MV E/A Ratio: 0.77 AR PHT: 733 ms RAP: 5.00 mmHg RVSP: 46.79 mmHg FINDINGS -------- This was a technically good study. The left ventricular size is normal. Left ventricular wall thickness is normal. Overall left vent ricular systolic function is mildly impaired with, an EF between 45 - 50 %.Mid Normal LAP Grade 1 Diastolic Dysfunction. Septal Hypokinesis The right ventricle is normal in size. The left atrial size is normal. Normal LA size by volume 22+/-6 ml/m2. The right atrial size is normal. Interatrial and interventricular septum intact. Aortic valve is trileaflet and is mildly thickened. There is wkta-ah-phethmtx aortic regurgitation. The mitral valve is normal. The mitral valve leaflets are mildly thickened. Mild mitral annular c alcification present. Mild mitral regurgitation is present. The tricuspid valve appears structurally normal. Moderate tricuspid regurgitation present. There is mild pulmonary hypertension. The right ventricular systolic pressure, as measured by Doppler, is 46.79mmHg. Trace/mild (physiologic) pulmonic regurgitation. The aortic root is dilated measuring 3.9-4.0 CM. Normal inferior vena cava with normal inspiratory collapse consistent with estimated right atrial pre ssure of 5 mmHg. There is no pericardial effusion. CONCLUSIONS -------- 1. The left ventricular size is normal. 2. Left ventricular wall thickness is normal. 3. Overall left ventricular systolic function is mildly impaired with, an EF between 45 - 50 %. 4. Normal LAP Grade 1 Diastolic Dysfunction. 5. Mid Septal Hypokinesis 6. Aortic valve is trileaflet and is mildly thickened. 7. There is tanh-tb-shhzwygi aortic regurgitation. 8. The mitral valve leaflets are mildly thickened. 9. Mild mitral annular calcification present. 10. Mild mitral regurgitation is present. 11. Moderate tricuspid regurgitation present. 12. There is mild pulmonary hypertension. 13. The right ventricular systolic pressure, as measured by Doppler, is 46.79mmHg. 14. Trace/mild (physiologic) pulmonic regurgitation. 15. The aortic root is dilated measuring 3.9-4.0 cm. 16. There is no pericardial effusion. HOME HEALTH CLINICAL SUPERVISOR: Enedelia Delatorre RDCS
[2020-04-10] MEDS: METOPROLOL TARTRATE 12.5 MG TAB PO SCH ×2 (12:51→21:01)
--- NOTE | 2020-04-10 14:24 | CONS ---
CONSULTATION This is an 84-year-old lady with a known history of paroxysmal atrial fibrillation who sees Dr. Colvin in the outpatient setting. She came into the hospital upon transfer last night from [facility]. She came in with a UTI and elevated troponin. She has no complaints of chest discomfort, but she has a white count of 18,000 and had a positive for UTI, placed on antibiotics and because of elevated white count, I was asked to see her. She has a paroxysmal atrial fibrillation. EKG revealed; however, a sinus mechanism with nonspecific ST-T changes. She is resting comfortably at the time of my evaluation. Denies any chest discomfort. Feels tired but has no discomfort in the chest or shortness of breath. I noted that she is only 60 kg 84 years of age and she is on Xarelto 20 mg for paroxysmal atrial fibrillation. I will reduce this to 15 mg daily. PAST MEDICAL HISTORY: 1. Hypertension. 2. Paroxysmal atrial fibrillation. 3. History of some dementia and she has history of previous CVA also. Details of her CAD are not clear at this time. She sees Dr. Colvin in the outpatient setting and her last the echo that was performed was more than 5 years ago and was thought to be normal at that time. She has no documented evidence of any obstructive CAD. Please refer to the detailed note by the admitting physician. EKG revealed sinus mechanism. She did have some episodes of atrial fibrillation, but she is now in sinus resting comfortably. LABORATORY DATA: Suggests that the troponin is elevated at 0.9 and 0.8. They are both flat and the pattern does not suggest any myocardial injury. The patient appears to be slightly dehydrated with a BUN of 43, creatinine of 0.74. PHYSICAL EXAMINATION: On examination, blood pressure is 130/70, pulse rate is 70. HEENT: Unremarkable. Fundus was not examined by me. NECK: Supple. No JVD. I do not hear a carotid bruit. HEART: Exam reveals S1, S2, regular, short systolic murmur at the base and left sternal border. LUNGS: Clear. ABDOMEN: Soft. LOWER EXTREMITIES: Reveal diminished pulses. CENTRAL NERVOUS SYSTEM: Detailed exam was not performed. IMPRESSION: 1. Elevated troponin, not suggestive of acute myocardial injury. 2. UTI with elevated white count on antibiotics. 3. Paroxysmal atrial fibrillation, now in sinus. 4. Hypertension. RECOMMENDATIONS: I am recommending that we continue the Xarelto at a lower dose of 15 mg daily, check echocardiogram to assess LV function. Resume other medications and hydrate her cautiously. Discussed my thoughts in detail with the patient. Thank you very much for the consult. JAQUELINE / SHANON: [id number] /
--- NOTE | 2020-04-10 16:10 | XR ---
EXAMINATION TYPE: XR Hip Complete RT DATE OF EXAM: 04/10/2020 HISTORY: Status post fall injury with pain. TECHNIQUE: Single AP portable view of right hip is obtained immediately postoperatively. COMPARISON: CT abdomen and pelvis 2018. FINDINGS: Metallic hardware from right hip arthroplasty is seen and remains satisfactory in alignment and position. No periprosthetic fracture. Some right groin vascular calcification is present. IMPRESSION: No acute fracture or dislocation in the right hip.
[2020-04-10] MEDS: ASPIRIN 81 MG PO SCH (16:18)
[2020-04-10] MEDS: RIVAROXABAN 15 MG TAB PO SCH (16:18)
[2020-04-10] MEDS: OXYBUTYNIN CHLORIDE 5 MG TAB PO SCH (21:02)
[2020-04-11] MEDS: SODIUM CHLORIDE 0.9% 1,000 ML IV SCH ×2 (06:29→12:54)
[2020-04-11] MEDS: AMPICILLIN-SULBACTAM 3 GM in SODIUM CHLORIDE 0.9% 100 ML IVPB SCH ×3 (06:31→23:34)
[2020-04-11] MEDS ORDERED: ASPIRIN 81 MG PO SCH (09:00)
[2020-04-11] MEDS: ASPIRIN 81 MG PO SCH (09:14)
[2020-04-11] MEDS: METOPROLOL TARTRATE 12.5 MG TAB PO SCH ×2 (09:14→20:44)
[2020-04-11] MEDS: OXYBUTYNIN CHLORIDE 5 MG TAB PO SCH ×2 (09:14→20:44)
[2020-04-11] MEDS: ATORVASTATIN 20 MG TAB PO SCH (09:14)
[2020-04-11] MEDS: ACETAMINOPHEN TAB 325 MG TAB PO PRN ×2 (09:15→17:11)
[2020-04-11] MEDS: MONTELUKAST 10 MG TAB PO SCH (09:15)
[2020-04-11] MEDS: RIVAROXABAN 15 MG TAB PO SCH (09:15)
--- NOTE | 2020-04-11 11:16 | P.PN ---
Subjective This is a pleasant 84-year-old female past medical history significant for paroxysmal atrial fibrillation, hypertension and dementia. She is seen and examined resting comfortably laying flat in bed in no acute distress. She is confused and yelling out inappropriately. Her hearing aid battery is not working and she is having difficulty communicating. Overall she has no complaints. Blood pressure 156/66 heart rate 79 afebrile maintaining oxygen saturation on room air. Echocardiogram obtained reveals mildly impaired LV systolic function with ejection fraction 45-50%, grade 1 diastolic dysfunction, mid septal hypokinesia, mild to moderate aortic regurgitation, moderate tricuspid regurgitation and mild pulmonary hypertension with an RVSP of 46 mmHg. GENERAL: Well-appearing, well-nourished and in no acute distress. NECK: Supple without JVD or thyromegaly. LUNGS: Breath sounds clear to auscultation bilaterally. Respiration equal and unlabored. No wheezes, rales or rhonchi. HEART: Regular rate and rhythm with short systolic murmur at the base and left sternal border, no rubs or gallops. S1 and S2 heard. EXTREMITIES: Normal range of motion, no edema. No clubbing or cyanosis. Peripheral pulses intact but diminished. ASSESSMENT Elevated troponin of unclear significance, not suggestive of acute myocardial injury Urinary tract infection Paroxysmal atrial fibrillation on long-term anticoagulation currently maintaining sinus mechanism Hypertension PLAN Initiate on atorvastatin 20 mg daily. Continue aspirin, lisinopril, metoprolol and decrease dose of Xarelto. Stable from a cardiac perspective. Ongoing medical management. We will follow along as needed. Nurse Practitioner note has been reviewed, I agree with a documented findings and plan of care. Patient was seen and examined. Objective - Vital Signs Vital signs: Vital Signs Temp 98.1 F 04/11/20 04:00 Pulse 79 04/11/20 08:00 Resp 15 04/11/20 08:00 BP 156/66 04/11/20 08:00 Pulse Ox 97 04/11/20 08:00 Intake & Output 04/10/20 04/11/20 04/11/20 18:59 06:59 18:59 Intake Total 760 280 Balance 760 280 Weight 52 kg Intake: Intake, IV Titration 600 200 Amount Ampicillin-Sulbactam 3 gm 100 In Sodium Chloride 0.9% 100 ml @ 200 mls/hr IVPB Q8H [facility] Rx#:[id number] Sodium Chloride 0.9% 1, 200 000 ml @ 100 mls/hr IV . Q10H [facility] Rx#:[id number] Sodium Chloride 0.9% 1, 500 000 ml @ 130 mls/hr IV . Q7H42M [facility] Rx#:[id number] Oral 160 80 Other: Voiding Method Bedside Commode Bedside Commode # Voids 2 1 # Bowel Movements 1 - Labs CBC & Chem 7: 04/09/20 22:34 04/09/20 22:34
--- NOTE | 2020-04-11 12:32 | P.HPIM ---
History of Present Illness H&P Date: 04/10/20 Chief Complaint: Chest pain History of presenting complaint: Patient is an 84-year-old female with a PMH of paroxysmal A. fib (on Xarelto), hypertension, chronic urinary incontinence, CAD status post MIs in the past, and history of CVA . Patient's was transferred from [facility]. Patient has nonspecific symptoms. Questionable chest discomfort. Had elevated white count of 18,000. Found over UTI. Also elevated troponin. Therefore sent down here. Patient of the best of historians. Slight cough. Tired. No obvious fever and chills. Patient was being treated as an outpatient with UTI with Bactrim. Apparently was not working. Review of systems: GEN.: Tired EYES: None HEENT: None NECK: None RESPIRATORY: Some cough CARDIOVASCULAR: [Questionable chest pain GASTROINTESTINAL: None GENITOURINARY: None MUSCULOSKELETAL: Joint pains LYMPHATICS: None HEMATOLOGICAL: None PSYCHIATRY: Forgetful NEUROLOGICAL: None Past medical history to include: Hypertension, paroxysmal atrial fibrillation, cognitive impairment, urinary incontinence, prior [place], CVA Social history: Lives in a senior apartment complex. 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 Objective by neighbors. Has a Rollator. Physical examination: VITAL SIGNS: 97.7, 72, 20, 131/69, 98% room air GENERAL: BMI 19.5, sitting up bed, awake tired. EYES: Pupils equal. Conjunctiva normal. HEENT: External appearance of nose and ears normal, oral cavity grossly normal. NECK: JVD not raised; masses not palpable. HEART: First and second heart sounds are normal; no edema. LUNGS:Respiratory rate increased, decreased breath sound. ABDOMEN: Soft, nontender, liver spleen not palpable, no masses palpable. PSYCH: Slow to answer questions token answer some simple questions MUSCULAR skeletal: Evidence of OA. NEUROLOGICAL: Cranial nerves grossly intact; no facial asymmetry, power and sensation grossly intact. LYMPHATICS: No lymph nodes palpable in the axilla and neck INVESTIGATIONS, reviewed in the clinical context: White count 18.9 hemoglobin 10.3 platelets 233 potassium 3.8 creatinine 0.74, bun 43 bicarb 17 EKG tracing revealed nonspecific ST segment changes. 2-D echocardiogram-EF 45-50%, moderate tricuspid regurgitation Troponin I 0.957, 0.809 LDL 40 Assessment: -Possible non-Q-wave [place]. -Moderate cognitive impairment -Essential hypertension -Coronary artery disease with prior MIs -Paroxysmal atrial fibrillation chronically on Xarelto -Chronic urinary stress incontinence -Moderate tricuspid regurgitation -Acute UTI with cystitis having failed outpatient treatment with Bactrim. -Chronic gait dysfunction uses a Rollator Plan: Cardiology was consulted. Home medications resumed. Patient put on IV Unasyn. Past Medical History Past Medical History: CVA/TIA, Hypertension, Myocardial Infarction ([place]) Last Myocardial Infarction Date:: 2004 History of Any Multi-Drug Resistant Organisms: None Reported Past Surgical History: Appendectomy, Cholecystectomy, Hysterectomy, Joint Replacement, Orthopedic Surgery Additional Past Surgical History / Comment(s): cataract, rt hip replacement, lt knee replacement Past Anesthesia/Blood Transfusion Reactions: No Reported Reaction Past Psychological History: No Psychological Hx Reported Smoking Status: Unknown if ever smoked Past Alcohol Use History: None Reported Past Drug Use History: None Reported - Past Family History Mother Family Medical History: Congestive Heart Failure (CHF), Deep Vein Thrombosis (DVT), Osteoarthritis (OA) Father Family Medical History: Coronary Artery Disease (CAD), Myocardial Infarction ([place]), Prostate Disorder Medications and Allergies Home Medications Medication Instructions Recorded Confirmed Type Metoprolol Tartrate [Lopressor] 12.5 mg PO BID 10/13/19 04/09/20 History Oxybutynin Chloride 5 mg PO BID 10/13/19 04/09/20 History Rivaroxaban [Xarelto] 20 mg PO DAILY 10/13/19 04/09/20 History lisinopriL [Zestril] 2.5 mg PO DAILY 10/13/19 04/09/20 History Montelukast [Singulair] 10 mg PO DAILY 04/09/20 04/09/20 History Sulfamethox-Tmp 800-160Mg [Bactrim 1 tab PO BID 04/09/20 04/09/20 History DS 800-160 mg] Allergies Allergy/AdvReac Type Severity Reaction Status Date / Time cephalexin [From Keflex] Allergy Unknown Verified 04/09/20 22:17 ciprofloxacin [From Cipro] Allergy Unknown Verified 04/09/20 22:17 iodine Allergy Unknown Verified 04/09/20 22:17 Physical Exam Vitals: Vital Signs Temp Pulse Pulse Resp BP BP Pulse Ox 04/10/20 08:00 97.9 F 74 17 134/63 98 04/10/20 04:00 97.6 F 94 18 140/60 94 L 04/10/20 00:00 98.1 F 77 19 140/65 95 04/09/20 22:30 97.9 F 80 18 139/61 99 04/09/20 22:00 71 18 128/66 100 04/09/20 21:00 97.7 F 72 20 131/69 98 Intake and Output 04/09/20 04/10/20 04/10/20 22:59 06:59 14:59 Other: # Voids 1 2 Weight 48.081 kg 50 kg Results CBC & Chem 7: 04/09/20 22:34 04/09/20 22:34 Labs: Abnormal Lab Results - Last 24 Hours (Table) 04/09/20 04/09/20 04/09/20 Range/Units 22:34 22:34 22:34 WBC 18.9 H (3.8-10.6) k/uL RBC 3.40 L (3.80-5.40) m/uL Hgb 10.3 L (11.4-16.0) gm/dL Hct 32.2 L (34.0-46.0) % Sodium 135 L (137-145) mmol/L Chloride 110 H (98-107) mmol/L Carbon Dioxide 17 L (22-30) mmol/L BUN 43 H (7-17) mg/dL AST 38 H (14-36) U/L Troponin I 0.957 H* (0.000-0.034) ng/mL Total Protein 6.0 L (6.3-8.2) g/dL Albumin 3.3 L (3.5-5.0) g/dL HDL Cholesterol (40-60) mg/dL 04/10/20 04/10/20 Range/Units 00:27 00:27 WBC (3.8-10.6) k/uL RBC (3.80-5.40) m/uL Hgb (11.4-16.0) gm/dL Hct (34.0-46.0) % Sodium (137-145) mmol/L Chloride (98-107) mmol/L Carbon Dioxide (22-30) mmol/L BUN (7-17) mg/dL AST (14-36) U/L Troponin I 0.809 H* (0.000-0.034) ng/mL Total Protein (6.3-8.2) g/dL Albumin (3.5-5.0) g/dL HDL Cholesterol 23 L (40-60) mg/dL Thrombosis Risk Factor Assmnt - Choose All That Apply Each Risk Factor Represents 3 Points: Age 75 years or older Thrombosis Risk Factor Assessment Total Risk Factor Score: 3 Thrombosis Risk Factor Assessment Level: Moderate Risk
[2020-04-11] MEDS ORDERED: RIVAROXABAN 20 MG TAB PO SCH (18:00)
--- NOTE | 2020-04-11 19:22 | P.PN ---
Progress Note - Text Progress Note Date: 04/11/20 Chief Complaint: Chest pain History of presenting complaint: Patient is an 84-year-old female with a PMH of paroxysmal A. fib (on Xarelto), hypertension, chronic urinary incontinence, CAD status post MIs in the past, and history of CVA . Patient's was transferred from [facility]. Patient has nonspecific symptoms. Questionable chest discomfort. Had elevated white count of 18,000. Positive for UTI. Also elevated troponin. Therefore sent down here . Not a good historians. Slight cough. Tired. No obvious fever and chills. Patient was being treated as an outpatient with UTI with Bactrim. Apparently was not working. Admitted with acute non-Q wave NC. Acute UTI with cystitis. Started IV Unasyn. Seen by cardiology. Medication adjusted. Not any further intervention. Today-eating about 55-50%. Feels a bit better. A bit tired. No fever Review of systems: Was done for constitutional, cardiovascular, GI, pulmonary. relevant finding as above Active Medications Acetaminophen (Acetaminophen Tab 325 Mg Tab) 650 mg PO Q6HR PRN PRN Reason: Pain Last Admin: 04/11/20 17:11 Dose: 650 mg Documented by: Aspirin (Aspirin 81 Mg) 81 mg PO DAILY [facility] Last Admin: 04/11/20 09:14 Dose: 81 mg Documented by: Atorvastatin Calcium (Atorvastatin 20 Mg Tab) 20 mg PO DAILY [facility] Last Admin: 04/11/20 09:14 Dose: 20 mg Documented by: Sodium Chloride (Saline 0.9%) 1,000 mls @ 100 mls/hr IV .Q10H [facility] Last Admin: 04/11/20 12:54 Dose: 100 mls/hr Documented by: Ampicillin Sodium/Sulbactam (Sodium 3 gm/ Sodium Chloride) 100 mls @ 200 mls/hr IVPB Q8H [facility] Last Admin: 04/11/20 12:54 Dose: 200 mls/hr Documented by: Lisinopril (Lisinopril 2.5 Mg Tab) 2.5 mg PO DAILY [facility] Last Admin: 04/11/20 09:14 Dose: 2.5 mg Documented by: Metoprolol Tartrate (Metoprolol Tartrate 12.5 Mg Tab) 12.5 mg PO BID [facility] Last Admin: 04/11/20 09:14 Dose: 12.5 mg Documented by: Montelukast Sodium (Montelukast 10 Mg Tab) 10 mg PO DAILY [facility] Last Admin: 04/11/20 09:15 Dose: 10 mg Documented by: Nitroglycerin (Nitroglycerin Sl Tabs 0.4 Mg Tab) 0.4 mg SUBLINGUAL Q5M PRN PRN Reason: Chest Pain Oxybutynin Chloride (Oxybutynin Chloride 5 Mg Tab) 5 mg PO BID [facility] Last Admin: 04/11/20 09:14 Dose: 5 mg Documented by: Rivaroxaban (Rivaroxaban 15 Mg Tab) 15 mg PO DAILY [facility] Last Admin: 04/11/20 09:15 Dose: 15 mg Documented by: Physical examination: VITAL SIGNS: 98.8, 64, 16, 104/51, 97% room air GENERAL: Laying in bed, awake. EYES: Pupils equal. Conjunctiva normal. NECK: JVD not raised; masses not palpable. HEART: First and second heart sounds are normal; no edema. LUNGS:Respiratory rate increased, decreased breath sound. ABDOMEN: Soft, nontender, liver spleen not palpable, no masses palpable. PSYCH: Answering simple questions MUSCULAR skeletal: Evidence of OA. INVESTIGATIONS, reviewed in the clinical context: White count 18.9 hemoglobin 10.3 platelets 233 potassium 3.8 creatinine 0.74, bun 43 bicarb 17 EKG tracing revealed nonspecific ST segment changes. 2-D echocardiogram-EF 45-50%, moderate tricuspid regurgitation Troponin I 0.957, 0.809 LDL 40 Assessment: -Possible non-Q-wave NC. -Moderate cognitive impairment -Essential hypertension -Coronary artery disease with prior MIs -Paroxysmal atrial fibrillation chronically on Xarelto -Chronic urinary stress incontinence -Moderate tricuspid regurgitation -Acute UTI with cystitis having failed outpatient treatment with Bactrim. -Chronic gait dysfunction uses a Rollator -Disposition-S MCF Plan: Continue current medications including IV Unasyn. Repeat labs in the morning.
[2020-04-12] MEDS: ACETAMINOPHEN TAB 325 MG TAB PO PRN ×3 (00:33→22:05)
[2020-04-12] MEDS: AMPICILLIN-SULBACTAM 3 GM in SODIUM CHLORIDE 0.9% 100 ML IVPB SCH ×3 (06:29→22:07)
[2020-04-12] MEDS ORDERED: RIVAROXABAN 15 MG TAB PO SCH (09:00)
[2020-04-12] MEDS: OXYBUTYNIN CHLORIDE 5 MG TAB PO SCH ×2 (09:17→22:05)
[2020-04-12] MEDS: ATORVASTATIN 20 MG TAB PO SCH (09:17)
[2020-04-12] MEDS: MONTELUKAST 10 MG TAB PO SCH (09:17)
[2020-04-12] MEDS: RIVAROXABAN 15 MG TAB PO SCH (09:17)
[2020-04-12] MEDS: METOPROLOL TARTRATE 12.5 MG TAB PO SCH ×2 (09:17→22:05)
[2020-04-12] MEDS: ASPIRIN 81 MG PO SCH (09:17)
[2020-04-12] MEDS ORDERED: CALCIUM CARBONATE 500 MG CHEWABLE PO PRN (09:23)
[2020-04-12 09:36] LABS: African American GFR (CKD) >90 (>60 ml/min/1.73 sqM); Anion Gap 5 mmol/L; Blood Urea Nitrogen 18 mg/dL (7-17); Calcium 8.9 mg/dL (8.4-10.2); Carbon Dioxide 18 mmol/L (22-30); Chloride 116 mmol/L (98-107); Glucose 106 mg/dL (74-99); HCT 29.7 % (34.0-46.0); HGB 9.1 gm/dL (11.4-16.0); Hypochromasia Marked; MCH 29.8 pg (25.0-35.0); MCHC 30.7 g/dL (31.0-37.0); Mean Platelet Volume 7.9; Non-African American GFR(CKD) 84 (>60 ml/min/1.73 sqM); Platelet Count 205 k/uL (150-450); Potassium 3.9 mmol/L (3.5-5.1); RBC 3.06 m/uL (3.80-5.40); RDW 14.5 % (11.5-15.5); Sodium 139 mmol/L (137-145); WBC 16.5 k/uL (3.8-10.6)
--- NOTE | 2020-04-12 11:19 | CDI ---
Documentation Clarification Form Date: 04/12/2020 10:55:35 AM From: Zoraida Bermudez RN CCDS Admit Date: 04/10/2020 12:57:00 PM Patient Name: Margaret Carrera Visit Number: [id number] Discharge Date: ATTENTION: The Clinical Documentation Specialists (CDI) and [facility] Coding Staff appreciate your assistance in clarifying documentation. Please respond to the clarification below the line at the bottom and electronically sign. The CDI & [facility] Coding staff will review the response and follow-up if needed. Please note: Queries are made part of the Legal Health Record. If you have any questions, please contact the author of this message via ITS. Dr. Sohail Tyler Elevated troponin, not suggestive of acute myocardial injury Documented in the Cardiology consult 04/10 and progress note 04/11 Patient history/risk factors: 84-year-old female presents to the ED from [facility] for questionable chest discomfort, elevated white count and elevated troponin. Medical History: CVA, HTN and Last RI 2004. Admitted with UTI and Non Q wave RI Clinical indicators: 04/10/20 EKG: Sinus rhythm with 1st degree AV block with premature supraventricular complexes. Low voltage QRS, Septal infarct, age undetermined. Abnormal ECG 04/09 Troponin 0.957, and 0.809 04/10 ECHO: Overall left ventricular systolic function is mildly impaired with, an EF between 4-50% Treatment:04/09 0.9ns 500cc/bolus x1, flowed by 130cc/hr; 04/09 Ampicilllin Ivpb Q 8 hrs; 04/10 Lisinopril daily; Lopressor BID; Aspirin Daily; 04/10 Xarelto daily; 04/11 Atorvastatin daily In your professional opinion, can you please specify the diagnosis, if any, indicated by the above clinical indicators and treatment? Non-Q Wave RI Type 2 RI secondary to please specify RI Ruled Out Other, please specify Unable to determine (Last Revision: March 2017) See discharge summary-no further change in documentation MTDD
--- NOTE | 2020-04-13 00:26 | P.PN ---
Progress Note - Text Progress Note Date: 04/12/20 Chief Complaint: Chest pain History of presenting complaint: Patient is an 84-year-old female with a PMH of paroxysmal A. fib (on Xarelto), hypertension, chronic urinary incontinence, CAD status post MIs in the past, and history of CVA . Patient's was transferred from [facility]. Patient has nonspecific symptoms. Questionable chest discomfort. Had elevated white count of 18,000. Positive for UTI. Also elevated troponin. Therefore sent down here . Not a good historians. Slight cough. Tired. No obvious fever and chills. Patient was being treated as an outpatient with UTI with Bactrim. Apparently was not working. Admitted with acute non-Q wave NJ. Acute UTI with cystitis. Started IV Unasyn. Seen by cardiology. Medication adjusted. Not any further intervention. Today-diet eating some. No new issues. On IV Unasyn. Review of systems: Was done for constitutional, cardiovascular, GI, pulmonary. relevant finding as above Active Medications Acetaminophen (Acetaminophen Tab 325 Mg Tab) 650 mg PO Q6HR PRN PRN Reason: Pain Last Admin: 04/12/20 22:05 Dose: 650 mg Documented by: Aspirin (Aspirin 81 Mg) 81 mg PO DAILY [facility] Last Admin: 04/12/20 09:17 Dose: 81 mg Documented by: Atorvastatin Calcium (Atorvastatin 20 Mg Tab) 20 mg PO DAILY [facility] Last Admin: 04/12/20 09:17 Dose: 20 mg Documented by: Calcium Carbonate/Glycine (Calcium Carbonate 500 Mg Chewable) 500 mg PO TID PRN PRN Reason: Heartburn Last Admin: 04/12/20 13:36 Dose: 500 mg Documented by: Ampicillin Sodium/Sulbactam (Sodium 3 gm/ Sodium Chloride) 100 mls @ 200 mls/hr IVPB Q8H [facility] Last Admin: 04/12/20 22:07 Dose: 200 mls/hr Documented by: Lisinopril (Lisinopril 2.5 Mg Tab) 2.5 mg PO DAILY [facility] Last Admin: 04/12/20 09:17 Dose: 2.5 mg Documented by: Metoprolol Tartrate (Metoprolol Tartrate 12.5 Mg Tab) 12.5 mg PO BID [facility] Last Admin: 04/12/20 22:05 Dose: 12.5 mg Documented by: Montelukast Sodium (Montelukast 10 Mg Tab) 10 mg PO DAILY [facility] Last Admin: 04/12/20 09:17 Dose: 10 mg Documented by: Nitroglycerin (Nitroglycerin Sl Tabs 0.4 Mg Tab) 0.4 mg SUBLINGUAL Q5M PRN PRN Reason: Chest Pain Oxybutynin Chloride (Oxybutynin Chloride 5 Mg Tab) 5 mg PO BID [facility] Last Admin: 04/12/20 22:05 Dose: 5 mg Documented by: Rivaroxaban (Rivaroxaban 15 Mg Tab) 15 mg PO DAILY [facility] Last Admin: 04/12/20 09:17 Dose: 15 mg Documented by: Physical examination: VITAL SIGNS: 37.6, 68, 20, 146/64, 97% room air GENERAL: Laying in bed, comfortable EYES: Pupils equal. Conjunctiva normal. NECK: JVD not raised; masses not palpable. HEART: First and second heart sounds are normal; no edema. LUNGS:Respiratory rate increased, decreased breath sound. ABDOMEN: Soft, nontender, liver spleen not palpable, no masses palpable. PSYCH: Answering simple questions MUSCULAR skeletal: Evidence of OA. INVESTIGATIONS, reviewed in the clinical context: White count 6.5 hemoglobin 9.1 potassium 3.9 creatinine 0.61 COVID 19 P/Cr-not detected Admission testing White count 18.9 hemoglobin 10.3 platelets 233 potassium 3.8 creatinine 0.74, bun 43 bicarb 17 EKG tracing revealed nonspecific ST segment changes. 2-D echocardiogram-EF 45-50%, moderate tricuspid regurgitation Troponin I 0.957, 0.809 LDL 40 Assessment: -Possible non-Q-wave NJ. -Moderate cognitive impairment -Essential hypertension -Coronary artery disease with prior MIs -Paroxysmal atrial fibrillation chronically on Xarelto -Chronic urinary stress incontinence -Moderate tricuspid regurgitation -Acute UTI with cystitis having failed outpatient treatment with Bactrim. -Chronic gait dysfunction uses a Rollator -Disposition-S MCF Plan: Continue IV Unasyn. Repeat UA and culture ordered. Repeat labs in the morning. Prognosis guarded. Hopefully discharge in 24 hours.
[2020-04-13] MEDS: AMPICILLIN-SULBACTAM 3 GM in SODIUM CHLORIDE 0.9% 100 ML IVPB SCH ×2 (06:30→14:15)
[2020-04-13] MEDS: ACETAMINOPHEN TAB 325 MG TAB PO PRN ×2 (06:30→13:14)
[2020-04-13 08:15] VITALS: RESP 16
[2020-04-13] MEDS: MONTELUKAST 10 MG TAB PO SCH (08:29)
[2020-04-13] MEDS: ASPIRIN 81 MG PO SCH (08:29)
[2020-04-13] MEDS: ATORVASTATIN 20 MG TAB PO SCH (08:29)
[2020-04-13] MEDS: METOPROLOL TARTRATE 12.5 MG TAB PO SCH (08:29)
[2020-04-13] MEDS: RIVAROXABAN 15 MG TAB PO SCH (08:29)
[2020-04-13] MEDS: OXYBUTYNIN CHLORIDE 5 MG TAB PO SCH (08:31)
[2020-04-13 11:51] VITALS: BP 137/69; PULSE 66; TEMP 98
[2020-04-13 11:59] LABS: Appearance,Urine Turbid (Clear); Bacteria,Urine Occasional /hpf; Bilirubin,Urine Negative (Negative); Blood,Urine Large (Negative); Color,Urine Light Red; Glucose,Urine (UA) Negative (Negative); Ketones,Urine Negative (Negative); Leukocyte Esterase,Urine Large (Negative); Mucus,Urine Occasional /hpf; Nitrite,Urine Negative (Negative); Protein,Urine 1+ (Negative); RBC,Urine >182 /hpf (0-5); Squamous Epithelial Cell,Urine 10 /hpf (0-4); Urobilinogen,Urine <2.0 mg/dL (<2.0); WBC,Urine >182 /hpf (0-5)
--- NOTE | 2020-04-13 14:42 | P.DS ---
Providers Date of admission: 04/10/20 12:57 Expected date of discharge: 04/13/20 Attending physician: Sohail Tyler Consults: 04/09/20 20:57 Consult Physician Urgent Consulting Provider: Daily Shepherd Consult Reason/Comments: elevTrop Do you want consulting provider notified?: Yes 04/10/20 17:24 Consult Physician Routine Consulting Provider: Caty Ponce Consult Reason/Comments: UTI Do you want consulting provider notified?: Yes Primary care physician: [facility] Course: Chief Complaint: Chest pain History of presenting complaint: Patient is an 84-year-old female with a PMH of paroxysmal A. fib (on Xarelto), hypertension, chronic urinary incontinence, CAD status post MIs in the past, and history of CVA . Patient's was transferred from [facility]. Patient has nonspecific symptoms. Questionable chest discomfort. Had elevated white count of 18,000. Positive for UTI. Also elevated troponin. Therefore sent down here. Not a good historians. Slight cough. Tired. No obvious fever and chills. Patient was being treated as an outpatient with UTI with Bactrim. Apparently was not working. Admitted with possible acute non-Q wave MO. Acute UTI with cystitis. Started IV Unasyn. Seen by cardiology. Medication adjusted. Not any further intervention. Medication adjusted by cardiology. Today-stable. No chest pain. Patient responding to current antibiotic. Switched to by mouth Augmentin. Consultation: Dr. REECE Chavez from cardiology Physical examination: VITAL SIGNS: 98, 66, 16, 137/69, 95% room air GENERAL: Sitting up in a chair, comfortable EYES: Pupils equal. Conjunctiva normal. NECK: JVD not raised; masses not palpable. HEART: First and second heart sounds are normal; no edema. LUNGS:Respiratory rate increased, decreased breath sound. ABDOMEN: Soft, nontender, liver spleen not palpable, no masses palpable. PSYCH: Answering simple questions MUSCULAR skeletal: Evidence of OA. INVESTIGATIONS, reviewed in the clinical context: White count 6.5 hemoglobin 9.1 potassium 3.9 creatinine 0.61 COVID 19 P/Cr-not detected Admission testing White count 18.9 hemoglobin 10.3 platelets 233 potassium 3.8 creatinine 0.74, bun 43 bicarb 17 EKG tracing revealed nonspecific ST segment changes. 2-D echocardiogram-EF 45-50%, moderate tricuspid regurgitation Troponin I 0.957, 0.809 LDL 40 Assessment: -Possible non-Q-wave MO. -Moderate cognitive impairment -Essential hypertension -Coronary artery disease with prior MIs -Paroxysmal atrial fibrillation chronically on Xarelto -Chronic urinary stress incontinence -Moderate tricuspid regurgitation -Acute UTI with cystitis having failed outpatient treatment with Bactrim. -Chronic gait dysfunction uses a Rollator Disposition: [facility] Patient Condition at Discharge: Stable Plan - Discharge Summary Discharge Rx Participant: No New Discharge Prescriptions: New Aspirin 81 mg PO DAILY chew Amoxicillin/Potassium Clav [Augmentin 875-125 Tablet] 1 tab PO Q12HR #10 tab Atorvastatin [Lipitor] 20 mg PO DAILY tab Calcium Carbonate [Tums] 500 mg PO TID PRN chew PRN Reason: Heartburn Acetaminophen Tab [Tylenol] 650 mg PO Q6HR PRN tab PRN Reason: Pain Rivaroxaban [Xarelto] 15 mg PO DAILY tab Continue Oxybutynin Chloride 5 mg PO BID Metoprolol Tartrate [Lopressor] 12.5 mg PO BID lisinopriL [Zestril] 2.5 mg PO DAILY Montelukast [Singulair] 10 mg PO DAILY Discontinued Rivaroxaban [Xarelto] 20 mg PO DAILY Sulfamethox-Tmp 800-160Mg [Bactrim DS 800-160 mg] 1 tab PO BID Discharge Medication List Metoprolol Tartrate [Lopressor] 12.5 mg PO BID 10/13/19 [History] Oxybutynin Chloride 5 mg PO BID 10/13/19 [History] lisinopriL [Zestril] 2.5 mg PO DAILY 10/13/19 [History] Montelukast [Singulair] 10 mg PO DAILY 04/09/20 [History] Acetaminophen Tab [Tylenol] 650 mg PO Q6HR PRN tab 04/13/20 [Rx] Amoxicillin/Potassium Clav [Augmentin 875-125 Tablet] 1 tab PO Q12HR #10 tab 04/13/20 [Rx] Aspirin 81 mg PO DAILY chew 04/13/20 [Rx] Atorvastatin [Lipitor] 20 mg PO DAILY tab 04/13/20 [Rx] Calcium Carbonate [Tums] 500 mg PO TID PRN chew 04/13/20 [Rx] Rivaroxaban [Xarelto] 15 mg PO DAILY tab 04/13/20 [Rx] Follow up Appointment(s)/Referral(s): Sung Mejía MD [Primary Care Provider] - 1-2 days Gustavo Colvin MD [STAFF PHYSICIAN] - 2 Weeks
== END 2020-04-13 16:28 | DRG 281 ==
LOC: EC 20:55 → 3SCARD 20:59 → OBSVTOIN 04-10 12:57
PROVIDERS: ADMIT Hospitalist; ATTEND Hospitalist
DX: I21.4 Non-ST elevation (NSTEMI) myocardial infarction (principal); N30.00 Acute cystitis without hematuria; I25.10 Atherosclerotic heart disease of native coronary artery without angina pectoris; I10 Essential (primary) hypertension; I27.20 Pulmonary hypertension, unspecified; R26.9 Unspecified abnormalities of gait and mobility; R41.89 Other symptoms and signs involving cognitive functions and awareness; Z20.828 Contact with and (suspected) exposure to other viral communicable diseases; Z96.641 Presence of right artificial hip joint; Z96.652 Presence of left artificial knee joint; I48.0 Paroxysmal atrial fibrillation; I07.1 Rheumatic tricuspid insufficiency; I35.1 Nonrheumatic aortic (valve) insufficiency; F03.90 Unspecified dementia, unspecified severity, without behavioral disturbance, psychotic disturbance, mood disturbance, and anxiety; E86.0 Dehydration; N39.3 Stress incontinence (female) (male); Z98.890 Other specified postprocedural states; Z79.01 Long term (current) use of anticoagulants; Z87.440 Personal history of urinary (tract) infections; Z79.899 Other long term (current) drug therapy; Z88.1 Allergy status to other antibiotic agents; Z91.041 Radiographic dye allergy status; I25.2 Old myocardial infarction; Z82.49 Family history of ischemic heart disease and other diseases of the circulatory system; Z86.73 Personal history of transient ischemic attack (TIA), and cerebral infarction without residual deficits; Z90.49 Acquired absence of other specified parts of digestive tract; Z98.49 Cataract extraction status, unspecified eye; Z82.61 Family history of arthritis; Z90.710 Acquired absence of both cervix and uterus
CPT/HCPCS: 73502; 80048; 80053; 80061; 81001; 83735; 84484; 85027; 87086; 87635; 93306; 96365; 99284

== ENCOUNTER 2020-07-03 01:11 | Inpatient (IN) | payer MEDICARE, BC ==
[2020-07-03] MEDS ORDERED: NALOXONE 0.4 MG/ML 1 ML VIAL IV PRN (01:18)
[2020-07-03] MEDS ORDERED: PIPERACILLIN-TAZOBACTAM 3.375 GM in SODIUM CHLORIDE 0.9% 100 ML IVPB STA (01:18)
[2020-07-03] MEDS ORDERED: DILTIAZEM 5 MG/ML 5 ML VIAL IVP STA (01:18)
[2020-07-03] MEDS ORDERED: LORazepam 2 MG/ML INJ IV PRN (01:18)
[2020-07-03] MEDS ORDERED: MORPHINE SULFATE 4 MG/ML SYRINGE IV PRN (01:18)
[2020-07-03] MEDS ORDERED: ONDANSETRON 4 MG/2 ML VIAL IVP STA (01:18)
--- NOTE | 2020-07-03 01:24 | ED ---
Recheck HPI - General Stated Complaint: Sepsis, AFib Time Seen by Provider: 07/03/20 01:16 Source: RN notes reviewed, old records reviewed Mode of arrival: EMS Limitations: altered mental status - History of Present Illness Initial Comments: This is an 84-year-old female DF for evaluation. Patient presents today for evaluation regards to recheck of abnormal symptoms. Patient was transfer for UTI possible sepsis or tract infections as well as atrial fibrillation with RVR. Patient secondary to altered mental status is unable to give complaint. Patient presents by EMS history obtained from EMS and patient's chart MD Complaint: abnormal lab, other (UTI in A. fib with RVR) -: unknown Returns Today for: Called Because of Abnormal Lab/Test Symptoms Since Prior Visit: no new symptoms Context: planned re-check Associated Symptoms: none Treatments Prior to Arrival: Given Antibiotics on, Given Pain Meds on - Related Data Home Medications Medication Instructions Recorded Confirmed Metoprolol Tartrate [Lopressor] 12.5 mg PO BID 10/13/19 04/09/20 Oxybutynin Chloride 5 mg PO BID 10/13/19 04/09/20 lisinopriL [Zestril] 2.5 mg PO DAILY 10/13/19 04/09/20 Montelukast [Singulair] 10 mg PO DAILY 04/09/20 04/09/20 Previous Rx's Medication Instructions Recorded Acetaminophen Tab [Tylenol] 650 mg PO Q6HR PRN tab 04/13/20 Amoxicillin/Potassium Clav 1 tab PO Q12HR #10 tab 04/13/20 [Augmentin 875-125 Tablet] Aspirin 81 mg PO DAILY chew 04/13/20 Atorvastatin [Lipitor] 20 mg PO DAILY tab 04/13/20 Calcium Carbonate [Tums] 500 mg PO TID PRN chew 04/13/20 Rivaroxaban [Xarelto] 15 mg PO DAILY tab 04/13/20 Allergies Allergy/AdvReac Type Severity Reaction Status Date / Time cephalexin [From Keflex] Allergy Unknown Verified 04/09/20 22:17 ciprofloxacin [From Cipro] Allergy Unknown Verified 04/09/20 22:17 iodine Allergy Unknown Verified 04/09/20 22:17 Review of Systems ROS Statement: Those systems with pertinent positive or pertinent negative responses have been documented in the HPI. ROS Other: All systems not noted in ROS Statement are negative. Past Medical History Past Medical History: CVA/TIA, Hypertension, Myocardial Infarction (ID) Last Myocardial Infarction Date:: 2004 History of Any Multi-Drug Resistant Organisms: None Reported Past Surgical History: Appendectomy, Cholecystectomy, Hysterectomy, Joint Replacement, Orthopedic Surgery Additional Past Surgical History / Comment(s): cataract, rt hip replacement, lt knee replacement Past Anesthesia/Blood Transfusion Reactions: No Reported Reaction Past Psychological History: No Psychological Hx Reported Smoking Status: Unknown if ever smoked Past Alcohol Use History: None Reported Past Drug Use History: None Reported - Past Family History Mother Family Medical History: Congestive Heart Failure (CHF), Deep Vein Thrombosis (DVT), Osteoarthritis (OA) Father Family Medical History: Coronary Artery Disease (CAD), Myocardial Infarction (ID), Prostate Disorder General Exam General appearance: alert, in no apparent distress Head exam: Present: atraumatic, normocephalic, normal inspection Eye exam: Present: normal appearance, PERRL, EOMI. Absent: scleral icterus, conjunctival injection, periorbital swelling ENT exam: Present: normal exam, mucous membranes moist Neck exam: Present: normal inspection. Absent: tenderness, meningismus, l ymphadenopathy Respiratory exam: Present: normal lung sounds bilaterally. Absent: respiratory distress, wheezes, rales, rhonchi, stridor Cardiovascular Exam: Present: regular rate, normal rhythm, normal heart sounds. Absent: systolic murmur, diastolic murmur, rubs, gallop, clicks GI/Abdominal exam: Present: soft, normal bowel sounds. Absent: distended, tenderness, guarding, rebound, rigid Extremities exam: Present: normal inspection, full ROM, normal capillary refill. Absent: tenderness, pedal edema, joint swelling, calf tenderness Back exam: Present: normal inspection Neurological exam: Present: alert, oriented X3, CN II-XII intact Psychiatric exam: Present: normal affect, normal mood Skin exam: Present: warm, dry, intact, normal color. Absent: rash Course - Reevaluation(s) Reevaluation #1: 07/03/20 01:23 Medical record is reviewed Reevaluation #2: 07/03/20 01:23 Transfer paperwork is reviewed and I did speak with transferring physician Reevaluation #3: 07/03/20 01:23 Patient is unable to provide any history or up-to-date - Consultations Consultation #1: Spoke with Dr. Jayson agrees to admit this patient Medical Decision Making - Medical Decision Making 84 female DF for evaluation patient is have been transfer for UTI possibility of sepsis A. fib with RVR. Patient be admitted for rate control and IV antibiotics Disposition Clinical Impression: Atrial fibrillation, Urinary tract infection, Tachycardia, Dementia, Generalized weakness Disposition: ADMITTED IP TO THIS HOSP Condition: Fair Is patient prescribed a controlled substance at d/c from ED?: No Referrals: Sung Mejía MD [Primary Care Provider] - 1-2 days
[2020-07-03] MEDS ORDERED: SODIUM CHLORIDE 0.9% 1,000 ML IV STA (01:51)
[2020-07-03] MEDS ORDERED: SODIUM CHLORIDE 0.9% 500 ML 500 ML IV STA (01:51)
[2020-07-03] MEDS: SODIUM CHLORIDE 0.9% 1,000 ML IV SCH ×3 (01:56→19:34)
[2020-07-03] MEDS: PIPERACILLIN-TAZOBACTAM 3.375 GM in SODIUM CHLORIDE 0.9% 100 ML IVPB SCH ×2 (09:51→18:30)
[2020-07-03] MEDS ORDERED: lisinopriL 10 MG TAB PO SCH (10:00)
[2020-07-03] MEDS: RIVAROXABAN 15 MG TAB PO SCH (11:47)
[2020-07-03] MEDS: ATORVASTATIN 20 MG TAB PO SCH (11:58)
[2020-07-03] MEDS: METOPROLOL TARTRATE 12.5 MG TAB PO SCH ×2 (11:59→19:34)
--- NOTE | 2020-07-03 13:43 | P.CRDCN ---
History of Present Illness Consult date: 07/03/20 History of present illness: CHIEF COMPLAINT: Atrial fibrillation with RVR HISTORY OF PRESENT ILLNESS: This is a 84-year-old female with a past medical history significant for hypertension, CVA, and paroxysmal atrial fibrillation. Patient follows in the office with Dr. Colvin. We have been asked to see the patient in consultation for A. fib with RVR. Patient was transferred from [facility] secondary to UTI, sepsis, and A. fib with RVR. Patient was given IV Cardizem bolus in the emergency room. At the time of examination this morning the patient is in sinus mechanism with a heart rate in the 80s. Patient had an echocardiogram completed in March 2020 revealing ejection fraction 45- 50%, [id number] aortic regurgitation, mild mitral regurgitation, moderate tricuspid regurgitation and mild pulmonary hypertension. She is hypotensive this morning with a blood pressure of 87/48. DIAGNOSTICS: EKG reveals A. fib with RVR Laboratory data: No labs available at the time of dictation Current home cardiac medications include Xarelto 15 mg daily, metoprolol 12.5 mg twice a day, lisinopril 10 g daily, Lipitor 20 mg daily, and aspirin 81 mg daily REVIEW OF SYSTEMS: Unable to obtain thorough review of systems secondary to lethargy PHYSICAL EXAM: VITAL SIGNS: Reviewed. GENERAL: Well-developed in no acute distress. HEENT: Head is normocephalic. Pupils are equal, round. Sclerae anicteric. Mucous membranes of the mouth are moist. Neck supple. No JVD or thyromegaly LUNGS: Respirations even and unlabored. Lungs diminished bilaterally. HEART: Regular rate and rhythm. S1 and S2 heard. Systolic murmur noted ABDOMEN: Soft. Nondistended. Nontender. EXTREMITIES: Normal range of motion. No clubbing or cyanosis. Peripheral pulses intact. No lower extremity edema NEUROLOGIC: Lethargic. ASSESSMENT: Urinary tract infection and sepsis, present on admission Paroxysmal atrial fibrillation with RVR, currently maintaining sinus mechanism, on anticoagulation with Xarelto Hypotension, likely secondary to UTI/sepsis Valvular heart disease: [id number] aortic regurgitation, mild mitral regurgitation, moderate tricuspid regurgitation Hypertension History of CVA PLAN: No need to repeat echocardiogram as this was performed in March 2020 Continue telemetry monitoring Resume home cardiac medications. Hold for systolic blood pressure less than 90 Continue anticoagulation with Xarelto Further recommendations pending patient's course Nurse practitioner note has been reviewed by physician. Signing provider agrees with the documented findings, assessment, and plan of care. Past Medical History Past Medical History: CVA/TIA, Hypertension, Myocardial Infarction (ND) Additional Past Medical History / Comment(s): UTI Last Myocardial Infarction Date:: 2004 History of Any Multi-Drug Resistant Organisms: None Reported Past Surgical History: Appendectomy, Cholecystectomy, Hysterectomy, Joint Replacement, Orthopedic Surgery Additional Past Surgical History / Comment(s): cataract, rt hip replacement, lt knee replacement Past Anesthesia/Blood Transfusion Reactions: No Reported Reaction Past Psychological History: No Psychological Hx Reported Smoking Status: Unknown if ever smoked Past Alcohol Use History: None Reported Past Drug Use History: None Reported - Past Family History Mother Family Medical History: Congestive Heart Failure (CHF), Deep Vein Thrombosis (DVT), Osteoarthritis (OA) Father Family Medical History: Coronary Artery Disease (CAD), Myocardial Infarction (ND), Prostate Disorder Medications and Allergies Home Medications Medication Instructions Recorded Confirmed Type Metoprolol Tartrate [Lopressor] 12.5 mg PO BID 10/13/19 07/03/20 History Oxybutynin Chloride 5 mg PO BID 10/13/19 07/03/20 History Montelukast [Singulair] 10 mg PO DAILY 04/09/20 07/03/20 History Acetaminophen Tab [Tylenol] 650 mg PO Q6HR PRN tab 04/13/20 07/03/20 Rx Aspirin 81 mg PO DAILY chew 04/13/20 07/03/20 Rx Atorvastatin [Lipitor] 20 mg PO DAILY tab 04/13/20 07/03/20 Rx Calcium Carbonate [Tums] 500 mg PO TID PRN chew 04/13/20 07/03/20 Rx Rivaroxaban [Xarelto] 15 mg PO DAILY tab 04/13/20 07/03/20 Rx Lisinopril [Zestril] 10 mg PO DAILY 07/03/20 07/03/20 History Allergies Allergy/AdvReac Type Severity Reaction Status Date / Time cephalexin [From Keflex] Allergy Unknown Verified 07/03/20 07:49 ciprofloxacin [From Cipro] Allergy Unknown Verified 07/03/20 07:49 iodine Allergy Unknown Verified 07/03/20 07:49 Physical Exam Vitals: Vital Signs Temp Pulse Pulse Resp BP BP Pulse Ox 07/03/20 08:05 97 F L 86 17 87/48 100 07/03/20 04:39 98.4 F 102 H 18 96/54 100 07/03/20 03:30 96 16 89/42 99 07/03/20 02:44 88/55 07/03/20 02:22 81 84/45 07/03/20 02:13 84 15 78/40 98 07/03/20 01:45 130 H 07/03/20 01:16 98.2 F 132 H 18 85/57 97 Intake and Output 07/02/20 07/03/20 07/03/20 22:59 06:59 14:59 Intake Total 240 0 Output Total 0 Balance 240 0 Intake: Oral 240 0 Output: Urine 0 Other: Voiding Method Diaper Incontinent # Voids 1 # Bowel Movements 0 Weight 48.5 kg 48.5 kg Results Current Medications Generic Name Dose Route Start Last Admin Trade Name Freq PRN Reason Stop Dose Admin Aspirin 81 mg 07/04/20 09:00 Aspirin 81 Mg PO DAILY [facility] Atorvastatin Calcium 20 mg 07/03/20 10:00 07/03/20 11:58 Atorvastatin 20 Mg Tab PO Not Given DAILY [facility] Piperacillin Sod/Tazobactam 100 mls @ 25 mls/hr 07/03/20 10:00 07/03/20 09:51 Sod 3.375 gm/ Sodium Chloride IVPB 25 mls/hr Q8H [facility] Administration Sodium Chloride 1,000 mls @ 100 mls/hr 07/03/20 01:30 07/03/20 09:51 Saline 0.9% IV 100 mls/hr .Q10H [facility] Administration Lisinopril 10 mg 07/03/20 10:00 07/03/20 11:59 Lisinopril 10 Mg Tab PO Not Given DAILY [facility] Lorazepam 0.5 mg 07/03/20 01:18 Lorazepam 2 Mg/Ml Inj IV Q6HR PRN Anxiety Metoprolol Tartrate 12.5 mg 07/03/20 10:00 07/03/20 11:59 Metoprolol Tartrate 12.5 Mg Tab PO Not Given BID [facility] Montelukast Sodium 10 mg 07/03/20 13:45 Montelukast 10 Mg Tab PO DAILY [facility] Morphine Sulfate 4 mg 07/03/20 01:18 Morphine Sulfate 4 Mg/Ml Syringe IV Q4HR PRN Severe Pain Naloxone HCl 0.2 mg 07/03/20 01:18 Naloxone 0.4 Mg/Ml 1 Ml Vial IV Q2M PRN Opioid Reversal Oxybutynin Chloride 5 mg 07/03/20 13:45 Oxybutynin Chloride 5 Mg Tab PO BID [facility] Rivaroxaban 15 mg 07/03/20 10:00 07/03/20 11:47 Rivaroxaban 15 Mg Tab PO 15 mg DAILY [facility] Administration Intake and Output 07/02/20 07/03/20 07/03/20 22:59 06:59 14:59 Intake Total 240 0 Output Total 0 Balance 240 0 Intake: Oral 240 0 Output: Urine 0 Other: Voiding Method Diaper Incontinent # Voids 1 # Bowel Movements 0 Weight 48.5 kg 48.5 kg Patient Weight 07/04/20 06:59 Weight 48.5 kg
[2020-07-03 15:05] LABS: Albumin 2.5 g/dL (3.5-5.0); Calcium 8.4 mg/dL (8.4-10.2); Total Protein 4.9 g/dL (6.3-8.2)
[2020-07-03 15:08] LABS: Potassium 4.8 mmol/L (3.5-5.1)
[2020-07-03 15:17] LABS: HCT 27.1 % (34.0-46.0); HGB 8.6 gm/dL (11.4-16.0); Hypochromasia Marked; MCH 31.7 pg (25.0-35.0); MCHC 31.9 g/dL (31.0-37.0); MCV 99.4 fL (80.0-100.0); Mean Platelet Volume 8.8; Platelet Count 116 k/uL (150-450); RBC 2.72 m/uL (3.80-5.40); RDW 14.2 % (11.5-15.5); WBC 34.8 k/uL (3.8-10.6)
[2020-07-03 15:34] LABS: Band Neutrophils % 16 %; Lymphocytes # (M) 0.35 k/uL (1.0-4.8); Metamyelocytes # (M) 0.35 k/uL (0); Metamyelocytes % 1 %; Monocytes # (M) 0.35 k/uL (0-1.0); Neutrophils % (M) 82 %; Nucleated Red Blood Cells 0 /100 WBC (0-0); Total Cells Counted 200; Toxic Granulation Present; Toxic Vacuolation Present
[2020-07-03] MEDS: OXYBUTYNIN CHLORIDE 5 MG TAB PO SCH ×2 (15:59→19:34)
[2020-07-03] MEDS: MONTELUKAST 10 MG TAB PO SCH (15:59)
--- NOTE | 2020-07-03 20:57 | P.HPIM ---
History of Present Illness H&P Date: 07/03/20 History of presenting complaint: Patient is an 84-year-old female with a PMH of paroxysmal A. fib (on Xarelto), hypertension, chronic urinary incontinence, CAD status post MIs in the past, and history of CVA . patient was transferred from [facility]. Diagnosed with UTI with sepsis. Also atrial fibrillation rapid ventricular. Put in IV Cardizem. Patient converted to sinus rhythm this morning. Not the best of historians. tired. Decrease appetite. denied fever and chills. Review of systems: GEN.: Tired EYES: None HEENT: None NECK: None RESPIRATORY: Some cough CARDIOVASCULAR: none GASTROINTESTINAL: None GENITOURINARY: None MUSCULOSKELETAL: Joint pains LYMPHATICS: None HEMATOLOGICAL: None PSYCHIATRY: Forgetful NEUROLOGICAL: None Past medical history to include: Hypertension, paroxysmal atrial fibrillation, cognitive impairment, urinary incontinence, prior [place], CVA,coronary artery disease. Previous IL, chronic gait dysfunction uses a rollator Social history: Lives in a senior apartment complex. Manager Salt weekly. Objective by neighbors. Has a Rollator. Physical examination: VITAL SIGNS:98.2, 132, 18, 85/57, 97% on 2 L-upon presentation GENERAL: BMI 17.3, laying in bed, tired. EYES: Pupils equal. Conjunctiva normal. HEENT: External appearance of nose and ears normal, oral cavity dry mucous membranes NECK: JVD not raised; masses not palpable. HEART: First and second heart sounds are normal; no edema. LUNGS:Respiratory rate increased, decreased breath sound. ABDOMEN: Soft, nontender, liver spleen not palpable, no masses palpable. PSYCH: answering some simple questions MUSCULAR skeletal: Evidence of OA. loss of muscle mass. NEUROLOGICAL: Cranial nerves grossly intact; no facial asymmetry, moving all 4 limbs LYMPHATICS: No lymph nodes palpable in the axilla and neck INVESTIGATIONS, reviewed in the clinical context: white count 34.8, hemoglobin 8.6 platelets 116 potassium 4.8BUN 39 creatinine 1.31 Albumin 2.5 Previous testin04/12/2020: Potassium 3.9 creatinine 0.March. 2-D echocardiogram-EF 45-50%, moderate TR, aortic regurgitation. Assessment: -Paroxysmal atrial fibrillation presented with a rapid ventricular rate on IV C ardizem. Converted to sinus rhythm -Acute kidney injury the baseline creatinine of 0.61 -Moderate cognitive impairment -Essential hypertension -Coronary artery disease with prior MIs -Chronic urinary stress incontinence -Moderate tricuspid regurgitation -Chronic gait dysfunction uses a Rollator -Moderate TR, [id number] aortic regurgitation Plan: DC Zestril.IV fluids. Repeat labs. Continue home medications. Including xarelto. Repeat chest x-ray. Cardiology consulted Past Medical History Past Medical History: CVA/TIA, Hypertension, Myocardial Infarction ([place]) Additional Past Medical History / Comment(s): UTI Last Myocardial Infarction Date:: 2004 History of Any Multi-Drug Resistant Organisms: None Reported Past Surgical History: Appendectomy, Cholecystectomy, Hysterectomy, Joint Replacement, Orthopedic Surgery Additional Past Surgical History / Comment(s): cataract, rt hip replacement, lt knee replacement Past Anesthesia/Blood Transfusion Reactions: No Reported Reaction Past Psychological History: No Psychological Hx Reported Smoking Status: Unknown if ever smoked Past Alcohol Use History: None Reported Past Drug Use History: None Reported - Past Family History Mother Family Medical History: Congestive Heart Failure (CHF), Deep Vein Thrombosis (DVT), Osteoarthritis (OA) Father Family Medical History: Coronary Artery Disease (CAD), Myocardial Infarction ([place]), Prostate Disorder Medications and Allergies Home Medications Medication Instructions Recorded Confirmed Type Metoprolol Tartrate [Lopressor] 12.5 mg PO BID 10/13/19 07/03/20 History Oxybutynin Chloride 5 mg PO BID 10/13/19 07/03/20 History Montelukast [Singulair] 10 mg PO DAILY 04/09/20 07/03/20 History Acetaminophen Tab [Tylenol] 650 mg PO Q6HR PRN tab 04/13/20 07/03/20 Rx Aspirin 81 mg PO DAILY chew 04/13/20 07/03/20 Rx Atorvastatin [Lipitor] 20 mg PO DAILY tab 04/13/20 07/03/20 Rx Calcium Carbonate [Tums] 500 mg PO TID PRN chew 04/13/20 07/03/20 Rx Rivaroxaban [Xarelto] 15 mg PO DAILY tab 04/13/20 07/03/20 Rx Lisinopril [Zestril] 10 mg PO DAILY 07/03/20 07/03/20 History Allergies Allergy/AdvReac Type Severity Reaction Status Date / Time cephalexin [From Keflex] Allergy Unknown Verified 07/03/20 07:49 ciprofloxacin [From Cipro] Allergy Unknown Verified 07/03/20 07:49 iodine Allergy Unknown Verified 07/03/20 07:49 Physical Exam Vitals: Vital Signs Temp Pulse Pulse Resp BP BP Pulse Ox 07/03/20 08:05 97 F L 86 17 87/48 100 07/03/20 04:39 98.4 F 102 H 18 96/54 100 07/03/20 03:30 96 16 89/42 99 07/03/20 02:44 88/55 07/03/20 02:22 81 84/45 07/03/20 02:13 84 15 78/40 98 07/03/20 01:45 130 H 07/03/20 01:16 98.2 F 132 H 18 85/57 97 Intake and Output 07/02/20 07/03/20 07/03/20 22:59 06:59 14:59 Intake Total 240 Output Total 0 Balance 240 Intake: Oral 240 Output: Urine 0 Other: Voiding Method Diaper Incontinent Weight 48.5 kg Results CBC & Chem 7: 07/03/20 14:29 07/03/20 14:29 Thrombosis Risk Factor Assmnt - Choose All That Apply Each Risk Factor Represents 3 Points: Age 75 years or older Thrombosis Risk Factor Assessment Total Risk Factor Score: 3 Thrombosis Risk Factor Assessment Level: Moderate Risk
[2020-07-03] MEDS: ACETAMINOPHEN TAB 325 MG TAB PO PRN (23:08)
[2020-07-04] MEDS: PIPERACILLIN-TAZOBACTAM 3.375 GM in SODIUM CHLORIDE 0.9% 100 ML IVPB SCH ×3 (01:18→17:57)
[2020-07-04 05:02] LABS: Basophils # (A) 0.1 k/uL (0-0.2); Basophils % (A) 0 %; Eosinophils # (A) 0.1 k/uL (0-0.7); Eosinophils % (A) 0 %; HCT 25.1 % (34.0-46.0); Hypochromasia Slight; Lymphocytes # (A) 0.6 k/uL (1.0-4.8); Lymphocytes % (A) 2 %; MCH 30.9 pg (25.0-35.0); MCV 96.7 fL (80.0-100.0); Mean Platelet Volume 8.3; Monocytes # (A) 0.6 k/uL (0-1.0); Monocytes % (A) 2 %; Neutrophils # (A) 22.2 k/uL (1.3-7.7); Neutrophils % (A) 94 %; Platelet Count 112 k/uL (150-450); RBC 2.59 m/uL (3.80-5.40); RDW 14.1 % (11.5-15.5); WBC 23.6 k/uL (3.8-10.6)
[2020-07-04] MEDS: SODIUM CHLORIDE 0.9% 1,000 ML IV SCH ×3 (05:07→21:01)
[2020-07-04 05:15] LABS: Albumin 2.1 g/dL (3.5-5.0); Calcium 8.2 mg/dL (8.4-10.2); Magnesium 1.7 mg/dL (1.6-2.3); Phosphorus 3.7 mg/dL (2.5-4.5); Potassium 3.8 mmol/L (3.5-5.1); Total Bilirubin 0.6 mg/dL (0.2-1.3); Total Protein 4.4 g/dL (6.3-8.2)
--- NOTE | 2020-07-04 09:24 | XR ---
EXAMINATION TYPE: XR chest 2V DATE OF EXAM: 07/04/2020 COMPARISON: 03/13/2018 TECHNIQUE: PA and lateral views submitted. HISTORY: Cough FINDINGS: Hyperinflation compatible COPD and there is diffuse interstitial pattern with bilateral consolidation and small effusion. Diffuse osteopenia and arthropathy of the shoulders. No pneumothorax. IMPRESSION: 1. COPD correlate for CHF otherwise consider interstitial or atypical pneumonia.
[2020-07-04] MEDS: ATORVASTATIN 20 MG TAB PO SCH (12:18)
[2020-07-04] MEDS: ASPIRIN 81 MG PO SCH (12:18)
[2020-07-04] MEDS: METOPROLOL TARTRATE 12.5 MG TAB PO SCH ×2 (12:18→19:40)
[2020-07-04] MEDS: OXYBUTYNIN CHLORIDE 5 MG TAB PO SCH ×2 (12:19→19:40)
[2020-07-04] MEDS: RIVAROXABAN 15 MG TAB PO SCH (12:19)
[2020-07-04] MEDS: MONTELUKAST 10 MG TAB PO SCH (12:19)
[2020-07-04] MEDS: ACETAMINOPHEN TAB 325 MG TAB PO PRN (13:39)
--- NOTE | 2020-07-04 20:31 | P.PN ---
Progress Note - Text Progress Note Date: 07/04/20 History of presenting complaint: Patient is an 84-year-old female with a PMH of paroxysmal A. fib (on Xarelto), hypertension, chronic urinary incontinence, CAD status post MIs in the past, and history of CVA . patient was transferred from [facility]. Diagnosed with UTI with sepsis. Also atrial fibrillation rapid ventricular. Put in IV Cardizem, IV Zosyn. Patient converted to sinus rhythm this morning. Not the best of historians. tired. Decrease appetite. denied fever and chills. Went back into sinus rhythm Today-laying in bed. Tired. Hard of hearing. Eating some. Back in sinus rhythm. [facility] reported gram-negative rods in the blood culture. Review of systems: Attempted for constitutional, cardiovascular, GI, pulmonary. relevant finding as above Active Medications Acetaminophen (Acetaminophen Tab 325 Mg Tab) 650 mg PO Q6HR PRN PRN Reason: Fever and/ or Pain Last Admin: 07/04/20 13:39 Dose: 650 mg Documented by: Aspirin (Aspirin 81 Mg) 81 mg PO DAILY [facility] Last Admin: 07/04/20 12:18 Dose: 81 mg Documented by: Atorvastatin Calcium (Atorvastatin 20 Mg Tab) 20 mg PO DAILY [facility] Last Admin: 07/04/20 12:18 Dose: 20 mg Documented by: Piperacillin Sod/Tazobactam (Sod 3.375 gm/ Sodium Chloride) 100 mls @ 25 mls/hr IVPB Q8H [facility] Last Admin: 07/04/20 17:57 Dose: 25 mls/hr Documented by: Sodium Chloride (Saline 0.9%) 1,000 mls @ 100 mls/hr IV .Q10H [facility] Last Admin: 07/04/20 18:01 Dose: 100 mls/hr Documented by: Lorazepam (Lorazepam 2 Mg/Ml Inj) 0.5 mg IV Q6HR PRN PRN Reason: Anxiety Metoprolol Tartrate (Metoprolol Tartrate 12.5 Mg Tab) 12.5 mg PO BID [facility] Last Admin: 07/04/20 19:40 Dose: 12.5 mg Documented by: Montelukast Sodium (Montelukast 10 Mg Tab) 10 mg PO DAILY [facility] Last Admin: 07/04/20 12:19 Dose: 10 mg Documented by: Naloxone HCl (Naloxone 0.4 Mg/Ml 1 Ml Vial) 0.2 mg IV Q2M PRN PRN Reason: Opioid Reversal Oxybutynin Chloride (Oxybutynin Chloride 5 Mg Tab) 5 mg PO BID [facility] Last Admin: 07/04/20 19:40 Dose: 5 mg Documented by: Rivaroxaban (Rivaroxaban 15 Mg Tab) 15 mg PO DAILY [facility] Last Admin: 07/04/20 12:19 Dose: 15 mg Documented by: Past medical history to include: Hypertension, paroxysmal atrial fibrillation, cognitive impairment, urinary incontinence, prior MS, CVA,coronary artery disease. Previous MS, chronic gait dysfunction uses a rollator Social history: Lives in a senior apartment complex. 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 Has a Rollator. Physical examination: VITAL SIGNS: 99.3, 104, 18, 103/54, 94% room air GENERAL: BMI 17.3, laying in bed, tired. EYES: Pupils equal. Conjunctiva normal. HEENT: External appearance of nose and ears normal, oral cavity dry mucous membranes NECK: JVD not raised; masses not palpable. HEART: First second sounds normal; no edema. LUNGS:Respiratory rate increased, decreased breath sound. ABDOMEN: Soft, nontender, liver spleen not palpable, no masses palpable. PSYCH: answering some simple questions MUSCULAR skeletal: Evidence of OA. loss of muscle mass. INVESTIGATIONS, reviewed in the clinical context: July 04: White count 23.6 hemoglobin 8potassium 3.8 bicarb 15 creatinine 1.3 white count 34.8, hemoglobin 8.6 platelets 116 potassium 4.8BUN 39 creatinine 1.31 Albumin 2.5 Previous testing: Positive UA from [facility] and reported positive blood culture with gram-negative rods 04/12/2020: Potassium 3.9 creatinine 0.March. 2-D echocardiogram-EF 45-50%, moderate TR, aortic regurgitation. Assessment: -Paroxysmal atrial fibrillation presented with a rapid ventricular rate on IV Cardizem. Converted to sinus rhythm -Acute kidney injury the baseline creatinine of 0.61 -Moderate cognitive impairment -Essential hypertension -Coronary artery disease with prior MIs -Chronic urinary stress incontinence -Moderate tricuspid regurgitation -Chronic gait dysfunction uses a Rollator -Moderate TR, [id number] aortic regurgitation -Acute UTI with cystitis, with sepsis with positive blood cultures showing gram- negative rods -Metabolic acidosis from renal failure Plan: Continue with IV fluids. Repeat blood culture ordered. Continue with IV Zosyn. Other medications to continue. Add bicarbonate
[2020-07-04] MEDS: SODIUM BICARBONATE TAB 650 MG TAB PO SCH (21:01)
[2020-07-05] MEDS: PIPERACILLIN-TAZOBACTAM 3.375 GM in SODIUM CHLORIDE 0.9% 100 ML IVPB SCH ×3 (01:00→18:29)
[2020-07-05] MEDS: SODIUM CHLORIDE 0.9% 1,000 ML IV SCH ×2 (06:07→20:40)
[2020-07-05 08:17] LABS: Calcium 8.4 mg/dL (8.4-10.2); Potassium 3.9 mmol/L (3.5-5.1)
[2020-07-05 08:56] LABS: HCT 29.1 % (34.0-46.0); HGB 9.3 gm/dL (11.4-16.0); Hypochromasia Slight; MCH 31.5 pg (25.0-35.0); MCV 98.5 fL (80.0-100.0); Mean Platelet Volume 8.2; Platelet Count 136 k/uL (150-450); RBC 2.96 m/uL (3.80-5.40); RDW 14.2 % (11.5-15.5); WBC 15.5 k/uL (3.8-10.6)
[2020-07-05] MEDS: OXYBUTYNIN CHLORIDE 5 MG TAB PO SCH ×2 (10:24→20:40)
[2020-07-05] MEDS: ASPIRIN 81 MG PO SCH (10:24)
[2020-07-05] MEDS: ATORVASTATIN 20 MG TAB PO SCH (10:24)
[2020-07-05] MEDS: SODIUM BICARBONATE TAB 650 MG TAB PO SCH ×3 (10:24→20:39)
[2020-07-05] MEDS: MONTELUKAST 10 MG TAB PO SCH (10:24)
[2020-07-05] MEDS: METOPROLOL TARTRATE 12.5 MG TAB PO SCH ×2 (10:24→20:40)
[2020-07-05] MEDS: RIVAROXABAN 15 MG TAB PO SCH (10:25)
[2020-07-05] MEDS: ACETAMINOPHEN TAB 325 MG TAB PO PRN (20:39)
--- NOTE | 2020-07-05 20:48 | P.PN ---
Progress Note - Text Progress Note Date: 07/05/20 History of presenting complaint: Patient is an 84-year-old female with a PMH of paroxysmal A. fib (on Xarelto), hypertension, chronic urinary incontinence, CAD status post MIs in the past, and history of CVA . patient was transferred from [facility]. Diagnosed with UTI with sepsis. Also atrial fibrillation rapid ventricular. Put in IV Cardizem, IV Zosyn. Patient converted to sinus rhythm this morning. Not the best of historians. tired. Decrease appetite. denied fever and chills. Went back into sinus rhythm Today-laying in bed. Tired. Hard of hearing. Eating about 25%. Cultures from the outside hospital showing E. coli.(Not ESBL} Review of systems: Attempted for constitutional, cardiovascular, GI, pulmonary. relevant finding as above Active Medications Acetaminophen (Acetaminophen Tab 325 Mg Tab) 650 mg PO Q6HR PRN PRN Reason: Fever and/ or Pain Last Admin: 07/05/20 20:39 Dose: 650 mg Documented by: Aspirin (Aspirin 81 Mg) 81 mg PO DAILY [facility] Last Admin: 07/05/20 10:24 Dose: 81 mg Documented by: Atorvastatin Calcium (Atorvastatin 20 Mg Tab) 20 mg PO DAILY [facility] Last Admin: 07/05/20 10:24 Dose: 20 mg Documented by: Piperacillin Sod/Tazobactam (Sod 3.375 gm/ Sodium Chloride) 100 mls @ 25 mls/hr IVPB Q8H [facility] Last Admin: 07/05/20 18:29 Dose: 25 mls/hr Documented by: Sodium Chloride (Saline 0.9%) 1,000 mls @ 75 mls/hr IV .[id number] [facility] Last Admin: 07/05/20 20:40 Dose: 75 mls/hr Documented by: Lorazepam (Lorazepam 2 Mg/Ml Inj) 0.5 mg IV Q6HR PRN PRN Reason: Anxiety Metoprolol Tartrate (Metoprolol Tartrate 12.5 Mg Tab) 12.5 mg PO BID [facility] Last Admin: 07/05/20 20:40 Dose: 12.5 mg Documented by: Montelukast Sodium (Montelukast 10 Mg Tab) 10 mg PO DAILY [facility] Last Admin: 07/05/20 10:24 Dose: 10 mg Documented by: Naloxone HCl (Naloxone 0.4 Mg/Ml 1 Ml Vial) 0.2 mg IV Q2M PRN PRN Reason: Opioid Reversal Oxybutynin Chloride (Oxybutynin Chloride 5 Mg Tab) 5 mg PO BID [facility] Last Admin: 07/05/20 20:40 Dose: 5 mg Documented by: Rivaroxaban (Rivaroxaban 15 Mg Tab) 15 mg PO DAILY [facility] Last Admin: 07/05/20 10:25 Dose: 15 mg Documented by: Sodium Bicarbonate (Sodium Bicarbonate Tab 650 Mg Tab) 650 mg PO TID [facility] Last Admin: 07/05/20 20:39 Dose: 650 mg Documented by: Past medical history to include: Hypertension, paroxysmal atrial fibrillation, cognitive impairment, urinary incontinence, prior CT, CVA,coronary artery disease. Previous CT, chronic gait dysfunction uses a rollator Social history: Lives in a senior apartment complex. 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 Has a Rollator. Physical examination: VITAL SIGNS: 98.3, 86, 16, 102/57, 98% 2 L GENERAL: BMI 17.3, laying in bed, tired. EYES: Pupils equal. Conjunctiva normal. HEENT: External appearance of nose and ears normal, oral cavity dry mucous membranes NECK: JVD not raised; masses not palpable. HEART: First second sounds normal; no edema. LUNGS:Respiratory rate increased, decreased breath sound. ABDOMEN: Soft, nontender, liver spleen not palpable, no masses palpable. PSYCH: answering some simple questions MUSCULAR skeletal: Evidence of OA. loss of muscle mass. INVESTIGATIONS, reviewed in the clinical context: July 05: White count 15.5 hemoglobin 9.3 potassium 3.9 bicarbonate 13 July 04: White count 23.6 hemoglobin 8potassium 3.8 bicarb 15 creatinine 1.3 white count 34.8, hemoglobin 8.6 platelets 116 potassium 4.8BUN 39 creatinine 1.31 Albumin 2.5 Previous testing: Positive UA from [facility] and reported positive blood culture with E. coli 04/12/2020: Potassium 3.9 creatinine 0.March. 2-D echocardiogram-EF 45-50%, moderate TR, aortic regurgitation. Assessment: -Paroxysmal atrial fibrillation presented with a rapid ventricular rate on IV Cardizem. Converted to sinus rhythm -Acute kidney injury the baseline creatinine of 0.61 -Moderate cognitive impairment -Essential hypertension -Coronary artery disease with prior MIs -Chronic urinary stress incontinence -Moderate tricuspid regurgitation -Chronic gait dysfunction uses a Rollator -Moderate TR, [id number] aortic regurgitation -Acute UTI with cystitis, with sepsis with positive blood cultures showing E. coli. Repeat blood cultures negative. -Metabolic acidosis from renal failure-started on bicarbonate Plan: Continue with IV fluids., IV Zosyn., bicarbonate. Patient may be discharged tomorrow on Augmentin for 7 days.
[2020-07-05 23:08] VITALS: RESP 18
[2020-07-06] MEDS: PIPERACILLIN-TAZOBACTAM 3.375 GM in SODIUM CHLORIDE 0.9% 100 ML IVPB SCH ×2 (01:21→08:54)
[2020-07-06 05:26] VITALS: TEMP 97.6
[2020-07-06] MEDS: MONTELUKAST 10 MG TAB PO SCH (08:52)
[2020-07-06] MEDS: ATORVASTATIN 20 MG TAB PO SCH (08:52)
[2020-07-06] MEDS: SODIUM BICARBONATE TAB 650 MG TAB PO SCH (08:52)
[2020-07-06] MEDS: RIVAROXABAN 15 MG TAB PO SCH (08:52)
[2020-07-06] MEDS: ASPIRIN 81 MG PO SCH (08:52)
[2020-07-06] MEDS: METOPROLOL TARTRATE 12.5 MG TAB PO SCH (08:52)
[2020-07-06] MEDS: OXYBUTYNIN CHLORIDE 5 MG TAB PO SCH (08:52)
[2020-07-06 09:25] LABS: HGB 7.9 gm/dL (11.4-16.0); Hypochromasia Marked; MCH 30.1 pg (25.0-35.0); MCHC 30.2 g/dL (31.0-37.0); MCV 99.5 fL (80.0-100.0); Mean Platelet Volume 8.5; Platelet Count 129 k/uL (150-450); RBC 2.61 m/uL (3.80-5.40); RDW 14.4 % (11.5-15.5); WBC 14.6 k/uL (3.8-10.6)
[2020-07-06] MEDS ORDERED: CEFDINIR 300 MG CAP PO STA ×2 (11:11→14:15)
--- NOTE | 2020-07-06 11:38 | P.DS ---
Providers Date of admission: 07/03/20 01:18 Attending physician: Sohail Tyler Primary care physician: [facility] Course: 84-year-old female with a PMH of paroxysmal A. fib (on Xarelto), hypertension, chronic urinary incontinence, CAD status post MIs in the past, and history of CVA . patient was transferred from [facility]. Diagnosed with UTI with sepsis. Also atrial fibrillation rapid ventricular. Put in IV Cardizem, IV Zosyn. Patient converted to sinus rhythm this morning. Not the best of historians. tired. Decrease appetite. denied fever and chills. Went back into sinus rhythm Today-laying in bed. Tired. Hard of hearing. Eating about 25%. Cultures from the outside hospital showing E. coli.(Not ESBL} 06/05/2020 Patient is on Zosyn with improvement in white blood cell count. Although patient had E. coli which is resistant to ampicillin and intermediate susceptible to Augmentin because of which I cannot discharge patient on Augmentin unfortunately patient has an ALLERGIC to cephalexin and ALLERGIC to ciprofloxacin as well as iodine. Patient will be given by mouth cephalosporin here if she doesn't have any ALLERGIC reaction patient will be discharged on Ceftin percent 7 more days. The patient is sleepy as she received Seroquel last night because of sundowners. The sundowners is expected to improve upon her disposition back to her senior living. PHYSICAL EXAMINATION: GENERAL: Drowsy sleepy HEENT: Pupils are round and equally reacting to light. EOMI. No scleral icterus. No conjunctival pallor. Normocephalic, atraumatic. No pharyngeal erythema. No thyromegaly. CARDIOVASCULAR: S1 and S2 present. No murmurs, rubs, or gallops. PULMONARY: Unable to assess ABDOMEN: Soft, nontender, nondistended, normoactive bowel sounds. No palpable organomegaly. MUSCULOSKELETAL: No joint swelling or deformity. EXTREMITIES: No cyanosis, clubbing, or pedal edema. NEUROLOGICAL: Unable to assess SKIN: No rashes. -Paroxysmal atrial fibrillation presented with a rapid ventricular rate on IV Cardizem. Converted to sinus rhythm -Acute kidney injury the baseline creatinine of 0.61 -Moderate cognitive impairment -Essential hypertension -Coronary artery disease with prior MIs -Chronic urinary stress incontinence -Moderate tricuspid regurgitation -Chronic gait dysfunction uses a Rollator -Moderate TR, [id number] aortic regurgitation -Acute UTI with cystitis, with sepsis with positive blood cultures showing E. coli. Repeat blood cultures negative. -Metabolic acidosis from renal failure-started on bicarbonate Patient Condition at Discharge: Fair Plan - Discharge Summary Discharge Rx Participant: No New Discharge Prescriptions: New Cefuroxime Axetil [Ceftin] 500 mg PO BID 7 Days #14 tab Continue Oxybutynin Chloride 5 mg PO BID Metoprolol Tartrate [Lopressor] 12.5 mg PO BID Montelukast [Singulair] 10 mg PO DAILY Aspirin 81 mg PO DAILY chew Atorvastatin [Lipitor] 20 mg PO DAILY tab Calcium Carbonate [Tums] 500 mg PO TID PRN chew PRN Reason: Heartburn Acetaminophen Tab [Tylenol] 650 mg PO Q6HR PRN tab PRN Reason: Pain Rivaroxaban [Xarelto] 15 mg PO DAILY tab Discontinued Lisinopril [Zestril] 10 mg PO DAILY Discharge Medication List Metoprolol Tartrate [Lopressor] 12.5 mg PO BID 10/13/19 [History] Oxybutynin Chloride 5 mg PO BID 10/13/19 [History] Montelukast [Singulair] 10 mg PO DAILY 04/09/20 [History] Acetaminophen Tab [Tylenol] 650 mg PO Q6HR PRN tab 04/13/20 [Rx] Aspirin 81 mg PO DAILY chew 04/13/20 [Rx] Atorvastatin [Lipitor] 20 mg PO DAILY tab 04/13/20 [Rx] Calcium Carbonate [Tums] 500 mg PO TID PRN chew 04/13/20 [Rx] Rivaroxaban [Xarelto] 15 mg PO DAILY tab 04/13/20 [Rx] Cefuroxime Axetil [Ceftin] 500 mg PO BID 7 Days #14 tab 07/06/20 [Rx] Follow up Appointment(s)/Referral(s): Sung Mejía MD [Primary Care Provider] - 1-2 days Discharge Disposition: TRANSFER TO SNF/ECF
[2020-07-06 14:04] VITALS: BMI 19.3
[2020-07-06 15:37] VITALS: BP 135/50; PULSE 97
== END 2020-07-06 17:14 | DRG 872 ==
LOC: EC 01:11 → 3SCARD 01:18
PROVIDERS: ADMIT Hospitalist; ATTEND Hospitalist
DX: A41.51 Sepsis due to Escherichia coli [E. coli] (principal); E87.2 Acidosis; N17.9 Acute kidney failure, unspecified; H91.90 Unspecified hearing loss, unspecified ear; F03.90 Unspecified dementia, unspecified severity, without behavioral disturbance, psychotic disturbance, mood disturbance, and anxiety; I08.3 Combined rheumatic disorders of mitral, aortic and tricuspid valves; I10 Essential (primary) hypertension; I25.10 Atherosclerotic heart disease of native coronary artery without angina pectoris; I27.20 Pulmonary hypertension, unspecified; N30.91 Cystitis, unspecified with hematuria; Z96.652 Presence of left artificial knee joint; Z96.641 Presence of right artificial hip joint; I48.0 Paroxysmal atrial fibrillation; N39.3 Stress incontinence (female) (male); R26.9 Unspecified abnormalities of gait and mobility; R41.89 Other symptoms and signs involving cognitive functions and awareness; Z20.822 Contact with and (suspected) exposure to COVID-19; I25.2 Old myocardial infarction; Z79.899 Other long term (current) drug therapy; Z79.82 Long term (current) use of aspirin; Z79.01 Long term (current) use of anticoagulants; Z88.1 Allergy status to other antibiotic agents; Z91.041 Radiographic dye allergy status; Z86.73 Personal history of transient ischemic attack (TIA), and cerebral infarction without residual deficits; Z90.49 Acquired absence of other specified parts of digestive tract; Z90.89 Acquired absence of other organs; Z98.890 Other specified postprocedural states; Z90.710 Acquired absence of both cervix and uterus; Z82.49 Family history of ischemic heart disease and other diseases of the circulatory system; Z82.61 Family history of arthritis; Z98.49 Cataract extraction status, unspecified eye
CPT/HCPCS: 71046; 80048; 80053; 83605; 83735; 84100; 85025; 85027; 87040; 87635; 93005; 96361; 96365; 96375; 99285